=== PATIENT | female | born 1985 | race Caucasian/White ===

== ENCOUNTER 2019-09-20 19:46 | Outpatient (CLI) | payer MEDICAID, SELFPAY ==
[2013-06-09 00:23] VITALS: BMI 17.2
[2019-09-20 20:09] VITALS: BMI 19.1
[2019-09-20 20:11] VITALS: TEMP 36.8; O2SAT 100
[2019-09-20 20:12] VITALS: BP 100/59; PULSE 81; O2SAT 100
[2019-09-20 21:23] LABS: Color, Urine Yellow (Yellow); Glucose, Dipstick Normal (Normal); Ketone-Dipstick Negative (Negative); Leukocyte Esterase-Dipstick 100 /ul (Negative); Nitrite-Dipstick Negative (Negative); Occult Blood-Urine 150 /ul (Negative); Protein-Dipstick 15 mg/dl (Negative); Urine Bilirubin Dipstick Negative (Negative); Urine Clarity Sl. Cloudy (Clear); Urine Urobilinogen 4 mg/dl (Normal); Urine pH 6.5 (5.0 - 8.0)
[2019-09-20 21:32] LABS: Bacteria 1+ /hpf (None Seen); Mucous, Urine 1+ /hpf (<or=2+); Red Blood Cells-Urine 0-5 SEEN /hpf (0-5); Squamous Epithelial Cells - UA 5-10 SEEN /hpf (5-10); White Blood Cells 5-10 SEEN /hpf (0-5)
--- NOTE | 2019-09-21 14:44 | OB.TRI.HP_ITS ---
History of Present Illness Date of Service: 09/20/19 Was patient seen by the physician?: No Reason For Visit: VAGINAL BLEEDING Date of Service: 09/20/19 Final HIREN: 12/19/19 Gestational age: 27 Weeks and 1 Days Allergies No Known Allergies Allergy (Verified 06/09/13 00:30) Laboratory Studies: Laboratory Tests 09/20/19 Range/Units 21:10 Urine Color Yellow (Yellow) Urine Clarity Sl. Cloudy (Clear) Urine pH 6.5 (5.0 - 8.0) Ur Specific [place] 1.020 (1.002-1.030) Urine Protein 15 H (Negative) mg/dl Urine Glucose (UA) Normal (Normal) mg/dl Urine Ketones Negative (Negative) mg/dl Urine Occult Blood 150 H (Negative) /ul Urine Nitrite Negative (Negative) Urine Bilirubin Negative (Negative) mg/dL Urine Urobilinogen 4 H (Normal) mg/dl Ur Leukocyte Esterase 100 H (Negative) /ul Urine RBC 0-5 SEEN (0-5) /hpf Urine WBC 5-10 SEEN (0-5) /hpf Ur Squamous Epith Cells 5-10 SEEN (5-10) /hpf Urine Bacteria 1+ (None Seen) /hpf Urine Mucus 1+ (<or=2+) /hpf Physical Exam Vitals: Vital Signs Temp Pulse BP Pulse Ox 98.3 F 81 100/59 L 100 09/20/19 20:11 09/20/19 20:12 09/20/19 20:12 09/20/19 20:12 NST - FHR Rate Baby A Baseline: 135 Variability:: Moderate Accelerations:: 10 x 10 Decelerations:: None NST Reactive:: Appropriate for gestational age FHR Category:: Category I Uterine Activity:: quiet Impression/Plan 34 YOF @ 27 1/7 weeks gestation with vaginal bleeding in second trimester no active bleeding Reassuring NST home and f/u as needed or as scheduled
== END 2019-09-20 21:10 | disposition home or self-care (01) ==
LOC: WPOUT 19:57 → WP 19:57
PROVIDERS: PCP Family Medicine; Visit Provider Advanced Practice Midwife
DX: O46.92 Antepartum hemorrhage, unspecified, second trimester (principal); Z3A.27 27 weeks gestation of pregnancy
CPT/HCPCS: 59050; 81001; 87086; 87088; 99218; G0378

== ENCOUNTER 2019-11-06 09:25 | Outpatient (CLI) | payer MEDICAID, SELFPAY ==
[2019-11-06] VITALS (15 sets, daily range): BP systolic 93–101; BP diastolic 51–57; PULSE 73–107; TEMP 36.7–39.1; O2SAT 97–100; BMI 19.4
[2019-11-06 10:52] LABS: ROM Internal Control Test YES-OK TO RESULT pt. (Internal QC)
[2019-11-06 10:53] LABS: ROM Patient Test POSITIVE (Negative)
[2019-11-06 12:01] LABS: Amphetamine Urine VISTA NEGATIVE (<1000 ng/mL); Barbiturate Urine VISTA NEGATIVE (< 200 ng/mL); Benzodiazepine Urine VISTA NEGATIVE (< 200 ng/mL); Cocaine Urine VISTA NEGATIVE (< 300 ng/mL); Ecstacy Urine VISTA NEGATIVE (< 500 ng/mL); Methadone Urine VISTA NEGATIVE (< 300 ng/mL); PCP Urine VISTA NEGATIVE (< 25 ng/mL); THC Urine VISTA NEGATIVE (< 50 ng/mL); Vista UDS pH Range 7
[2019-11-06] MEDS: Betamethasone/Betamethasone 30 MG/5 ML Vial 12 MG IM (12:05)
--- NOTE | 2019-11-06 12:10 | US_ITS ---
STUDY: SECOND AND THIRD TRIMESTER OBSTETRICAL ULTRASOUND REASON FOR EXAM: Female, 34 years old GROWTH AND SHELTON- PROM LMP: 03/14/2019 TECHNIQUE: Transabdominal TECHNICAL QUALITY: Adequate. PRIOR ULTRASOUND: None. FINDINGS: There is a single intrauterine fetus. The fetus is in a cephalic presentation. There is demonstrated cardiac activity with a heart rate of 128 bpm. There is a normal amniotic fluid volume. The largest amniotic fluid pocket measures 6.9 cm. The amniotic fluid index (SHELTON) is 22.5 cm. The placenta is anterior in location and is not low lying. There are Grade 1 placental changes. The cervix measures in length. The bilateral adnexal regions are normal. BIOMETRY: BPD: 8.1: 32 weeks, 5 days HC: 30.2: 33 weeks, 4 days AC: 29.1: 33 weeks, 1 days FL: 6.7: 34 weeks, 4 days age by current US: 33 weeks, 4 days. HIREN by current US: 12/21/2019. Estimated weight: 2203 grams, +/- 322 grams, 32 %. Age by LMP: 33 weeks, 6 days. HIREN by LMP: 12/19/2019. US/OB Limited With Biometrics IMPRESSION: age by current US: 33 weeks, 4 days. HIREN by current US: 12/21/2019. Estimated weight: 2203 grams, +/- 322 grams, 32 %. The largest amniotic fluid pocket measures 6.9 cm. The amniotic fluid index (SHELTON) is 22.5 cm. Electronically Signed: Evelia Chaudhry, at 14:04 EDT Tel , Service support ,
[2019-11-06] MEDS: Lactated Ringers 1,000 ML 50 ML IV (12:15)
[2019-11-06 12:46] LABS: Absolute Lymphocyte Count 1.81 X10^3/uL (0.83-4.51); Absolute Neutrophil Count 6.5 X10^3/uL (2.0-7.7); Basophil# 0.02 X10^3/uL; Basophil% 0.2 % (0-1); Eosinophil# 0.08 X10^3/uL; Eosinophils% 0.9 % (0-5); Hematocrit 31.6 % (37-47); Lymphocyte # 1.81 X10^3/ul (4.0); Mean Corp Hgb Conc 31.6 g/dL (32-36); Mean Corpuscular Hgb 31.5 pg (27.0-32.0); Mean Corpuscular Volume 99.7 fL (81-99); Mean Platelet Vol. 11.3 fl (6.2-12.0); Monocyte% 6.6 % (0-10); NRBC Flagged by Analyzer 0 % (0-5); Neutrophil # 6.47 X10^3/uL (2.7-7.7); Neutrophil % 71.4 % (47-70); Platelet Count 169 K/mm3 (150-450); RBC Distribution Width CV 12.7 % (11.6-14.6); RBC Distribution Width SD 45.8 fl (35.1-43.9); Red Blood Count 3.17 M/mm3 (4.2-5.4); White Blood Count 9.1 K/mm3 (4.4-11.0)
[2019-11-06 13:44] LABS: Group B Strep DNA By PCR Negative (Negative); Internal Control PASS; Probe Check PASS; Specimen Processing Control PASS
--- NOTE | 2019-11-06 18:22 | PCM.HP.OB ---
History Date of Admission: 11/06/19 Final HIREN: 12/19/19 Gestational age: 33 Weeks and 6 Days History of this : 34-year-old 3 para 1-0-1-0 33-6/7 weeks gestation presents complaining of some vaginal bleeding. She denied any regular contractions. She denied any cervical exams or intercourse or trauma. Her is complicated to date by anxiety, tobacco use, history of genital herpes, and history of previous 38-week IUFD 7 years ago. She also noted she had some watery fluid. She had a ROM + test collected that was positive but there was blood on the swab. She denies fever or chills. no pain with movement. Allergies No Known Allergies Allergy (Verified 06/09/13 00:30) Home Medications: Home Medications Sertraline HCl [Zoloft] 100 mg PO DAILY 09/20/19 busPIRone [Buspar] 2.5 mg PO DAILY 09/20/19 Vits [Prenatabs FA] 1 tab PO DAILY 11/06/19 Smoking Status: Light Smoker (<10/day) Substance Use Type: Anxiety Medications NST - FHR Rate Baby A Baseline: normal Variability:: Moderate Accelerations:: 15 x 15 Decelerations:: None NST Reactive:: Yes FHR Category:: Category I Uterine Activity:: quiet History Past Pregnancies: Past Pregnancies Delivery Date Name GA/ Weeks Outcome Route Wt Sex Labor Length Anesthesia Delivery Location Provider FOB Expected Delivery Method: Spontaneous Vaginal Review of Systems Constitutional: Denies: Anorexia, Chills, Fever Eyes: Denies: Blurred vision Cardiovascular: Denies: Chest Pain Respiratory: Denies: Cough Gastrointestinal: Denies: Abdominal Pain, Diarrhea Genitourinary: Denies: Dysuria Skin: Denies: Rash Neurological: Denies: Blurred vision Endocrine: Reports: - - anxiety Physical Exam Vitals: Vital Signs Temp Pulse BP Pulse Ox 98.5 F 79 93/54 L 99 11/06/19 15:27 11/06/19 15:27 11/06/19 15:27 11/06/19 15:27 General: Alert, Cooperative, No apparent distress Cardiovascular: Regular rate Lungs: Normal air movement Abdomen: Soft, Non Tender, Non-Distended, Gravid Extremities:: No edema Neurological: Cranial nerves II-XII grossly intact, Neuro grossly intact, Muscle tone normal. 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 pooling. Cervix smooth and nonfriable, pink. Estimated gestational size: Appropriate for gestational size Presentation: Cephalic Assessment/Plan This is a 34 year-old, @ 33 6/7 weeks gestation. Initially suspected PPROM. Now here for vaginal bleeding and threatened PTL fern collected, neg. No further signif. leaking. Minimal amount of brown discharge on pad last 6 hrs. testing reassuring. ROM+ likely false + b/c of blood. Monitor tonight. Testing reassuring. Growth and fluid normal. Reevaluate in the am. If no further bleeding likely d/c home after second dose of betamethasone. Ok for regular diet, activity ad rios and NST q shift. Reviewed findings/plan w/ patient and she states understanding and agreement. H/o term IUFD so patient understandably anxious.
[2019-11-06] MEDS: Sertraline 100 MG Tablet PO (21:51)
[2019-11-07 04:14] VITALS: BP 100/58; PULSE 75; TEMP 36.2
[2019-11-07 06:22] LABS: Hematocrit 28.9 % (37-47); Hemoglobin 9.5 g/dL (12.0-15.0); Mean Corp Hgb Conc 32.9 g/dL (32-36); Mean Corpuscular Hgb 32.3 pg (27.0-32.0); Mean Corpuscular Volume 98.3 fL (81-99); Mean Platelet Vol. 10.4 fl (6.2-12.0); Platelet Count 172 K/mm3 (150-450); RBC Distribution Width CV 12.3 % (11.6-14.6); RBC Distribution Width SD 43.8 fl (35.1-43.9); Red Blood Count 2.94 M/mm3 (4.2-5.4); White Blood Count 11.1 K/mm3 (4.4-11.0)
[2019-11-07 07:12] LABS: Fibrinogen 577 mg/dl (203-444)
[2019-11-07 07:30] VITALS: BP 104/59; PULSE 82; TEMP 38.2; O2SAT 100
[2019-11-07 07:31] VITALS: TEMP 37.1; O2SAT 100
--- NOTE | 2019-11-07 08:52 | PN.OBGYN_ITS ---
Subjective: No abdominal pain, some mild cramping. Does not appreciate contractions and would not time them if she was at home. Continues to have some dark brown mucus spotting. No abdominal pain. Good FM. - Physical Exam Vitals/I&O's: Vital Signs Temp Pulse BP Pulse Ox 98.8 F 82 104/59 L 100 11/07/19 07:31 11/07/19 07:30 11/07/19 07:30 11/07/19 07:31 Weight: 53.07 kg Body Mass Index (BMI) 19.4 Intake and Output for Last 24 Hours 11/05/19 11/06/19 11/07/19 23:59 23:59 23:59 Intake Total 56.67 / 56.67 Balance 56.67 / 56.67 General: Alert, Cooperative, No apparent distress Abdomen: Soft, Non Tender, Non-Distended, Gravid, Appropriate for Gestational Age Extremities: No edema Skin: No rashes Psych/Mental Status: Normal Affect Laboratory Results 11/06/19 10:35: Vag Amniotic Fld Detect POSITIVE H 11/06/19 11:25: Group B Strep DNA Negative, Specimen Comment Not Reportable 11/06/19 11:25: Urine Opiates Screen NEGATIVE, Urine Methadone Screen NEGATIVE, Ur Barbiturates Screen NEGATIVE, Ur Phencyclidine Scrn NEGATIVE, Ur Amphetamines Screen NEGATIVE, U Methamphetamin-MDMA NEGATIVE, U Benzodiazepines Scrn NEGATIVE, Urine Cocaine Screen NEGATIVE, U Cannabinoids Screen NEGATIVE, Ur Drug Screen Comment 11/06/19 12:15: WBC 9.1, RBC 3.17 L, Hgb 10.0 L, Hct 31.6 L, MCV 99.7 H, MCH 31.5, MCHC 31.6 L, RDW Std Deviation 45.8 H, RDW Coeff of Susanna 12.7, Plt Count 169, MPV 11.3, Immature Gran % (Auto) 0.900, Neut % (Auto) 71.4 H, Lymph % (Auto) 20.0, [place] % (Auto) 6.6, Eos % (Auto) 0.9, Baso % (Auto) 0.2, Absolute Neuts (auto) 6.5, Absolute Lymphs (auto) 1.81, Nucleated RBC % 0 11/06/19 12:15: Blood Type A POSITIVE, Antibody Screen NEGATIVE 11/07/19 06:15: WBC 11.1 H, RBC 2.94 L, Hgb 9.5 L, Hct 28.9 L, MCV 98.3, MCH 32.3 H, MCHC 32.9, RDW Std Deviation 43.8, RDW Coeff of Susanna 12.3, Plt Count 172, MPV 10.4 11/07/19 06:15: Fibrinogen 577 H Current Medications Betamethasone Acet/Betameth SodPhos (Celestone) 12 mg IM X1 ONE Stop: 11/07/19 12:06 Buspirone HCl (Buspar) 2.5 mg PO DAILY [facility] Lactated Ringer's () 1,000 mls @ 50 mls/hr IV .Q20H IVETTE Last Infusion: 11/06/19 16:25 Dose: 0 mls/hr Documented by: Nicotine (Nicoderm Cq (Pbkc)) 7 mg TRANSDERM. 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 Normal perineum. Normal labia majora and minora. Vagina with pink normal rugated and good support. Cervix is smooth and nonfriable. There is small amount of brown-tinged mucus discharge in the vault. Negative pooling. Attempted to collect ROM plus test however the swab was grossly bloody so it was not sent. Cervix is 1, 50% effaced, -4 station and ballotable. Bag of lawson palpated. When head is digitally elevated, no return of fluid noted. Stress test: Baseline normal. Variability is moderate. Accelerations are present 15 x 15 bpm, decelerations are absent. Test is reactive. Tocometer shows uterine ability with some irregular contractions. Assessment and plan 34-year-old 3 para 1-0-1-0 at 34-0/7 weeks gestation with threatened labor and vaginal bleeding. I discussed with her at this time I do not see any evidence of placental abruption. Labs are stable. Testing is reassuring. Would recommend kick counts, pelvic rest, and light activity. Follow-up in the office 11/10/2019 for nonstress test. Call or return if any further bleeding or issues. Patient is comfortable with this plan if the fern slide by collected today is negative for ferning. I will notify nursing of the results.
--- NOTE | 2019-11-07 12:37 | NURSING ---
Dr. Urena called to notify that fern test is negative. Patient can be discharged after receiving her Celestone injection.
[2019-11-07 13:00] VITALS: BP 100/56; PULSE 81; PULSE 82; TEMP 37.1; O2SAT 100
[2019-11-07] MEDS: Betamethasone/Betamethasone 30 MG/5 ML Vial 12 MG IM (13:03)
== END 2019-11-07 13:25 | disposition home or self-care (01) ==
LOC: WPOUT 09:30 → WP 09:31
PROVIDERS: PCP Family Medicine; Referring Provider Obstetrics & Gynecology; Visit Provider Obstetrics & Gynecology
DX: O60.03 Preterm labor without delivery, third trimester (principal); Z3A.34 34 weeks gestation of pregnancy; O99.333 Smoking (tobacco) complicating pregnancy, third trimester; F17.200 Nicotine dependence, unspecified, uncomplicated
CPT/HCPCS: 36415; 59025; 59050; 76816; 80307; 84112; 85025; 85027; 85384; 86850; 86900; 86901; 87081; 87653; 96372; 99218; J7120; G0378; J0702

== ENCOUNTER 2019-11-09 14:50 | Inpatient (IN) | payer MEDICAID, SELFPAY ==
[2019-11-06 10:23] VITALS: BMI 19.4
[2019-11-09] VITALS (35 sets, daily range): BP systolic 95–126; BP diastolic 51–72; PULSE 61–98; TEMP 36.8–38.5; O2SAT 81–100; BMI 19.8
[2019-11-09] MEDS: Lactated Ringers 1,000 ML 50 ML IV (15:15)
[2019-11-09 15:31] LABS: ROM Internal Control Test YES-OK TO RESULT pt. (Internal QC)
[2019-11-09 15:32] LABS: ROM Patient Test POSITIVE (Negative)
--- NOTE | 2019-11-09 15:42 | HP.PCM_ITS ---
- Problem List (1) 34 weeks gestation of Status: Acute (2) premature rupture of membranes (PPROM) with unknown onset of labor Status: Acute (3) History of stillbirth Status: Acute (4) Limited care Status: Acute (5) Anxiety Status: Acute (6) Tobacco abuse Status: Acute (7) Herpes Status: Acute History Date of Admission: 11/06/19 Final HIREN: 12/19/19 Gestational age: 34 Weeks and 2 Days History of this : This is a 34 year-old, who presents at 34 weeks gestation of age with gross rupture of membranes at home. She feels some contractions. No additional vaginal bleeding after having bleeding several days ago. Positive movement. Allergies No Known Allergies Allergy (Verified 11/09/19 15:09) Home Medications: Home Medications Sertraline HCl [Zoloft] 100 mg PO DAILY 09/20/19 busPIRone [Buspar] 2.5 mg PO DAILY 09/20/19 Vits [Prenatabs FA ] 1 tab PO DAILY 11/06/19 Smoking Status: Light Smoker (<10/day) Substance Use Type: Anxiety Medications Number of Fetus(es): 1 NST - FHR Rate Baby A FHR Category:: Category I Uterine Activity:: Ctx's q 3-4 min History Past Pregnancies: Past Pregnancies Delivery Date Name GA/ Weeks Outcome Route Wt Infant Sex Labor Length Anesthesia Delivery Location Provider FOB 38 IUFD Labs: GBS neg See [facility] records Expected Delivery Method: Spontaneous Vaginal Physical Exam General: Alert, No apparent distress HEENT: Atraumatic Abdomen: Gravid Extremities:: No edema Neurological: Neuro grossly intact 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 - GBS negative - S/p BMZ x 2 - Epidural for pain control -Discussed risks, benefits, alternatives to induction of labor. Discussed risk, benefits, alternatives to expectant management as well. The patient desires to proceed with induction if she does not go into labor on her own. She understands risks of prematurity with induction. She understands risks including but not limited to infection with expectant management. Discussed baby to special care nursery and possible transfer to [facility]. All questions answered about plan of care and PPROM - Will recheck cvx in 2 hrs. If unchanged and/or if she is not more uncomfortable with ctx's, will start pitocin as patient desires to proceed with delivery - H/o anxiety on Buspar and Zoloft
[2019-11-09 15:54] LABS: Absolute Neutrophil Count 10.5 X10^3/uL (2.0-7.7); Basophil# 0.02 X10^3/uL; Basophil% 0.1 % (0-1); Eosinophil# 0.03 X10^3/uL; Eosinophils% 0.2 % (0-5); Hematocrit 31.6 % (37-47); Hemoglobin 10.1 g/dL (12.0-15.0); Lymphocyte % 15.5 % (19-41); Mean Corpuscular Hgb 32.5 pg (27.0-32.0); Mean Corpuscular Volume 101.6 fL (81-99); Mean Platelet Vol. 11.8 fl (6.2-12.0); Monocyte# 1.15 X10^3/uL; Monocyte% 8.1 % (0-10); NRBC Flagged by Analyzer 0.6 % (0-5); Neutrophil # 10.54 X10^3/uL (2.7-7.7); Neutrophil % 74.3 % (47-70); Platelet Count 163 K/mm3 (150-450); RBC Distribution Width CV 12.6 % (11.6-14.6); Red Blood Count 3.11 M/mm3 (4.2-5.4); White Blood Count 14.2 K/mm3 (4.4-11.0)
[2019-11-09] MEDS: Oxytocin 30 units/NS 500 ml 30 UNITS/500 ML IV.SOLN IV (18:00)
[2019-11-09] MEDS: Lactated Ringers 500 ML 999 ML IV ×2 (18:35→22:02)
[2019-11-09 20:00] LABS: Amphetamine Urine VISTA NEGATIVE (<1000 ng/mL); Barbiturate Urine VISTA NEGATIVE (< 200 ng/mL); Benzodiazepine Urine VISTA NEGATIVE (< 200 ng/mL); Cocaine Urine VISTA NEGATIVE (< 300 ng/mL); Ecstacy Urine VISTA NEGATIVE (< 500 ng/mL); Methadone Urine VISTA NEGATIVE (< 300 ng/mL); PCP Urine VISTA NEGATIVE (< 25 ng/mL); THC Urine VISTA NEGATIVE (< 50 ng/mL); Vista UDS pH Range 6
[2019-11-09] MEDS: fentaNYL-bupivacaine (epidural) 100 ML BAG EPIDURAL (22:46)
[2019-11-10] VITALS (28 sets, daily range): BP systolic 90–178; BP diastolic 48–77; PULSE 67–119; RESP 16–18; TEMP 36.7–39.2; O2SAT 84–100
[2019-11-10] MEDS: Lactated Ringers 1,000 ML 200 ML IV (00:54)
--- NOTE | 2019-11-10 01:25 | PCM.PN.BLA ---
Progress Note Called for compound presentation. At bedside to examine patient. Transabdominal ultrasound performed and fetus noted to be in vertex presentation with a hand overhead. Cervical exam performed. Cervix was 8/90/+1 station. head palpated with hand and arm prolapse through the cervix over the head. hand was pinched in an attempt to get the fetus to reduce the hand given there was enough space next to the head. Compound presentation persisted. No prolapsed cord present. Discussed options moving forward with patient. Discussed risks with a vaginal delivery including labor dystocia, difficult delivery, fracture, nerve injury. Discussed risk with the section including bleeding, infection, injury to surrounding organs. The patient desires to proceed with a vaginal delivery and understands the risks of this with a compound presentation. Discussed that if baby is not delivering easily once she gets to complete, will proceed with a section. STROKE Vital Signs/Narrative: Vital Signs Temp Pulse BP Pulse Ox 11/10/19 00:16 71 100 11/10/19 00:11 69 100 11/10/19 00:08 98.3 F 73 100/55 L 11/10/19 00:06 73 100 11/09/19 23:53 78 100 11/09/19 23:48 66 100 11/09/19 23:45 72 90 11/09/19 23:43 64 100 11/09/19 23:39 67 101/55 L 11/09/19 23:38 72 100 11/09/19 23:33 73 100 11/09/19 23:28 74 100 11/09/19 23:23 71 99 11/09/19 23:18 70 100 11/09/19 23:13 70 100 11/09/19 23:12 98.2 F 100 11/09/19 23:10 71 102/51 L 11/09/19 23:08 65 100 11/09/19 23:07 74 92 11/09/19 23:03 64 105/57 L 100 11/09/19 22:58 61 106/52 L 100 11/09/19 22:53 69 106/55 L 100 11/09/19 22:48 69 100 11/09/19 22:47 75 108/64 11/09/19 22:44 71 107/56 L 11/09/19 22:43 62 100 05/25/20 22:39 73 81 11/09/19 22:37 82 122/67 H 100 11/09/19 22:32 92 126/72 H 100 11/09/19 22:27 84 123/59 H 100 11/09/19 22:07 98.3 F 63 98/59 L 100 11/09/19 21:26 98.8 F
[2019-11-10] MEDS: Amnioinfusion- 0.9% NS 1,000 ML IV.SOLN. 300 ML INTRA-UTER (02:23)
[2019-11-10] MEDS: Oxytocin 30 units/NS 500 ml 30 UNITS/500 ML IV.SOLN 334 UNITS IV (03:07)
--- NOTE | 2019-11-10 03:34 | PLAC_PTH ---
PATIENT: DANIEL YEBOAH LOC: [facility] U#:[id number] AGE/SX: 34/F ROOM: WP003 RE11/09/[address]: Dr. Angelica Morales DO : 1985 BED: 1 DIS: 11/12/2019 SPEC #: [id number] RECD: 11/10/19 16:35 STATUS: JACK RELary #: [id number] JESSE: 11/10/19 03:[address]: Angelica oMrales DEPT: SURGICAL PATHOLOGY RECD BY: Epifanio Penn ENTERED: 11/10/19 08:59 SP TYPE: PLACENTA OTHR DR: Dr. Shola Antonio MD Tissues: Placenta, NOS Procedures: Surgery Specimen Level V HEADER OPERATION: Vaginal delivery PRE-OP DIAGNOSIS: PPROM at 34 weeks, history of IUFD at 39 weeks TISSUE SUBMITTED: Placenta MICROSCOPIC DIAGNOSIS Cassidy placenta (429 gm): Umbilical cord - trivascular with acute funisitis. Placental membranes - no pathologic change. Placental disc - mild chorioangiosis, minimal Jt-William change. AM:juan pablo 11/12/19 MICROSCOPIC DESCRIPTION Slides are reviewed. GROSS DESCRIPTION SPECIMEN: PLACENTA / CLINICAL INFORMATION: A. Weight: 2.238 kg B. Gestational Age: 34 weeks C. Sex: Female PLACENTAL WEIGHT (POST FIXATION): 429 gm PLACENTAL DIMENSIONS: 16 x 14 x 2.8 cm PLACENTAL SHAPE: Usual ovoid PLACENTAL WEIGHT FOR GESTATIONAL AGE: Within 10-99th percentile MEMBRANES - Present A. Insertion: Marginal B. Site of rupture from edge: At edge of placental disc C. Color of membrane: Hassan-greenish consistent with meconium staining D. Abnormalities: None UMBILICAL CORD - Present A. Color: Hassan-yun B. Insertion: Central C. Length: 21 cm D. Diameter: 1.1 cm E. Number of vessels: Three F. Abnormalities: None PLACENTAL DISC - Present A. Color of surface: Hassan-yun B. surface abnormalities: None C. Maternal cotyledons: Intact with minimal tears D. Attached retro placental clot: No clot E. Cut surface: Dark red and spongy F. Lesions: None G. Separate clot: Multiple detached blood clots are noted measuring in aggregate 6 x 6 x 2 cm and weigh 22 gm. SECTIONS SUBMITTED: 1. Membrane roll 2. Cord, maternal end 3. Cord, end 4. Placental disc, and maternal surfaces 5. Placental disc, and maternal surfaces 6. Placental disc, and maternal surfaces SJ:juan pablo 11/11/19 TC:2 CPT: 66938
--- NOTE | 2019-11-10 03:35 | OP.PCM_ITS ---
Problem List (1) 34 weeks gestation of Status: Acute (2) premature rupture of membranes (PPROM) with unknown onset of labor Status: Acute (3) History of stillbirth Status: Acute (4) Limited care Status: Acute (5) Anxiety Status: Acute (6) Tobacco abuse Status: Acute (7) Herpes Status: Acute Report of Operation Date of Procedure: 11/10/19 Pre-Operative Diagnosis: 34 week gestation, PPROM, limited care, h/o term IUFD. Post-Operative Diagnosis: As above. Surgery/Procedure Performed:: Description of Surgical Findings:: Compound presentation with baby's left arm and hand presenting over head. Type of Anesthesia:: Epidural Special Medications: None Specimen's removed: Placenta Drains: Bowers Estimated Blood Loss (mL): 200 Description of Procedure: The infant's left hand and arm was presenting over the head. Patient was complete and pushing. The left arm and head were delivered without any force or delay followed by the anterior shoulder, posterior shoulder, body. A viable female was delivered atraumatically without any force or delay. The cord was clamped and cut immediately and the infant was handed off to the nursery staff. Cord gases were obtained. The placenta was delivered with fundal massage. The placenta was normal-appearing and intact with a three-vessel cord. Uterus was explored x1. Bleeding was hemostatic and fundus was firm. A first- degree vaginal laceration was repaired in usual fashion. Sponge and instrument counts were correct. Vaginal sweep was performed. Grafts/Implants Used: None - Complications None - Admit VTE Documentation VTE Present on Admission: No Vaginal Delivery Maternal Presentation: Medically Indicated Induction Method of Induction: Pitocin Medical Reason for Induction: Premature Rupture of Membranes Amniotic Membrane Rupture Type: Spontaneous at home Amniotic Fluid Description: Clear Surgery/ Procedure Performed: Spontaneous Vaginal Delivery Type of Anesthesia: Epidural Placental Delivery Description: Expressed Placenta Disposition: [facility] Cord Vessel Description: 3 Vessels Cord Gases drawn per routine: ABG, VBG Cord Entanglement: None Drain: Bowers to straight drain A gender: Female (1 minute): 8 (5 minute): 9 Episiotomy Description: None Medications given after delivery: IV Pitocin Complications: None
[2019-11-10] MEDS: Acetaminophen 500 MG Tablet 1000 MG PO (04:09)
[2019-11-10 04:38] LABS: Pathology Specimen OB SEE PATHOLOGY REPORT
[2019-11-10] MEDS: busPIRone 5 MG Tablet 2.5 MG PO (10:20)
[2019-11-10] MEDS: Sertraline 100 MG Tablet PO (10:20)
--- NOTE | 2019-11-10 13:50 | NURSING ---
PT CALLED OUT AND STATED SHE WAS SEEING SPOTS VITAL SIGNS OBTAINED AND WE GAVE HER SOME APPLE JUICE. PT STATES SHE KNOWS SHE NEEDS TO EAT, PT'S BABY IS IN THE SCN.
[2019-11-11 03:16] VITALS: BP 95/43; PULSE 82; RESP 16; TEMP 36.4; O2SAT 97
[2019-11-11] MEDS: Acetaminophen 500 MG Tablet 1000 MG PO (08:01)
[2019-11-11 08:44] VITALS: BP 99/53; PULSE 64; RESP 16; TEMP 36.8; O2SAT 98
--- NOTE | 2019-11-11 08:52 | PN.OBGYN_ITS ---
Patient Problems: Active and Suspected Problems 34 weeks gestation of (Acute) premature rupture of membranes (PPROM) with unknown onset of labor (Acute) History of stillbirth (Acute) Limited care (Acute) Anxiety (Acute) Tobacco abuse (Acute) Herpes (Acute) Subjective: Doing well per patient and nursing staff. Ambulating and taking PO without difficulty. Voiding and passing flatus. Attempted but bottle feeding with formula at this time. Pain controlled. Lochia normal. Planning D/C to [facility] status tomorrow. - Physical Exam Vitals/I&O's: Vital Signs Temp Pulse Resp BP Pulse Ox 98.2 F 64 16 99/53 L 98 11/11/19 08:44 11/11/19 08:44 11/11/19 08:44 11/11/19 08:44 11/11/19 08:44 Oxygen Delivery Method Room Air Weight: 119 lb Body Mass Index (BMI) 19.8 Intake and Output for Last 24 Hours 11/09/19 11/10/19 11/11/19 23:59 23:59 23:59 Intake Total 1367.70 / 1367.70 1433.55 / 1433.55 Output Total 650 / 650 400 / 400 Balance 717.70 / 717.70 1033.55 / 1033.55 General: Alert, Oriented x3, Cooperative HEENT: Atraumatic, Normocephalic Neck: Trachea Midline Lungs: Clear to auscultation, Normal air movement, No rhonchi, No wheeze Cardiovascular: Regular rate, Regular Rhythm, No murmurs Abdomen: Bowel Sounds Present, Soft - Fundus firm 3 below U Extremities: No edema - Gera's negative Psych/Mental Status: Normal Affect, Appropriate Microbiology Past 72 Hours 11/10/19 03:07 Other - Placenta Gram Stain - Final 11/09/19 16:25 Mucosa - Nasopharyngeal Coronavirus COVID-19 PCR - Final Current Medications Acetaminophen (Tylenol) 1,000 mg PO Q8H PRN PRN PRN Reason: Pain Score 1-3/10 Last Admin: 11/11/19 08:01 Dose: 1,000 mg Documented by: Bisacodyl (Dulcolax) 10 mg RECTAL UD PRN PRN Reason: If no BM Buspirone HCl (Buspar) 2.5 mg PO DAILY [facility] Last Admin: 11/10/19 10:20 Dose: 2.5 mg Documented by: Dibucaine (Dibucaine) 1 applic TOPICAL TID PRN PRN; Protocol PRN Reason: Discomfort Hydrocortisone (Hytone) 1 applic TOPICAL TID PRN PRN; Protocol PRN Reason: Discomfort Ibuprofen (Motrin) 600 mg PO Q6H PRN PRN PRN Reason: Pain Score 1-3/10 Methylergonovine Maleate (Methergine) 0.2 mg IM X1 PRN PRN Reason: Excess bleeding/uterine atony Ondansetron HCl (Zofran) 4 mg IV Q4H PRN PRN PRN Reason: Nausea Senna/Docusate Sodium (Senokot-S, Emma-Colace) 1 - 2 tablet PO DAILY PRN PRN PRN Reason: Constipation Sertraline HCl (Zoloft) 100 mg PO DAILY IVETTE Last Admin: 11/10/19 10:20 Dose: 100 mg Documented by: Simethicone (Mylicon) 80 mg PO PCHS PRN PRN Reason: Indigestion/Stomach pain Sodium Chloride () 5 - 15 ml IV UD PRN PRN Reason: SALINE FLUSH Medical Necessity - Tobacco Use Smoking Status: Light Smoker (<10/day) Assessment/Plan All Active Problems 34 weeks gestation of (Acute) premature rupture of membranes (PPROM) with unknown onset of labor (Acute) History of stillbirth (Acute) Limited care (Acute) Anxiety (Acute) Tobacco abuse (Acute) Herpes (Acute) A:PPD #1 at 34 weeks gestational age P: 1) Routine care 2) Pain management 3) D/C to hot status tomorrow
[2019-11-11] MEDS: busPIRone 5 MG Tablet 2.5 MG PO (10:34)
[2019-11-11] MEDS: Ibuprofen 600 MG Tablet PO ×2 (12:18→21:11)
[2019-11-11 14:00] VITALS: BP 105/56; PULSE 80; RESP 16; TEMP 37.4; O2SAT 100
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
[2019-11-11] MEDS: Sertraline 100 MG Tablet PO (21:11)
[2019-11-11 21:13] VITALS: BP 104/54; PULSE 84; RESP 18; TEMP 36.9
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
[2019-11-12 05:05] VITALS: BP 99/49; PULSE 71; RESP 18; TEMP 36.9
--- NOTE | 2019-11-12 08:36 | PCM.PN.OB ---
Patient Problems: Active and Suspected Problems 34 weeks gestation of (Acute) premature rupture of membranes (PPROM) with unknown onset of labor (Acute) History of stillbirth (Acute) Limited care (Acute) Anxiety (Acute) Tobacco abuse (Acute) Herpes (Acute) Subjective: Patient doing well. Denies chest pain, shortness of breath, lightheadedness, dizziness, severe pain, leg pain. Lochia normal. She is planning on bottlefeeding. Tolerating a diet without nausea or vomiting. Ambulating and voiding without difficulty. She desires to be discharged today. - Physical Exam Vitals/I&O's: Vital Signs Temp Pulse Resp BP Pulse Ox 98.4 F 71 18 99/49 L 100 11/12/19 05:05 11/12/19 05:05 11/12/19 05:05 11/12/19 05:05 11/11/19 14:00 Oxygen Delivery Method Room Air Weight: 119 lb Body Mass Index (BMI) 19.8 Intake and Output for Last 24 Hours 11/10/19 11/11/19 11/12/19 23:59 23:59 23:59 Intake Total 1433.55 / 1433.55 Output Total 400 / 400 Balance 1033.55 / 1033.55 General: Alert, No apparent distress HEENT: Atraumatic Abdomen: Soft, Non Tender, - - FF@U-2 Extremities: No edema Skin: No rashes Neurological: Neuro grossly intact Psych/Mental Status: Normal Affect, Appropriate Microbiology Past 72 Hours 11/10/19 03:07 Other - Placenta Miscellaneous Culture - Preliminary Gram negative juan miguel 11/10/19 03:07 Other - Placenta Gram Stain - Final 11/09/19 16:25 Mucosa - Nasopharyngeal Coronavirus COVID-19 PCR - Final Current Medications Acetaminophen (Tylenol) 1,000 mg PO Q8H PRN PRN PRN Reason: Pain Score 1-3/10 Last Admin: 11/11/19 08:01 Dose: 1,000 mg Documented by: Bisacodyl (Dulcolax) 10 mg RECTAL UD PRN PRN Reason: If no BM Buspirone HCl (Buspar) 2.5 mg PO DAILY IVETTE Last Admin: 11/11/19 10:34 Dose: 2.5 mg Documented by: Dibucaine (Dibucaine) 1 applic TOPICAL TID PRN PRN; Protocol PRN Reason: Discomfort Hydrocortisone (Hytone) 1 applic TOPICAL TID PRN PRN; Protocol PRN Reason: Discomfort Ibuprofen (Motrin) 600 mg PO Q6H PRN PRN PRN Reason: Pain Score 1-3/10 Last Admin: 11/11/19 21:11 Dose: 600 mg Documented by: Methylergonovine Maleate (Methergine) 0.2 mg IM X1 PRN PRN Reason: Excess bleeding/uterine atony Ondansetron HCl (Zofran) 4 mg IV Q4H PRN PRN PRN Reason: Nausea Senna/Docusate Sodium (Senokot-S, Emma-Colace) 1 - 2 tablet PO DAILY PRN PRN PRN Reason: Constipation Sertraline HCl (Zoloft) 100 mg PO DAILY IVETTE Last Admin: 11/11/19 21:11 Dose: 100 mg Documented by: Simethicone (Mylicon) 80 mg PO PCHS PRN PRN Reason: Indigestion/Stomach pain Sodium Chloride () 5 - 15 ml IV UD PRN PRN Reason: SALINE FLUSH Medical Necessity - Tobacco Use Smoking Status: Light Smoker (<10/day) Assessment/Plan All Active Problems 34 weeks gestation of (Acute) premature rupture of membranes (PPROM) with unknown onset of labor (Acute) History of stillbirth (Acute) Limited care (Acute) Anxiety (Acute) Tobacco abuse (Acute) Herpes (Acute) Patient is day 2 from a vaginal delivery. She is meeting all milestones to be discharged and she desires to be discharged today. Discharge instructions reviewed. She is bottlefeeding. Baby is in special care nursery.
--- NOTE | 2019-11-12 08:38 | DCINST_ITS ---
Discharge Diet: No Restrictions Discharge Activity: May Shower, May Take a Tub Bath May resume sexual activity in: 6 weeks Ice area for (Minutes): 15 Weight Bearing Status: Weight bearing as tolerated Lifting Restrictions: None Call your doctor if you observe: Fever of 101 or Higher, Inability to urinate, Inability to have a bowel movement, Using more than one pad per hour, Shortness of breath, Dizziness, Chest pain, Increased palpitations (irregular heartbeat), Calf discomfort, Uncontrolled pain Cleanse incision/area with: Soap & Water Additional Instructions: If you experience any of the following, contact your healthcare provider. * Bleeding that soaks a pad every hour for 2 hours * Fever 100.4 or higher * Unrelieved incision or abdominal pain * Swelling, redness, discharge or bleeding from your incision or episiotomy site * Your incision begins to separate * Problems urinating (including inability to urinate or burning while urinating). * Visual changes * Severe headache * Flu-like symptoms * Pain or redness in one of both of your breasts * Pain, warmth, tenderness or swelling in your legs, especially the calf area * Frequent nausea and vomiting * Symptoms of depression or anxiety If you experience any of the following, call 911 or go to the nearest Emergency Room. * Chest pain * Problems breathing * Seizure activity * Partial or complete paralysis of a body part, slurred speech, weakness or drooping of the face, or a sudden inability to walk or hold your balance Allergies/Adverse Reactions: Allergies No Known Allergies Allergy (Verified 11/09/19 15:09) Medications to take at Discharge Sertraline HCl [Zoloft] 100 mg PO DAILY 09/20/19 busPIRone [Buspar] 2.5 mg PO DAILY 09/20/19 Vits [Prenatabs FA ] 1 tab PO DAILY 11/06/19 Please Follow Up With: Angelica Morales DO When: 6 week visit. Also schedule a 1-2 week follow up if you desire. Primary Care Physician: Shola Antonio MD [Primary Care Provider] - Test Results: Test results from this visit will be discussed in further detail at your follow- up appointment, if applicable.
[2019-11-12 09:04] VITALS: BP 104/59; PULSE 87; RESP 16; TEMP 36.8; O2SAT 100
--- NOTE | 2019-11-12 12:33 | NURSING ---
infant in SCN, patient going to hotel status.
--- NOTE | 2019-11-12 15:45 | CASEMGMT ---
Social Work Labor and Delivery Unit Date of Intervention: 11.12.2019 Time of Intervention: 1544 ? Referred by: Verbal notification by nursing staff ? Reason for Referral: admitted to the [facility]; maternal history of anxiety. ? Informant: Mother of baby (MOB) Gracie Avelar and medical records. For continuity of care of families admitted to the [facility], this food writer is the assigned social worker palliative care to the [facility] as well. MOB educated to dual role between [facility] and [facility] units. ? Household composition: ADDIE lives with her mother Sasha and Sasha's significant other Joel. MOB reports home situation is safe and adequate. ? Patient's parent/guardian status: MOB is age 34, single female. Father of baby (FOB) is reported as a Eliud Colby who is single male, age 39. MOB and FOB ended their 2 year relationship during this . MOB reports she was tired of FOB's negativity and picking at MOB verbally. MOB denies any Physical abuse by FOB, but more verbal and emotional. Baby Mckenzie is the first child for MOB and FOB together. FOB has a 12 year old daughter from a prior relationship. ? Medical History: ADDIE is G3, P1 to 2 after delivering Mckenzie. MOB delivered a 38 week baby boy, in November 2011, at 38 weeks gestation. That baby, Zach, was born stillborn. Mckenzie is first live delivery, born at 34 weeks gestation. MOB reports history of one elective terminated at the age of 19. care with Mckenzie started at 6 weeks, but did have long stretches between appointments. Baby Mckenzie was born at 34 weeks, weighing 4 pounds 15 ounces, and Apgars of 8 and 9 at . ? Educational Status: ADDIE graduated high school and is enrolled in an online bachelors program for Health Care Management. ADDIE is able to read, write, and to understand what is read. ? [facility] [place] [facility] [place] ? 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 ADDIE plans to return to work in some capacity. Finances are reported as okay at this time. ? Childcare/Caregiver(s): MOB and MOB's mother to help. ? Transportation: No issues and reported as adequate. ? Programs/Agencies Involved: [facility] for medicaid. Interested in WIC. Declines [facility] referral but will accept information. Denies any other agency involvement at this time. Does have history of counseling. ? Behavioral Health Issues: Mental Health: Maternal history of anxiety and then after loss of fist child history of depression/grief. ADDIE describes her anxiety as more agoraphobia, but that tries not to let this anxiety stop ADDIE from living and going out. ADDIE reports she has been to counseling in the past, though not currently. ADDIE has been prescribed Zoloft, Buspar and Xanax for emotional health issues. Report the Xanax is more of a safety net, to just use when absolutely need and provided relief in just knowing that MOB has an option if needed beyond normal coping and daily medication regiment. MOB denies use of Xanax during . No reports of suicidal thoughts, plans, action, or intent. No thoughts of harm to others. Substances Use: MOB denies abuse or dependence on alcohol. Denies illicit substance use. Did try marijuana in high school years. Drug Screens: MOB with negative drug screens on 05.01.2019, 10.14.2019. 11.06.2019, and 11.09.2019. No testing on baby. Family History: Family history includes ADDIE's father with history of schizoaffective disorder, which MOB reports occurred after some trauma. ? Family and/or Social Stressors: MOB with anxiety during this related to history of loss and how this would translate to with Mckenzie. While MOB reports to be happy that baby is in the SCN to get needed care at this time, there is a layer of anxiety due to baby having to be in the hospital. Other stressors and changes in the last year or so include stress with the FOB who was not real supportive of the and did not treat MOB the best. Separation from FOB, moving out of home that shared with FOB and then back into MOB's mothers home. MOB reports her mother is a support, but it is challenging living with your parents again after being independent for so long. MOB is also in college, trying to work, and keep up with things related to the . ? Support Systems: MOB reports her mother is a strong support. MOB does have some friends. ? Assessment Met with MOB in her room. MOB willing and agreeable to talk to social worker palliative care. MOB held good eye contact and was talkative with this food writer. This meeting occurred over the baby's feeding time and MOB voiced had previously decided to skip the feeding and attend next feeding, as was waiting for MOB's mother to bring a car seat for the baby. MOB does report to have all needed supplies for the baby including safe sleep space, car seat, clothing, diapers, wipes, bottles, and can get formula. MOB reports she does feel a connection to the baby, and this food writer observed MOB to smile when talking about the baby. MOB reports perspective that she sees the SCN stay as a positive one in the sense that nursing is around to help and care for baby should something happen, as MOB reports she would not know what to do if baby had a problem. MOB able to voice awareness of anxiety and how this impacts her life, reporting this has been present for many years and knows that will have to manage this in the future. MOB plans to remain on medication and use normal ways of coping. May consider counseling again in the future, though no referrals at this time. Educated MOB to depression, anxiety, and psychosis; risk factors present and importance of seeking out help and support. MOB only wanted information on [facility], rather than a referral for home visiting/support after discharge. Emotional support and supportive listening and reflection offered to MOB this date. Let MOB know that this food writer would be following along while baby is in the SCN. MOB voiced agreement. Educated MOB to shaken baby prevention and safe sleeping. MOB able to give appropriate responses to both. ? Plan MOB is discharging today. Resource lists for [facility] including counseling options, and then depression packet and resources will be provided to MOB. ? HINA Ridley
== END 2019-11-12 13:00 | disposition home or self-care (01) | DRG 560 ==
PROVIDERS: Admitting Provider Obstetrics & Gynecology; PCP Family Medicine; Visit Provider Obstetrics & Gynecology
DX: O42.913 Preterm premature rupture of membranes, unspecified as to length of time between rupture and onset of labor, third trimester (principal); O32.6XX0 Maternal care for compound presentation, not applicable or unspecified; Z3A.34 34 weeks gestation of pregnancy; Z37.0 Single live birth; F41.9 Anxiety disorder, unspecified; O99.344 Other mental disorders complicating childbirth; F17.200 Nicotine dependence, unspecified, uncomplicated; O99.334 Smoking (tobacco) complicating childbirth; O77.0 Labor and delivery complicated by meconium in amniotic fluid; O70.0 First degree perineal laceration during delivery
CPT/HCPCS: 36415; 59025; 59050; 76815; 76816; 80307; 84112; 85025; 85027; 85384; 86850; 86900; 86901; 87070; 87077; 87081; 87186; 87205; 87635; 87653; 88307; 96372; 99218; G2023; J7030; J7120; G0378; J0702; U0004

== ENCOUNTER 2020-08-02 17:17 | Emergency (ER) | payer MEDICAID, SELFPAY ==
[2019-11-09 15:14] VITALS: BMI 19.8
[2020-08-02 17:18] VITALS: BP 117/70; PULSE 92; RESP 17; TEMP 36; O2SAT 100; BMI 17.9
--- NOTE | 2020-08-02 17:37 | CT_ITS ---
STUDY: CTA CHEST REASON FOR EXAM: Female, 34 years old. Chest pain for 4 days. Smoker. RADIATION DOSAGE (If Supplied By Facility): CTDIvol = ( 2.91 ) mGy, DLP = ( 123.08 ) mGycm TECHNIQUE: The examination was performed with the intravenous administration of IV 75mL Isovue-370. Post-processing of the angiographic images was performed, with multiplanar reformation and 3D reconstruction. Individualized dose optimization techniques were used for this CT. COMPARISON: Chest, 06/09/2013. FINDINGS: Normal enhancement of the main pulmonary artery and right and left pulmonary arteries. Normal enhancement of the bilateral peripheral pulmonary arteries. There is no demonstrated pulmonary embolism. Normal thoracic aorta and visualized great vessels. There is no demonstrated aortic dissection. Normal heart and pericardium. Normal mediastinum. Normal hilar regions. Normal visualized trachea and bronchi. The lungs are hyper expanded, with flattening of the hemidiaphragms. Normal pulmonary parenchyma. Normal pleura. Normal chest wall structures. Normal osseous structures. Normal visualized upper abdomen. CT/CTA Chest W/WO Contrast IMPRESSION: Normal CTA chest examination, without a demonstrated pulmonary embolism or arterial dissection. Electronically Signed: Gonzalo Multani DO at 19:21 EST Tel [phone], Service support ,
--- NOTE | 2020-08-02 17:38 | EKG12_ITS ---
Test Reason : CP Blood Pressure : / mmHG Vent. Rate : 089 BPM Atrial Rate : 089 BPM P-R Int : 102 ms QRS Dur : 088 ms QT Int : 380 ms P-R-T Axes : 063 077 011 degrees QTc Int : 462 ms Sinus rhythm with short OR Nonspecific ST abnormality Abnormal ECG Confirmed by MORIS CHAPARRO, CARTER ([id number]), editorial specialist MANDY DC ([id number]) on 08/04/2020 1:49:35 PM Referred By: WES Confirmed By:CARTER SUBRAMANIAN MD
--- NOTE | 2020-08-02 17:39 | ED.DCSUM_ITS ---
- ER Visit Summary Date of Service: 08/02/20 Chief Complaint: Left lateral chest pain and abnormal patient D-dimer History of Present Illness: The patient is a 34 F Struve anxiety. Prior D&C. Smoker. Pacing since Saturday 5 days ago started having left lateral chest pain. Worse with deep breath. No hemoptysis. Mild exertional shortness of breath. No leg pain or swelling. No recent travel, surgery or immobilization. Not on control. Currently on her menstrual period now. Has never had a DVT or PE. No family history of clotting disorders or cardiac disease at young age. Physical Examination: Well-appearing young female. Vital signs stable afebrile. Pulse ox 90% on room air no signs hypoxia. H EENT exam unremarkable. Neck nontender no lymphadenopathy. Lungs few scattered expiratory wheezes. In the bases. No rales or rhonchi. Equal symmetrical. Heart regular rhythm rate about 90 no murmur. Chest wall nontender. No rib tenderness. Abdomen soft nontender normal bowel sounds no peritoneal signs. Patient moving all 4 extremities. Calves nontender without edema or cords. Back nontender. Neurologically patient is awake alert with no focal motor deficits. Test Results: CBC white count of 5 hemoglobin 11 which is better than her baseline which normally runs 9-10. Chemistries potassium 3.4 chloride of 110 normal creatinine and gap. Troponin normal outpatient D-dimer earlier today was 0.66. CTA chest shows no PE nor any dissection nor any other acute abnormality read by the radiologist Doctor Nerissa and reviewed by me. Emergency Department Course and Treatment: Left-sided chest pain with abnormal D-dimer therefore rule out PE. She has no history of clots nor family history nor risk factors. Multiple repeat exams patient is doing well at 1930. She and I went over all he r test results. This will be treated as pleurisy. Treatment Plan: Motrin for pain. Follow-up with not improving. Disposition: Discharge Impression: Left-sided pleuritic chest pain secondary to pleurisy This note was generated with [employer] dictation software. It may contain incorrect words, spelling, and punctuation that were not noted in review of the chart prior to signing ED Disposition - Plan for ED Patient: Referrals: Bereket Schulte MD [Primary Care Provider] -
[2020-08-02 17:42] VITALS: O2SAT 97
[2020-08-02] MEDS: 0.9% Normal Saline 1,000 ML 999 ML IV (17:57)
[2020-08-02 18:03] LABS: Absolute Lymphocyte Count 2.03 X10^3/uL (0.83-4.51); Absolute Neutrophil Count 3.1 X10^3/uL (2.0-7.7); Basophil# 0.03 X10^3/uL; Basophil% 0.5 % (0-1); Eosinophil# 0.09 X10^3/uL; Eosinophils% 1.6 % (0-5); Hematocrit 34.5 % (37-47); Lymphocyte # 2.03 X10^3/ul (4.0); Lymphocyte % 35.9 % (19-41); Mean Corp Hgb Conc 31.9 g/dL (32-36); Mean Corpuscular Hgb 29.2 pg (27.0-32.0); Mean Corpuscular Volume 91.5 fL (81-99); Mean Platelet Vol. 10.5 fl (6.2-12.0); Monocyte# 0.43 X10^3/uL; Monocyte% 7.6 % (0-10); NRBC Flagged by Analyzer 0 % (0-5); Neutrophil # 3.07 X10^3/uL (2.7-7.7); Neutrophil % 54.2 % (47-70); Platelet Count 241 K/mm3 (150-450); RBC Distribution Width CV 14.6 % (11.6-14.6); RBC Distribution Width SD 49.1 fl (35.1-43.9); Red Blood Count 3.77 M/mm3 (4.2-5.4); White Blood Count 5.7 K/mm3 (4.4-11.0)
[2020-08-02 18:20] LABS: Anion Gap 4 (5-15); BUN 6 mg/dL (7-18); BUN/Creat Ratio 9.1 RATIO (10-20); Calcium,Total 9.3 mg/dL (8.5-10.1); Chloride 110 mmol/L (98-107); Creatinine, Serum 0.66 mg/dL (0.55-1.02); EST Glomerular Filtration Rate 109 mL/min (>60); Est Glom Filt Rate - Afr Amer 132 mL/min (>60); Estimated Creatinine Clearance 89.49 ml/min; Glucose 93 mg/dL (74-106); Potassium 3.4 mmol/L (3.5-5.1); Sodium Level 141 mmol/L (136-145)
--- NOTE | 2020-08-02 19:30 | ED.DEP ---
ED Disposition - Plan for ED Patient: Disposition: Home or Assisted Living Instructions: ED Pleurisy Referrals: Bereket Schulte MD [Primary Care Provider] - 3-5 Days if not improving Additional Instructions: Motrin, Advil or ibuprofen for pain 4 to 600 mg 3-4 times a day for the next several days. This should progressively improve and the pain should go away. Your labs look good today. Your CAT scan showed no signs of a blood clot nor any other acute abnormalities. This is consistent with pleurisy which is inflammation of your lung lining. Long-term stop smoking.
[2020-08-02 19:48] VITALS: PULSE 72; RESP 17; O2SAT 99
== END 2020-08-02 19:48 | disposition home or self-care (01) ==
PROVIDERS: Emergency Provider Emergency Medicine; PCP Family Medicine
DX: R09.1 Pleurisy (principal); F41.9 Anxiety disorder, unspecified; Z79.899 Other long term (current) drug therapy; F17.200 Nicotine dependence, unspecified, uncomplicated
CPT/HCPCS: 71275; 80048; 84484; 85025; 85379; 93005; 96360; 96361; 99284; J7030; Q9967; A4216

== ENCOUNTER → 2020-08-02 | Outpatient (CLI) | payer MEDICAID, SELFPAY ==
[2019-11-09 15:14] VITALS: BMI 19.8
[2020-08-02 16:58] LABS: D-Dimer Quantitative (DVT/PE) 0.66 FEU/ug/m (0.27-0.49)
== END | disposition home or self-care (01) ==
LOC: LABSPEC 15:01
PROVIDERS: PCP Family Medicine; Referring Provider Nurse Practitioner; Visit Provider Nurse Practitioner
DX: R07.9 Chest pain, unspecified (principal)
CPT/HCPCS: 85379

== ENCOUNTER 2021-02-02 10:17 | Emergency (ER) | payer MEDICAID, SELFPAY ==
[2021-02-02 10:18] VITALS: BP 113/67; PULSE 90; RESP 18; TEMP 36.3; O2SAT 100; BMI 18.3
[2021-02-02 10:21] VITALS: BP 113/67; PULSE 90; RESP 18; TEMP 36.3; O2SAT 100
--- NOTE | 2021-02-02 10:43 | EDS_ITS ---
HPI History of Present Illness Chief Complaint: Cough Detail of Chief Complaint: Feels short of breath. Informant: patient Onset/Context/Timing Onset: Yesterday Context: gradual Timing: Intermittent Current Severity: Mild Maximum Severity: Mild Associated Symptoms cough; Negative for white sputum, yellow sputum or green sputum Chest Pain: Positive for None Narrative Narrative: 35-year-old female past medical history of anxiety and pleurisy. Says since yesterday she just feels short of breath. States she does not feel sick. Denies nausea, vomiting, diarrhea or fever. Denies chills. Mild not significant nonproductive cough. No hemoptysis. No chest pain. No history of DVT or PE. No leg pain or swelling. PE Risk Factors: Negative for Cancer, OCP + Smoking + > 35, Prior DVT or PE, Recent immobilization, Recent surgery and Recent travel Prior similar symptoms: No Recent Illness/Hospitalization: No PFSH PFSH Home Medications sertraline 100 mg PO DAILY 09/20/19 [History Last Taken 11/08/19] alprazolam 0.25 mg PO QHS PRN PRN 08/02/20 [History Last Taken Unknown] Allergy/AdvReac Type Severity Reaction Status Date / Time No Known Allergies Allergy Verified 08/02/20 17:17 Social History Smoking Status: Current every day smoker tobacco type: cigarettes ROS ROS ED Review of Systems ROS Unobtainable: Denies due to encephalopathy Constitutional Constitutional ED: Denies chills or fever(s) Eyes Eyes: Denies change in vision ENT ENT ED: Denies ear pain or sore throat Cardiovascular Cardiovascular: Denies chest pain Respiratory/Chest Respiratory/Chest: Reports dyspnea; Denies cough or sputum Gastrointestinal Gastrointestinal: Denies abdominal pain, diarrhea, nausea or vomiting Genitourinary Genitourinary ED: Denies dysuria or hematuria Musculoskeletal Musculoskeletal: Denies myalgias Integumentary Denies rash Neurologic Neurologic: Denies headache(s) Psychiatric Psychiatric: Denies depression Endocrine Endocrinology: Denies polyuria Hematologic/Lymphatic Hematologic/Lymphatic: Denies easy bruising Allergic/Immunologic Allergic/Immunologic ED: Denies urticaria EXAM Physical Exam Narrative Exam Narrative: 30 failure female no acute distress. Vital signs stable afebrile. Pulse ox 100% on room air no signs hypoxia. H EENT exam normal. Moist with memories. Neck nontender no lymphadenopathy. Lungs clear to auscultation bilaterally. Heart regular rhythm no murmur. Rate about 85. Abdomen soft nontender. Moving all 4 extremities. Equal symmetrical radial pulses. Calves nontender without edema or cords. Back nontender. Neurolog ically awake and alert no focal motor deficits. Const Vital Signs: 02/02/21 10:18 02/02/21 10:21 02/02/21 10:45 Temperature 97.3 F L 97.3 F L Temperature Source Temporal Temporal Pulse Rate 90 90 Respiratory Rate 18 18 Respiratory Effort Normal Short of Breath Blood Pressure 113/67 113/67 Blood Pressure Mean 82 82 Pulse Ox 100 100 Oxygen Delivery Method Room Air Room Air 02/02/21 12:26 Temperature 98 F Temperature Source Temporal Pulse Rate 66 Respiratory Rate 19 H Respiratory Effort Blood Pressure 103/65 Blood Pressure Mean 77 Pulse Ox 100 Oxygen Delivery Method Room Air Positive well nourished and well developed; Negative for obese, cachectic, contractures or unkempt General Appearance ED: well developed and NAD; Negative for unkempt, cachectic or contractures Nutritional Appearance: Negative for cachectic or obese HEENT Reports moist mucous membranes atraumatic; Negative for trauma or tenderness Eyes PERRL and EOMs intact bilaterally Neck no lymphadenopathy, supple, no meningeal signs and no JVD General: Negative for tenderness Resp normal respiratory effort and clear to auscultation bilaterally Auscultation: Negative for rales, rhonchi or wheezes Cardio regular rate, regular rhythm, S1 normal heart sound, S2 normal heart sound and no murmurs GI non-tender, non-distended and no masses Auscultation: normoactive bowel sounds Palpation: soft; Negative for tender, guarding or rebound tenderness present Back/Spine no CVA tenderness and normal to inspection General Back: Negative for CVA tenderness Extremity normal to inspection General Extremety ED: Negative for edema or tenderness General Extremity: Negative for edema Neuro oriented x3 Sensorium / Orientation: alert, oriented to person, oriented to place and oriented to time; Negative for orientation impaired, confused, lethargic or stuporous Motor Exam: strength 5/5 throughout Psych mental status grossly normal Appearance: Negative for unkempt Thought Process: normal thought process Skin no wounds Lesions: no lesions Rashes: no rashes MDM MDM MDM Narrative Medical decision making narrative: 35-year-old female with subjective dyspnea. Is a completely normal exam and pulse ox. I think this may be anxiety. I will obtain a chest x-ray and a Covid test however. Repeat exam patient is doing well at Lab Data Attestation: I reviewed the patient's lab results. Lab results narrative: Covid rapid test was negative. Radiography Chest X-Ray - ED: 1 View, Read by ED Physician, Normal, Heart, Lungs, Mediastinum, Bony Structures and No Acute Disease Diagnostic Testing: Portable 1 view chest x-ray shows no acute abnormality. Normal cardiac silhouette. No infiltrates. Interpreted by myself. Discharge Plan Triage Chief Complaint: Cough ED Provider: Mega Agrawal Dx/Rx/DC Orders Clinical Impression: Anxiety Instructions: ED Anxiety Reaction Prescriptions: No Action sertraline 100 MG tablet 100 mg PO DAILY RF: 0 alprazolam 0.25 MG tablet 0.25 mg PO QHS PRN PRN (Reason: Anxiety) RF: 0 Primary Care Provider: Bereket Schulte Referrals: Bereket Schulte MD [Primary Care Provider] - 3-5 Days if not improving Activity Restrictions/Additional Instructions: Your Covid test was negative and your chest x-ray was normal. This may be secondary to anxiety. Follow-up with your doctor as needed. Disposition Disposition: Home, Self Care
[2021-02-02 12:26] VITALS: BP 103/65; PULSE 66; RESP 19; TEMP 36.6; O2SAT 100
--- NOTE | 2021-02-02 12:36 | RAD_ITS ---
STUDY: X-RAY CHEST REASON FOR EXAM: Female, 35 years old. Dyspnea TECHNIQUE: Single AP portable view of the chest. COMPARISON: Comparison is made with prior study dated 06/09/2013. FINDINGS: EKG electrodes are seen. The lungs are clear and expanded. There is no demonstrated pleural abnormality. Normal size heart. Normal mediastinum and cecelia. Normal visualized pulmonary arteries. Normal visualized aortic arch and descending thoracic aorta. There is a dextroscoliosis of the thoracic spine. Normal visualized ribs, clavicles, and shoulders. There is no demonstrated abnormality of the visualized soft tissue structures of the upper abdomen. RAD/Chest 1 View (Portable) IMPRESSION: Hyperinflation. The lungs are clear. Dextroscoliosis. Electronically Signed: Pedro Lopez MD at 13:22 EDT , Service support ,
== END 2021-02-02 13:16 | disposition home or self-care (01) ==
PROVIDERS: Emergency Provider Emergency Medicine; PCP Family Medicine
DX: F41.9 Anxiety disorder, unspecified (principal); F17.210 Nicotine dependence, cigarettes, uncomplicated
CPT/HCPCS: 71045; 87426; 99282

== ENCOUNTER 2021-03-12 21:27 | Emergency (ER) | payer MEDICAID, SELFPAY ==
[2021-03-12 21:28] VITALS: BP 95/74; PULSE 80; RESP 16; TEMP 36.8; O2SAT 100; BMI 20.8
[2021-03-12 21:32] VITALS: PULSE 79
--- NOTE | 2021-03-12 22:11 | EKG12_ITS ---
Test Reason : PALPITATIONS Blood Pressure : / mmHG Vent. Rate : 077 BPM Atrial Rate : 077 BPM P-R Int : 110 ms QRS Dur : 088 ms QT Int : 396 ms P-R-T Axes : 061 071 033 degrees QTc Int : 448 ms Sinus rhythm with short ND Otherwise normal ECG Confirmed by NORMA CHAPARRO, MIKE ([id number]), film or videotape editor NANCY JERONIMO ([id number]) on 03/15/2021 10:07:32 AM Referred By: CRISTINE Confirmed By:MIKE GREEN MD
[2021-03-12 22:21] VITALS: O2SAT 100
[2021-03-12 22:21] LABS: Absolute Lymphocyte Count 2.76 X10^3/uL (0.83-4.51); Absolute Neutrophil Count 2.9 X10^3/uL (2.0-7.7); Basophil# 0.03 X10^3/uL; Basophil% 0.5 % (0-1); Eosinophil# 0.28 X10^3/uL; Eosinophils% 4.3 % (0-5); Hematocrit 37.3 % (37-47); Hemoglobin 12.4 g/dL (12.0-15.0); Lymphocyte # 2.76 X10^3/ul (0.83-4.51); Lymphocyte % 42.2 % (19-41); Mean Corp Hgb Conc 33.2 g/dL (32-36); Mean Corpuscular Hgb 32.8 pg (27.0-32.0); Mean Corpuscular Volume 98.7 fL (81-99); Mean Platelet Vol. 11.1 fl (6.2-12.0); Monocyte% 9.2 % (0-10); NRBC Flagged by Analyzer 0 % (0-5); Neutrophil # 2.86 X10^3/uL (2.7-7.7); Neutrophil % 43.6 % (47-70); Platelet Count 178 K/mm3 (150-450); RBC Distribution Width CV 12.6 % (11.6-14.6); RBC Distribution Width SD 45.4 fl (35.1-43.9); Red Blood Count 3.78 M/mm3 (4.2-5.4); White Blood Count 6.5 K/mm3 (4.4-11.0)
[2021-03-12 22:34] LABS: Anion Gap 6 (5-15); BUN 9 mg/dL (7-18); BUN/Creat Ratio 13.3 RATIO (10-20); Chloride 107 mmol/L (98-107); Creatinine, Serum 0.68 mg/dL (0.55-1.02); EST Glomerular Filtration Rate 105 mL/min (>60); Est Glom Filt Rate - Afr Amer 127 mL/min (>60); Estimated Creatinine Clearance 103.54 ml/min; Glucose 117 mg/dL (74-106); Potassium 3.3 mmol/L (3.5-5.1); Sodium Level 141 mmol/L (136-145); Troponin-I HS 4 pg/mL (3.0-54.0)
--- NOTE | 2021-03-12 22:37 | RAD_ITS ---
STUDY: X-RAY CHEST REASON FOR EXAM: Female, 35 years old. Chest pain TECHNIQUE: Single AP portable view of the chest. COMPARISON: February 02, 2021 chest x-ray FINDINGS: The lungs are clear and expanded. There is no demonstrated pleural abnormality. Normal size heart. Normal mediastinum and cecelia. Normal visualized pulmonary arteries. Normal visualized aortic arch and descending thoracic aorta. There is mild dextroscoliosis. Normal visualized ribs, clavicles, and shoulders. There is no demonstrated abnormality of the visualized soft tissue structures of the upper abdomen. RAD/Chest 1 View (Portable) IMPRESSION: Dextroscoliosis. Stable chest. Nonspecific hyperinflation of the lungs. No focal infiltrate. Electronically Signed: Danna Macias MD at 3:45 EDT Tel , Service support ,
[2021-03-12 22:50] VITALS: BP 110/56; PULSE 80; RESP 14; O2SAT 100
--- NOTE | 2021-03-12 23:06 | EX.ED.DYSGE1 ---
HPI History of Present Illness Chief Complaint: Palpitations Narrative Narrative: 35-year-old female with history of anxiety presenting with palpitations. She states this is intermittent. She states that her primary care physician did lab work and noted that her MCV was a little low and that her T4 was a little low. She states that she has a history of EKG with short MT interval. Patient states that she has a history of anxiety but does not feel this is due to her anxiety. She has no history of DVT/PE and no risk factors. Patient is denying chest pain. She states that sometimes she will wake up in the morning and her heart will race and other times it will not. She states that throughout the day sometimes her heart rate speeds up and then will go back down to normal. She does not have any chest pain with these episodes. She has not had a fever or cough. She is not had nausea or vomiting. She denies urinary complaints. Is not concerned for . [facility] Medical History Anxiety Herpes Home Medications sertraline 100 mg PO DAILY 09/20/19 [History Last Taken 11/08/19] alprazolam 0.25 mg PO QHS PRN PRN 08/02/20 [History Last Taken Unknown] Allergy/AdvReac Type Severity Reaction Status Date / Time No Known Allergies Allergy Verified 08/02/20 17:17 Social History Smoking Status: Current every day smoker tobacco type: cigarettes ROS ROS ED Constitutional Constitutional ED: Denies chills or fever(s) Eyes Eyes: Denies blurry vision or change in vision ENT ENT ED: Denies rhinorrhea or sore throat Cardiovascular Cardiovascular: Reports palpitations and racing heartbeat; Denies chest pain Respiratory/Chest Respiratory/Chest: Denies cough or dyspnea Gastrointestinal Gastrointestinal: Denies abdominal pain, nausea or vomiting Genitourinary Genitourinary ED: Denies dysuria or hematuria Musculoskeletal Musculoskeletal: Denies arthralgias or myalgias Integumentary Denies Abrasions or rash Neurologic Neurologic: Denies headache(s) or paresthesias Psychiatric Psychiatric: Reports anxiety EXAM Physical Exam Const Vital Signs: 03/12/21 21:28 03/12/21 21:31 03/12/21 21:32 Temperature 98.2 F Temperature Source Oral Pulse Rate 80 79 Respiratory Rate 16 Respiratory Effort Normal Non-Labored Respiratory Pattern Normal Blood Pressure 95/74 Blood Pressure Mean 81 Pulse Ox 100 Oxygen Delivery Method Room Air 03/12/21 22:21 03/12/21 22:50 03/12/21 23:37 Temperature Temperature Source Pulse Rate 80 79 Respiratory Rate 14 15 Respiratory Effort Respiratory Pattern Blood Pressure 110/56 L 108/61 Blood Pressure Mean 74 76 Pulse Ox 100 100 98 Oxygen Delivery Method Room Air Room Air Room Air Positive well nourished General Appearance ED: NAD; Negative for pallor HEENT Reports moist mucous membranes Negative for trauma Eyes PERRL and EOMs intact bilaterally Neck no lymphadenopathy and supple Chest Wall palpation of chest normal Resp normal respiratory effort Cardio regular rate and regular rhythm Neuro oriented x3, CN's II-XII intact bilaterally and no sensory deficits noted Sensorium / Orientation: alert Motor Exam: strength 5/5 throughout Psych mental status grossly normal Skin no rashes or lesions noted General Skin Exam: Negative for jaundice or pallor MDM MDM MDM Narrative Medical decision making narrative: Patient presenting with palpitations. EKG on my interpretation shows a sinus rhythm ventricular rate of [address] elevation or depression. MT interval 110 ms, QRS duration 80 ms, QTC 448 ms. There is subtle [address] depression in lead II, aVF and this is seen on prehospital EKG as well as previous EKG performed 02 August 2020. Troponin is 4. CBC within normal limits. Renal function is normal. Potassium slightly low at 3.3 and is repleted. Patient is PERC negative. She has no cardiac risk factors or PE risk factors. Chest x-ray on my interpretation shows no acute cardiopulmonary process on my interpretation and due to radiology downtime I reviewed this with my partner and he agrees. I feel at this time the patient is stable to be discharged home as she has a negative cardiac work-up. She does not have any chest pain is only having palpitations. I counseled her to continue her plan with her primary care physician to have an outpatient Holter monitor. She is amenable to this and will discharge home in stable condition. Impression: 1. Palpitations Lab Data Attestation: I reviewed the patient's lab results. Labs: Laboratory Results - last 24 hr 03/12/21 03/12/21 21:37 21:37 WBC 6.5 RBC 3.78 L Hgb 12.4 Hct 37.3 MCV 98.7 MCH 32.8 H MCHC 33.2 RDW Std Deviation 45.4 H RDW Coeff of Susanna 12.6 Plt Count 178 MPV 11.1 Immature Gran % (Auto) 0.200 Neut % (Auto) 43.6 L Lymph % (Auto) 42.2 H Dane % (Auto) 9.2 Eos % (Auto) 4.3 Baso % (Auto) 0.5 Absolute Neuts (auto) 2.9 Absolute Lymphs (auto) 2.76 Nucleated RBC % 0 Sodium 141 Potassium 3.3 L Chloride 107 Carbon Dioxide 28.0 Anion Gap 6 BUN 9 Creatinine 0.68 Estim Creat Clear Calc 103.54 Est GFR (MDRD) Af Amer 127 Est GFR (MDRD) Non-Af 105 BUN/Creatinine Ratio 13.3 Glucose 117 H Calcium 9.0 Troponin I High Sens 4 Discharge Plan Triage Chief Complaint: Palpitations ED Provider: Michele Daniel Dx/Rx/DC Orders Instructions: ED Hypokalemia, ED Palpitations Prescriptions: No Action sertraline 100 MG tablet 100 mg PO DAILY RF: 0 alprazolam 0.25 MG tablet 0.25 mg PO QHS PRN PRN (Reason: Anxiety) RF: 0 Primary Care Provider: Bereket Schulte Referrals: Bereket Schulte MD [Primary Care Provider] - Disposition Disposition: Home, Self Care
[2021-03-12] MEDS: Potassium Chloride Oral Tablet 20 MEQ PO (23:15)
[2021-03-12 23:37] VITALS: BP 108/61; PULSE 79; RESP 15; O2SAT 98
[2021-03-13 00:37] VITALS: BP 112/54; PULSE 74; RESP 16; O2SAT 99
== END 2021-03-13 00:38 | disposition home or self-care (01) ==
PROVIDERS: Emergency Provider Student in an Organized Health Care Education/Training Program; PCP Family Medicine
DX: R00.2 Palpitations (principal); F41.9 Anxiety disorder, unspecified; Z79.899 Other long term (current) drug therapy; F17.210 Nicotine dependence, cigarettes, uncomplicated
CPT/HCPCS: 71045; 80048; 84484; 85025; 93005; 99285; A4216

== ENCOUNTER 2021-09-09 03:18 | Emergency (ER) | payer MEDICAID, SELFPAY ==
[2021-09-09 03:20] VITALS: BP 114/72; PULSE 90; RESP 12; TEMP 36.7; O2SAT 100
--- NOTE | 2021-09-09 03:22 | EKG12_ITS ---
Test Reason : TACHYCARDIA Blood Pressure : / mmHG Vent. Rate : 092 BPM Atrial Rate : 092 BPM P-R Int : 112 ms QRS Dur : 094 ms QT Int : 386 ms P-R-T Axes : 072 083 025 degrees QTc Int : 477 ms Normal sinus rhythm Nonspecific ST abnormality Abnormal ECG Confirmed by NORMA CHAPARRO, MIKE ([id number]), website/blog editor NANCY JERONIMO ([id number]) on 09/12/2021 11:09:38 AM Referred By: Confirmed By:MIKE GREEN MD
--- NOTE | 2021-09-09 04:07 | EX.ED.DYSGE1 ---
HPI History of Present Illness Chief Complaint: Palpitations Narrative Narrative: Patient is a 35-year-old female with past medical history of anxiety and palpitations currently being worked up for POTS. She is worn multiple Holter monitors and states that they have shown no cardiac dysrhythmia. She states this morning she was startled and awoke from sleep and felt her heart was racing. She states she was concerned this could progress into a abnormal heart rhythm and therefore called EMS. Patient states that she does approximate 300 mg of caffeine a day and does smoke half a pack a day but has been doing this for quite some time. She denies any illicit drug ingestion or excessive stimulant use. She does report feeling better upon arrival to the ER [facility] Medical History 34 weeks gestation of COVID-19 (07/01/21) Herpes Herpes History of stillbirth IBS (irritable bowel syndrome) Limited care premature rupture of membranes (PPROM) with unknown onset of labor Home Medications alprazolam 0.25 mg PO QHS PRN PRN 08/02/20 [History Last Taken Unknown] epinephrine 0.3 mg/0.3 mL injection, auto-injector 0.3 mg IM ONCE PRN 08/16/21 [History Last Taken Unknown] sertraline 100 mg tablet 100 mg PO QHS tab 08/23/21 [History Last Taken Unknown] Allergy/AdvReac Type Severity Reaction Status Date / Time venom-honey bee Allergy Unknown swelling Verified 09/09/21 03:23 Family History Mother Diabetes Father Schizoaffective disorder Grandmother Hypertension Diabetes Grandfather Myocardial infarction Grandmother Hypertension Grandfather Cancer lung Surgical History History of dilatation and curettage Social History Smoking Status: Current every day smoker tobacco type: cigarettes alcohol intake: never substance use type: does not use ROS ROS ED Constitutional Constitutional ED: Denies chills or fever(s) ENT ENT ED: Denies sore throat Cardiovascular Cardiovascular: Reports palpitations and racing heartbeat; Denies chest pain Respiratory/Chest Respiratory/Chest: Denies cough or dyspnea Gastrointestinal Gastrointestinal: Denies abdominal pain, diarrhea, nausea or vomiting Genitourinary Genitourinary ED: Denies dysuria Musculoskeletal Musculoskeletal: Denies myalgias Integumentary Denies rash Neurologic Neurologic: Denies headache(s) Psychiatric Psychiatric: Reports anxiety Hematologic/Lymphatic Hematologic/Lymphatic: Denies easy bleeding or easy bruising EXAM Physical Exam Const Vital Signs: 09/09/21 03:20 09/09/21 04:16 Temperature 98.1 F Temperature Source Oral Pulse Rate 90 80 Respiratory Rate 12 14 Blood Pressure 114/72 103/63 Blood Pressure Mean 86 Pulse Ox 100 100 Oxygen Delivery Method Room Air Positive well nourished and well developed General Appearance ED: well developed HEENT Reports moist mucous membranes Eyes PERRL and EOMs intact bilaterally Neck supple Resp normal respiratory effort and clear to auscultation bilaterally Cardio regular rate and regular rhythm Rate: other Other Details: Radial pulses are +2-4 bilaterally are equal and symmetric GI normal to inspection, nondistended, normoactive bowel sounds, non-tender, non-distended and no masses Auscultation: normoactive bowel sounds Palpation: soft Extremity normal to inspection Extremity Narrative: No asymmetric edema no pitting edema negative Homans' sign bilaterally Neuro oriented x3 and CN's II-XII intact bilaterally Sensorium / Orientation: alert Motor Exam: strength 5/5 throughout Psych mental status grossly normal Skin no rashes or lesions noted MDM MDM MDM Narrative Medical decision making narrative: Patient presented to the ER with spontaneous resolution of her symptoms. Vitals are stable and her heart rate is 80 to 90 bpm. Chart review reveals she has had multiple event monitors which have documented a max heart rate of approximately 160 bpm but sinus in nature. She had blood work done previously that has shown a normal thyroid as well as electrolytes and blood volume. At this time with spontaneous resolution of her symptoms and the previous work-up she has undergone we discussed repeat laboratory testing to ensure that her electrolytes and blood volume are normal. Patient states that she has not had any type of excessive bleeding with her menstrual cycles or loss of blood in the urine or stool and states she has been staying well-hydrated without bouts of nausea and vomiting. Therefore she does not want any further testing done. Therefore patient will be discharged as she has had spontaneous resolution of her symptoms with normal vitals and EKG showing normal sinus rhythm Discharge Plan Triage Chief Complaint: Palpitations ED Provider: Jakob Heath Dx/Rx/DC Orders Clinical Impression: POTS (postural orthostatic tachycardia syndrome), Palpitations Instructions: ED Palpitations Prescriptions: No Action sertraline 100 mg tablet 100 mg PO QHS RF: 0 alprazolam 0.25 MG tablet 0.25 mg PO QHS PRN PRN (Reason: Anxiety) RF: 0 epinephrine [EpiPen] 0.3 mg/0.3 mL auto-injector 0.3 mg IM ONCE PRN (Reason: bee sting) RF: 0 Primary Care Provider: Bereket Schulte Referrals: Bereket Schulte MD [Primary Care Provider] - Disposition Disposition: Home, Self Care Discharge Date/Time: 09/09/21 04:19
[2021-09-09 04:16] VITALS: BP 103/63; PULSE 80; RESP 14; O2SAT 100
== END 2021-09-09 04:19 | disposition home or self-care (01) ==
PROVIDERS: Emergency Provider Emergency Medicine; PCP Family Medicine; Visit Provider Emergency Medicine
DX: I49.8 Other specified cardiac arrhythmias (principal); F41.9 Anxiety disorder, unspecified; Z86.16 Personal history of COVID-19; K58.9 Irritable bowel syndrome, unspecified; F17.210 Nicotine dependence, cigarettes, uncomplicated; Z79.899 Other long term (current) drug therapy
CPT/HCPCS: 93005; 99284

== ENCOUNTER → 2021-10-31 | Outpatient (CLI) | payer MEDICAID, SELFPAY ==
--- NOTE | 2021-10-31 07:31 | ECHOD_ITS ---
Reason For Study: ARRHYTHMIA Procedure This was a 2D Doppler, Color Flow transthoracic echocardiogram. Exam performed in department. Left Ventricle Normal LV size. Apical false tendon noted. The estimated ejection fraction is 55 %. Normal diastology for age. No regional wall motion abnormalities noted. Right Ventricle Normal RV size. Normal systolic function. Atria Normal left atrium. Normal right atrium. Mitral Valve Normal mitral valve. Tricuspid Valve Normal tricuspid valve. Mild tricuspid valve insufficiency. Pulmonary artery systolic pressure is 30 mmHg. Aortic Valve Normal aortic valve. Trisinus/trileaflet aortic valve. Pulmonic Valve Normal pulmonic valve. Great Vessels Normal aortic root. The pulmonary artery is normal size. Normal inferior vena cava. Pericardium/Pleural No pericardial effusion. MMode/2D Measurements & Calculations LVIDd: 4.6 cm IVSd: 0.59 cm Ao root diam: 2.7 cm LVIDs: 3.0 cm LVPWd: 0.66 cm RVDd: 2.8 cm FS: 33.4 % LAV(MOD-bp): 23.3 ml LVAd ap4: 26.0 cm2 SV(MOD-sp4): 46.4 ml LAV(MOD-bp) Indexed: 15.2 ml/m2 LVLd ap4: 7.4 cm LAV(MOD-sp2): 21.9 ml EDV(MOD-sp4): 77.3 ml LAV(MOD-sp4): 24.9 ml EDV(sp4-el): 77.7 ml LVAs ap4: 14.7 cm2 LVLs ap4: 5.9 cm ESV(MOD-sp4): 30.8 ml ESV(sp4-el): 30.8 ml EF(MOD-sp4): 60.1 % EF(sp4-el): 60.4 % SV(sp4-el): 46.9 ml LA A4 area: 11.9 cm2 LA dimension(2D): 2.2 cm RA A4 area: 9.5 cm2 Time Measurements MV dec time: 0.16 sec Doppler Measurements & Calculations MV E max phong: 101.5 cm/sec Lat Peak E' Phong: 22.1 cm/sec Med Peak E' Phong: 15.0 cm/sec MV A max phong: 45.9 cm/sec E/E' lat: 4.6 E/E' med: 6.8 MV E/A: 2.2 Ao V2 max: 121.7 cm/sec LV V1 max: 92.6 cm/sec PA V2 max: 81.3 cm/sec Ao max P.9 mmHg LV V1 max P.4 mmHg TR max phong: 255.3 cm/sec TR max P.1 mmHg ECHO/Echo Complete Interpretation Summary Normal LV size. The estimated ejection fraction is 55 %. Apical false tendon noted. Normal diastology for age. Structurally normal valves. Ordering Physician: Tristen Walker Referring Physician: KAROLINE ASHLEY Performed By: Iris Bergeron RDCS
[2021-10-31 07:43] LABS: Absolute Neutrophil Count 2.4 X10^3/uL (2.0-7.7); Basophil# 0.02 X10^3/uL; Basophil% 0.3 % (0-1); Eosinophil# 0.24 X10^3/uL; Hematocrit 37.8 % (37-47); Hemoglobin 12.8 g/dL (12.0-15.0); Lymphocyte % 46.7 % (19-41); Mean Corp Hgb Conc 33.9 g/dL (32-36); Mean Corpuscular Hgb 32.7 pg (27.0-32.0); Mean Corpuscular Volume 96.7 fL (81-99); Mean Platelet Vol. 10.1 fl (6.2-12.0); Monocyte# 0.55 X10^3/uL; Monocyte% 9.2 % (0-10); NRBC Flagged by Analyzer 0 % (0-5); Neutrophil # 2.37 X10^3/uL (2.7-7.7); Neutrophil % 39.6 % (47-70); Platelet Count 175 K/mm3 (150-450); RBC Distribution Width CV 13.5 % (11.6-14.6); RBC Distribution Width SD 47.8 fl (35.1-43.9); Red Blood Count 3.91 M/mm3 (4.2-5.4)
[2021-10-31 07:50] LABS: Internal QC Validated? YES +Cl - CLEAR BKGD; Pregnancy, Serum, hCG Quali. NEGATIVE Negative
[2021-10-31 07:55] LABS: Anion Gap 4 (5-15); BUN 6 mg/dL (7-18); BUN/Creat Ratio 7.8 RATIO (10-20); Calcium,Total 9.1 mg/dL (8.5-10.1); Chloride 109 mmol/L (98-107); Creatinine, Serum 0.77 mg/dL (0.55-1.02); EST Glomerular Filtration Rate 90 mL/min (>60); Est Glom Filt Rate - Afr Amer 109 mL/min (>60); Glucose 100 mg/dL (74-106); Potassium 3.5 mmol/L (3.5-5.1); Sodium Level 140 mmol/L (136-145)
--- NOTE | 2021-10-31 16:34 | PCM.TILTTABL ---
Physician Tilt Table Report Patient's Physicians Primary Care Physician: Bereket Schulte Indications/Diagnosis :suspected POTS Procedure Comments: Patient was brought to the noninvasive lab in the postabsorptive nonsedated state. Informed consent was obtained. Initial heart rate and blood pressure was obtained. Resting EKG demonstrated normal sinus rhythm with a rate of 79 bpm resting blood pressure is 114/58 mmHg. The patient was put in the 70 degree head upright tilt table position with initial recording of heart rate at 96 bpm. Initial blood pressure was 104/52 mmHg. Patient complained of mild dizziness on standing. Patient stood for total of 40 minutes. She maintained sinus rhythm throughout the recording the maximum heart rate was 100 bpm in sinus rhythm the maximum blood pressure was 111/73 mmHg. Patient had minimal symptoms of feeling weak and lightheaded on occasion the minimum heart rate was 70 bpm with a minimum blood pressure being 98/53 mmHg with no symptoms. The above does not indicate any evidence of postural tachycardia syndrome. Summary: Tilt table test with no findings of postural tachycardia syndrome.
== END | disposition home or self-care (01) ==
LOC: CVS 07:31
PROVIDERS: PCP Family Medicine; Referring Provider Internal Medicine Cardiovascular Disease; Visit Provider Internal Medicine Cardiovascular Disease
DX: I49.8 Other specified cardiac arrhythmias (principal)
CPT/HCPCS: 36415; 80048; 84703; 85025; 93306; 93660; J7030; A4216

== ENCOUNTER 2022-10-22 19:18 | Emergency (ER) | payer MEDICAID, SELFPAY ==
[2022-10-22 19:19] VITALS: BP 113/68; PULSE 96; RESP 18; TEMP 36.6; O2SAT 100; BMI 16.9
[2022-10-22 20:56] LABS: Absolute Lymphocyte Count 3.15 X10^3/uL (0.83-4.51); Basophil# 0.04 X10^3/uL; Basophil% 0.7 % (0-1); Eosinophil# 0.24 X10^3/uL; Eosinophils% 4.1 % (0-5); Hematocrit 39.7 % (37-47); Lymphocyte # 3.15 X10^3/ul (0.83-4.51); Lymphocyte % 53.5 % (19-41); Mean Corp Hgb Conc 32.7 g/dL (32-36); Mean Corpuscular Hgb 32.2 pg (27.0-32.0); Mean Corpuscular Volume 98.3 fL (81-99); Monocyte# 0.49 X10^3/uL; Monocyte% 8.3 % (0-10); NRBC Flagged by Analyzer 0 % (0-5); Neutrophil # 1.96 X10^3/uL (2.7-7.7); Neutrophil % 33.2 % (47-70); Platelet Count 197 K/mm3 (150-450); RBC Distribution Width CV 12.8 % (11.6-14.6); RBC Distribution Width SD 46.2 fl (35.1-43.9); Red Blood Count 4.04 M/mm3 (4.2-5.4); White Blood Count 5.9 K/mm3 (4.4-11.0)
[2022-10-22 21:15] LABS: AST(SGOT) 20 U/L (15-37); Alanine Aminotransfer ALT/SGPT 27 U/L (13-56); Albumin, Serum 3.8 g/dL (3.2-5.0); Alkaline Phosphatase 48 U/L (45-117); Anion Gap 4 (5-15); BUN 6 mg/dL (7-18); BUN/Creat Ratio 8.4 RATIO (10-20); Calcium,Total 9.8 mg/dL (8.5-10.1); Chloride 108 mmol/L (98-107); Creatinine, Serum 0.71 mg/dL (0.55-1.02); EST Glomerular Filtration Rate 98 mL/min (>60); Est Glom Filt Rate - Afr Amer 119 mL/min (>60); Estimated Creatinine Clearance 79.12 ml/min; Globulin 3.8 g/dL (2.2-4.2); Glucose 78 mg/dL (74-106); Potassium 3.9 mmol/L (3.5-5.1); Protein, Total 7.6 g/dL (6.4-8.2); Sodium Level 141 mmol/L (136-145)
[2022-10-22 21:25] LABS: Internal QC Validated? YES +Cl - CLEAR BKGD
[2022-10-22 21:26] VITALS: BP 106/61; PULSE 62; RESP 17; O2SAT 100
[2022-10-22 21:26] LABS: Pregnancy, Serum, hCG Quali. NEGATIVE Negative
[2022-10-22 21:36] LABS: Color, Urine Yellow (Yellow); Glucose, Dipstick Normal (Normal); Ketone-Dipstick Negative (Negative); Leukocyte Esterase-Dipstick 25 /ul (Negative); Mucous, Urine 0 SEEN /hpf (<or=2+); Nitrite-Dipstick Negative (Negative); Occult Blood-Urine Negative /ul (Negative); Protein-Dipstick Negative (Negative); Specific Gravity, Urine 1.015 (1.002-1.030); Urine Bilirubin Dipstick Negative (Negative); Urine Clarity Sl. Cloudy (Clear); Urine Urobilinogen 1 mg/dl (Normal); Urine pH 6.5 (5.0 - 8.0)
[2022-10-22 21:49] LABS: Amorphous Sediment 1+; Bacteria 1+ /hpf (None Seen); Red Blood Cells-Urine 0-5 SEEN /hpf (0-5); Squamous Epithelial Cells - UA 0-5 SEEN /hpf (5-10); White Blood Cells 5-10 SEEN /hpf (0-5)
--- NOTE | 2022-10-22 22:41 | ED.VIS.GI ---
HPI HPI - GI History of Present Illness Chief Complaint: Abd Pain Narrative Narrative: 37-year-old female presenting with epigastric pain and esophageal burning. She states he is actually noted a little bit of twitching on the external aspect of her abdomen. She is not really sure why. Patient ate spaghetti and after she ate that she started to have severe abdominal pain with cramping. She states she has IBS and she is got used to this but then developed the burning up into the esophagus. She had a virtual visit with Dr. Schulte today and he recommended she come to the ER for evaluation. She is not having chest pain. She states she did feel little bit dyspneic but this did not last long. No fevers or chills. She did have an episode of diarrhea but again she states she has IBS. [facility] Medical History 34 weeks gestation of COVID-19 (07/01/21) Herpes Herpes History of stillbirth IBS (irritable bowel syndrome) Limited care premature rupture of membranes (PPROM) with unknown onset of labor Home Medications alprazolam 0.25 mg tablet (Xanax) 0.25 mg PO QHS PRN PRN Anxiety 08/02/20 [History Last Taken Unknown] epinephrine 0.3 mg/0.3 mL injection, auto-injector (EpiPen) 0.3 mg IM ONCE PRN bee sting 08/16/21 [History Last Taken Unknown] sertraline 100 mg tablet 100 mg PO QHS anxiety 08/23/21 [History Last Taken Unknown] omeprazole magnesium 20 mg tablet,delayed release (Prilosec OTC) 20 mg PO DAILY #30 tabs 10/23/22 [Rx Last Taken Unknown] Allergy/AdvReac Type Severity Reaction Status Date / Time venom-honey bee Allergy Unknown swelling Verified 10/22/22 21:14 Family History Mother Diabetes Father Schizoaffective disorder Grandmother Hypertension Diabetes Grandfather Myocardial infarction Grandmother Hypertension Grandfather Cancer lung Surgical History History of dilatation and curettage Social History Smoking Status: Current every day smoker tobacco type: cigarettes alcohol intake: never substance use type: does not use ROS ROS ED Constitutional Constitutional ED: Denies chills, fever(s) or sweats Eyes Eyes: Denies blurry vision or change in vision ENT ENT ED: Denies ear pain or sore throat Cardiovascular Cardiovascular: Denies chest pain, palpitations or racing heartbeat Respiratory/Chest Respiratory/Chest: Denies cough, dyspnea or sputum Gastrointestinal Gastrointestinal: Reports abdominal pain, diarrhea and other Details: Dyspepsia ; Denies constipation, nausea or vomiting Genitourinary Genitourinary ED: Denies dysuria, hematuria or urinary frequency Musculoskeletal Musculoskeletal: Denies arthralgias, myalgias or neck pain Integumentary Denies abscess, Abrasions or rash Neurologic Neurologic: Denies headache(s), paresthesias or weakness Psychiatric Psychiatric: Denies anxiety, depression, suicidal ideation or suicidal thoughts Endocrine Endocrinology: Denies polydipsia or polyuria EXAM Physical Exam Const Vital Signs: 10/22/22 19:19 10/22/22 21:26 10/22/22 23:06 Temperature 97.8 F Temperature Source Temporal Pulse Rate 96 62 67 Respiratory Rate 18 17 14 Blood Pressure 113/68 106/61 104/61 Blood Pressure Mean 83 76 75 Pulse Ox 100 100 98 Oxygen Delivery Method Room Air Room Air Room Air Positive well nourished General Appearance ED: NAD HEENT Reports moist mucous membranes normocephalic and atraumatic Eyes PERRL and EOMs intact bilaterally Resp normal respiratory effort and clear to auscultation bilaterally Auscultation: Negative for rales, rhonchi or wheezes Cardio regular rate and regular rhythm GI non-tender and non-distended Back/Spine no CVA tenderness Neuro CN's II-XII intact bilaterally, moves all extremities and no sensory deficits noted Sensorium / Orientation: alert Motor Exam: strength 5/5 throughout Psych mental status grossly normal and thought process normal Skin no wounds MDM MDM MDM Narrative Medical decision making narrative: Patient presenting with epigastric and esophageal burning after eating spaghetti. She states that she has not had this in the past. She states is also having some twitching. CBC was obtained to assess white blood cell count, hemoglobin, platelets. CMP to assess liver function, renal function, glucose. Urinalysis to assess for UTI. Serum to assess for . CBC is normal without leukocytosis, hemoglobin chronic are stable. Renal function, liver function within normal limits. Serum hCG negative. Urinalysis negative for infection. We will give the patient a GI cocktail to see if this helps with her symptoms. If it does I will start her on Prilosec and have her follow-up with her PCP. On reevaluation she states her symptoms are much improved. I will start her on Prilosec. Return precautions discussed. Impression: 1. Gastritis 2. GERD Lab Data Labs: Laboratory Results - last 24 hr 10/22/22 10/22/22 10/22/22 20:50 20:50 20:50 WBC 5.9 RBC 4.04 L Hgb 13.0 Hct 39.7 MCV 98.3 MCH 32.2 H MCHC 32.7 RDW Std Deviation 46.2 H RDW Coeff of Susanna 12.8 Plt Count 197 MPV 10.0 Immature Gran % (Auto) 0.200 Neut % (Auto) 33.2 L Lymph % (Auto) 53.5 H [place] % (Auto) 8.3 Eos % (Auto) 4.1 Baso % (Auto) 0.7 Absolute Neuts (auto) 2.0 Absolute Lymphs (auto) 3.15 Nucleated RBC % 0 Sodium 141 Potassium 3.9 Chloride 108 H Carbon Dioxide 29.0 Anion Gap 4 L BUN 6 L Creatinine 0.71 Estim Creat Clear Calc 79.12 Est GFR (MDRD) Af Amer 119 Est GFR (MDRD) Non-Af 98 BUN/Creatinine Ratio 8.4 L Glucose 78 Calcium 9.8 Total Bilirubin 0.20 AST 20 ALT 27 Alkaline Phosphatase 48 Total Protein 7.6 Albumin 3.8 Globulin 3.8 Albumin/Globulin Ratio 1.0 Serum , Qual NEGATIVE Urine Color Urine Clarity Urine pH Ur Specific [place] Urine Protein Urine Glucose (UA) Urine Ketones Urine Occult Blood Urine Nitrite Urine Bilirubin Urine Urobilinogen Ur Leukocyte Esterase Urine RBC Urine WBC Ur Squamous Epith Cells Amorphous Sediment Urine Bacteria Urine Mucus 10/22/22 21:30 WBC RBC Hgb Hct MCV MCH MCHC RDW Std Deviation RDW Coeff of Susanna Plt Count MPV Immature Gran % (Auto) Neut % (Auto) Lymph % (Auto) [place]oy[place] % (Auto) Eos % (Auto) Baso % (Auto) Absolute Neuts (auto) Absolute Lymphs (auto) Nucleated RBC % Sodium Potassium Chloride Carbon Dioxide Anion Gap BUN Creatinine Estim Creat Clear Calc Est GFR (MDRD) Af Amer Est GFR (MDRD) Non-Af BUN/Creatinine Ratio Glucose Calcium Total Bilirubin AST ALT Alkaline Phosphatase Total Protein Albumin Globulin Albumin/Globulin Ratio Serum , Qual Urine Color Yellow Urine Clarity Sl. Cloudy Urine pH 6.5 Ur Specific [place] 1.015 Urine Protein Negative Urine Glucose (UA) Normal Urine Ketones Negative Urine Occult Blood Negative Urine Nitrite Negative Urine Bilirubin Negative Urine Urobilinogen 1 H Ur Leukocyte Esterase 25 H Urine RBC 0-5 SEEN Urine WBC 5-10 SEEN Ur Squamous Epith Cells 0-5 SEEN Amorphous Sediment 1+ Urine Bacteria 1+ Urine Mucus 0 SEEN Discharge Plan Triage Chief Complaint: Abd Pain ED Provider: Michele Daniel Dx/Rx/DC Orders Instructions: ED GERD (Adult), ED Gastritis (Adult) Prescriptions: New omeprazole magnesium [Prilosec OTC] 20 mg tablet,delayed release (DR/EC) 20 mg PO DAILY Qty: 30 0RF No Action sertraline 100 mg tablet 100 mg PO QHS alprazolam [Xanax] 0.25 MG tablet 0.25 mg PO QHS PRN PRN (Reason: Anxiety) epinephrine [EpiPen] 0.3 mg/0.3 mL auto-injector 0.3 mg IM ONCE PRN (Reason: bee sting) Rx Instructions: as a single dose; may repeat once Primary Care Provider: Bereket Schulte Referrals: Bereekt Schulte MD [Primary Care Provider] - Disposition Disposition: Home, Self Care
[2022-10-22] MEDS: Mag Hydrox/Al Hydrox/Simeth 30 ML UDC PO (22:49)
--- NOTE | 2022-10-22 22:52 | ED.RN ---
PRIOR TO ADMINISTRATING PO MEDICATIONS, PT STATES SHE HAS AN ISSUE WITH EPINEPHRINE. THIS RN ASKED PT TO DESCRIBE WHAT HAPPENS WHEN SHE HAS EPINEPHRINE. PT STATES I FEEL A CORBIN. THIS RN CALLED PHARMACY PRIOR TO ADMINISTRATION TO CONFIRM PO MYLANTA AND PO LIDOCAINE HYDROCHLORIDE WOULD NOT AFFECT PT AND HER EPINEPHRINE REACTION. KEE IN PHARMACY STATES OKAY TO GIVE.
[2022-10-22 23:06] VITALS: BP 104/61; PULSE 67; RESP 14; O2SAT 98
== END 2022-10-23 00:22 | disposition home or self-care (01) ==
PROVIDERS: Emergency Provider Student in an Organized Health Care Education/Training Program; PCP Family Medicine; Visit Provider Student in an Organized Health Care Education/Training Program
DX: K29.70 Gastritis, unspecified, without bleeding (principal); K21.9 Gastro-esophageal reflux disease without esophagitis; F17.210 Nicotine dependence, cigarettes, uncomplicated
CPT/HCPCS: 80053; 81001; 84703; 85025; 99284; A4216

== ENCOUNTER 2023-01-06 17:26 | Emergency (ER) | payer MEDICAID, SELFPAY ==
[2023-01-06 17:28] VITALS: BP 113/74; PULSE 99; RESP 18; TEMP 36.8; O2SAT 100; BMI 17.3
--- NOTE | 2023-01-06 17:39 | ED.VIS.DENTA ---
HPI <BETTY Rachel - Last Filed: 01/06/23 17:52> History of Present Illness Chief Complaint: Dental Narrative Narrative: Patient presenting today with dental pain to her right lower jaw that she has had for the past several days. She saw her PCP, Dr. Schulte on Saturday via a virtual visit and he prescribed her 875 mg amoxicillin twice daily for 10 days. She has had 3 doses of this medication so far. She reports that the pain is not getting any better. She does have a history of dental pain to this tooth and is supposed to have it pulled. She does have a dentist and will be calling tomorrow morning to make an appointment. She denies any fever, chills. She denies a PMH of any chronic health conditions. PFSH <BETTY Rachel - Last Filed: 01/06/23 17:52> PFSH Medical History 34 weeks gestation of COVID-19 (07/01/21) Herpes Herpes History of stillbirth IBS (irritable bowel syndrome) Limited care premature rupture of membranes (PPROM) with unknown onset of labor Home Medications alprazolam 0.25 mg tablet (Xanax) 0.25 mg PO QHS PRN PRN Anxiety 08/02/20 [History Last Taken Unknown] epinephrine 0.3 mg/0.3 mL injection, auto-injector (EpiPen) 0.3 mg IM ONCE PRN bee sting 08/16/21 [History Last Taken Unknown] sertraline 100 mg tablet 100 mg PO QHS anxiety 08/23/21 [History Last Taken Unknown] omeprazole magnesium 20 mg tablet,delayed release (Prilosec OTC) 20 mg PO DAILY #30 tabs 10/23/22 [Rx Last Taken Unknown] Allergy/AdvReac Type Severity Reaction Status Date / Time venom-honey bee Allergy Unknown swelling Verified 01/06/23 17:28 Family History Mother Diabetes Father Schizoaffective disorder Grandmother Hypertension Diabetes Grandfather Myocardial infarction Grandmother Hypertension Grandfather Cancer lung Surgical History History of dilatation and curettage Social History Smoking Status: Current every day smoker tobacco type: cigarettes alcohol intake: never substance use type: does not use ROS <BETTY Rachel - Last Filed: 01/06/23 17:52> ROS ED Constitutional Constitutional ED: Denies chills or fever(s) Cardiovascular Cardiovascular: Denies chest pain Respiratory/Chest Respiratory/Chest: Denies cough or dyspnea Gastrointestinal Gastrointestinal: Denies abdominal pain, nausea or vomiting Musculoskeletal Musculoskeletal: Denies arthralgias or myalgias Integumentary Denies abscess or rash Neurologic Neurologic: Denies weakness EXAM <BETTY Rachel - Last Filed: 01/06/23 17:52> Physical Exam Const Vital Signs: 01/06/23 17:28 Temperature 98.3 F Temperature Source Temporal Pulse Rate 99 Respiratory Rate 18 Blood Pressure 113/74 Blood Pressure Mean 87 Pulse Ox 100 Oxygen Delivery Method Room Air Positive well nourished, well developed and no apparent distress General Appearance ED: well developed HEENT Reports normocephalic and head/scalp atraumatic HEENT Narrative: Multiple dental caries and several missing teeth, right mandibular first premolar has an extensive dental carry that is almost eroded to the gumline. No dental abscess. No trismus. Mouth ED: Yes moist mucous membranes normal Eyes PERRL and EOMs intact bilaterally Neck full ROM and supple Chest Wall inspection of chest normal Resp normal respiratory effort and clear to auscultation bilaterally Cardio regular rate and regular rhythm GI soft to palpation, non-tender, non-distended and no masses Back/Spine normal ROM and normal to inspection Extremity normal to inspection and full ROM Neuro oriented x3, CN's II-XII intact bilaterally, moves all extremities, no focal motor deficits and no sensory deficits noted Sensorium / Orientation: awake and alert Psych mental status grossly normal and thought process normal Skin no rashes or lesions noted and no wounds <Dr. Mega Agrawal MD - Last Filed: 01/06/23 17:46> Physical Exam Const Vital Signs: 01/06/23 17:28 Temperature 98.3 F Temperature Source Temporal Pulse Rate 99 Respiratory Rate 18 Blood Pressure 113/74 Blood Pressure Mean 87 Pulse Ox 100 Oxygen Delivery Method Room Air MDM <BETTY Rachel - Last Filed: 01/06/23 17:52> [facility] Narrative Medical decision making narrative: Patient presenting due to dental pain to her right mandibular premolar she has had for the past few days. She saw her PCP Saturday who prescribed her amoxicillin which she has had 3 doses of so far. There is no dental abscess, no trismus, no signs of Ludewig's angina. Vitals are unremarkable, she is well-appearing and in no acute distress. She was offered a pain control here and stated she did not want any narcotics, she was given ibuprofen. She reports that she is going to be calling her dentist in the morning to make an appointment. She has been given return instructions will be discharged home in stable condition. She is comfortable with plan. I have personally performed a face to face assessment of the patient and have reviewed the DONNA Note. I performed a substantive portion of the visit including all aspects of the following. My gillette findings include: History is 37-year-old female right lower dental pain. Currently on penicillin. Exam is [37-year-old female no acute distress. Vital signs stable afebrile. HEENT exam unremarkable except multiple missing teeth. Upper dentures. Her right lower premolar is eroded to the gumline. There is minimal inflammation. Nothing to drain. No large abscess. No jaw swelling. No trismus. No trouble swallowing or breathing. Exam consistent with a dental infection. Lungs clear. Heart regular rhythm no murmur. Otherwise exam unremarkable.] Medical Decision Making [dental infection. No abscess to drain at this time. Continue on her Motrin and Tylenol. Continue on her current antibiotic.] Other additions or changes: [None] <Dr. Mega Agrawal MD - Last Filed: 01/06/23 17:46> [facility] Narrative Medical decision making narrative: I have personally performed a face to face assessment of the patient and have reviewed the DONNA Note. I performed a substantive portion of the visit including all aspects of the following. My gillette findings include: History is 37-year-old female right lower dental pain. Currently on penicillin. Exam is [37-year-old female no acute distress. Vital signs stable afebrile. HEENT exam unremarkable except multiple missing teeth. Upper dentures. Her right lower premolar is eroded to the gumline. There is minimal inflammation. Nothing to drain. No large abscess. No jaw swelling. No trismus. No trouble swallowing or breathing. Exam consistent with a dental infection. Lungs clear. Heart regular rhythm no murmur. Otherwise exam unremarkable.] Medical Decision Making [dental infection. No abscess to drain at this time. Continue on her Motrin and Tylenol. Continue on her current antibiotic.] Other additions or changes: [None] Discharge Plan Triage Chief Complaint: Dental ED Midlevel Provider: [facility] [place] ED Provider: Mega Agrawal Dx/Rx/DC Orders Clinical Impression: Dental caries, Pain, dental Instructions: ED Dental Pain Prescriptions: No Action sertraline 100 mg tablet 100 mg PO QHS alprazolam [Xanax] 0.25 MG tablet 0.25 mg PO QHS PRN PRN (Reason: Anxiety) omeprazole magnesium [Prilosec OTC] 20 mg tablet,delayed release (DR/EC) 20 mg PO DAILY Qty: 30 0RF epinephrine [EpiPen] 0.3 mg/0.3 mL auto-injector 0.3 mg IM ONCE PRN (Reason: bee sting) Rx Instructions: as a single dose; may repeat once Primary Care Provider: Bereket Schulte Referrals: Bereket Schulte MD [Primary Care Provider] - Activity Restrictions/Additional Instructions: Please call the dentist tomorrow to make an appointment. Return for any worsening of symptoms. Disposition Disposition: Home, Self Care
[2023-01-06] MEDS: Ibuprofen 600 MG Tablet PO (17:48)
== END 2023-01-06 18:04 | disposition home or self-care (01) ==
LOC: ED 17:59
PROVIDERS: Emergency Provider Emergency Medicine; PCP Family Medicine; Visit Provider Emergency Medicine
DX: K08.89 Other specified disorders of teeth and supporting structures (principal); K02.9 Dental caries, unspecified; F17.210 Nicotine dependence, cigarettes, uncomplicated
CPT/HCPCS: 99284

== ENCOUNTER 2023-11-04 00:21 | Emergency (ER) | payer MEDICAID, SELFPAY ==
[2023-11-04 00:22] VITALS: PULSE 83; RESP 15; TEMP 37.1; O2SAT 99
[2023-11-04] MEDS: 0.9% Normal Saline (1000mL) 1,000 ML 999 ML IV (01:41)
[2023-11-04 01:59] LABS: Absolute Lymphocyte Count 2.92 X10^3/uL (0.83-4.51); Absolute Neutrophil Count 2.1 X10^3/uL (2.0-7.7); Basophil# 0.03 X10^3/uL; Basophil% 0.5 % (0-1); Eosinophil# 0.19 X10^3/uL; Eosinophils% 3.4 % (0-5); Hematocrit 35.1 % (37-47); Hemoglobin 11.6 g/dL (12.0-15.0); Lymphocyte # 2.92 X10^3/ul (0.83-4.51); Lymphocyte % 51.6 % (19-41); Mean Corpuscular Volume 96.7 fL (81-99); Mean Platelet Vol. 10.8 fl (6.2-12.0); Monocyte# 0.43 X10^3/uL; Monocyte% 7.6 % (0-10); NRBC Flagged by Analyzer 0 % (0-5); Neutrophil # 2.07 X10^3/uL (2.7-7.7); Neutrophil % 36.5 % (47-70); Platelet Count 147 K/mm3 (150-450); RBC Distribution Width CV 12.9 % (11.6-14.6); RBC Distribution Width SD 46.5 fl (35.1-43.9); Red Blood Count 3.63 M/mm3 (4.2-5.4); White Blood Count 5.7 K/mm3 (4.4-11.0)
[2023-11-04 02:21] VITALS: BP 90/46; PULSE 70; RESP 15; O2SAT 96
[2023-11-04 02:26] LABS: Anion Gap 3 (5-15); BUN 7 mg/dL (7-18); BUN/Creat Ratio 10.7 RATIO (10-20); Calcium,Total 9.1 mg/dL (8.5-10.1); Chloride 108 mmol/L (98-107); Creatinine, Serum 0.66 mg/dL (0.55-1.02); EST Glomerular Filtration Rate 107 mL/min (>60); Est Glom Filt Rate - Afr Amer 130 mL/min (>60); Glucose 89 mg/dL (74-106); Magnesium 1.9 mg/dL (1.6-2.6); Potassium 3.7 mmol/L (3.5-5.1); Sodium Level 139 mmol/L (136-145)
[2023-11-04 02:51] LABS: Internal QC Validated? YES +Cl - CLEAR BKGD; Pregnancy, Serum, hCG Quali. NEGATIVE Negative; Record Kit Lot#, Serum Preg. 718089
--- NOTE | 2023-11-04 02:57 | EDS_ITS ---
HPI History of Present Illness Chief Complaint: General Illness Informant: patient Narrative Narrative: Patient is a 38-year-old female with past medical history of supraventricular tachycardia. She states that she was recently placed on 25 mg of metoprolol succinate secondary to this diagnosis. She reports that she is taking as directed but after being on it for a few days has had extreme weakness and fatigue. She states that she has not noticed any loss of blood in her urine or stool. She denies any concern for . She states that there is been no bouts of vomiting or diarrhea or sick symptoms. However because of the severe fatigue she was concerned there could be some other aspect other than the medication and comes in for evaluation [facility] Medical History 34 weeks gestation of COVID-19 (07/01/21) Herpes Herpes History of stillbirth IBS (irritable bowel syndrome) Limited care premature rupture of membranes (PPROM) with unknown onset of labor Home Medications ?Medication ?Instructions ?Recorded ?Last Taken ?Type sertraline 100 mg tablet 100 mg PO QHS anxiety 08/23/21 Unknown History omeprazole magnesium 20 mg 20 mg PO DAILY #30 tabs 10/23/22 Unknown Rx tablet,delayed release (Prilosec OTC) metoprolol succinate 25 mg 25 mg PO DAILY 11/04/23 Unknown History tablet,extended release 24 hr Allergy/AdvReac Type Severity Reaction Status Date / Time venom-honey bee Allergy Unknown swelling Verified 01/06/23 17:28 Family History Mother Diabetes Father Schizoaffective disorder Grandmother Hypertension Diabetes Grandfather Myocardial infarction Grandmother Hypertension Grandfather Cancer lung Surgical History History of dilatation and curettage Social History Smoking Status: Current every day smoker tobacco type: cigarettes alcohol intake: never substance use type: does not use ROS ROS ED Constitutional Constitutional ED: Denies chills or fever(s) Eyes Eyes: Denies change in vision ENT ENT ED: Denies rhinorrhea or sore throat Cardiovascular Cardiovascular: Denies chest pain or palpitations Respiratory/Chest Respiratory/Chest: Denies cough or dyspnea Gastrointestinal Gastrointestinal: Denies abdominal pain, diarrhea, nausea or vomiting Genitourinary Genitourinary ED: Denies dysuria or urinary frequency Musculoskeletal Musculoskeletal: Denies myalgias Integumentary Denies rash Neurologic Neurologic: Reports weakness; Denies headache(s) or paresthesias Hematologic/Lymphatic Hematologic/Lymphatic: Denies easy bleeding or easy bruising EXAM Physical Exam Const Vital Signs: 11/04/23 00:22 11/04/23 00:25 11/04/23 02:21 Temperature 98.8 F Temperature Source Temporal Pulse Rate 83 70 Respiratory Rate 15 15 Respiratory Effort Normal Non-Labored Respiratory Pattern Normal Blood Pressure 90/46 L Blood Pressure Mean 60 Pulse Ox 99 96 Oxygen Delivery Method Room Air Room Air 11/04/23 03:17 Temperature 97.9 F Temperature Source Pulse Rate 73 Respiratory Rate 18 Respiratory Effort Respiratory Pattern Blood Pressure 105/54 L Blood Pressure Mean 71 Pulse Ox 100 Oxygen Delivery Method Positive well nourished and well developed General Appearance ED: well developed; Negative for pallor HEENT Reports moist mucous membranes Eyes PERRL and EOMs intact bilaterally General Eye ED: Negative for pale conjunctiva or scleral icterus Neck supple Resp normal respiratory effort and clear to auscultation bilaterally Cardio regular rate and regular rhythm Rate: other GI normal to inspection, nondistended, normoactive bowel sounds, non-tender, non- distended and no masses Auscultation: normoactive bowel sounds Palpation: soft Extremity normal to inspection Neuro oriented x3, CN's II-XII intact bilaterally and no sensory deficits noted Sensorium / Orientation: alert Motor Exam: strength 5/5 throughout Psych mental status grossly normal Skin no rashes or lesions noted, no wounds and skin turgor normal General Skin Exam: Negative for jaundice or pallor MDM MDM MDM Narrative Medical decision making narrative: Patient presented to the ER overall stable vitals. Differential diagnosis for her generalized weakness could be acute blood loss anemia versus acute kidney injury versus hypothyroidism versus electrolyte abnormality versus . Secondary to this basic blood work was obtained which revealed no clinically significant findings. This indicates the patient's generalized fatigue and weakness is a adverse reaction to her new metoprolol medication. Her heart rate has been normal the entire time in the ER and therefore she was advised to stay off the medication until she speaks with her doctor to discuss potential change but at this time as vitals are stable and workup is negative she is otherwise safe for discharge home History & Record Review Discussion w/independent historian: Patient Lab Data Attestation: I reviewed the patient's lab results. Labs: Laboratory Results - last 24 hr 11/04/23 01:40 WBC 5.7 RBC 3.63 L Hgb 11.6 L Hct 35.1 L MCV 96.7 MCH 32.0 MCHC 33.0 RDW Std Deviation 46.5 H RDW Coeff of Susanna 12.9 Plt Count 147 L MPV 10.8 Immature Gran % (Auto) 0.400 Neut % (Auto) 36.5 L Lymph % (Auto) 51.6 H [place] % (Auto) 7.6 Eos % (Auto) 3.4 Baso % (Auto) 0.5 Absolute Neuts (auto) 2.1 Absolute Lymphs (auto) 2.92 Nucleated RBC % 0 Sodium 139 Potassium 3.7 Chloride 108 H Carbon Dioxide 28.0 Anion Gap 3 L BUN 7 Creatinine 0.66 Est GFR (MDRD) Af Amer 130 Est GFR (MDRD) Non-Af 107 BUN/Creatinine Ratio 10.7 Glucose 89 Calcium 9.1 Magnesium 1.9 TSH 2.60 Serum , Qual NEGATIVE Discharge Plan Triage Chief Complaint: General Illness ED Provider: Jakob Heath Dx/Rx/DC Orders Clinical Impression: Adverse drug reaction, PSVT (paroxysmal supraventricular tachycardia) Instructions: ED Drug Reaction, Other Prescriptions: No Action sertraline 100 mg tablet 100 mg PO QHS omeprazole magnesium [Prilosec OTC] 20 mg tablet,delayed release (DR/EC) 20 mg PO DAILY Qty: 30 0RF metoprolol succinate 25 mg tablet extended release 24 hr 25 mg PO DAILY Primary Care Provider: Bereket Schulte Referrals: Bereket Schulte MD [Primary Care Provider] - Activity Restrictions/Additional Instructions: Please stop taking your metoprolol as this is the most likely culprit of your fatigue and weakness as your workup today revealed no acute findings. Talk to your doctor about which medication he would like to transition you to and return to the ER should you have any further concerns Print Language: Maltese Disposition Disposition: Home, Self Care Discharge Date/Time: 11/04/23 03:17
[2023-11-04 03:17] VITALS: BP 105/54; PULSE 73; RESP 18; TEMP 36.6; O2SAT 100
== END 2023-11-04 03:17 | disposition home or self-care (01) ==
PROVIDERS: Emergency Provider Emergency Medicine; PCP Family Medicine; Visit Provider Emergency Medicine
DX: R53.1 Weakness (principal); I47.10 Supraventricular tachycardia, unspecified; T44.7X5A Adverse effect of beta-adrenoreceptor antagonists, initial encounter; R53.83 Other fatigue; F17.210 Nicotine dependence, cigarettes, uncomplicated
CPT/HCPCS: 80048; 83735; 84443; 84703; 85025; 96360; 99283; J7030; A4216

== ENCOUNTER 2023-11-06 09:38 | Emergency (ER) | payer MEDICAID, SELFPAY ==
[2023-11-06 09:39] VITALS: BP 113/71; PULSE 78; PULSE 80; RESP 14; TEMP 36.2; O2SAT 100; BMI 17.6
--- NOTE | 2023-11-06 10:42 | EKG12_ITS ---
Test Reason : WEAKNESS Blood Pressure : / mmHG Vent. Rate : 071 BPM Atrial Rate : 071 BPM P-R Int : 106 ms QRS Dur : 084 ms QT Int : 406 ms P-R-T Axes : 059 077 039 degrees QTc Int : 441 ms Sinus rhythm with short MN Otherwise normal ECG Confirmed by Ras Aponte ([id number]), primer expeditor and drier EDIE OGDEN ([id number]) on 11/07/2023 10:41:01 AM Referred By: Confirmed By:Ras Aponte
[2023-11-06 11:05] VITALS: BP 102/70; BP 104/65; BP 95/58; PULSE 68; PULSE 71; PULSE 88
[2023-11-06 11:06] LABS: Bacteria 0 SEEN /hpf (None Seen); Mucous, Urine 0 SEEN /hpf (<or=2+); Red Blood Cells-Urine 0 SEEN /hpf (0-5); Squamous Epithelial Cells - UA 0 SEEN /hpf (5-10); White Blood Cells 0 SEEN /hpf (0-5)
[2023-11-06] MEDS: 0.9% Normal Saline (1000mL) 1,000 ML 999 ML IV (11:12)
[2023-11-06 11:16] LABS: Absolute Lymphocyte Count 1.75 X10^3/uL (0.83-4.51); Absolute Neutrophil Count 1.7 X10^3/uL (2.0-7.7); Basophil# 0.03 X10^3/uL; Basophil% 0.8 % (0-1); Eosinophil# 0.11 X10^3/uL; Eosinophils% 2.8 % (0-5); Hematocrit 35.8 % (37-47); Hemoglobin 11.7 g/dL (12.0-15.0); Lymphocyte # 1.75 X10^3/ul (0.83-4.51); Lymphocyte % 45.1 % (19-41); Mean Corp Hgb Conc 32.7 g/dL (32-36); Mean Corpuscular Hgb 31.7 pg (27.0-32.0); Mean Platelet Vol. 10.5 fl (6.2-12.0); Monocyte# 0.31 X10^3/uL; NRBC Flagged by Analyzer 0 % (0-5); Neutrophil # 1.68 X10^3/uL (2.7-7.7); Neutrophil % 43.3 % (47-70); Platelet Count 174 K/mm3 (150-450); RBC Distribution Width SD 46.4 fl (35.1-43.9); Red Blood Count 3.69 M/mm3 (4.2-5.4); White Blood Count 3.9 K/mm3 (4.4-11.0)
[2023-11-06 11:18] LABS: Color, Urine Yellow (Yellow); Glucose, Dipstick Normal (Normal); Ketone-Dipstick Negative (Negative); Leukocyte Esterase-Dipstick Negative /ul (Negative); Nitrite-Dipstick Negative (Negative); Occult Blood-Urine Negative /ul (Negative); Protein-Dipstick Negative (Negative); Urine Bilirubin Dipstick Negative (Negative); Urine Clarity Clear (Clear); Urine Urobilinogen Normal (Normal)
[2023-11-06 11:23] LABS: Internal QC Validated? YES +Cl - CLEAR BKGD; Pregnancy, Urine Negative Negative
--- NOTE | 2023-11-06 11:24 | EDS_ITS ---
HPI History of Present Illness Chief Complaint: Weakness Informant: patient Narrative Narrative: Patient is a 38-year-old female with history of tobacco abuse, anxiety and, POTS and SVT presenting with recurrent weakness. Patient was seen and evaluated in her ER 2 days ago for the same complaint. She notes that she recently started on metoprolol and started feeling very weak. She has not had this medication for the past 4 days. She notes that she felt good yesterday but today when she woke up she felt foggy. She notes every morning when she wakes up her heart rate goes to 140 but that correct itself. She then went to get her daughter up and felt like her entire body was going to fall to the ground. Of note she did not pass out or actually fall. She states she felt so weak she could hardly hold her phone up to her head. She did have some associated nausea and feeling of chills but is not sure if that was associated with anxiety. Has been having urinary frequency but denies any dysuria or hematuria. Did see Dr. Brice with a virtual visit who decreased her metoprolol from 25 to 12.5 mg she has not started taking this. Patient is just concerned because of her severe fatigue and weakness and wanted to be evaluated again. She states she feels like a paper weight. [facility] Medical History COVID-19 (07/01/21) IBS (irritable bowel syndrome) Herpes Herpes Limited care History of stillbirth premature rupture of membranes (PPROM) with unknown onset of labor 34 weeks gestation of Home Medications ?Medication ?Instructions ?Recorded ?Last Taken ?Type sertraline 100 mg tablet 100 mg PO QHS anxiety 08/23/21 Unknown History omeprazole magnesium 20 mg 20 mg PO DAILY #30 tabs 10/23/22 Unknown Rx tablet,delayed release (Prilosec OTC) metoprolol succinate 25 mg 25 mg PO DAILY 11/04/23 Unknown History tablet,extended release 24 hr Allergy/AdvReac Type Severity Reaction Status Date / Time venom-honey bee Allergy Unknown swelling Verified 11/06/23 09:39 Family History Mother Diabetes Father Schizoaffective disorder Grandmother Hypertension Diabetes Grandfather Myocardial infarction Grandmother Hypertension Grandfather Cancer lung Surgical History History of dilatation and curettage Social History Smoking Status: Current every day smoker tobacco type: cigarettes alcohol intake: never substance use type: does not use ROS ROS ED Constitutional Constitutional ED: Reports chills; Denies fever(s) or sweats Eyes Eyes: Denies change in vision Cardiovascular Cardiovascular: Denies chest pain, palpitations or racing heartbeat Respiratory/Chest Respiratory/Chest: Denies cough or dyspnea Gastrointestinal Gastrointestinal: Denies abdominal pain, nausea or vomiting Genitourinary Genitourinary ED: Reports urinary frequency; Denies dysuria or hematuria Musculoskeletal Musculoskeletal: Denies arthralgias or myalgias Integumentary Denies rash Neurologic Neurologic: Reports weakness; Denies headache(s) or paresthesias Psychiatric Psychiatric: Reports anxiety EXAM Physical Exam Const Vital Signs: 11/06/23 09:39 11/06/23 09:39 11/06/23 10:36 Temperature 97.1 F L Temperature Source Temporal Pulse Rate 78 80 Pulse Rate [Lying] Pulse Rate [Sitting (for 1 minute prior to obtaining)] Pulse Rate [Standing (for 1 minute prior to obtaining)] Respiratory Rate 14 14 Respiratory Effort Normal Non-Labored Respiratory Pattern Normal Blood Pressure 113/71 113/71 Blood Pressure [Lying] Blood Pressure [Sitting (for 1 minute prior to obtaining)] Blood Pressure [Standing (for 1 minute prior to obtaining)] Blood Pressure Mean 85 85 Blood Pressure Mean [Lying] Blood Pressure Mean [Sitting (for 1 minute prior to obtaining)] Blood Pressure Mean [Standing (for 1 minute prior to obtaining)] Pulse Ox 100 100 Oxygen Delivery Method Nasal Cannula Room Air 11/06/23 11:05 11/06/23 11:30 11/06/23 13:00 Temperature 97.6 F L Temperature Source Pulse Rate 66 69 Pulse Rate [Lying] 68 Pulse Rate [Sitting (for 1 minute prior to obtaining)] 71 Pulse Rate [Standing (for 1 minute prior to obtaining)] 88 Respiratory Rate 17 16 Respiratory Effort Respiratory Pattern Blood Pressure 95/62 100/67 Blood Pressure [Lying] 95/58 L Blood Pressure [Sitting (for 1 minute prior to obtaining)] 104/65 Blood Pressure [Standing (for 1 minute prior to obtaining)] 102/70 Blood Pressure Mean 73 78 Blood Pressure Mean [Lying] 70 Blood Pressure Mean [Sitting (for 1 minute prior to obtaining)] 78 Blood Pressure Mean [Standing (for 1 minute prior to obtaining)] 80 Pulse Ox 100 99 Oxygen Delivery Method Positive well nourished and well developed Constitutional Narrative: Thin General Appearance ED: well developed and NAD HEENT Reports TM's clear and moist mucous membranes Tympanic Membrane ED: Yes TM's clear Eyes PERRL and EOMs intact bilaterally General Eye ED: Negative for pale conjunctiva Neck supple and no JVD Chest Wall inspection of chest normal and palpation of chest normal Resp normal respiratory effort and clear to auscultation bilaterally Cardio regular rate, regular rhythm and no murmurs GI normal to inspection, nondistended, normoactive bowel sounds and non-tender Extremity normal to inspection General Extremety ED: Negative for edema or tenderness General Extremity: Negative for edema Neuro oriented x3 Sensorium / Orientation: alert Motor Exam: Negative for general weakness Psych mental status grossly normal Mood & Affect: anxious Skin no rashes or lesions noted and no wounds MDM MDM MDM Narrative Medical decision making narrative: Patient evaluated for generalized weakness. Has no other focal symptoms besides of some urinary frequency. Was seen in the ER for the same complaint 2 days ago. At that time had a workup including CBC, BMP, magnesium and serum . Workup was largely negative. It was thought at that time that her weakness could be secondary to starting metoprolol. Patient has been holding the medication, felt better yesterday but feels much worse today again. Her appearance is nontoxic. Her vital signs are normal. Lower suspicion for infection she does not report any fever. Recheck labs and add on further labs including liver panel, troponin (has a history of SVT), EKG, urinalysis and a Monospot as well as a CPK. TSH was normal 2 days ago and does not need a recheck. Lab work largely unremarkable. She has a very mild leukopenia as well as a stable anemia. These are nonspecific and I discussed the signs with the patient's. Possible she could have a subacute viral syndrome that is causing her leukopenia. She does not have any significant [place] abnormalities and her CK is normal. Her high sensitive troponin is less than 3 and I do not think the symptoms any type of referred cardiac syndrome. Urinalysis is not consistent with infection. Monospot is negative. It is possible this could be a false negative Monospot given she is only had symptoms for couple days however given her normal monocyte percentage I have a lower suspicion of this. Patient counseled that the cause of her symptoms is not clear but she should be safe to follow-up outpatient. She is agreeable with this. We did discuss holding her metoprolol until she is feeling better. She is agreeable with this. She does not have any arrhythmia, tachycardia or SVT in the emergency room. Orthostatics are negative in emergency room. She is given a liter of IV fluid. Patient discharged home in stable condition. Lab Data Attestation: I reviewed the patient's lab results. Labs: Laboratory Results - last 24 hr 11/06/23 11/06/23 10:55 11:00 WBC 3.9 L RBC 3.69 L Hgb 11.7 L Hct 35.8 L MCV 97.0 MCH 31.7 MCHC 32.7 RDW Std Deviation 46.4 H RDW Coeff of Susanna 13.0 Plt Count 174 MPV 10.5 Immature Gran % (Auto) 0.000 Neut % (Auto) 43.3 L Lymph % (Auto) 45.1 H [place] % (Auto) 8.0 Eos % (Auto) 2.8 Baso % (Auto) 0.8 Absolute Neuts (auto) 1.7 L Absolute Lymphs (auto) 1.75 Nucleated RBC % 0 Sodium 140 Potassium 3.8 Chloride 109 H Carbon Dioxide 26.0 Anion Gap 5 BUN 6 L Creatinine 0.70 Estim Creat Clear Calc 80.21 Est GFR (MDRD) Af Amer 120 Est GFR (MDRD) Non-Af 99 BUN/Creatinine Ratio 8.6 L Glucose 101 Calcium 8.9 Total Bilirubin 0.50 AST 16 ALT 18 Alkaline Phosphatase 36 L Total Creatine Kinase 60 Troponin I High Sens < 3 L Total Protein 7.4 Albumin 3.9 Globulin 3.5 Albumin/Globulin Ratio 1.1 Urine Color Yellow Urine Clarity Clear Urine pH 8.0 Ur Specific [place] 1.010 Urine Protein Negative Urine Glucose (UA) Normal Urine Ketones Negative Urine Occult Blood Negative Urine Nitrite Negative Urine Bilirubin Negative Urine Urobilinogen Normal Ur Leukocyte Esterase Negative Urine RBC 0 SEEN Urine WBC 0 SEEN Ur Squamous Epith Cells 0 SEEN Urine Bacteria 0 SEEN Urine Mucus 0 SEEN Urine Test Negative Monoscreen Negative Rhythm Strip Rhythm Strip: Sinus Rhythm Rate: 71 Ectopy: None EKG Initial EKG: Attestation: I personally reviewed and interpreted this EKG as follows: Interpretation: Sinus Rhythm Comments: Normal sinus rhythm at a rate of 71 bpm Normal axis SD interval slightly shortened 106 ms Normal QRS Normal ST segments Prior EKG tracings: available for review Prior: Unchanged Discharge Plan Triage Chief Complaint: Weakness ED Provider: Sophy Kelly Dx/Rx/DC Orders Clinical Impression: Generalized muscle weakness Instructions: ED Weakness (Uncertain Cause) Prescriptions: No Action sertraline 100 mg tablet 100 mg PO QHS omeprazole magnesium [Prilosec OTC] 20 mg tablet,delayed release (DR/EC) 20 mg PO DAILY Qty: 30 0RF metoprolol succinate 25 mg tablet extended release 24 hr 25 mg PO DAILY Stand Alone Forms: ED Work / School Excuse Primary Care Provider: Bereket Schulte Referrals: Bereket Schulte MD [Primary Care Provider] - Activity Restrictions/Additional Instructions: Your workup was largely normal today, the cause of the symptoms is still not clear. As we discussed I would continue to hold your metoprolol until you are feeling better. Make sure you are drinking plenty of fluids. Follow-up outpatient with your primary care doctor. Print Language: Arabic Disposition Disposition: Home, Self Care Discharge Date/Time: 11/06/23 13:03
[2023-11-06 11:28] LABS: Internal QC Validated? YES +Cl - CLEAR BKGD; Monotest Negative (Negative); Record Kit Lot#, Mono 13241033
[2023-11-06 11:30] VITALS: BP 95/62; PULSE 66; RESP 17; O2SAT 100
[2023-11-06 11:35] LABS: ALB/GLOB Ratio 1.1 RATIO (0.9-2.4); AST(SGOT) 16 U/L (15-37); Alanine Aminotransfer ALT/SGPT 18 U/L (13-56); Albumin, Serum 3.9 g/dL (3.2-5.0); Alkaline Phosphatase 36 U/L (45-117); Anion Gap 5 (5-15); BUN 6 mg/dL (7-18); BUN/Creat Ratio 8.6 RATIO (10-20); CPK Total, Creatine Kinase 60 U/L (26-192); Calcium,Total 8.9 mg/dL (8.5-10.1); Chloride 109 mmol/L (98-107); EST Glomerular Filtration Rate 99 mL/min (>60); Est Glom Filt Rate - Afr Amer 120 mL/min (>60); Estimated Creatinine Clearance 80.21 ml/min; Globulin 3.5 g/dL (2.2-4.2); Glucose 101 mg/dL (74-106); Potassium 3.8 mmol/L (3.5-5.1); Protein, Total 7.4 g/dL (6.4-8.2); Sodium Level 140 mmol/L (136-145); Troponin-I HS < 3 pg/mL (3.0-54.0)
[2023-11-06 13:00] VITALS: BP 100/67; PULSE 69; RESP 16; TEMP 36.4; O2SAT 99
== END 2023-11-06 13:03 | disposition home or self-care (01) ==
PROVIDERS: Emergency Provider Emergency Medicine; PCP Family Medicine; Visit Provider Emergency Medicine
DX: M62.81 Muscle weakness (generalized) (principal); F41.9 Anxiety disorder, unspecified; F17.210 Nicotine dependence, cigarettes, uncomplicated; Z79.899 Other long term (current) drug therapy
CPT/HCPCS: 80053; 81001; 81025; 82550; 84484; 85025; 86308; 93005; 96360; 99284; J7030; A4216

== ENCOUNTER → 2024-06-04 | Outpatient (CLI) | payer MEDICAID, SELFPAY ==
--- NOTE | 2024-06-04 14:05 | RAD_ITS ---
EXAM: XR CHEST, 2 VIEWS CLINICAL INDICATION: Persistent cough with pneumonia TECHNIQUE: Frontal and lateral views of the chest. COMPARISON: XR Chest dated 03/12/2021 FINDINGS: LUNGS AND PLEURAL SPACES: Normal. No consolidation or edema. No pneumothorax. No effusion. HEART: Normal heart size. MEDIASTINUM: No mediastinal or hilar mass. BONES/JOINTS: Stable dextroscoliosis of the upper thoracic spine. RAD/Chest PA and Lateral IMPRESSION: No acute cardiopulmonary abnormality. No interval change. Electronically Signed: Wayne Kelly MD at 15:50 EST ,
== END | disposition home or self-care (01) ==
PROVIDERS: PCP Family Medicine; Referring Provider Physician Assistant Surgical; Visit Provider Physician Assistant Surgical
DX: R91.8 Other nonspecific abnormal finding of lung field (principal)
CPT/HCPCS: 71046

== ENCOUNTER 2024-07-03 20:38 | Emergency (ER) | payer MEDICAID, SELFPAY ==
[2024-07-03 20:39] VITALS: BP 112/72; PULSE 85; RESP 19; TEMP 36.7; O2SAT 95; BMI 18.0
[2024-07-03 20:42] VITALS: BP 112/72; PULSE 85; RESP 11; TEMP 36.7; O2SAT 100
[2024-07-03 21:31] VITALS: O2SAT 100
[2024-07-03 22:00] VITALS: BP 102/75; PULSE 81; RESP 16; TEMP 36.7; O2SAT 99
[2024-07-03 22:03] VITALS: O2SAT 100
--- NOTE | 2024-07-03 22:18 | RAD_ITS ---
EXAM: XR CHEST, 2 VIEWS CLINICAL INDICATION: sob TECHNIQUE: Frontal and lateral views of the chest. COMPARISON: 06/04/2024 FINDINGS: LUNGS AND PLEURAL SPACES: No significant abnormality. No consolidation or edema. No pneumothorax. No effusion. HEART: No significant abnormality. Cardiac silhouette not enlarged. MEDIASTINUM: Central airways and mediastinal contour are unremarkable. BONES/JOINTS: No significant abnormality. No acute fracture. SOFT TISSUES: No significant abnormality. RAD/Chest PA and Lateral IMPRESSION: No radiographic evidence of acute cardiopulmonary disease. Electronically Signed: Leandro Samaniego DO at 22:50 EST ,
[2024-07-03 22:31] LABS: Absolute Lymphocyte Count 3.15 X10^3/uL (0.83-4.51); Basophil# 0.03 X10^3/uL; Basophil% 0.5 % (0-1); Eosinophil# 0.15 X10^3/uL; Eosinophils% 2.5 % (0-5); Hematocrit 39.6 % (37-47); Hemoglobin 13.4 g/dL (12.0-15.0); Lymphocyte # 3.15 X10^3/ul (0.83-4.51); Lymphocyte % 53.5 % (19-41); Mean Corp Hgb Conc 33.8 g/dL (32-36); Mean Corpuscular Hgb 32.1 pg (27.0-32.0); Mean Corpuscular Volume 94.7 fL (81-99); Mean Platelet Vol. 11.1 fl (6.2-12.0); Monocyte# 0.54 X10^3/uL; Monocyte% 9.2 % (0-10); NRBC Flagged by Analyzer 0 % (0-5); Neutrophil # 2.01 X10^3/uL (2.7-7.7); Neutrophil % 34.1 % (47-70); Platelet Count 207 K/mm3 (150-450); RBC Distribution Width CV 12.6 % (11.6-14.6); RBC Distribution Width SD 44.2 fl (35.1-43.9); Red Blood Count 4.18 M/mm3 (4.2-5.4); White Blood Count 5.9 K/mm3 (4.4-11.0)
[2024-07-03 22:49] LABS: D-Dimer Quantitative (DVT/PE) 1.11 FEU/ug/m (0.27-0.49)
--- NOTE | 2024-07-03 22:51 | CT_ITS ---
EXAM: CT ANGIOGRAPHY CHEST WITHOUT AND WITH INTRAVENOUS CONTRAST CLINICAL INDICATION: sob, elevated dimer TECHNIQUE: Helically acquired angiography images were obtained of the chest without and with intravenous contrast. This CT exam was performed using one or more of the following dose reduction techniques: automated exposure control, adjustment of the mA and/or kV according to patient size, and/or use of iterative reconstruction technique. MIP reconstructed images were created and reviewed. CONTRAST: IV 100mL [id number] COMPARISON: Chest radiograph on the same date and CTA chest, 08/02/2020. FINDINGS: PULMONARY ARTERIES: No significant abnormality. Normal in caliber. No evidence of pulmonary embolism. AORTA: No significant abnormality. Normal in caliber. No evidence of dissection. GREAT VESSELS OF AORTIC ARCH: No significant abnormality. Normal in caliber. No evidence of dissection. LUNGS AND PLEURAL SPACES: No significant abnormality. No mass. No consolidation or edema. No pleural effusion or thickening. No pneumothorax. HEART: No significant abnormality. Heart size is normal. No pericardial effusion. No significant coronary artery calcifications. MEDIASTINUM: No significant abnormality. No mediastinal or hilar adenopathy. Esophagus is unremarkable. No hiatal hernia. THYROID: No significant abnormality. No thyroid lesions. BONES/JOINTS: No significant abnormality. No suspicious lytic or blastic abnormality. CT/CTA Chest W/WO Contrast IMPRESSION: Negative CTA chest. Electronically Signed: Leandro Samaniego DO at 23:49 EST ,
[2024-07-03 22:56] LABS: Anion Gap 8 (5-15); BUN 7 mg/dL (7-18); BUN/Creat Ratio 8.5 RATIO (10-20); Calcium,Total 9.6 mg/dL (8.5-10.1); Chloride 107 mmol/L (98-107); Creatinine, Serum 0.82 mg/dL (0.55-1.02); EST Glomerular Filtration Rate 82 mL/min (>60); Est Glom Filt Rate - Afr Amer 100 mL/min (>60); Glucose 87 mg/dL (74-106); Potassium 3.4 mmol/L (3.5-5.1); Sodium Level 138 mmol/L (136-145); Troponin-I HS < 3 pg/mL (3.0-54.0)
[2024-07-03 23:00] VITALS: BP 107/66; PULSE 83; RESP 16; TEMP 36.7; O2SAT 99
--- NOTE | 2024-07-03 23:34 | EDS_ITS ---
HPI History of Present Illness Chief Complaint: Shortness of Breath Narrative Narrative: Patient is a 38-year-old female with a past medical history of tobacco use who presents to the emergency department with a chief complaint of shortness of breath and difficulty breathing. Patient states that about a month ago she was diagnosed with pneumonia was put on a course of antibiotics amoxicillin and another antibiotic which she completed the course of this. She states that she originally started better then she started worsening and therefore they placed her on Levaquin and gave her an inhaler she states that she did not complete course of Levaquin as they made her feel not well. Patient states that tonight she felt that she could not catch her breath therefore she called EMS to have her brought here for further evaluation management. Patient states that her oxygen level was normal when EMS arrived. They state that they did give her breathing treatment and route. Patient denies any recent travel history denies any history of blood clots. Denies any hormonal replacement therapy. [facility] Medical History Hx of bacterial pneumonia Pulmonary infiltrate COVID-19 (07/01/21) IBS (irritable bowel syndrome) Herpes Herpes Limited care History of stillbirth premature rupture of membranes (PPROM) with unknown onset of labor 34 weeks gestation of Home Medications ?Medication ?Instructions ?Recorded ?Last Taken ?Type sertraline 100 mg tablet 100 mg PO QHS anxiety 08/23/21 Unknown History omeprazole magnesium 20 mg 20 mg PO DAILY #30 tabs 10/23/22 Unknown Rx tablet,delayed release (Prilosec OTC) metoprolol succinate 25 mg 12.5 mg PO DAILY PRN elevated 11/04/23 Unknown History tablet,extended release 24 hr heart rate alprazolam 0.25 mg tablet (Xanax) 0.25 mg PO QHS PRN anxiety 05/20/24 Unknown History albuterol sulfate 90 mcg/actuation 2 puff inhalation Q6H PRN 06/04/24 Unknown Rx aerosol inhaler shortness of breath or wheezing #6.7 grams methylprednisolone 4 mg tablets in See Rx Instructions PO .COMPLEX 07/04/24 Unkn own Rx a dose pack (Medrol (Brian)) #21 tabs Allergy/AdvReac Type Severity Reaction Status Date / Time venom-honey bee Allergy Unknown swelling Verified 07/03/24 20:39 Family History Mother Diabetes Father Schizoaffective disorder Grandmother Hypertension Diabetes Grandfather Myocardial infarction Grandmother Hypertension Grandfather Cancer lung Surgical History History of dilatation and curettage Social History Smoking Status: Current every day smoker tobacco type: cigarettes alcohol intake: never substance use type: does not use ROS ROS ED ROS Narrative Constitutional: Denies any fevers, chills, headaches, lightness, dizziness Eyes: Denies change in vision double vision blurry vision Cardiovascular: Denies chest pain or palpitations Respiratory: Complains of shortness of breath as noted above Abdomen: Denies abdominal pain nausea vomit diarrhea : Denies any urinary symptoms Neurological: Denies numbness, weakness, tingling Musculoskeletal: Denies back pain Skin: Denies any rashes or lesions EXAM Physical Exam Narrative Exam Narrative: General: Patient was lying in bed rest comfortably did not appear to be acute distress Head: Atraumatic, normocephalic Eyes: PERRL bilaterally, EOMI bilaterally, no conjunctival injection noted Neck: Soft, supple, trachea midline Cardiovascular: Regular rate and rhythm no murmurs gallops rubs noted Respiratory: Clear to auscultation bilaterally no rales rhonchi or wheezes noted Abdomen: Soft, nondistended, nontender to palpation, bowel sounds present x 4 Extremities: +5/5 strength noted in the bilateral upper and lower extremities, radial pulses +2/4 in the bilateral upper extremities, no pedal edema on exam Neurological: Patient following commands knew that she was at [facility] there is 2024 Skin: Warm, dry, intact Const Vital Signs: 07/03/24 20:39 07/03/24 20:42 07/03/24 21:31 Temperature 98.1 F 98.1 F Temperature Source Oral Oral Pulse Rate 85 85 Respiratory Rate 19 H 11 L Respiratory Effort Normal Non-Labored Respiratory Depth Normal Respiratory Pattern Normal Blood Pressure 112/72 112/72 Blood Pressure Mean 85 85 Pulse Ox 95 100 Oxygen Delivery Method Room Air Room Air Room Air 07/03/24 22:00 07/03/24 22:03 07/03/24 23:00 Temperature 98.0 F 98.1 F Temperature Source Oral Oral Pulse Rate 81 83 Respiratory Rate 16 16 Respiratory Effort Respiratory Depth Respiratory Pattern Blood Pressure 102/75 107/66 Blood Pressure Mean 84 79 Pulse Ox 99 100 99 Oxygen Delivery Method Room Air Room Air Room Air MDM MDM MDM Narrative Medical decision making narrative: Patient is a 30-year-old female who presented to the emerged part with a chief complaint of shortness of breath. On the differential diagnose includes but not limited to pneumonia, upper respiratory infection second viral etiology, pneumothorax, PE. Once workup is obtained reviewed she will be reevaluated. Patient CBC reviewed showed no evidence of leukocytosis white blood count normal at 5.9, hemoglobin 13.4, plate count was noted to be 207. Patient sodium was normal at 138, potassium was 3.4, creatinine normal at 0.82. Patient's troponin normal at less than 3. Patient's EKG reviewed and independently turbid of myself showed sinus rhythm with a rate of 83 bpm. Patient TSH normal at 3.01. Patient D-dimer was elevated 1.[address] angiography chest was added on. This was reviewed which showed no acute findings. Patient's chest x-ray was reviewed by myself and by radiology which showed no acute cardiopulmonary processes. I did review the results with the patient and she would like to go home at this point time. She states that the only thing that she can think that she has changed in her life she recently brought a cat home. I told her that there is a chance that she is allergic to the cat. Will place her on steroid taper will give her a dose of steroids here in the emergency department and she can start taking these taper tomorrow. She is advised to follow-up with primary care physician and return with worsening symptoms or concerns. She is agreeable this plan all question concerns answered she was discharged home in stable condition. Lab Data Labs: Laboratory Results - last 24 hr 07/03/24 20:28 WBC 5.9 RBC 4.18 L Hgb 13.4 Hct 39.6 MCV 94.7 MCH 32.1 H MCHC 33.8 RDW Std Deviation 44.2 H RDW Coeff of Susanna 12.6 Plt Count 207 MPV 11.1 Immature Gran % (Auto) 0.200 Neut % (Auto) 34.1 L Lymph % (Auto) 53.5 H [place] % (Auto) 9.2 Eos % (Auto) 2.5 Baso % (Auto) 0.5 Absolute Neuts (auto) 2.0 Absolute Lymphs (auto) 3.15 Nucleated RBC % 0 D-Dimer Quant (PE/DVT) 1.11 H* Sodium 138 Potassium 3.4 L Chloride 107 Carbon Dioxide 24.0 Anion Gap 8 BUN 7 Creatinine 0.82 Estim Creat Clear Calc 69.90 Est GFR (MDRD) Af Amer 100 Est GFR (MDRD) Non-Af 82 BUN/Creatinine Ratio 8.5 L Glucose 87 Calcium 9.6 Troponin I High Sens < 3 L TSH 3.010 Radiography Diagnostic Testing: Clinical Impression(s) from Imaging Studies Chest X-Ray 07/03/24 22:18 IMPRESSION: No radiographic evidence of acute cardiopulmonary disease. Electronically Signed: Leandro McknightMarek Samaniego DO at 22:50 EST , Chest CTA 07/03/24 22:51 IMPRESSION: Negative CTA chest. Electronically Signed: Leandro McknightMarek Samaniego DO at 23:49 EST , Discharge Plan Triage Chief Complaint: Shortness of Breath ED Provider: Darin Bowers Dx/Rx/DC Orders Clinical Impression: Shortness of breath Prescriptions: New methylprednisolone [Medrol (Brian)] 4 mg tablets,dose pack See Rx Instructions .ROUTE .COMPLEX Qty: 21 0RF Rx Instructions: for 6 days No Action alprazolam [Xanax] 0.25 mg tablet 0.25 mg PO QHS PRN (Reason: anxiety) albuterol sulfate 90 mcg/actuation HFA aerosol inhaler 2 puff inhalation Q6H PRN (Reason: shortness of breath or wheezing) Qty: 6.7 0RF sertraline 100 mg tablet 100 mg PO QHS omeprazole magnesium [Prilosec OTC] 20 mg tablet,delayed release (DR/EC) 20 mg PO DAILY Qty: 30 0RF metoprolol succinate 25 mg tablet extended release 24 hr 12.5 mg PO DAILY PRN (Reason: elevated heart rate) Patient Comments: pt states she takes when resting HR >110 and standing HR >120 Primary Care Provider: Bereket Schulte Referrals: Bereket Schulte MD [Primary Care Provider] - Activity Restrictions/Additional Instructions: Your blood work was normal, your heart enzymes are normal, your chest x-ray is normal, your CT of your chest did not show any evidence of blood clot. You are given your first dose steroids here in the emergency department start taking the steroid taper pack tomorrow. Follow-up your primary care physician and return with worsening symptoms or concerns Print Language: Tanzanian Disposition Disposition: Home, Self Care
[2024-07-04] VITALS: BP 105/67; PULSE 81; RESP 16; TEMP 36.7; O2SAT 100
[2024-07-04 00:15] VITALS: BP 105/67; PULSE 85; RESP 16; TEMP 36.7; O2SAT 100
== END 2024-07-04 00:19 | disposition home or self-care (01) ==
PROVIDERS: Emergency Provider Emergency Medicine; PCP Family Medicine; Visit Provider Emergency Medicine
DX: R06.02 Shortness of breath (principal); F17.210 Nicotine dependence, cigarettes, uncomplicated
CPT/HCPCS: 71046; 71275; 80048; 84443; 84484; 85025; 85379; 93005; 99285; Q9967

== ENCOUNTER 2024-09-05 16:02 | Emergency (ER) | payer MEDICAID, SELFPAY ==
[2024-09-05] VITALS (10 sets, daily range): BP systolic 97–114; BP diastolic 59–77; PULSE 71–96; RESP 11–26; TEMP 36.7–37.2; O2SAT 98–100; BMI 16.6
--- NOTE | 2024-09-05 16:13 | EKG12_ITS ---
Test Reason : Blood Pressure : */* mmHG Vent. Rate : 74 BPM Atrial Rate : 74 BPM P-R Int : 108 ms QRS Dur : 96 ms QT Int : 404 ms P-R-T Axes : 73 85 57 degrees QTcB Int : 448 ms Sinus rhythm with short [place] Incomplete right bundle branch block Borderline ECG Confirmed by NORMA CHAPARRO, MIKE ([id number]), editorial manager NANCY JERONIMO ([id number]) on 09/07/2024 6:42:31 AM Referred By: Confirmed By: MIKE GREEN MD
--- NOTE | 2024-09-05 16:15 | EDS_ITS ---
HPI History of Present Illness Chief Complaint: Shortness of Breath Detail of Chief Complaint: Left chest and back pain Informant: patient Narrative Narrative: Patient presents to the emergency department complaint of pain in left back and anterior chest. At times positional based on which when she is leaning forward her back that she did get to the significant discomfort. Pain mostly with breathing. Patient feels like there is a rubbing sensation when she takes a deep breath in her back. She has had pleurisy in the past. She denies injuring her back. She went to urgent care and was referred to the ER. She denies recent travel or surgery. She has had no history of PE or DVT. Denies significant shortness of breath. Minimal cough. She has had no fever or recent illness. She does not feel ill otherwise. [facility] Medical History Hx of bacterial pneumonia Pulmonary infiltrate COVID-19 (07/01/21) IBS (irritable bowel syndrome) Herpes Herpes Limited care History of stillbirth premature rupture of membranes (PPROM) with unknown onset of labor 34 weeks gestation of Home Medications ?Medication ?Instructions ?Recorded ?Last Taken ?Type sertraline 100 mg tablet 100 mg PO QHS anxiety Unknown History omeprazole magnesium 20 mg 20 mg PO DAILY #30 tabs 03/09 Unknown Rx tablet,delayed release (Prilosec OTC) metoprolol succinate 25 mg 12.5 mg PO DAILY PRN elevat ed 11/04/23 Unknown History tablet,extended release 24 hr heart rate alprazolam 0.25 mg tablet (Xanax) 0.25 mg PO QHS PRN a nxiety 05/20/24 Unknown History albuterol sulfate 90 mcg/actuation 2 puff inhalation Q 6H PRN 06/04/24 Unknown Rx aerosol inhaler shortness of breath or wheez ing #6.7 grams methylprednisolone 4 mg tablets in See Rx Instructions PO .COMPLEX 07/04/24 Unknown Rx a dose pack (Medrol (Brian)) #21 tabs naproxen 500 mg tablet (Naprosyn) 500 mg PO BID PRN pa in #20 tabs 09/05/24 Unknown Rx Allergy/AdvReac Type Severity Reaction Status Date / Time venom-honey bee Allergy Unknown swelling Verified 09/05/24 16:03 Family History Mother Diabetes Father Schizoaffective disorder Grandmother Hypertension Diabetes Grandfather Myocardial infarction Grandmother Hypertension Grandfather Cancer lung Surgical History History of dilatation and curettage Social History Smoking Status: Current every day smoker tobacco type: cigarettes alcohol intake: never substance use type: does not use ROS ROS ED Review of Systems ROS Unobtainable: other Constitutional Constitutional ED: Reports lethargy; Denies chills, fever(s), sweats or weight loss Eyes Eyes: Denies blurry vision, change in vision or diplopia ENT ENT ED: Denies rhinorrhea or sore throat Cardiovascular Cardiovascular: Reports chest pain; Denies orthopnea or racing heartbeat Respiratory/Chest Respiratory/Chest: Reports dyspnea; Denies cough, dyspnea on exertion, orthopnea or sputum Gastrointestinal Gastrointestinal: Denies abdominal pain, diarrhea, nausea or vomiting Genitourinary Genitourinary ED: Denies dysuria, hematuria or urinary frequency Musculoskeletal Musculoskeletal: Reports back pain; Denies arthralgias, myalgias or neck pain Integumentary Denies abscess, Abrasions or rash Neurologic Neurologic: Denies headache(s) or weakness Psychiatric Psychiatric: Denies anxiety, depression or suicidal thoughts Endocrine Endocrinology: Denies polydipsia, polyphagia or polyuria Hematologic/Lymphatic Hematologic/Lymphatic: Denies easy bleeding, easy bruising or lymphadenopathy Allergic/Immunologic Allergic/Immunologic ED: Denies mouth swelling, tongue swelling or urticaria EXAM Physical Exam Const Vital Signs: 09/05/24 16:02 09/05/24 16:16 09/05/24 17:01 Temperature 99 F Temperature Source Temporal Pulse Rate 81 96 Respiratory Rate 16 13 Respiratory Effort Normal Non-Labored Respiratory Depth Normal Respiratory Pattern Normal Blood Pressure 114/67 Blood Pressure Mean 82 Pulse Ox 98 Oxygen Delivery Method Room Air Room Air 09/05/24 17:08 09/05/24 17:15 09/05/24 17:23 Temperature Temperature Source Pulse Rate 78 Respiratory Rate 26 H Respiratory Effort Respiratory Depth Respiratory Pattern Blood Pressure 113/77 109/67 Blood Pressure Mean 88 80 Pulse Ox Oxygen Delivery Method 09/05/24 17:30 09/05/24 17:45 09/05/24 18:00 Temperature Temperature Source Pulse Rate 73 72 71 Respiratory Rate 15 20 H 16 Respiratory Effort Respiratory Depth Respiratory Pattern Blood Pressure 99/62 97/59 L 98/63 Blood Pressure Mean 73 71 74 Pulse Ox Oxygen Delivery Method Positive well nourished and well developed General Appearance ED: well developed and NAD HEENT Reports TM's clear and moist mucous membranes normocephalic and atraumatic; Negative for trauma or tenderness Tympanic Membrane ED: Yes TM's clear Eyes PERRL and EOMs intact bilaterally General Eye ED: Negative for pale conjunctiva or scleral icterus Neck no lymphadenopathy, supple and no JVD General: Negative for tenderness Chest Wall inspection of chest normal and palpation of chest normal Chest: Negative for tenderness Resp normal respiratory effort and clear to auscultation bilaterally Effort and Inspection: Negative for respiratory distress or pain with movement Auscultation: Negative for rhonchi, wheezes or diminished lung sounds Cardio regular rate, regular rhythm, S1 normal heart sound, S2 normal heart sound and no murmurs Peripheral Pulses: pulses 2+ throughout GI normal to inspection, nondistended, normoactive bowel sounds, soft to palpation, non-tender, non-distended and no masses Back/Spine no CVA tenderness and no thoracic nor lumbar tenderness Extremity normal to inspection General Extremety ED: Negative for edema General Extremity: Negative for edema Neuro oriented x3, CN's II-XII intact bilaterally, no sensory deficits noted and gait normal Sensorium / Orientation: awake, alert, oriented to person, oriented to place and oriented to time Motor Exam: strength 5/5 throughout and strength abnormal Psych mental status grossly normal Skin no rashes or lesions noted and no wounds MDM MDM MDM Narrative Medical decision making narrative: Patient presents to the emergency department left-sided chest pain and back pain worse with certain position changes. Patient clinically looks well. She has had illness or trauma. IV line established. CBC with differential obtained for white count 5.4 with hemoglobin 12.4 and platelet count of 192. Chemistries unremarkable. D-dimer elevated 0.[address] of the chest was obtained which was negative for PE or dissection. Troponin was less than 6. EKG obtained arrival shows sinus rhythm with rate of 74 bpm with incomplete right bundle branch block and short MD interval. Patient was given Toradol and. Heena ology of her chest pain unclear although I suspect possibly pleurisy. I have low suspicion for pericarditis. No evidence for pericarditis on EKG. Will recommend anti-inflammatories. Lab Data Attestation: I reviewed the patient's lab results. Labs: Laboratory Results - last 24 hr 09/05/24 16:24 WBC 5.4 RBC 3.78 L Hgb 12.4 Hct 36.7 L MCV 97.1 MCH 32.8 H MCHC 33.8 RDW Std Deviation 44.6 H RDW Coeff of Susanna 12.4 Plt Count 192 MPV 10.8 Immature Gran % (Auto) 0.200 Neut % (Auto) 41.6 L Lymph % (Auto) 47.4 H [place] % (Auto) 8.1 Eos % (Auto) 2.0 Baso % (Auto) 0.7 Absolute Neuts (auto) 2.2 Absolute Lymphs (auto) 2.56 Nucleated RBC % 0 D-Dimer Quant (PE/DVT) 0.73 H* Sodium 139 Potassium 4.2 Chloride 103 Carbon Dioxide 25.8 Anion Gap 11 BUN 7 Creatinine 0.65 L Estim Creat Clear Calc 84.11 Est GFR (MDRD) Non-Af 116 BUN/Creatinine Ratio 11.2 Glucose 91 Calcium 9.6 Troponin T High Sens < 6 EKG Initial EKG: Attestation: I personally reviewed and interpreted this EKG as follows: Comments: Sinus rhythm with rate of 74 bpm with incomplete right bundle b ranch block and short MD segment Discharge Plan Triage Chief Complaint: Shortness of Breath ED Provider: Carmen Rivera Dx/Rx/DC Orders Clinical Impression: Chest pain, Pleurisy Instructions: ED Chest Pain, Uncertain Cause, ED Pleurisy Prescriptions: New naproxen [Naprosyn] 500 mg tablet 500 mg PO BID PRN (Reason: pain) Qty: 20 0RF No Action alprazolam [Xanax] 0.25 mg tablet 0.25 mg PO QHS PRN (Reason: anxiety) albuterol sulfate 90 mcg/actuation HFA aerosol inhaler 2 puff inhalation Q6H PRN (Reason: shortness of breath or wheezing) Qty: 6.7 0RF sertraline 100 mg tablet 100 mg PO QHS omeprazole magnesium [Prilosec OTC] 20 mg tablet,delayed release (DR/EC) 20 mg PO DAILY Qty: 30 0RF metoprolol succinate 25 mg tablet extended release 24 hr 12.5 mg PO DAILY PRN (Reason: elevated heart rate) Patient Comments: pt states she takes when resting HR >110 and standing HR >120 methylprednisolone [Medrol (Brian)] 4 mg tablets,dose pack See Rx Instructions .ROUTE .COMPLEX Qty: 21 0RF Rx Instructions: for 6 days Primary Care Provider: Bereket Schulte Referrals: Bereket Schulte MD [Primary Care Provider] - 3-5 Days Print Language: Italian Disposition Disposition: Home, Self Care
[2024-09-05 16:40] LABS: Absolute Lymphocyte Count 2.56 X10^3/uL (0.83-4.51); Absolute Neutrophil Count 2.2 X10^3/uL (2.0-7.7); Basophil# 0.04 X10^3/uL; Basophil% 0.7 % (0-1); Eosinophil# 0.11 X10^3/uL; Hematocrit 36.7 % (37-47); Hemoglobin 12.4 g/dL (12.0-15.0); Lymphocyte # 2.56 X10^3/ul (0.83-4.51); Lymphocyte % 47.4 % (19-41); Mean Corp Hgb Conc 33.8 g/dL (32-36); Mean Corpuscular Hgb 32.8 pg (27.0-32.0); Mean Corpuscular Volume 97.1 fL (81-99); Mean Platelet Vol. 10.8 fl (6.2-12.0); Monocyte# 0.44 X10^3/uL; Monocyte% 8.1 % (0-10); NRBC Flagged by Analyzer 0 % (0-5); Neutrophil # 2.24 X10^3/uL (2.7-7.7); Neutrophil % 41.6 % (47-70); Platelet Count 192 K/mm3 (150-450); RBC Distribution Width CV 12.4 % (11.6-14.6); RBC Distribution Width SD 44.6 fl (35.1-43.9); Red Blood Count 3.78 M/mm3 (4.2-5.4); White Blood Count 5.4 K/mm3 (4.4-11.0)
[2024-09-05 16:50] LABS: D-Dimer Quantitative (DVT/PE) 0.73 FEU/ug/m (0.27-0.49)
--- NOTE | 2024-09-05 16:52 | CT_ITS ---
PROCEDURE: CTA CHEST W/WO CONTRAST 09/05/2024 REASON FOR EXAM: CHEST PAIN, ELEVATED D-DIMER TECHNIQUE: CTA axial imaging of the chest with intravenous contrast. Coronal and Sagittal reconstruction series were provided. 3D, 3D post processing, 3D reconstructions, Maximum intensity projection (MIPs) Volume rendering and Shaded surface rendering was provided. PATIENT PREPARATION: Per protocol Intravenous contrast administered One or more dose reduction techniques were used (e.g., Automated exposure control, adjustment of the mA and/or kV according to patient size, use of iterative reconstruction technique). RADIATION DOSE SUMMARY: DLP: 116 mGycm COMPARISON: None FINDINGS: There is motion degraded examination. No pneumothorax. No pleural effusion. Bronchial thickening is seen. No thoracic aneurysm. No hilar or mediastinal adenopathy. No pericardial effusion. Imaging of the upper abdomen shows unremarkable adrenal glands. No central airway lesion. Mildly heterogeneous thyroid gland. Slight scoliosis. No acute osseous abnormality CT/CTA Chest W/WO Contrast IMPRESSION: Somewhat motion degraded examination. No findings of acute pulmonary embolism. No localizing infiltrate. Lungs are well inflated with bronchial thickening. No pneumothorax or pleural effusion no ellen dence of acute aortic pathology Reading Location: [facility]
[2024-09-05] MEDS: Ketorolac 30 MG/ML Syringe IV (16:56)
[2024-09-05 17:04] LABS: Anion Gap 11 (5-15); BUN 7 mg/dL (4-19); BUN/Creat Ratio 11.2 RATIO (10-20); Calcium,Total 9.6 mg/dL (7.6-11.0); Carbon Dioxide 25.8 mmol/L (21.0-32.0); Chloride 103 mmol/L (98-108); Creatinine, Serum 0.65 mg/dL (0.70-1.20); EST Glomerular Filtration Rate 116 (>60); Estimated Creatinine Clearance 84.11 ml/min (50-250); Glucose 91 mg/dL (70-99); Potassium 4.2 mmol/L (3.3-5.1); Sodium Level 139 mmol/L (133-145)
[2024-09-05 18:16] LABS: Troponin T High Sensitivity < 6 ng/L (<=14)
== END 2024-09-05 18:46 | disposition home or self-care (01) ==
PROVIDERS: Emergency Provider Emergency Medicine; PCP Family Medicine; Visit Provider Emergency Medicine
DX: R06.02 Shortness of breath (principal); R07.9 Chest pain, unspecified; R09.1 Pleurisy; F17.210 Nicotine dependence, cigarettes, uncomplicated
CPT/HCPCS: 71275; 80048; 84484; 85025; 85379; 93005; 96374; 99284; Q9967; A4216

== ENCOUNTER 2025-03-07 19:51 | Emergency (ER) | payer MEDICAID, SELFPAY ==
[2025-03-07 19:51] VITALS: BP 120/63; PULSE 106; RESP 19; TEMP 37; O2SAT 100; BMI 17.2
--- OUTSIDE RECORDS SUMMARY | 2025-03-07 20:43 | XMS RPT_ITS | CCD ---
Author Organization [facility] Care Team Providers [facility] Massage Therapist Name Role Phone Dr. Bereket Ashley Primary Care Provider Dr. Bereket Ashley Referring Provider Dr. Tristen Walekr Attending Provider Bereket Ashley MD Primary Care Provider Bereket Ashley MD Primary Care Provider Bereket Ashley MD Primary Care Provider Bereket Ashley MD Primary Care Provider Bereket Ashley MD Primary Care Provider Haagen LEGISLATIVE ASSISTANT.CONSOLIDATOR, Edith Unavailable Terezaan LEGISLATIVE ASSISTANT.CONSOLIDATOR, Erlinda A Unavailable Dr. Bereket Ashley MD Primary Care Provider Dr. Bereket Ashley MD Referring Provider Josesito Penny Attending Provider Ezequiel Lala Attending Provider [phone] Ezequiel Lala Referring Provider Dr. Darin Bowers DO Attending Provider Dr. Darin Bowers DO Emergency Provider Dr. Carmen Rivera DO Emergency Provider Bereket Ashley Primary Care Unavailable Darin Bowers Attending Unavailable Bereket Ashley Primary Care Unavailable Carmen Rivera Attending Unavailable Bereket Ashley Primary Care Unavailable Jakob Heath Attending Unavailable Bereket Ashley Primary Care Unavailable Sophy Kelly Attending Unavailable Josesito Quach Attending Unavailable Bereket Ashley Referring Unavailable Dion, Bereket Primary Care Unavailable Jose HERNÁNDEZ, Ezequiel Attending Unavailable Dion, Bereket Referring Unavailable Dion, Bereket Primary Care Unavailable Ezequiel Lala Attending Unavailable Ezequiel Lala Referring Unavailable Dion, Bereket Primary Care Unavailable WILLIAMLOGDINORA DIEGO Attending Unavailable BEREKET ASHLEY Primary Care Unavailable DION, BEREKET Reis Attending Unavailable DION, BEREKET Reis Primary Care Unavailable DION, BEREKET Reis Primary Care Unavailable IDON, BEREKET Reis Primary Care Unavailable DION, BEREKET Reis Attending Unavailable DION, BEREKET Reis Primary Care Unavailable DION, BEREKET Reis Attending Unavailable DION, BEREKET Reis Primary Care Unavailable DION, BEREKET Reis Attending Unavailable DION, BEREKET Reis Primary Care Unavailable DION, BEREKET Reis Referring Unavailable DION, BEREKET Reis Primary Care Unavailable BRENNEN ROYAL Attending Unavailable DION, BEREKET Reis Primary Care Unavailable DION, BEREKET Reis Attending Unavailable DION, BEREKET Reis Primary Care Unavailable DION, BEREKET Reis Primary Care Unavailable MARIA C DOLAN Attending Unavailab le DION, BEREKET Reis Primary Care Unavailable DION, BEREKET Reis Attending Unavailable DION, BEREKET Reis Primary Care Unavailable Allergies Allergy Classification Reported Allergen(s) Allergy Type Date of Onset Reaction(s) Facility (5 sources) venom-honey bee Allergy to substance 2 [facility] (20 sources) Bee Sting; Translations: [BEE STING] Allergy to substance 1 [facility] Work Phone: (9 sources) levoFLOXacin; Translations: [LEVOFLOXACIN] Drug Allergy 5 Other: See Comments [facility] (1 source) venom-honey bee Drug allergy (disorder) 5 [facility] Rep[facility] Medications Current Medications Medication Drug Class(es) Dates Sig (Normalized) Sig (Original) [id number] 200 actuat albuterol 0.09 mg/actuat metered dose inhaler (1 source) beta2-Adrenergic Agonist Start: 06-04-2024 Albuterol Sulfate 90 mcg/actuation HFA aerosol inhaler Active 2 NMA INHALATION EVERY 6 HOURS as needed for shortness of breath or wheezing 6.7 June 04, 2024 1:00am ALPRAZolam 0.25 mg oral tablet (20 sources) Benzodiazepine Start: 05-20-2024 End: 08-28-2024 take 1 tablet by mouth three times daily as needed ALPRAZolam (XANAX) 0.25 mg tablet Indications: Anxiety , Panic disorder with agoraphobia Take 1 tablet by mouth three times a day as needed for up to 30 days. 20 tablet 07/29/2024 08/28/2024 Active Start: 08-02-2020 End: 11-04-2023 take 1 tablet by mouth at bedtime as needed for anxiety Alprazolam (Xanax) 0.25 MG tablet Discontinued 0.25 mg PO AT BEDTIME NEEDED as needed for Anxiety August 02, 2020 1:00am November 04, 2023 12:24am Start: 08-06-2009 End: 07-29-2024 ALPRAZolam (XANAX) 0.25 mg t ablet Take 0.25 mg by mouth. 08/06/2009 07/29/2024 Discontinued Start: 08-06-2009 End: 11-30-2021 take 1 tablet by mouth at bedtime as needed Alprazolam (Xanax) 0.25 MG tablet Active 0.25 MG PO AT BEDTIME NEEDED August 02, 2020 1:00am Start: 08-06-2009 End: 08-06-2023 ALPRAZolam (XANAX) 0.25 mg t ablet Indications: Anxiety Take 1 tablet by mouth as needed for up to 180 days. 10 tablet 0 09/27/2022 08/06/2023 Active Comment on above: Take 1 tablet by cayden th at bedtime as needed for up to 90 days. Take 1 tablet by cayden th once daily as needed for up to 30 days. Take 1 tablet by cayden th as needed for up to 180 days. Take 0.25 mg by mout h. amoxicillin 875 mg / clavulanate 125 mg oral tablet (5 sources) Penicillin-class Antibacterial Start: End: take 1 tablet by mouth twice daily amoxicillin-clavul anate potassium (AUGMENTIN) 875-125 mg per tablet Take 1 tablet by mouth two times a day for 7 days. 14 tablet 07/31/2024 08/07/2024 Active Start: 12-06-2023 End: 12-13-2023 take 1 tablet by mouth twice daily amoxicillin-clavulanate potassium (AUGMENTIN) 875-125 mg per tablet Indications: Bacterial sinusitis Take 1 tablet by mouth two times a day for 7 days. 14 tablet 0 12/06/2023 12/13/2023 Discontinued (Discontinued by Patient) Start: 11-15-2022 End: 11-25-2022 take 1 tablet by mouth twice daily amoxicillin-clavulanic acid (AUGMENTIN) 875-125 mg per tablet Indications: Dental infection Take 1 tablet by mouth twice daily for 10 days. 20 tablet 0 11/15/2022 11/25/2022 Active Comment on above: Take 1 tablet by cayden twice daily for 10 days. busPIRone hydrochloride 5 mg oral tablet (12 sources) Start: 02-08-2025 take 1 tablet by mouth twice daily busPIRone (BUSPAR) 5 mg tablet Indications: Anxiety Take 1 tablet by mouth two times a day. 60 tablet 3 02/08/2025 Active Start: 11-14-2021 take 0.5-1 tablets b y mouth twice daily busPIRone (BUSPAR) 5 mg tablet Indications: Anxiety Take 0.5-1 tablets by mouth twice daily. 60 tablet 5 11/14/2021 Active Comment on above: Take 0.5-1 tablets b y mouth twice daily. clobetasol propionate 0.5 mg/ml topical cream (2 sources) Corticosteroid Start : 05-02 End: 05-16 clobetasol (TEMOVATE) 0.05 % cream Apply to affected area twice daily for 14 days. 30 g 1 05/02/2022 05/16/2022 Active Comment on above: Apply to affected ar ea twice daily for 14 days. dicyclomine hydrochloride 10 mg oral capsule (5 sources) Anticholinergic Start : 04-06 End: 07-29 take 1 capsule by mouth at bedtime dicyclomine (BENTYL) 10 mg capsule Indications: Gastroesophageal reflux disease without esophagitis , Bloated abdomen , Change in bowel function Take 1 capsule by mouth before meals and at bedtime. 20 capsule 04/06/2024 07/29/2024 Discontinued enteric contrast (will be provided with radiology test) (2 sources) Start : 08-06 End: 08-07 enteric contrast (will be provided with radiology test) Indications: Acute right-sided low back pain without sciatica , Family history of kidney stones , Right lower quadrant abdominal pain For CT ABD/PEL W IVCON Routine order Administer, As Directed One Time Only, via Oral, Rectal, both Oral and Rectal, Enteric Tube, Stoma or Indwelling Catheter, Enteric Contrast as designated per enteric contrast guidelines 1 Each 0 08/06/2023 08/07/2023 Active Comment on above: For CT ABD/PEL W IVC ON Routine order Administer, As Directed One Time Only, via Oral, Rectal, both Oral and Rectal, Enteric Tube, Stoma or Indwelling Catheter, Enteric Contrast as designated per enteric contrast guidelines erythromycin 0.005 mg/mg ophthalmic ointment (1 source) Macrolide, Macrolide Antimicrobial Start : 10-20 End: 10-27 erythromycin (ROMYCIN) 5 mg/gram (0.5 %) ophthalmic ointment Use 1 application in the right eye twice daily for 7 days. 3.5 g 0 10/20/2021 10/27/2021 Active Comment on above: Use 1 application in the right eye twice daily for 7 days. famotidine 20 mg oral tablet (6 sources) Histamine-2 Receptor Antagonist Start : 03-30 End: 09-26 take 1 tablet by mouth once daily at bedtime famotidine (PEPCID) 20 mg tablet Indications: Gastroesophageal reflux disease without esophagitis , Bloated abdomen Take 1 tablet by mouth daily at bedtime. 30 tablet 5 03/30/2024 07/29/2024 Discontinued fluticasone propionate 0.05 mg/actuat metered dose nasal spray (2 sources) Corticosteroid Start : 07-31 End: 08-30 take 2 spray(s) by mouth once daily fluticasone (FLONASE) 50 mcg/actuation nasal spray Use 2 Sprays in each nostril once daily. Rinse mouth after use. 11.1 mL 07/31/2024 08/30/2024 Active iv contrast (will be provided with radiology test) (2 sources) Start : 08-06 End: 08-07 iv contrast (will be provided with radiology test) Indications: Acute right-sided low back pain without sciatica , Family history of kidney stones , Right lower quadrant abdominal pain CT ABD/PEL -Inject, intravenously, once for 1 dose.No IV access, insert saline lock prior to the beginning of sedation, infusion, injection of imaging exam. Discontinue saline lock post exam. If Pt. has a central line or IVAD, may access for administration according to line specific nursing protocol. Once exam is complete flush line and de-access according to line specific nursing protocol in the CT contrast administration guidelines link. 1 Each 0 08/06/2023 08/07/2023 Active Comment on above: CT ABD/PEL -Inject, intravenously, once for 1 dose.No IV access, insert saline lock prior to the beginning of sedation, infusion, injection of imaging exam. Discontinue saline lock post exam. If Pt. has a central line or IVAD, may access for administration according to line specific nursing protocol. Once exam is complete flush line and de-access according to line specific nursing protocol in the CT contrast administration guidelines link. methylPREDNISolone 4 mg oral tablet (1 source) Corticosteroid Start : 07-04 Methylprednisolone (Medrol (Brian)) 4 mg tablets,dose pack Active 0 PO .COMPLEX July 04, 2024 1:00am for 6 days metoprolol tartrate 25 mg oral tablet (20 sources) beta-Adrenergic Tal Start : 11-03 take 0.5 tablet by mouth twice daily metoprolol tartrate, short acting, (LOPRESSOR) 25 mg tablet Indications: Palpitations Take 0.5 tablets by mouth two times a day. For elevated heart rate 30 tablet 2 11/04/2023 Active Start: 09-26-2023 End: 09-25-2024 take 2 tablets by mouth once daily as needed Metoprolol Succinate 25 mg tablet extended release 24 hr Active 12.5 mg PO DAILY as needed for elevated heart rate November 04, 2023 12:00am Start: 08-23-2021 End: 08-23-2021 Metoprolol Tartrate 25 mg ta blet Discontinued 12.5 mg PO TWICE A DAY August 23, 2021 1:00am August 23, 2021 1:20pm Start: 08-23-2021 End: 08-23-2021 take 12.5 mg by mouth twice daily Metoprolol Tartrate Discontinued 12.5 MG PO TWICE A DAY August 23, 2021 1:00am August 23, 2021 1:20pm Start: 08-22-2021 End: 08-23-2021 take 2 tablets by mouth once daily Metoprolol Succinate 25 mg tablet extended release 24 hr Discontinued 12.5 mg PO DAILY August 22, 2021 1:00am August 23, 2021 12:50pm Start: 08-22-2021 End: 08-23-2021 take 12.5 mg by mouth once daily Metoprolol Succinate Discontinued 12.5 MG PO DAILY August 22, 2021 1:00am August 23, 2021 12:50pm Start: 04-21-2021 End: 02-07-2022 take 0.5 tablet by mouth twice daily as needed metoprolol tartrate, short acting, (LOPRESSOR) 25 mg tablet Take 0.5 tablets by mouth twice daily as needed (for elevated heart rate). 30 tablet 5 04/21/2021 02/07/2022 Discontinued (Discontinued by Patient) Comment on above: Take 0.5 tablets by mouth twice daily as needed (for elevated heart rate). Take 1 tablet by [facility] once daily. moxifloxacin 5 mg/ml ophthalmic solution (3 sources) Quinolone Antimicrobial Start: 10-17-19 End: 10-24-19 take 1 drop(s) into the eye(s) every hour moxifloxacin (VIGAMOX) 0.5 % ophthalmic solution Indications: Corneal ulcer of right eye Use 1 Drop in the right eye every hour for 7 days. 3 mL 1 10/16/2021 10/23/2021 Active Comment on above: Use 1 Drop in the ri ght eye every hour for 7 days. naproxen 500 mg oral tablet (1 source) Nonsteroidal Anti-inflammatory Drug Start: 09-06-19 take 1 tablet by mouth twice daily as needed for pain Naproxen (Naprosyn) 500 mg tablet Active 500 mg PO TWICE A DAY as needed for pain September 05, 2024 12:00am omeprazole 20 mg delayed release oral capsule (20 sources) Proton Pump Inhibitor Start: 06-04-20 End: 04-26-20 take 1 capsule by mouth once daily before breakfast omeprazole (PRILOSEC) 20 mg capsule Indications: GERD without esophagitis Take 1 capsule by mouth daily before breakfast. 1/2 hr before meal. 90 capsule 1 10/29/2023 Active Start: 11-19-2022 End: 02-04-2023 take 1 capsule by mouth once daily before breakfast omeprazole (PRILOSEC) 20 mg capsule Indications: GERD without esophagitis Take 1 capsule by mouth daily before breakfast. 1/2 hr before meal. 30 capsule 1 02/04/2023 Active Start: 10-23-2022 take 1 tablet by cayden th once daily Omeprazole Magnesium (Prilosec Otc) 20 mg tablet,delayed release (DR/EC) Active 20 mg PO DAILY October 23, 2022 12:00am Comment on above: Take 1 capsule by mo uth daily before breakfast. 1/2 hr before meal. ondansetron 4 mg disintegrating oral tablet (4 sources) Serotonin-3 Receptor Antagonist Start: 09-15-19 take 1 tablet by mouth every eight hours as needed for nausea ondansetron orally disintegrating (ZOFRAN ODT) 4 mg disintegrating tablet Indications: Gastroenteritis Take 1 tablet by mouth every 8 hours as needed for nausea/vomiting. 20 tablet 09/14/2024 Active sertraline 100 mg oral tablet (20 sources) Serotonin Reuptake Inhibitor Start: 11-24-19 End: 05-22-20 take 1.5 tablets by mouth once daily sertraline (ZOLOFT) 100 mg tablet Indications: Anxiety , Panic disorder with agoraphobia Take 1.5 tablets by mouth once daily. . 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 135 tablet 1 11/23/2024 05/22/2025 Active Start: 09-20-2019 End: 01-25-2025 take 1 tablet by mouth once daily sertraline (ZOLOFT) 100 mg tablet Indications: Anxiety , Panic disorder with agoraphobia Take 1 tablet by mouth once daily. . 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 90 tablet 1 07/29/2024 11/23/2024 Discontinued Comment on above: Take 1 tablet by cayden th once daily. . Needs to be MemoryBistrog. Completed/Discontinued Medications Medication Drug Class(es) Dates Sig (Normalized) Sig (Original) amoxicillin 500 mg oral tablet (2 sources) Penicillin-class Antibacterial Start: 05-20-2024 End: 07-03-2024 take 1 tablet by mouth three times daily Amoxicillin 500 mg tablet Discontinued 500 mg PO THREE TIMES A DAY May 20, 2024 1:00am July 03, 2024 10:35pm Start: 12-13-2023 End: 12-23-2023 take 1 capsule by mouth three times daily amoxicillin (AMOXIL) 500 mg capsule Indications: Subacute maxillary sinusitis Take 1 capsule by mouth three times a day for 10 days. 30 capsule 0 12/13/2023 12/23/2023 Active benzonatate 200 mg oral capsule (1 source) Non-narcotic Antitussive Start: 05-20-2024 End: 07-03-2024 take 1 capsule by mouth three times daily as needed for cough Benzonatate 200 mg capsule Discontinued 200 mg PO THREE TIMES A DAY as needed for cough May 20, 2024 1:00am July 03, 2024 10:35pm doxycycline monohydrate 100 mg oral capsule (1 source) Tetracycline-class Drug Start: 05-20-2024 End: 07-03-2024 take 1 capsule by mouth twice daily Doxycycline Monohydrate 100 mg capsule Discontinued 100 mg PO TWICE A DAY May 20, 2024 1:00am July 03, 2024 10:35pm [id number] 0.3 ml EPINEPHrine 1 mg/ml auto-injector (20 sources) alpha-Adrenergic Agonist, beta-Adrenergic Agonist, Catecholamine Start: 08-16-2021 End: 11-04-2023 Epinephrine (Epipen) 0.3 mg/0.3 mL auto-injector Discontinued 0.3 mg IM ONCE as needed for bee sting August 16, 2021 1:00am November 04, 2023 12:24am as a single dose; may repeat once Start: 06-20-2021 EPINEPHrine (E PIPEN) 0.3 mg/0.3 mL auto-injector Indications: Bee sting allergy Use as directed. Go to ED after use. 2 Each 1 06/20/2021 Active Comment on above: Use as directed. Go to ED after use. levoFLOXacin 500 mg oral tablet (1 source) Quinolone Antimicrobial Start: 06-04-20 End: 06-09-20 take 1 tablet by mouth every twenty-four hours Levofloxacin 500 mg tablet Discontinued 500 mg PO Q24H 5 5 June 04, 2024 1:00am June 08, 2024 1:00am June 09, 2024 1:08am predniSONE 10 mg oral tablet (2 sources) Start: 04-18-20 End: 04-30-20 predniSONE (DELTASONE) 10 mg tablet Take 6 tabs for 3 days, then 4 tabs for 3 days, then 2 tabs for 3 days then 1 tab for 3 days with food. 39 tablet 0 04/18/2022 04/24/2022 Discontinued Comment on above: Take 6 tabs for 3 da ys, then 4 tabs for 3 days, then 2 tabs for 3 days then 1 tab for 3 days with food. triamcinolone acetonide 5 mg/ml topical cream (3 sources) Corticosteroid Start: 04-24-20 End: 05-08-20 triamcinolone acetonide (KENALOG) 0.5 % cream Apply 1 application to affected area twice daily for 14 days. For rash/itching. Apply sparingly. Avoid face/skin fold. 15 g 1 04/24/2022 05/02/2022 Discontinued Comment on above: Apply 1 application to affected area twice daily for 14 days. For rash/itching. Apply sparingly. Avoid face/skin fold. urea 400 mg/ml topical cream (20 sources) Start: 10-30-19 End: 02-09-20 urea (CARMOL) 40 % Apply to affected area as needed. 198 g 5 10/30/2023 02/08/2025 Discontinued Start: 05-08-2022 urea (CARMOL) 40 % Apply to affected area as needed. 198 g 5 05/08/2022 Active Comment on above: Apply to affected ar ea as needed. Problems Active Problems Problem Classification Problem Date Documented Da te Episodic/Chronic Abdominal pain (1 source) Right lower quadrant pain; Translations: [Right lower quadrant pain] 08-06-2023 Episodic Allergic reactions (1 source) Inflammatory dermatosis; Translations: [Dermatitis, unspecified] Episodic Anxiety disorders (20 sources) Anxiety; Translations: [Anxiety disorder, unspecified] Onset: 2 06-12-2021 Chronic Cardiac dysrhythmias (10 sources) Postural orthostatic tachycardia syndrome ; Translations: [Other specified cardiac arrhythmias] Onset: 5 Chronic Conditions associated with dizziness or vertigo (7 sources) Lightheadedness; Translations: [Dizziness and giddiness] Onset: 5 Episodic Deficiency and other anemia (1 source) Anemia; Translations: [Anemia, unspecified] 07-29-2024 Episodic Disorders of teeth and jaw (5 sources) Infection of tooth; Translations: [Periapical abscess without sinus] Episodic E Codes: Adverse effects of medical drugs (1 source) Adverse reaction to drug; Translations: [Adverse effect of unspecified drugs, medicaments and biological substances, initial encounter] 11-12-2023 Episodic Esophageal disorders (6 sources) Gastroesophageal reflux disease without esophagitis; Translations: [Gastro-esophageal reflux disease without esophagitis] Chronic Immunizations and screening for infectious disease (1 source) Contact with or exposure to other viral diseases; Translations: [Exposure to 2019 novel coronavirus] Episodic Inflammation; infection of eye (except that caused by tuberculosis or sexually transmitteddisease) (1 source) Punctate keratitis of right eye; Translations: [Punctate keratitis, right eye] Chronic Nausea and vomiting (1 source) Nausea; Translations: [Nausea] 07-23-2024 Episodic Noninfectious gastroenteritis (1 source) Gastroenteritis; Translations: [Noninfective gastroenteritis and colitis, unspecified] 09-14-2024 Episodic Nonspecific chest pain (2 sources) Chest pain; Translations: [Chest pain, unspecified] Episodic Other complications of (5 sources) care status; Translations: [Supervision of with insufficient care, unspecified trimester] 08-16-2021 Episodic Other connective tissue disease (1 source) Muscle weakness; Translations: [Muscle weakness (generalized)] 11-14-2023 Episodic Other eye disorders (1 source) Ulcer of cornea of right eye; Translations: [Unspecified corneal ulcer, right eye] Episodic Other eye disorders (2 sources) Marginal corneal ulcer of right eye; Translations: [Marginal corneal ulcer, right eye] Episodic Other gastrointestinal disorders (20 sources) Irritable bowel syndrome; Translations: [Irritable bowel syndrome without diarrhea] 05-07-2013 Chronic Other gastrointestinal disorders (2 sources) Abdominal bloating; Translations: [Abdominal distension (gaseous)] 03-30-2024 Episodic Other gastrointestinal disorders (1 source) Altered bowel function; Translations: [Other specified symptoms and signs involving the digestive system and abdomen] 04-06-2024 Episodic Other lower respiratory disease (2 sources) Dyspnea; Translations: [Shortness of breath] Episodic Other lower respiratory disease (3 sources) Radiologic infiltrate of lung ; Translations: [Other nonspecific abnormal finding of lung field] 05-20-2024 Episodic Other lower respiratory disease (1 source) Shortness of breath; Translations: [Shortness of breath] Onset: 5 Episodic Other lower respiratory disease (1 source) Other nonspecific abnormal finding of lung field; Translations: [Other nonspecific abnormal finding of lung field] Onset: 5 Episodic Other skin disorders (1 source) Vesicular eczema; Translations: [Dyshidrosis [pompholyx]] Episodic Other upper respiratory disease (1 source) Pain in throat; Translations: [Pain in throat] Episodic Other upper respiratory infections (3 sources) Bacterial sinusitis; Translations: [Chronic sinusitis, unspecified] 12-06-2023 Chronic Other upper respiratory infections (1 source) Acute maxillary sinusitis; Translations: [Acute maxillary sinusitis, unspecified] 12-13-2023 Episodic Pleurisy; pneumothorax; pulmonary collapse (1 source) Pleurisy; Translations: [Pleurisy] 09-05-2024 Episodic Polyhydramnios and other problems of amniotic cavity (5 sources) premature rupture of membranes with onset of labor unknown; Translations: [ premature rupture of membranes, unspecified as to length of time between rupture and onset of labor, unspecified trimester] 08-16-2021 Episodic Residual codes; unclassified (5 sources) Gestation period, 34 weeks; Translations: [34 weeks gestation of ] 08-16-2021 Episodic Residual codes; unclassified (5 sources) Tobacco user; Translations: [Tobacco use] 08-16-2021 Episodic Residual codes; unclassified (1 source) Flushing; Translations: [Flushing] 07-23-2024 Episodic Spondylosis; intervertebral disc disorders; other back problems (1 source) Acute low back pain; Translations: [Acute right-sided low back pain without sciatica] 08-06-2023 Episodic Substance-related disorders (20 sources) Tobacco user; Translations: [Nicotine dependence, unspecified, uncomplicated] 05-07-2013 Chronic Unclassified (1 source) NO SHOW 06-10-2023 Viral infection (10 sources) Disease caused by 2019-nCoV; Translations: [COVID-19] Onset: 2 08-23-2021 Episodic Past or Other Problems Problem Classification Problem Date Documented Da te Episodic/Chronic Cardiac dysrhythmias (20 sources) Palpitations; Translations: [Palpitations] Onset: 07-24-2019 07-24-2019 Episodic Early or threatened labor (20 sources) False labor before 37 completed weeks of gestation, unspecified trimester; Translations: [Threatened premature labor, antepartum condition or complication] Onset: 11-28-2011 Resolved: 02-04-2012 06-12-2021 Episodic Inflammatory diseases of female pelvic organs (20 sources) Vaginitis; Translations: [Acute vaginitis] Onset: 09-03-2012 Resolved: 07-29-2024 09-03-2012 Episodic Malaise and fatigue (1 source) Weakness; Translations: [Weakness] Onset: 11-12-2023 Episodic Other complications of (20 sources) Anemia complicating , unspecified trimester; Translations: [Anemia of mother, antepartum condition or complication] Onset: 10-30-2011 Resolved: 02-04-2012 06-12-2021 Chronic Other complications of (20 sources) Maternal tobacco use; Translations: [Smoking (tobacco) complicating , first trimester] Onset: 10-30-2011 Resolved: 07-29-2024 05-05-2019 Episodic Other complications of (20 sources) Genital herpes simplex in mother complicating ; Translations: [Other infections with a predominantly sexual mode of transmission complicating , unspecified trimester] Onset: 10-30-2011 05-05-2019 Episodic Other complications of (20 sources) High risk ; Translations: [Supervision of high risk , unspecified, first trimester] Onset: 05-05-2019 Resolved: 07-29-2024 05-05-2019 Episodic Other complications of (20 sources) Anxiety in ; Translations: [Other mental disorders complicating , first trimester] Onset: 05-05-2019 Resolved: 07-29-2024 05-05-2019 Episodic Other complications of (20 sources) Supervision of other high risk pregnancies, unspecified trimester; Translations: [Supervision of other high-risk ] Onset: 10-30-2011 Resolved: 02-04-2012 06-12-2021 Episodic Other complications of (5 sources) Other mental disorders complicating , first trimester; Translations: [Mental disorders of mother, antepartum condition or complication] Onset: 05-05-2019 Resolved: 07-29-2024 07-29-2024 Episodic Other connective tissue disease (1 source) Muscle weakness (generalized); Translations: [Muscle weakness (generalized)] Onset: 11-14-2023 Episodic Other gastrointestinal disorders (1 source) Abdominal distension (gaseous); Translations: [Bloated abdomen] Onset: 04-23-2024 Episodic Other gastrointestinal disorders (1 source) Other specified symptoms and signs involving the digestive system and abdomen; Translations: [Change in bowel function] Onset: 04-23-2024 Episodic Other nutritional; endocrine; and metabolic disorders (20 sources) Underweight; Translations: [Underweight] Onset: 05-05-2019 Resolved: 07-29-2024 05-05-2019 Episodic Other and delivery including normal (20 sources) Normal in primigravida; Translations: [Encounter for supervision of normal first , unspecified trimester] Onset: 07-10-2011 Resolved: 10-30-2011 10-30-2011 Episodic Residual codes; unclassified (20 sources) H/O: stillbirth; Translations: [Personal history of other complications of , childbirth and the puerperium] Onset: 05-05-2019 05-05-2019 Episodic Residual codes; unclassified (20 sources) Family history of renal stone; Translations: [Family history of disorders of kidney and ureter] Onset: 08-06-2023 08-06-2023 Episodic Results Test Name Value Interpretation Reference Range Facility [facility] 11-25-2024 [facility] Telephone (JAY) GRACIE AVELAR ([id number]) 1985 F Date Time Provider Department 11/25/24 BEREKET ASHLEY [facility] During your visit today, we recorded the following information about you: Allergies As of Date: 11/25/2024 Noted Allergy Reaction BEE STING 01/12/2011 7 - Swelling LEVAQUIN (LEVOFLOXACIN) 07/29/2024 14 - Other: See Comments Comments: agitation Date Reviewed: 07/31/2024 Reviewed by: Ricki Pascual APRN.CONSOLIDATOR - Fully Assessed Prescriptions as of 12/04/2024 - sertraline (ZOLOFT) 100 mg tablet Take 1.5 tablets by mouth once daily. . 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 - ondansetron orally disintegrating (ZOFRAN ODT) 4 mg disintegrating tablet Take 1 tablet by mouth every 8 hours as needed for nausea/vomiting. - metoprolol tartrate, short acting, (LOPRESSOR) 25 mg tablet Take 0.5 tablets by mouth two times a day. For elevated heart rate - urea (CARMOL) 40 % Apply to affected area as needed. - omeprazole (PRILOSEC) 20 mg capsule Take 1 capsule by mouth daily before breakfast. 1/2 hr before meal. - EPINEPHrine (EPIPEN) 0.3 mg/0.3 mL auto-injector Use as directed. Go to ED after use. Problem List As Of Date 11/25/2024 Noted Resolved Supervision of normal first [Z34.00] 07/10/2011 10/30/2011 Maternal tobacco use in first trimester [O99.33*10/30/2011 07/29/2024 Anxiety [F41.9] 10/30/2011 Genital herpes simplex virus (HSV) infection in*10/30/2011 Supervision of other high-risk (V23.89*10/2902/04/2012 Anemia, antepartum(648.23) [O99.019] 10/30/2011 02/04/2012 Threatened premature labor, antepartum(644.03) *11/28/2011 02/04/2012 Vaginitis [N76.0] 09/03/2012 07/29/2024 Tobacco use disorder [F17.200] IBS (irritable bowel syndrome) [K58.9] Sinus tachycardia [R00.0] History of stillbirth [Z87.59] 05/05/2019 Supervision of high risk in first tri*05/05/2019 07/29/2024 Underweight [R63.6] 05/05/2019 07/29/2024 Anxiety in in first trimester, antepa*05/05/2019 07/29/2024 Family history of kidney stones [Z84.1] 08/06/2023 Encounter Status:Closed by [facility] (F[facility] VALENTINOGRACIE ([id number]) 1985 F Date Time Provider Department 10/07/24 BEREKET ASHLEY [facility] During your visit today, we recorded the following information about you: Lashonda Schafer RN 10/07/2024 2:17 PM Signed Patient calling in and states she takes alprazolam as needed for anxiety. States she used to get the medication at [facility], but recently began using [facility]. She states she believes the clerk general of the generic alprazolam medication that [facility] uses is different than [facility]'s. States the ones she got from [facility] are much stronger. Reports they make her more sleepy. Patient states she even tried taking only half of a pill of alprazolam from [facility] and it still made her feel tired and sleepy. States it made he want to take a nap. She states she would rather go back to using [facility] for her alprazolam medication. She is asking if [facility], so she can pick a new script up and states she's will waste her supply from [facility], and states I'm not trying to double dip. Please advise patient. Lashonda Schafer RN Allergies As of Date: 10/07/2024 Noted Allergy Reaction BEE STING 01/12/2011 7 - Swelling LEVAQUIN (LEVOFLOXACIN) 07/29/2024 14 - Other: See Comments Comments: agitation Date Reviewed: 07/31/2024 Reviewed by: Ricki Pascual APRN.CONSOLIDATOR - Fully Assessed Reason for Visit: Patient Question [5132] Prescriptions as of 10/08/2024 - ALPRAZolam (XANAX) 0.25 mg tablet Take 1 tablet by mouth once daily as needed for up to 30 days. - ondansetron orally disintegrating (ZOFRAN ODT) 4 mg disintegrating tablet Take 1 tablet by mouth every 8 hours as needed for nausea/vomiting. - sertraline (ZOLOFT) 100 mg tablet Take 1 tablet by mouth once daily. . 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 - metoprolol tartrate, short acting, (LOPRESSOR) 25 mg tablet Take 0.5 tablets by mouth two times a day. For elevated heart rate - urea (CARMOL) 40 % Apply to affected area as needed. - omeprazole (PRILOSEC) 20 mg capsule Take 1 capsule by mouth daily before breakfast. 1/2 hr before meal. - EPINEPHrine (EPIPEN) 0.3 mg/0.3 mL auto-injector Use as directed. Go to ED after use. Problem List As Of Date 10/07/2024 Noted Resolved Supervision of normal first [Z34.00] 07/10/2011 10/30/2011 Maternal tobacco use in first trimester [O99.33*10/30/2011 07/29/2024 Anxiety [F41.9] 10/30/2011 Genital herpes simplex virus (HSV) infection in*10/30/2011 Supervision of other high-risk (V23.89*10/2902/04/2012 Anemia, antepartum(648.23) [O99.019] 10/30/2011 02/04/2012 Threatened premature labor, antepartum(644.03) *11/28/2011 02/04/2012 Vaginitis [N76.0] 09/03/2012 07/29/2024 Tobacco use disorder [F17.200] IBS (irritable bowel syndrome) [K58.9] Sinus tachycardia [R00.0] History of stillbirth [Z87.59] 05/05/2019 Supervision of high risk in first tri*05/05/2019 07/29/2024 Underweight [R63.6] 05/05/2019 07/29/2024 Anxiety in in first trimester, antepa*05/05/2019 07/29/2024 Family history of kidney stones [Z84.1] 08/06/2023 Encounter Status:Closed by LASHONDA SCHAFER on 10/08/24 Normal [facility] 12 Lead EKGon 09-05-2024 12 Lead EKG [facility] Cardiovascular Services [address] [place] [address] 12 Lead EKG 09/05/24 1624 MR#: [id number] Acct: [id number] Name: GRACIE AVELAR Rep #: [id number] : 1985 38 From: Tristen Walker MD Attending Dr: Status: DEP ER Ordering Dr: Carmen Rivera DO Date: 09/05/24 Location: ED Sex: F C Admitted: Test Reason : Blood Pressure : */* mmHG Vent. Rate : 74 BPM Atrial Rate : 74 BPM P-R Int : 108 ms QRS Dur : 96 ms QT Int : 404 ms P-R-T Axes : 73 85 57 degrees QTcB Int : 448 ms Sinus rhythm with short [place] Incomplete right bundle branch block Borderline ECG Confirmed by TRISTEN WALKER MD ([id number]), film and video editor DANISHA JERONIMO ([id number]) on 09/07/2024 6:42:31 AM Referred By: Confirmed By: TRISTEN WALKER MD 09/07/24 0642 Date Tristen Walker MD CC: Dr. Carmen Rivera DO; Dr. Bereket Ashley MD Signed Normal [facility] Absolute neutrophil countOrd ered By: Carmen Rivera on 09-05-2024 Neutrophils (Bld) [#/Vol] 2.2 10*3/uL 2.0-7.7 [facility] Anion gap in Serum or Plasma Ordered By: Carmen Rivera on 09-05-2024 Anion gap [Moles/Vol] 11 mmol/L - [facility] BUN/creatinine ratioOrdered By: Carmen Rivera on 09-05-2024 Urea nitrogen/Creatinine [Mass ratio] 11.2 mg/mg 10- [facility] Basic Metabolic Profile (BMP )on 09-05-2024 BUN/CRE 11.2 RATIO Normal 10-20 [facility] Comment on above: Performed By: #### L 300.8000, L500.2500, L100.0100 ####[facility] [address] [place], [address] Calcium [Mass/Vol] 9.6 mg/dL Normal 7.6-11.0 [facility] Comment on above: Performed By: #### L 300.8000, L500.2500, L100.0100 ####[facility] [address] [place], [address] Chloride [Moles/Vol] 103 mmol/L Normal 98-108 [facility] Comment on above: Performed By: #### L 300.8000, L500.2500, L100.0100 ####[facility] [address] [place], [address] CO2 [Moles/Vol] 25.8 mmol/L Normal 21.0-32.0 [facility] Comment on above: Performed By: #### L 300.8000, L500.2500, L100.0100 ####[facility] [address] [place], [address] Creatinine [Mass/Vol] 0.65 mg/dL Low 0.70-1.20 [facility] Comment on above: Performed By: #### L 300.8000, L500.2500, L100.0100 ####[facility] [address] [place], [address] ECRCL 84.11 ml/min Normal 50-250 [facility] Comment on above: Performed By: #### L 300.8000, L500.2500, L100.0100 ####[facility] [address] [place], [address] GAP 11 Normal 5-15 [facility] Comment on above: Performed By: #### L 300.8000, L500.2500, L100.0100 ####[facility] [address] [place], [address] GFR/1.73 sq M.predicted among non-blacks MDRD (S/P/Bld) [Vol rate/Area] 116 mL/min/{1.73_m2} Normal >60 [facility] Comment on above: Result Comment: mL/m in/1.73m2 CKD-EPI Creatinine Equation (2020) Performed By: #### L 300.8000, L500.2500, L100.0100 ####[facility] [address] [place], [address] Glucose [Mass/Vol] 91 mg/dL Normal 70-99 [facility] Comment on above: Performed By: #### L 300.8000, L500.2500, L100.0100 ####[facility] [address] [place], [address] Potassium [Moles/Vol] 4.2 mmol/L Normal 3.3-5.1 [facility] Comment on above: Performed By: #### L 300.8000, L500.2500, L100.0100 ####[facility] [address] [place], [address] Sodium [Moles/Vol] 139 mmol/L Normal 133-145 [facility] Comment on above: Performed By: #### L 300.8000, L500.2500, L100.0100 ####[facility] [address] [place], [address] Urea nitrogen [Mass/Vol] 7 mg/dL Normal 4-19 [facility] Comment on above: Performed By: #### L 300.8000, L500.2500, L100.0100 ####[facility] [address] [place], [address] Basophil percentageOrdered B y: Remus Ungur on 09-05-2024 Basophils/100 WBC (Bld) 0.7 % 0-1 [facility] CBC W/Diff, Automatedon 03-2 -2024 Absolute Lymph 2.56 X10 3/uL Normal 0.83-4.51 [facility] Comment on above: Performed By: #### L 300.8000, L500.2500, L100.0100 ####[facility] [address] [place], [address] Absolute Neut 2.2 X10 3/uL Normal 2.0-7.7 [facility] Comment on above: Performed By: #### L 300.8000, L500.2500, L100.0100 ####[facility] [address] [place], [address] Basophils/100 WBC (Bld) 0.7 % Normal 0-1 [facility] Comment on above: Performed By: #### L 300.8000, L500.2500, L100.0100 ####[facility] [address] [place], [address] Eosinophils/100 WBC (Bld) 2.0 % Normal 0-5 [facility] Comment on above: Performed By: #### L 300.8000, L500.2500, L100.0100 ####[facility] [address] [place], [address] Erythrocyte distribution width (RBC) [Ratio] 12.4 % Normal 11.6-14.6 [facility] Comment on above: Performed By: #### L 300.8000, L500.2500, L100.0100 ####[facility] [address] [place], [address] Hematocrit (Bld) [Volume fraction] 36.7 % Low 37-47 [facility] Comment on above: Performed By: #### L 300.8000, L500.2500, L100.0100 ####[facility] [address] [place], [address] Hemoglobin (Bld) [Mass/Vol] 12.4 g/dL Normal 12.0-15.0 [facility] Comment on above: Performed By: #### L 300.8000, L500.2500, L100.0100 ####[facility] [address] [place], [address] IG% 0.200 Normal 0.0-0.9 [facility] Comment on above: Result Comment: IG% - Immature Granulocytes (promyelocytes, myelocytes and metamyelocytes) > 1% indicates that a LEFT SHIFT is Present. Performed By: #### L 300.8000, L500.2500, L100.0100 ####[facility] [address] [place], [address] Lymphocytes/100 WBC (Bld) 47.4 % High 19-41 [facility] Comment on above: Performed By: #### L 300.8000, L500.2500, L100.0100 ####[facility] [address] [place], [address] MCH (RBC) [Entitic mass] 32.8 pg High 27.0-32.0 [facility] Comment on above: Performed By: #### L 300.8000, L500.2500, L100.0100 ####[facility] [address] [place], [address] MCHC (RBC) [Mass/Vol] 33.8 g/dL Normal 32-36 [facility] Comment on above: Performed By: #### L 300.8000, L500.2500, L100.0100 ####[facility] [address] [place], [address] MCV (RBC) [Entitic vol] 97.1 fL Normal 81-99 [facility] Comment on above: Performed By: #### L 300.8000, L500.2500, L100.0100 ####[facility] [address] [place], [address] Monocytes/100 WBC (Bld) 8.1 % Normal 0-10 [facility] Comment on above: Performed By: #### L 300.8000, L500.2500, L100.0100 ####[facility] [address] [place], [address] Neutrophils/100 WBC (Bld) 41.6 % Low 47-70 [facility] Comment on above: Performed By: #### L 300.8000, L500.2500, L100.0100 ####[facility] [address] [place], [address] Nucleated RBC (Bld) [#/Vol] 0 10*3/uL Normal 0-5 [facility] Comment on above: Performed By: #### L 300.8000, L500.2500, L100.0100 ####[facility] [address] [place], [address] Platelet mean volume (Bld) [Entitic vol] 10.8 fL Normal 6.2-12.0 [facility] Comment on above: Performed By: #### L 300.8000, L500.2500, L100.0100 ####[facility] [address] [place], [address] Platelets (Bld) [#/Vol] 192 10*3/uL Normal 150-450 [facility] Comment on above: Performed By: #### L 300.8000, L500.2500, L100.0100 ####[facility] [address] [place], [address] RBC (Bld) [#/Vol] 3.78 10*6/uL Low 4.2-5.4 [facility] Comment on above: Performed By: #### L 300.8000, L500.2500, L100.0100 ####[facility] [address] [place], [address] RDW SD 44.6 fl High 35.1-43.9 [facility] Comment on above: Performed By: #### L 300.8000, L500.2500, L100.0100 ####[facility] [address] [place], [address] WBC (Bld) [#/Vol] 5.4 10*3/uL Normal 4.4-11.0 [facility] Comment on above: Performed By: #### L 300.8000, L500.2500, L100.0100 ####[facility] [address] [place], [address] CTA Chest W/WO Contraston CTA Chest W/WO Contrast [facility] Imaging Services [address] [place] [address] CTA Chest W/WO Contrast MR#: [id number] Acct: [id number] Name: GRACIE AVELAR Rep #: [id number] : 1985 F 38 From: Gordon Salgado PCP: Dr. Bereket Ashley MD Status: [facility] ER Study: CTA Chest W/WO Contrast Date of Exam: 09/05/24 Exam# [id number] Ordering Dr: Carmen Rivera DO PROCEDURE: CTA CHEST W/WO CONTRAST 09/05/2024 REASON FOR EXAM: CHEST PAIN, ELEVATED D-DIMER TECHNIQUE: CTA axial imaging of the chest with intravenous contrast. Coronal and Sagittal reconstruction series were provided. 3D, 3D post processing, 3D reconstructions, Maximum intensity projection (MIPs) Volume rendering and Shaded surface rendering was provided. PATIENT PREPARATION: Per protocol Intravenous contrast administered One or more dose reduction techniques were used (e.g., Automated exposure control, adjustment of the mA and/or kV according to patient size, use of iterative reconstruction technique). RADIATION DOSE SUMMARY: DLP: 116 mGycm COMPARISON: None FINDINGS: There is motion degraded examination. No pneumothorax. No pleural effusion. Bronchial thickening is seen. No thoracic aneurysm. No hilar or mediastinal adenopathy. No pericardial effusion. Imaging of the upper abdomen shows unremarkable adrenal glands. No central airway lesion. Mildly heterogeneous thyroid gland. Slight scoliosis. No acute osseous abnormality CT/CTA Chest W/WO Contrast IMPRESSION: Somewhat motion degraded examination. No findings of acute pulmonary embolism. No localizing infiltrate. Lungs are well inflated with bronchial thickening. No pneumothorax or pleural effusion no evidence of acute aortic pathology Reading Location: [facility] CC: Dr. Carmen Rivera DO; Dr. 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 Normal [facility] Carbon dioxide, total [Moles /volume] in Central venous bloodOrdered By: Carmen Rivera on 09-05-2024 CO2 [Moles/Vol] 25.8 mmol/L 21.0-32.0 [facility] Chloride assayOrdered By: Rose Rivera on 09-05-2024 Chloride [Moles/Vol] 103 mmol/L 98-108 [facility] D-Dimer Quantitative (DVT/PE )on 09-05-2024 D-DIMER QUANT 0.73 FEU/ug/m Invalid Interpretation Code 0.27-0.49 [facility] Comment on above: Order Comment: CRITI RIKI VALUE CALLED TO JONATAN MCGUIRE09/05/24 1650 Carla Nadeen.RESULTS READ BACK BY SAME. Result Comment: D-Di haris ELEVATED (>0.49): Additional studies and clinical assessments are indicated to conclude diagnosis of: Deep Vein Thrombosis (DVT) or Pulmonary Embolism (PE) Performed By: #### L 300.8000, L500.2500, L100.0100 ####[facility] [address] [facility] [place], [address] D-dimer measurement for deep venous thrombosisOrdered By: Carmen Rivera on 09-05-2024 D-Dimer Quantitative (PE/DVT) 0.73 FEU/ug/m High 0.27-0.49 [facility] Comment on above: D-Dimer ELEVATED (>0 .49): Additional studies and clinicalassessments are indicated to conclude diagnosis of:Deep Vein Thrombosis (DVT) or Pulmonary Embolism (PE) Emergency Department Summary on 09-05-2024 Emergency Department Summary [facility] Medical Records Department [address] [place] [address] Emergency Department Summary 09/05/24 MR#: [id number] Acct: [id number] Name: GRACIE AVELAR Rep #: [id number] : 1985 38 From: Carmen Rivera DO PCP: Dr. Bereket Ashley MD Status:DEP ER Location: ED HPI History of Present Illness Chief Complaint: Shortness of Breath Detail of Chief Complaint: Left chest and back pain Informant: patient Narrative Narrative: Patient presents to the emergency department complaint of pain in left back and anterior chest. At times positional based on which when she is leaning forward her back that she did get to the significant discomfort. Pain mostly with breathing. Patient feels like there is a rubbing sensation when she takes a deep breath in her back. She has had pleurisy in the past. She denies injuring her back. She went to urgent care and was referred to the ER. She denies recent travel or surgery. She has had no history of PE or DVT. Denies significant shortness of breath. Minimal cough. She has had no fever or recent illness. She does not feel ill otherwise. [facility] Medical History Hx of bacterial pneumonia Pulmonary infiltrate COVID-19 (07/01/21) IBS (irritable bowel syndrome) Herpes Herpes Limited care History of stillbirth premature rupture of membranes (PPROM) with unknown onset of labor 34 weeks gestation of Home Medications ???Medication ???Instructions ???Recorded ???Last Taken ???Type sertraline 100 mg tablet 100 mg PO QHS anxiety 08/23/21 Unk nown History omeprazole magnesium 20 mg 20 mg PO DAILY #30 tabs 10/23/22 U nknown Rx tablet,delayed release (Prilosec OTC) metoprolol succinate 25 mg 12.5 mg PO DAILY PRN elevated 10/16 Unknown History tablet,extended release 24 hr heart rate alprazolam 0.25 mg tablet (Xanax) 0.25 mg PO QHS PRN anxiety Unknown History albuterol sulfate 90 mcg/actuation 2 puff inhalation Q6H PRN Unknown Rx aerosol inhaler shortness of breath or wheezing #6.7 grams methylprednisolone 4 mg tablets in See Rx Instructions PO .COMPLEX 07/04/24 Unknown Rx a dose pack (Medrol (Brian)) #21 tabs naproxen 500 mg tablet (Naprosyn) 500 mg PO BID PRN pain #20 tabs 0 09/05/24 Unknown Rx Allergy/AdvReac Type Severity Reaction Status Date / Time venom-honey bee Allergy Unknown swelling Verified 09/05/24 16:03 Family History Mother Diabetes Father Schizoaffective disorder Grandmother Hypertension Diabetes Grandfather Myocardial infarction Grandmother Hypertension Grandfather Cancer lung Surgical History History of dilatation and curettage Social History Smoking Status: Current every day smoker tobacco type: cigarettes alcohol intake: never substance use type: does not use ROS ROS ED Review of Systems ROS Unobtainable: other Constitutional Constitutional ED: Reports lethargy; Denies chills, fever(s), sweats or weight loss Eyes Eyes: Denies blurry vision, change in vision or diplopia ENT ENT ED: Denies rhinorrhea or sore throat Cardiovascular Cardiovascular: Reports chest pain; Denies orthopnea or racing heartbeat Respiratory/Chest Respiratory/Chest: Reports dyspnea; Denies cough, dyspnea on exertion, orthopnea or sputum Gastrointestinal Gastrointestinal: Denies abdominal pain, diarrhea, nausea or vomiting Genitourinary Genitourinary ED: Denies dysuria, hematuria or urinary frequency Musculoskeletal Musculoskeletal: Reports back pain; Denies arthralgias, myalgias or neck pain Integumentary Denies abscess, Abrasions or rash Neurologic Neurologic: Denies headache(s) or weakness Psychiatric Psychiatric: Denies anxiety, depression or suicidal thoughts Endocrine Endocrinology: Denies polydipsia, polyphagia or polyuria Hematologic/Lymphatic Hematologic/Lymphatic: Denies easy bleeding, easy bruising or lymphadenopathy Allergic/Immunologic Allergic/Immunologic ED: Denies mouth swelling, tongue swelling or urticaria EXAM Physical Exam Const Vital Signs: 09/05/24 16:02 09/05/24 16:16 09/05/24 17:01 Temperature 99 F Temperature Source Temporal Pulse Rate 81 96 Respiratory Rate 16 13 Respiratory Effort Normal Non-Labored Respiratory Depth Normal Respiratory Pattern Normal Blood Pressure 114/67 Blood Pressure Mean 82 Pulse Ox 98 Oxygen Delivery Method Room Air Room Air 09/05/24 17:08 09/05/24 17:15 09/05/24 17:23 Temperature Temperature Source Pulse Rate 78 Respiratory Rate 26 H Respiratory Effort Respir (more content not included)... Normal [facility] Eosinophil percentageOrdered By: Carmen Rivera on 09-05-2024 Eosinophils/100 WBC (Bld) 2.0 % 0-5 [facility] Erythrocyte distribution wid th ratioOrdered By: Carmen Rivera on 09-05-2024 Erythrocyte distribution width (RBC) [Ratio] 12.4 % 11.6-14.6 [facility] Erythrocyte distribution wid th standard deviationOrdered By: Carmen Rivera on 09-05-2024 Erythrocyte distribution width (RBC) [Entitic vol] 44.6 fL High 35.1-43.9 [facility] Estimation of creatinine jeffry aranceOrdered By: Carmen Rivera on 09-05-2024 Estimated Creatinine Clearance Calc 84.11 ml/min 50-250 [facility] GFR/1.73 sq M.predicted christopher g non-blacks MDRD (S/P/Bld) [Vol rate/Area]Ordered By: Carmen Rivera 09-05-2024 Estimated GFR (MDRD) Non-Af Amer 116 >60 [facility] Comment on above: mL/min/1.73m2 CKD-EP I Creatinine Equation (2020) Hematocrit Auto (Bld) [Volum e fraction]Ordered By: Carmen Rivera 09-05-2024 Hematocrit (Bld) [Volume fraction] 36.7 % Low 37-47 [facility] Hemoglobin measurementOrdere d By: Carmen Rivera 09-05-2024 Hemoglobin (Bld) [Mass/Vol] 12.4 g/dL 12.0-15.0 [facility] Immature granulocytes/100 WB C Auto (Bld)Ordered By: Carmen Rivera on 09-05-2024 Immature granulocytes/100 WBC (Bld) 0.200 % 0.0-0.9 [facility] Comment on above: IG% - Immature Granu locytes (promyelocytes, myelocytes and metamyelocytes) > 1% indicates that a LEFT SHIFT is Present. L501.4021on 09-05-2024 Trop T High Sen < 6 Normal <=14 [facility] Comment on above: Performed By: #### L 501.4021 ####[facility] [address] [place], [address] Lymphocytes Auto (Unsp spec) [#/Vol]Ordered By: Carmen Rivera on 09-05-2024 Lymphocytes (Bld) [#/Vol] 2.56 10*3/uL 0.83-4.51 [facility] Lymphocytes/100 WBC Auto (Un sp spec)Ordered By: Carmen Rivera on 09-05-2024 Lymphocytes/100 WBC (Bld) 47.4 % High 19-41 [facility] MCV (mean corpuscular volume ) determinationOrdered By: Carmen Rivera on 09-05-2024 MCV (RBC) [Entitic vol] 97.1 fL 81-99 [facility] Mean corpuscular hemoglobin (MCH) determinationOrdered By: Carmen Rivera on 09-05-2024 MCH (RBC) [Entitic mass] 32.8 pg High 27.0-32.0 [facility] Mean corpuscular hemoglobin concentration (MCHC) determinationOrdered By: Carmen Rivera on 09-05-2024 MCHC (RBC) [Mass/Vol] 33.8 g/dL 32-36 [facility] Mean platelet volume determi nationOrdered By: Carmen Rivera on 09-05-2024 Platelet mean volume (Bld) [Entitic vol] 10.8 fL 6.2-12.0 [facility] Monocyte percentageOrdered B y: Carmen Rivera on 09-05-2024 Monocytes/100 WBC (Bld) 8.1 % 0-10 [facility] Neutrophil percentageOrdered By: Carmen Rivera on 09-05-2024 Neutrophils/100 WBC (Bld) 41.6 % Low 47-70 [facility] No Panel InformationOrdered By: Carmen Rivera on 09-05-2024 Troponin T High Sensitivity < 6 ng/L <14 [facility] Nucleated red blood cell per centageOrdered By: Carmen Rivera on 09-05-2024 Nucleated RBC/100 WBC (Bld) [Ratio] 0 % 0-5 [facility] Platelet countOrdered By: Rose aly Pittmankati on 09-05-2024 Platelets (Bld) [#/Vol] 192 10*3/uL 150-450 [facility] Potassium (Unsp spec) [Mass/ Vol]Ordered By: Carmen Pittmankati on 09-05-2024 Potassium [Moles/Vol] 4.2 mmol/L 3.3-5.1 [facility] RBC Auto (Bld) [#/Vol]Ordere d By: Carmen Pittmankati on 09-05-2024 RBC (Bld) [#/Vol] 3.78 10*6/uL Low 4.2-5.4 [facility] Serum creatinine measurement (mass/volume)Ordered By: Ronna Toyakati on 09-05-2024 Creatinine [Mass/Vol] 0.65 mg/dL Low 0.70-1.20 [facility] Serum glucose measurement (m ass/volume)Ordered By: Carmen Pittmankati on 09-05-2024 Glucose [Mass/Vol] 91 mg/dL 70-99 [facility] Serum or plasma calcium osmani urement (mass/volume)Ordered By: Ronna Toyakati on 09-05-2024 Calcium [Mass/Vol] 9.6 mg/dL 7.6-11.0 [facility] Serum or plasma urea nitroge n measurement (mass/volume)Ordered By: Carmen Pittmankati on 09-05-2024 Urea nitrogen [Mass/Vol] 7 mg/dL 4-19 [facility] Sodium levelOrdered By: Raymond gus Miguel on 09-05-2024 Sodium [Moles/Vol] 139 mmol/L 133-145 [facility] White blood cell (WBC) count Ordered By: Carmen Pittmankati on 09-05-2024 WBC (Bld) [#/Vol] 5.4 10*3/uL 4.4-11.0 [facility] CNPNon 08-17-2024 CNPN Telephone ([facility]) VALENTINOGRACIE ([id number]) 1985 F Date Time Provider Department 08/17/24 MARIA C DOLAN During your visit today, we recorded the following information about you: Elisha Ramos LPN 08/17/2024 8:14 AM Signed Phoned patient to discuss her coming if for OV vs VV. Patient sated she was unable to come in for OV but reports it's the same thing she came in to [facility] for but on the other side now. JOSÉ MIGUEL Riojas Christopher B, MD 08/17/2024 8:14 AM Signed Ok, will discuss with her at VV. Allergies As of Date: 08/17/2024 Noted Allergy Reaction BEE STING 01/12/2011 7 - Swelling LEVAQUIN (LEVOFLOXACIN) 07/29/2024 14 - Other: See Comments Comments: agitation Date Reviewed: 07/31/2024 Reviewed by: Ricki Pascual APRN.CONSOLIDATOR - Fully Assessed Reason for Visit: Appointment [186] Prescriptions as of 09/23/2024 - ondansetron orally disintegrating (ZOFRAN ODT) 4 mg disintegrating tablet Take 1 tablet by mouth every 8 hours as needed for nausea/vomiting. - sertraline (ZOLOFT) 100 mg tablet Take 1 tablet by mouth once daily. . [place] [facility] [place] metoprolol tartrate, short acting, (LOPRESSOR) 25 mg tablet Take 0.5 tablets by mouth two times a day. For elevated heart rate - urea (CARMOL) 40 % Apply to affected area as needed. - omeprazole (PRILOSEC) 20 mg capsule Take 1 capsule by mouth daily before breakfast. 1/2 hr before meal. - EPINEPHrine (EPIPEN) 0.3 mg/0.3 mL auto-injector Use as directed. Go to ED after use. Problem List As Of Date 08/17/2024 Noted Resolved Supervision of normal first [Z34.00] 07/10/2011 10/30/2011 Maternal tobacco use in first trimester [O99.33*10/30/2011 07/29/2024 Anxiety [F41.9] 10/30/2011 Genital herpes simplex virus (HSV) infection in*10/30/2011 Supervision of other high-risk (V23.89*10/2902/04/2012 Anemia, antepartum(648.23) [O99.019] 10/30/2011 02/04/2012 Threatened premature labor, antepartum(644.03) *11/28/2011 02/04/2012 Vaginitis [N76.0] 09/03/2012 07/29/2024 Tobacco use disorder [F17.200] IBS (irritable bowel syndrome) [K58.9] Sinus tachycardia [R00.0] History of stillbirth [Z87.59] 05/05/2019 Supervision of high risk in first tri*05/05/2019 07/29/2024 Underweight [R63.6] 05/05/2019 07/29/2024 Anxiety in in first trimester, antepa*05/05/2019 07/29/2024 Family history of kidney stones [Z84.1] 08/06/2023 Encounter Status:Closed by ELISHA RAMOS on 09/23/24 [facility] CNOVon 07-31-2024 CNOV Office Visit ([facility] ) GRACIE AVELAR ([id number]) 1985 F Date Time Provider Department 07/31/24 6:15 PM RICKI PASCUAL [facility] During your visit today, we recorded the following information about you: Temperature Pulse Respiration Blood pressure 98.4 degrees 91/minute 22/minute 108/69 Weight Last Period 46 kg 07/14/24 Ricki Pascual APRN.CONSOLIDATOR 07/31/2024 6:28 PM Signed Subjective HPI Nontoxic-appearing 34-year-old female presents urgent care chief complaint sinus pressure. Duration of symptoms 1 week. Associated symptoms worsening sinus pressure. OTC medications none today. Denies any significant tenderness. No fevers. Denies chance of . Past medical history prescription medications allergies reviewed. .Patient presents with: Ear Problem: Left ear pressure and pain, sinus pressure and pain in left side of face, x 1 week PAST MEDICAL HISTORY Diagnosis Date Abnormal glandular Papanicolaou smear of cervix 2000 Abn. Pap smear (cervix) Anxiety IBS (irritable bowel syndrome) Sinus tachycardia 2012 Tobacco use disorder PAST SURGICAL HISTORY Procedure Laterality Date DILATION AND CURETTAGE DXAND/THER NONOBSTETRIC Dilation AND curettage ALLERGIES Bee Sting and Levaquin [Levofloxacin] MEDICATIONS ALPRAZolam (XANAX) 0.25 mg tablet Take 1 tablet by mouth three times a day as needed for up to 30 days. sertraline (ZOLOFT) 100 mg tablet Take 1 tablet by mouth once daily. . 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 metoprolol tartrate, short acting, (LOPRESSOR) 25 mg tablet Take 0.5 tablets by mouth two times a day. For elevated heart rate urea (CARMOL) 40 % Apply to affected area as needed. (Patient not taking: Reported on 07/31/2024) omeprazole (PRILOSEC) 20 mg capsule Take 1 capsule by mouth daily before breakfast. 1/2 hr before meal. EPINEPHrine (EPIPEN) 0.3 mg/0.3 mL auto-injector Use as directed. Go to ED after use. FAMILY HISTORY Problem Relation Age of Onset Diabetes Mother Pre-diabetic Kidney stones Mother Psychiatry Father manic depression, schizoaffective Kidney stones Sister Hypertension Maternal Grandmother Diabetes Maternal Grandmother Heart Attack Maternal Grandfather Lipids Paternal Grandmother Hypertension Paternal Grandmother other (diverticulitis) Paternal Grandmother Emphysema Paternal Grandfather Cancer Paternal Grandfather Lung Social History Tobacco Use Smoking status: Every Day Current packs/day: 0.50 Average packs/day: 0.5 packs/day for 7.0 years (3.5 ttl pk-yrs) Types: Cigarettes Smokeless tobacco: Never Vaping Use Vaping status: Never Used Substance Use Topics Alcohol use: Not Currently Drug use: No BP 108/69 Pulse 91 Temp 36.9 ?C (98.4 ?F) Resp 22 Wt 46 kg (101 lb 6.6 oz) LMP 08/08/2023 (Exact Date) SpO2 100% BMI 17.03 kg/m? Review of Systems Constitutional: Negative for chills, fever and malaise/fatigue. HENT: Positive for congestion, ear pain and sinus pain. Negative for ear discharge and sore throat. Eyes: Negative for blurred vision, pain, discharge and redness. Respiratory: Negative for cough, hemoptysis, sputum production, shortness of breath, wheezing and stridor. Cardiovascular: Negative for chest pain. Gastrointestinal: Negative for abdominal pain, diarrhea, nausea and vomiting. Musculoskeletal: Negative for myalgias. Skin: Negative for itching and rash. Neurological: Negative for dizziness and headaches. Objective Physical Exam HENT: Head: Normocephalic. Jaw: No trismus, tenderness, swelling or pain on movement. Right Ear: Tympanic membrane, ear canal and external ear normal. Left Ear: Tympanic membrane, ear canal and external ear normal. Nose: Congestion present. Left Sinus: Maxillary sinus tenderness and frontal sinus tenderness present. Mouth/Throat: Mouth: Mucous membranes are moist. Pharynx: Oropharynx is clear. Uvula midline. No oropharyngeal exudate or posterior oropharyngeal erythema. Eyes: Pupils: Pupils are equal, round, and reactive to light. Cardiovascular: Rate and Rhythm: Normal rate. Pulmonary: Effort: Pulmonary effort is normal. No accessory muscle usage, respiratory distress or retractions. Breath sounds: No stridor. No wheezing, rhonchi or rales. Abdominal: Palpations: Abdomen is soft. Tenderness: There is no abdominal tenderness. There is no guarding or rebound. Musculoskeletal: Cervical back: No erythema or tenderness. No pain with movement. Normal range of motion. Lymphadenopathy: Cervical: No cervical adenopathy. Neurological: General: No focal deficit present. Mental Status: She is alert and oriented to person, place, and time. Mental status is at baseline. ASSESSMENT/PLAN: 1. Bacterial sinusitis - ICD9: 473.9, 041.9, ICD10: J32.9, B96.89 Diagnosis bacterial sinusitis. Patient was educated on supportive therapies. Patient (more content not included)... [facility] ([facility] GRACIE AVELAR ([id number]) 1985 F Date Time Provider Department 07/23/24 BRENNEN ROYAL During your visit today, we recorded the following information about you: Jacinda Hernandez RN 07/23/2024 10:51 AM Signed Patient called and triaged for symptoms. Patient reports a generalized queasy feeling with hot flashes that started Saturday afternoon. Afebrile. Patient reports that she took the Plan B pill on Saturday and felt fine Saturday and Saturday. She thinks maybe she has a bug because of everything going around. Patient denies any vaginal bleeding, stomach pain or cramping, vomiting, headache, or dizziness. Asked patient about a referral to gynecology and patient would like to talk with provider. Triage recommends see provider within 3 days. VV left per patient request. ESTEFANY Patterson Danielle, ANGELI.CONSOLIDATOR 07/23/2024 11:01 AM Signed Noted. Allergies As of Date: 07/23/2024 Noted Allergy Reaction BEE STING 01/12/2011 7 - Swelling Date Reviewed: 12/13/2023 Reviewed by: Erlinda Sanchez APRN.MILLWRIGHT INSTRUCTOR - Fully Assessed Reason for Visit: Appointment [186] Prescriptions as of 07/23/2024 - dicyclomine (BENTYL) 10 mg capsule Take 1 capsule by mouth before meals and at bedtime. - famotidine (PEPCID) 20 mg tablet Take 1 tablet by mouth daily at bedtime. - sertraline (ZOLOFT) 100 mg tablet Take 1 tablet by mouth once daily. . 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 - metoprolol tartrate, short acting, (LOPRESSOR) 25 mg tablet Take 0.5 tablets by mouth two times a day. For elevated heart rate - urea (CARMOL) 40 % Apply to affected area as needed. - omeprazole (PRILOSEC) 20 mg capsule Take 1 capsule by mouth daily before breakfast. 1/2 hr before meal. - ALPRAZolam (XANAX) 0.25 mg tablet Take 0.25 mg by mouth. - EPINEPHrine (EPIPEN) 0.3 mg/0.3 mL auto-injector Use as directed. Go to ED after use. Problem List As Of Date 07/23/2024 Noted Resolved Supervision of normal first [Z34.00] 07/10/2011 10/30/2011 Maternal tobacco use in first trimester [O99.33*10/30/2011 Anxiety [F41.9] 10/30/2011 Genital herpes simplex virus (HSV) infection in*10/30/2011 Supervision of other high-risk (V23.89*10/2902/04/2012 Anemia, antepartum(648.23) [O99.019] 10/30/2011 02/04/2012 Threatened premature labor, antepartum(644.03) *11/28/2011 02/04/2012 Vaginitis [N76.0] 09/03/2012 Tobacco use disorder [F17.200] IBS (irritable bowel syndrome) [K58.9] Sinus tachycardia [R00.0] History of stillbirth [Z87.59] 05/05/2019 Supervision of high risk in first tri*05/05/2019 Underweight [R63.6] 05/05/2019 Anxiety in in first trimester, antepa*05/05/2019 Family history of kidney stones [Z84.1] 08/06/2023 Encounter Status:Closed by BRENNEN ROYAL on 07/23/24 Normal [facility] Absolute neutrophil countOrd ered By: Darin Bowers on 07-03-2024 Neutrophils (Bld) [#/Vol] 2.0 10*3/uL 2.0-7.7 [facility] Basic Metabolic Profile (BMP )on 07-03-2024 BUN/CRE 8.5 RATIO Low 04-05 [facility] Comment on above: Order Comment: 'TROP ' Serial specimen #1, #2 or #3: 1 Performed By: #### L 500.2500, L100.0100, L501.4020, L501.9520, L300.8000 ####[facility] [address] [place], [address] CA,Total 9.6 mg/dL Normal 8.5-10.1 [facility] Comment on above: Order Comment: 'TROP ' Serial specimen #1, #2 or #3: 1 Performed By: #### L 500.2500, L100.0100, L501.4020, L501.9520, L300.8000 ####[facility] [address] [place], [address] Chloride [Moles/Vol] 107 mmol/L Normal 98-107 [facility] Comment on above: Order Comment: 'TROP ' Serial specimen #1, #2 or #3: 1 Performed By: #### L 500.2500, L100.0100, L501.4020, L501.9520, L300.8000 ####[facility] [address] [place], [address] CO2 [Moles/Vol] 24.0 mmol/L Normal 21.0-32.0 [facility] Comment on above: Order Comment: 'TROP ' Serial specimen #1, #2 or #3: 1 Performed By: #### L 500.2500, L100.0100, L501.4020, L501.9520, L300.8000 ####[facility] [address] [place], [address] Creatinine [Mass/Vol] 0.82 mg/dL Normal 0.55-1.02 [facility] Comment on above: Order Comment: 'TROP ' Serial specimen #1, #2 or #3: 1 Result Comment: The validity of the calculated GFR GFRAA in patients over 70 years has not been determined. Clinical correlation is essential. Performed By: #### L 500.2500, L100.0100, L501.4020, L501.9520, L300.8000 ####[facility] [address] [place], [address] ECRCL 69.90 ml/min Normal [facility] Comment on above: Order Comment: 'TROP ' Serial specimen #1, #2 or #3: 1 Performed By: #### L 500.2500, L100.0100, L501.4020, L501.9520, L300.8000 ####[facility] [address] [place], [address] EST GFR - AA 100 mL/min Normal >60 [facility] Comment on above: Order Comment: 'TROP ' Serial specimen #1, #2 or #3: 1 Result Comment: Afri can Citizen Of [place] GFR Calc Performed By: #### L 500.2500, L100.0100, L501.4020, L501.9520, L300.8000 ####[facility] [address] [place], [address] GAP 8 Normal 5-15 [facility] Comment on above: Order Comment: 'TROP ' Serial specimen #1, #2 or #3: 1 Performed By: #### L 500.2500, L100.0100, L501.4020, L501.9520, L300.8000 ####[facility] [address] [place], [address] GFR/1.73 sq M.predicted among non-blacks MDRD (S/P/Bld) [Vol rate/Area] 82 mL/min/{1.73_m2} Normal >60 [facility] Comment on above: Order Comment: 'TROP ' Serial specimen #1, #2 or #3: 1 Result Comment: Non- GFR Calc Performed By: #### L 500.2500, L100.0100, L501.4020, L501.9520, L300.8000 ####[facility] [address] [place], [address] Glucose [Mass/Vol] 87 mg/dL Normal 74-106 [facility] Comment on above: Order Comment: 'TROP ' Serial specimen #1, #2 or #3: 1 Performed By: #### L 500.2500, L100.0100, L501.4020, L501.9520, L300.8000 ####[facility] [address] [place], [address] Potassium [Moles/Vol] 3.4 mmol/L Low 3.5-5.1 [facility] Comment on above: Order Comment: 'TROP ' Serial specimen #1, #2 or #3: 1 Performed By: #### L 500.2500, L100.0100, L501.4020, L501.9520, L300.8000 ####[facility] [address] [place], [address] Sodium [Moles/Vol] 138 mmol/L Normal 136-145 [facility] Comment on above: Order Comment: 'TROP ' Serial specimen #1, #2 or #3: 1 Performed By: #### L 500.2500, L100.0100, L501.4020, L501.9520, L300.8000 ####[facility] [address] [place], [address] Urea nitrogen [Mass/Vol] 7 mg/dL Normal 7-18 [facility] Comment on above: Order Comment: 'TROP ' Serial specimen #1, #2 or #3: 1 Performed By: #### L 500.2500, L100.0100, L501.4020, L501.9520, L300.8000 ####[facility] [address] [place], [address] Basophil percentageOrdered B y: Darin Bowers on 07-03-2024 Basophils/100 WBC (Bld) 0.5 % 0-1 [facility] Blood urea nitrogen (BUN)/cr eatinine ratioOrdered By: Darin Bowers on 07-03-2024 Urea nitrogen/Creatinine [Mass ratio] 8.5 mg/mg Low 10-20 [facility] CBC W/Diff, Automatedon 06-17 Absolute Lymph 3.15 X10 3/uL Normal 0.83-4.51 [facility] Comment on above: Performed By: #### L 500.2500, L100.0100, L501.4020, L501.9520, L300.8000 ####[facility] [address] [place], [address] Absolute Neut 2.0 X10 3/uL Normal 2.0-7.7 [facility] Comment on above: Performed By: #### L 500.2500, L100.0100, L501.4020, L501.9520, L300.8000 ####[facility] [address] [place], [address] Basophils/100 WBC (Bld) 0.5 % Normal 0-1 [facility] Comment on above: Performed By: #### L 500.2500, L100.0100, L501.4020, L501.9520, L300.8000 ####[facility] [address] [place], [address] Eosinophils/100 WBC (Bld) 2.5 % Normal 0-5 [facility] Comment on above: Performed By: #### L 500.2500, L100.0100, L501.4020, L501.9520, L300.8000 ####[facility] [address] [place], [address] Erythrocyte distribution width (RBC) [Ratio] 12.6 % Normal 11.6-14.6 [facility] Comment on above: Performed By: #### L 500.2500, L100.0100, L501.4020, L501.9520, L300.8000 ####[facility] [address] [place], [address] Hematocrit (Bld) [Volume fraction] 39.6 % Normal 37-47 [facility] Comment on above: Performed By: #### L 500.2500, L100.0100, L501.4020, L501.9520, L300.8000 ####[facility] [address] [place], [address] Hemoglobin (Bld) [Mass/Vol] 13.4 g/dL Normal 12.0-15.0 [facility] Comment on above: Performed By: #### L 500.2500, L100.0100, L501.4020, L501.9520, L300.8000 ####[facility] [address] [place], [address] IG% 0.200 Normal 0.0-0.9 [facility] Comment on above: Result Comment: IG% - Immature Granulocytes (promyelocytes, myelocytes and metamyelocytes) > 1% indicates that a LEFT SHIFT is Present. Performed By: #### L 500.2500, L100.0100, L501.4020, L501.9520, L300.8000 ####[facility] [address] [place], [address] Lymphocytes/100 WBC (Bld) 53.5 % High 19-41 [facility] Comment on above: Performed By: #### L 500.2500, L100.0100, L501.4020, L501.9520, L300.8000 ####[facility] [address] [place], [address] MCH (RBC) [Entitic mass] 32.1 pg High 27.0-32.0 [facility] Comment on above: Performed By: #### L 500.2500, L100.0100, L501.4020, L501.9520, L300.8000 ####[facility] [address] [place], [address] MCHC (RBC) [Mass/Vol] 33.8 g/dL Normal 32-36 [facility] Comment on above: Performed By: #### L 500.2500, L100.0100, L501.4020, L501.9520, L300.8000 ####[facility] [address] [place], [address] MCV (RBC) [Entitic vol] 94.7 fL Normal 81-99 [facility] Comment on above: Performed By: #### L 500.2500, L100.0100, L501.4020, L501.9520, L300.8000 ####[facility] [address] [place], [address] Monocytes/100 WBC (Bld) 9.2 % Normal 0-10 [facility] Comment on above: Performed By: #### L 500.2500, L100.0100, L501.4020, L501.9520, L300.8000 ####[facility] [address] [place], [address] Neutrophils/100 WBC (Bld) 34.1 % Low 47-70 [facility] Comment on above: Performed By: #### L 500.2500, L100.0100, L501.4020, L501.9520, L300.8000 ####[facility] [address] [place], [address] Nucleated RBC (Bld) [#/Vol] 0 10*3/uL Normal 0-5 [facility] Comment on above: Performed By: #### L 500.2500, L100.0100, L501.4020, L501.9520, L300.8000 ####[facility] [address] [place], [address] Platelet mean volume (Bld) [Entitic vol] 11.1 fL Normal 6.2-12.0 [facility] Comment on above: Performed By: #### L 500.2500, L100.0100, L501.4020, L501.9520, L300.8000 ####[facility] [address] [place], [address] Platelets (Bld) [#/Vol] 207 10*3/uL Normal 150-450 [facility] Comment on above: Performed By: #### L 500.2500, L100.0100, L501.4020, L501.9520, L300.8000 ####[facility] [address] [place], [address] RBC (Bld) [#/Vol] 4.18 10*6/uL Low 4.2-5.4 [facility] Comment on above: Performed By: #### L 500.2500, L100.0100, L501.4020, L501.9520, L300.8000 ####[facility] [address] [place], [address] RDW SD 44.2 fl High 35.1-43.9 [facility] Comment on above: Performed By: #### L 500.2500, L100.0100, L501.4020, L501.9520, L300.8000 ####[facility] [address] [place], [address] WBC (Bld) [#/Vol] 5.9 10*3/uL Normal 4.4-11.0 [facility] Comment on above: Performed By: #### L 500.2500, L100.0100, L501.4020, L501.9520, L300.8000 ####[facility] [address] [place], [address] CTA Chest W/WO Contraston CTA Chest W/WO Contrast [facility] Imaging Services [address] [place] [address] CTA Chest W/WO Contrast MR#: [id number] Acct: [id number] Name: GRACIE AVELAR Rep #: [id number] : 1985 F 38 From: Leandro nguyen DO PCP: Dr. Bereket Ashley MD Status: [facility] ER Study: CTA Chest W/WO Contrast Date of Exam: 07/03/24 Exam# [id number] Ordering Dr: Darin Bowers [place] [id number] EXAM: CT ANGIOGRAPHY CHEST WITHOUT AND WITH INTRAVENOUS CONTRAST CLINICAL INDICATION: sob, elevated dimer TECHNIQUE: Helically acquired angiography images were obtained of the chest without and with intravenous contrast. This CT exam was performed using one or more of the following dose reduction techniques: automated exposure control, adjustment of the mA and/or kV according to patient size, and/or use of iterative reconstruction technique. MIP reconstructed images were created and reviewed. CONTRAST: IV 100mL [id number] COMPARISON: Chest radiograph on the same date and CTA chest, 08/02/2020. FINDINGS: PULMONARY ARTERIES: No significant abnormality. Normal in caliber. No evidence of pulmonary embolism. AORTA: No significant abnormality. Normal in caliber. No evidence of dissection. GREAT VESSELS OF AORTIC ARCH: No significant abnormality. Normal in caliber. No evidence of dissection. LUNGS AND PLEURAL SPACES: No significant abnormality. No mass. No consolidation or edema. No pleural effusion or thickening. No pneumothorax. HEART: No significant abnormality. Heart size is normal. No pericardial effusion. No significant coronary artery calcifications. MEDIASTINUM: No significant abnormality. No mediastinal or hilar adenopathy. Esophagus is unremarkable. No hiatal hernia. THYROID: No significant abnormality. No thyroid lesions. BONES/JOINTS: No significant abnormality. No suspicious lytic or blastic abnormality. CT/CTA Chest W/WO Contrast IMPRESSION: Negative CTA chest. Electronically Signed: Leandro Samaniego DO at 23:49 EST , CC: Dr. Darin Bowers DO; Dr. 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 Normal [facility] Carbon dioxide measurementOr dered By: Darin Bowers on 07-03-2024 CO2 [Moles/Vol] 24.0 mmol/L 21.0-32.0 [facility] Chest PA and Lateralon 07-03 Chest PA and Lateral [facility] Imaging Services [address] [place] [address] [id number] Chest PA and Lateral MR#: [id number] Acct: [id number] Name: GRACIE AVELAR #: [id number] : 1985 F 38 From: Leandro nguyen DO PCP: Dr. Bereket Ashley MD Status: REG ER Study: Chest PA and Lateral Date of Exam: 07/03/24 Exam# [id number] Ordering Dr: Darin Bowers DO [id number] EXAM: XR CHEST, 2 VIEWS CLINICAL INDICATION: sob TECHNIQUE: Frontal and lateral views of the chest. COMPARISON: 06/04/2024 FINDINGS: LUNGS AND PLEURAL SPACES: No significant abnormality. No consolidation or edema. No pneumothorax. No effusion. HEART: No significant abnormality. Cardiac silhouette not enlarged. MEDIASTINUM: Central airways and mediastinal contour are unremarkable. BONES/JOINTS: No significant abnormality. No acute fracture. SOFT TISSUES: No significant abnormality. RAD/Chest PA and Lateral IMPRESSION: No radiographic evidence of acute cardiopulmonary disease. Electronically Signed: Leandro Samaniego DO at 22:50 EST , CC: Dr. Darin Bowers DO; Dr. 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 Normal [facility] Chloride measurementOrdered By: Darin Bowers on 07-03-2024 Chloride [Moles/Vol] 107 mmol/L 98-107 [facility] D-Dimer Quantitative (DVT/PE )on 07-03-2024 D-DIMER QUANT 1.11 FEU/ug/m Invalid Interpretation Code 0.27-0.49 [facility] Comment on above: Result Comment: D-Di haris ELEVATED (>0.49): Additional studies and clinical assessments are indicated to conclude diagnosis of: Deep Vein Thrombosis (DVT) or Pulmonary Embolism (PE) CRITICAL VALUE CALLED TO MMARTIAN 07/03/24 2249 Ronald Wang. RESULTS READ BACK BY SAME. Performed By: #### L 500.2500, L100.0100, L501.4020, L501.9520, L300.8000 ####[facility] [address] [place], [address] D-dimer measurement for deep venous thrombosisOrdered By: Darin Bowers on 07-03-2024 D-Dimer Quantitative (PE/DVT) 1.11 FEU/ug/m High 0.27-0.49 [facility] Comment on above: D-Dimer ELEVATED (>0 .49): Additional studies and clinicalassessments are indicated to conclude diagnosis of:Deep Vein Thrombosis (DVT) or Pulmonary Embolism (PE)CRITICAL VALUE CALLED TO [id number]/17/25 2249 Ronald Wang.RESULTS READ BACK BY SAME. Emergency Department Summary on 07-03-2024 Emergency Department Summary [facility] Medical Records Department [address] [place] [address] Emergency Department Summary 07/03/24 MR#: [id number] Acct: [id number] Name: GRACIE AVELAR Rep #: [id number] : 1985 38 From: Darin Bowers DO PCP: Dr. Bereket Ashley MD Status:REG ER Location: ED HPI History of Present Illness Chief Complaint: Shortness of Breath Narrative Narrative: Patient is a 38-year-old female with a past medical history of tobacco use who presents to the emergency department with a chief complaint of shortness of breath and difficulty breathing. Patient states that about a month ago she was diagnosed with pneumonia was put on a course of antibiotics amoxicillin and another antibiotic which she completed the course of this. She states that she originally started better then she started worsening and therefore they placed her on Levaquin and gave her an inhaler she states that she did not complete course of Levaquin as they made her feel not well. Patient states that tonight she felt that she could not catch her breath therefore she called EMS to have her brought here for further evaluation management. Patient states that her oxygen level was normal when EMS arrived. They state that they did give her breathing treatment and route. Patient denies any recent travel history denies any history of blood clots. Denies any hormonal replacement therapy. [facility] Medical History Hx of bacterial pneumonia Pulmonary infiltrate COVID-19 (07/01/21) IBS (irritable bowel syndrome) Herpes Herpes Limited care History of stillbirth premature rupture of membranes (PPROM) with unknown onset of labor 34 weeks gestation of Home Medications ???Medication ???Instructions ???Recorded ???Last Taken ???Type sertraline 100 mg tablet 100 mg PO QHS anxiety 08/23/21 Unknown History omeprazole magnesium 20 mg 20 mg PO DAILY #30 tabs 10/23/22 Unknown Rx tablet,delayed release (Prilosec OTC) metoprolol succinate 25 mg 12.5 mg PO DAILY PRN elevated 11/04/23 Unknown History tablet,extended release 24 hr heart rate alprazolam 0.25 mg tablet (Xanax) 0.25 mg PO QHS PRN anxiety 05/20/24 Unknown History albuterol sulfate 90 mcg/actuation 2 puff inhalation Q6H PRN 06/04/24 Unknown Rx aerosol inhaler shortness of breath or wheezing #6.7 grams methylprednisolone 4 mg tablets in See Rx Instructions PO .COMPLEX 07/04/24 Unknown Rx a dose pack (Medrol (Brian)) #21 tabs Allergy/AdvReac Type Severity Reaction Status Date / Time venom-honey bee Allergy Unknown swelling Verified 07/03/24 20:39 Family History Mother Diabetes Father Schizoaffective disorder Grandmother Hypertension Diabetes Grandfather Myocardial infarction Grandmother Hypertension Grandfather Cancer lung Surgical History History of dilatation and curettage Social History Smoking Status: Current every day smoker tobacco type: cigarettes alcohol intake: never substance use type: does not use ROS ROS ED ROS Narrative Constitutional: Denies any fevers, chills, headaches, lightness, dizziness Eyes: Denies change in vision double vision blurry vision Cardiovascular: Denies chest pain or palpitations Respiratory: Complains of shortness of breath as noted above Abdomen: Denies abdominal pain nausea vomit diarrhea : Denies any urinary symptoms Neurological: Denies numbness, weakness, tingling Musculoskeletal: Denies back pain Skin: Denies any rashes or lesions EXAM Physical Exam Narrative Exam Narrative: General: Patient was lying in bed rest comfortably did not appear to be acute distress Head: Atraumatic, normocephalic Eyes: PERRL bilaterally, EOMI bilaterally, no conjunctival injection noted Neck: Soft, supple, trachea midline Cardiovascular: Regular rate and rhythm no murmurs gallops rubs noted Respiratory: Clear to auscultation bilaterally no rales rhonchi or wheezes noted Abdomen: Soft, nondistended, nontender to palpation, bowel sounds present x 4 Extremities: +5/5 strength noted in the bilateral upper and lower extremities, radial pulses +2/4 in the bilateral upper extremities, no pedal edema on exam Neurological: Patient following commands knew that she was at [facility] there is 2024 Skin: Warm, dry, intact Const Vital Signs: 07/03/24 20:39 07/03/24 20:42 07/03/24 21:31 Temperature 98.1 F 98.1 F Temperature Source Oral Oral Pulse Rate 85 85 Respiratory Rate 19 H 11 L Respiratory Effort Normal Non-Labored Respiratory Depth Normal Respiratory Pattern Normal Blood Pressure 112/72 112/72 Bloo (more content not included)... Normal [facility] Eosinophil percentageOrdered By: Darin Bowers on 07-03-2024 Eosinophils/100 WBC (Bld) 2.5 % 0-5 [facility] Erythrocyte distribution wid th ratioOrdered By: Darin Bowers on 07-03-2024 Erythrocyte distribution width (RBC) [Ratio] 12.6 % 11.6-14.6 [facility] Erythrocyte distribution wid th standard deviationOrdered By: Darin Bowers on 07-03-2024 Erythrocyte distribution width (RBC) [Entitic vol] 44.2 fL High 35.1-43.9 [facility] Estimated glomerular filtrat ion rate (GFR) AmericanOrdered By: Darin Bowers on 07-03-2024 Estimated GFR (MDRD) Amer 100 mL/min >60 [facility] Comment on above: GFR Calc Estimation of creatinine jeffry aranceOrdered By: Darin Bowers on 07-03-2024 Estimated Creatinine Clearance Calc 69.90 ml/min [facility] Glomerular filtration rate ( GFR) estimationOrdered By: Darin Bowers on 07-03-2024 Estimated GFR (MDRD) Non-Af Amer 82 mL/min >60 [facility] Comment on above: Non- GFR Calc Glucose measurementOrdered B y: Darin Bowesr on 07-03-2024 Glucose [Mass/Vol] 87 mg/dL 74-106 [facility] Hematocrit Auto (Bld) [Volum e fraction]Ordered By: Darin Bowers on 07-03-2024 Hematocrit (Bld) [Volume fraction] 39.6 % 37-47 [facility] Hemoglobin measurementOrdere d By: Darin Bowers on 07-03-2024 Hemoglobin (Bld) [Mass/Vol] 13.4 g/dL 12.0-15.0 [facility] Immature granulocytes/100 WB C Auto (Bld)Ordered By: Darin Bowers on 07-03-2024 Immature granulocytes/100 WBC (Bld) 0.200 % 0.0-0.9 [facility] Comment on above: IG% - Immature Granu locytes (promyelocytes, myelocytes and metamyelocytes) > 1% indicates that a LEFT SHIFT is Present. L501.4020on 07-03-2024 TROPONIN-I HS < 3 Low 3.0-54.0 [facility] Comment on above: Order Comment: 'TROP ' Serial specimen #1, #2 or #3: 1 Result Comment: Gerber gong Note: New Test Units and Gender Specific Reference Ranges. For more information see Policy Stat Procedure [place] High Sensitivity Troponin (TNIH) and attachments. Performed By: #### L 500.2500, L100.0100, L501.4020, L501.9520, L300.8000 ####[facility] [address] [place], [address] Lymphocytes Auto (Unsp spec) [#/Vol]Ordered By: Darin Bowers on 07-03-2024 Lymphocytes (Bld) [#/Vol] 3.15 10*3/uL 0.83-4.51 [facility] Lymphocytes/100 WBC Auto (Un sp spec)Ordered By: Darin Bowers on 07-03-2024 Lymphocytes/100 WBC (Bld) 53.5 % High 19-41 [facility] MCV (mean corpuscular volume ) determinationOrdered By: Darin Bowers on 07-03-2024 MCV (RBC) [Entitic vol] 94.7 fL 81-99 [facility] Mean corpuscular hemoglobin (MCH) determinationOrdered By: Darin Bowers on 07-03-2024 MCH (RBC) [Entitic mass] 32.1 pg High 27.0-32.0 [facility] Mean corpuscular hemoglobin concentration (MCHC) determinationOrdered By: Darin Bowers on 07-03-2024 MCHC (RBC) [Mass/Vol] 33.8 g/dL 32-36 [facility] Mean platelet volume determi nationOrdered By: Darin Bowers on 07-03-2024 Platelet mean volume (Bld) [Entitic vol] 11.1 fL 6.2-12.0 [facility] Monocyte percentageOrdered B y: Darin Bowers on 07-03-2024 Monocytes/100 WBC (Bld) 9.2 % 0-10 [facility] Neutrophil percentageOrdered By: Darin oBwers on 07-03-2024 Neutrophils/100 WBC (Bld) 34.1 % Low 47-70 [facility] Nucleated red blood cell per centageOrdered By: Darin Bowers on 07-03-2024 Nucleated RBC/100 WBC (Bld) [Ratio] 0 % 0-5 [facility] Platelet countOrdered By: Roger Bowers on 07-03-2024 Platelets (Bld) [#/Vol] 207 10*3/uL 150-450 [facility] Potassium measurementOrdered By: Darin Bowers on 07-03-2024 Potassium [Moles/Vol] 3.4 mmol/L Low 3.5-5.1 [facility] RBC Auto (Bld) [#/Vol]Ordere d By: Darin Bowers on 07-03-2024 RBC (Bld) [#/Vol] 4.18 10*6/uL Low 4.2-5.4 [facility] Serum anion gap measurementO rdered By: Darin Bowers on 07-03-2024 Anion gap [Moles/Vol] 8 mmol/L 5-15 [facility] Serum or plasma calcium osmani urement (mass/volume)Ordered By: Darin Bowers on 07-03-2024 Calcium [Mass/Vol] 9.6 mg/dL 8.5-10.1 [facility] Serum or plasma creatinine m easurement (mass/volume)Ordered By: Darin Bowers on 07-03-2024 Creatinine [Mass/Vol] 0.82 mg/dL 0.55-1.02 [facility] Comment on above: The validity of the calculated GFR & GFRAA in patients over 70 years has not been determined. Clinical correlation is essential. Serum or plasma urea nitroge n measurement (mass/volume)Ordered By: Darin Bowers on 07-03-2024 Urea nitrogen [Mass/Vol] 7 mg/dL 7-18 [facility] Sodium levelOrdered By: Tra Bowers on 07-03-2024 Sodium [Moles/Vol] 138 mmol/L 136-145 [facility] TSH QnOrdered By: Darin penn on 07-03-2024 Thyroid Stimulating Hormone (TSH) 3.010 uIU/mL 0.358-3.740 [facility] Thyroid Stim Hormone (TSH)on 07-03-2024 TSH 3.010 uIU/mL Normal 0.358-3.740 [facility] Comment on above: Order Comment: 'TROP ' Serial specimen #1, #2 or #3: 1 Performed By: #### L 500.2500, L100.0100, L501.4020, L501.9520, L300.8000 ####[facility] [address] [facility] [address] [place], [place], [id number] Troponin IOrdered By: Darin Bowers on 07-03-2024 Troponin I High Sensitivity < 3 pg/mL Low 3.0-54.0 [facility] Comment on above: Please Note: New Reta t Units and Gender Specific Reference Ranges. For more information see Policy Stat Procedure [place] High Sensitivity Troponin (TNIH) and attachments. White blood cell (WBC) count Ordered By: Darin Bowers on 07-03-2024 WBC (Bld) [#/Vol] 5.9 10*3/uL 4.4-11.0 [facility] Chest PA and Lateralon 06-04 Chest PA and Lateral [facility] Imaging Services [address] [place] [address] Chest PA and Lateral MR#: [id number] Acct: [id number] Name: GRACIE AVELAR Rep #: [id number] : 1985 F 38 From: Wayne Kelly MD PCP: Dr. Bereket Ashley MD Status: REG CLI Study: Chest PA and Lateral Date of Exam: 06/04/24 Exam# [id number] Ordering Dr: Ezequiel Garcia [place] [id number] EXAM: XR CHEST, 2 VIEWS CLINICAL INDICATION: Persistent cough with pneumonia TECHNIQUE: Frontal and lateral views of the chest. COMPARISON: XR Chest dated 03/12/2021 FINDINGS: LUNGS AND PLEURAL SPACES: Normal. No consolidation or edema. No pneumothorax. No effusion. HEART: Normal heart size. MEDIASTINUM: No mediastinal or hilar mass. BONES/JOINTS: Stable dextroscoliosis of the upper thoracic spine. RAD/Chest PA and Lateral IMPRESSION: No acute cardiopulmonary abnormality. No interval change. Electronically Signed: Wayne Kelly MD at 15:50 EST , CC: BETTY Coronado; Dr. 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 Normal [facility] Urgent Care Visit Reporton 1 08-05-2023 Urgent Care Visit Report [facility] [address], [address] [place] [address] OFFICE VISIT Date of Service: 06/04/24 MR#: [id number] Acct: [id number] Name: GRACIE AVELAR Rep #: [id number] : 1985 Provider: BETTY Coronado Age/Sex: 38/F Location: [facility] Status: Signed Intake Vital Signs 11/06/23 09:39 06/04/24 14:04 Height 5 ft 4 in 5 ft 4 in Weight: 101 lb 8 oz BMI 17.4 BP 102/60 Position Sitting Pulse 86 Temp 97.8 F Temp Source Oral Pulse Oximetry (%) 99 Oxygen Delivery Method room air Intake Visit Reasons: Cough Accompanied by: Self Allergies venom-honey bee Allergy (Unknown, Verified 06/04/24 14:04) swelling Medications ???Medication ???Instructions ???Recorded ???Confirmed ???Type sertraline 100 mg tablet 100 mg PO QHS anxiety 08/23/21 06/04/24 History omeprazole magnesium 20 mg 20 mg PO DAILY #30 tabs 10/23/22 06/04/24 Rx tablet,delayed release (Prilosec OTC) metoprolol succinate 25 mg 25 mg PO DAILY 11/04/23 06/04/24 History tablet,extended release 24 hr alprazolam 0.25 mg tablet (Xanax) 0.25 mg PO QHS PRN 05/20/24 06/04/24 History amoxicillin 500 mg tablet 500 mg PO TID #30 tabs 05/20/24 06/04/24 Rx benzonatate 200 mg capsule 200 mg PO TID PRN cough #20 caps 05/20/24 06/04/24 Rx doxycycline monohydrate 100 mg 100 mg PO BID #20 caps 05/20/24 06/04/24 Rx capsule albuterol sulfate 90 mcg/actuation 2 puff inhalation Q6H PRN 06/04/24 06/04/24 Rx aerosol inhaler shortness of breath or wheezing #6.7 grams levofloxacin 500 mg tablet 500 mg PO Q24H 5 days #5 tabs 06/04/24 06/04/24 Rx Nurse's Note: Patient was here 2-3 weeks ago and was DX with pneumonia and given a AB. She is still SOB and having chest tightness and her back hurts when she breaths in. [facility] Medical History (Updated 05/20/24 @ 17:41 by Josesito HERNÁNDEZ, PA) Pulmonary infiltrate COVID-19 (07/01/21) IBS (irritable bowel syndrome) Herpes Herpes Limited care History of stillbirth premature rupture of membranes (PPROM) with unknown onset of labor 34 weeks gestation of Surgical History History of dilatation and curettage Family History Mother Diabetes Father Schizoaffective disorder Grandmother Hypertension Diabetes Grandfather Myocardial infarction Grandmother Hypertension Grandfather Cancer lung Social History Smoking Status: Current every day smoker tobacco type: cigarettes alcohol intake: never substance use type: does not use HPI HPI Details: GRACIE AVELAR, is a 38 F who presents to the office today for complaint of ongoing cough, congestion along with shortness of breath and chest tightness with her cough. Patient was started on anti biotic 2 to 3 weeks ago and states that she had some improvement and then it worsened again over the past several days. She denies hematochezia, hematemesis or hemoptysis. No fever, chills, sweats. No nausea, vomiting or diarrhea. No other associated symptoms or alleviating/aggravatin g factors. ROS Const Constitutional: No other (As above) Exam Const General: cooperative and well developed HENMA Head: normal to inspection and atraumatic Ears: hearing grossly normal bilaterally Nose: nasal discharge clear Face and sinus: normal facial exam Mouth: oral mucosae normal Throat: abnormal tonsil bilaterally hypertrophy 1+ Resp Effort Inspection: normal respiratory effort and no audible wheezes Auscultation: Bilateral: Clear to Auscultation Cardio Rate: regular rate Rhythm: regular rhythm Neuro General: patient alert Psych Appearance: grossly normal Mental Status: mental status grossly normal Coding Level of Care Code Off vis,est,level 4 Diagnoses Pulmonary infiltrate R91.8 Assessment and Plan Assessment and Plan (1) Pulmonary infiltrate: Status: Acute Orders: Orders Chest PA and Lateral 06/04/24 R91.8 - Other nonspecific abnormal finding of lung field Medications: New levofloxacin 500 mg PO Q24H 5 days 5 tabs 0RF albuterol sulfate 90 mcg/actuation 2 puffs inhalation Q6H PRN 6.7 grams 0RF shortness of breath or wheezing Plan Chest x-ray read and interpreted by myself finding no obvious pulmonary infiltrate however with symptoms persisting patient will be started on Levaquin and albuterol as prescribed today. Encouraged to get plenty of rest, drink lots of clear liquids, and use Tylenol or Ibuprofen (unless contraindicated) for fever and comfort. Patient also educated on other symptomatic management techniques. To be seen in 7-10 days if no improvement; sooner if worsening of symptoms. Patien (more content not included)... Normal [facility] Urgent Care Visit Reporton 1 07-21-2023 Urgent Care Visit Report [facility] [address], [address] [place] [address] OFFICE VISIT Date of Service: 05/20/24 MR#: [id number] Acct: [id number] Name: GRACIE AVELAR Rep #: [id number] : 1985 Provider: BETTY Acosta Age/Sex: 38/F Location: [facility] Status: Signed Intake Vital Signs 11/06/23 09:39 05/20/24 17:08 Height 5 ft 4 in BP 110/70 Blood Pressure Location Lt brachial Position Sitting Respiration 14 Pulse 76 Pulse Source NIBP Temp 97.9 F Temp Source Oral Pulse Oximetry (%) 100 Oxygen Delivery Method room air Intake Visit Reasons: CHEST CONGESTION/COUGH/SOB Chief Complaint: chest congestion, cough, sob 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 Is patient in pain?: No Allergies venom-honey bee Allergy (Unknown, Verified 11/06/23 09:39) swelling Medications ???Medication ???Instructions ???Recorded ???Confirmed ???Type sertraline 100 mg tablet 100 mg PO QHS anxiety 08/23/21 05/20/24 History omeprazole magnesium 20 mg 20 mg PO DAILY #30 tabs 10/23/22 05/20/24 Rx tablet,delayed release (Prilosec OTC) metoprolol succinate 25 mg 25 mg PO DAILY 11/04/23 05/20/24 History tablet,extended release 24 hr alprazolam 0.25 mg tablet (Xanax) 0.25 mg PO QHS PRN 05/20/24 05/20/24 History amoxicillin 500 mg tablet 500 mg PO TID #30 tabs 05/20/24 05/20/24 Rx benzonatate 200 mg capsule 200 mg PO TID PRN cough #20 caps 05/20/24 05/20/24 Rx doxycycline monohydrate 100 mg 100 mg PO BID #20 caps 05/20/24 05/20/24 Rx capsule Is last menstrual period known: No Post menopausal: No Patient : No Have you fallen in the past year?: No Nurse's Note: patient here for chest congestion, cough and sob. states took covid test at home is negative. [facility] Medical History (Updated 05/20/24 @ 17:41 by Josesito HERNÁNDEZ, PA) Pulmonary infiltrate COVID-19 (07/01/21) IBS (irritable bowel syndrome) Herpes Herpes Limited care History of stillbirth premature rupture of membranes (PPROM) with unknown onset of labor 34 weeks gestation of Surgical History History of dilatation and curettage Family History Mother Diabetes Father Schizoaffective disorder Grandmother Hypertension Diabetes Grandfather Myocardial infarction Grandmother Hypertension Grandfather Cancer lung Social History Smoking Status: Current every day smoker tobacco type: cigarettes alcohol intake: never substance use type: does not use HPI HPI Chief Complaint: chest congestion, cough, sob Details: GRACIE AVELAR, is a 38 F who presents to the office today for initial evaluation approximately 4 day history of progressively worsening cough, new onset sob over the last couple of hours, describing a persistent dry nonproductive cough. No complaints of fever, chills, sweats, lightheadedness/dizzin ess, nausea/vomiting. No complaints of chest pressure with her shortness of breath that she describes. Tobacco smoker. No uuns-irc-vsavxrc products taken to assist. ROS Const Constitutional: No other (As above) Exam Const General: cooperative, healthy appearing and no acute distress Orientation: alert and awake [facility] Head: normal to inspection Ears: hearing grossly normal bilaterally, external ears normal, TM's normal bilaterally and EAC's normal Nose: external nose normal, nares normal, septum normal and no nasal discharge Face and sinus: normal facial exam, sinuses nontender and face symmetric Mouth: oral mucosae normal, lip normal, tongue normal, oropharynx normal and moist mucous membranes Throat: posterior oropharynx normal, tonsils normal, uvula midline and no postnasal drainage Eyes General: appearance normal, both eyes and all related structures Neck Neck: normal visual inspection, full ROM, no lymphadenopathy, no meningeal signs and supple Neck mass: No Thyroid: thyroid normal Lymphatic: no lymphadenopathy noted Chest Chest palpation inspection: normal inspection of the chest Resp Effort Inspection: normal respiratory effort and able to speak in complete sentences Auscultation: Left: Clear to Auscultation and Right: Rhonchi (Not clearing with cough) Cardio Palpation: normal PMI Rate: regular rate Rhythm: regular rhythm Heart Sounds: S1 normal, S2 normal, no gallops, no murmurs and no rubs Pulses: radial pulses present GI Inspection: normal to inspection Palpation: soft and no hepatosplenomegaly Skin General: no rashes or lesions noted Neuro General: patient alert, patient awake and patient oriented x3 Cognition: normal cognition Speech: speech normal Psych Appearance: grossly normal Mental Status (more content not included)... Normal [facility] 04-28-2024 [facility] Telephone ([id number]) GRACIE AVELAR ([id number]) 1985 F Date Time Provider Department 04/28[facility] today, we recorded the following information about you: Ricki Amos MD 04/28/2024 10:06 PM Signed Let patient know recent labs were ok except for a very slight anemia. If she just had her menstrual cycle this could be the cause. Shayy Aguilar LPN 04/29/2024 8:53 AM Signed Pt notified of results. Pt advises that she just started her menstrual cycle yesterday. She advises that she doesn't eat a lot of meat. Advises she will try to supplement some iron from foods into her diet. Questions if she should just also take a children's multi vitamin with iron or how much you would recommend she take. JOSÉ MIGUEL Schafer Jeffrey A, MD 04/29/2024 6:01 PM Signed Advise flint stones with iron and take two a day. Scott Hawley RN 04/30/2024 8:03 AM Signed Mailbox is full and cannot accept messages at this time. Please try again later. Bertha Mendez MA 04/30/2024 12:07 PM Signed Patient notified of provider recommendation and is agreeable with plan. Bertha Mendez MA April 30, 2024 12:07 PM Allergies As of Date: 04/28/2024 Noted Allergy Reaction BEE STING 01/12/2011 7 - Swelling Date Reviewed: 12/13/2023 Reviewed by: Erlinda Sanchez APRN.MILLWRIGHT INSTRUCTOR - Fully Assessed Reason for Visit: Results [95] Prescriptions as of 04/30/2024 - dicyclomine (BENTYL) 10 mg capsule Take 1 capsule by mouth before meals and at bedtime. - famotidine (PEPCID) 20 mg tablet Take 1 tablet by mouth daily at bedtime. - sertraline (ZOLOFT) 100 mg tablet Take 1 tablet by mouth once daily. . 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 - metoprolol tartrate, short acting, (LOPRESSOR) 25 mg tablet Take 0.5 tablets by mouth two times a day. For elevated heart rate - urea (CARMOL) 40 % Apply to affected area as needed. - omeprazole (PRILOSEC) 20 mg capsule Take 1 capsule by mouth daily before breakfast. 1/2 hr before meal. - ALPRAZolam (XANAX) 0.25 mg tablet Take 0.25 mg by mouth. - EPINEPHrine (EPIPEN) 0.3 mg/0.3 mL auto-injector Use as directed. Go to ED after use. Problem List As Of Date 04/28/2024 Noted Resolved Supervision of normal first [Z34.00] 07/10/2011 10/30/2011 Maternal tobacco use in first trimester [O99.33*10/30/2011 Anxiety [F41.9] 10/30/2011 Genital herpes simplex virus (HSV) infection in*10/30/2011 Supervision of other high-risk (V23.89*10/2902/04/2012 Anemia, antepartum(648.23) [O99.019] 10/30/2011 02/04/2012 Threatened premature labor, antepartum(644.03) *11/28/2011 02/04/2012 Vaginitis [N76.0] 09/03/2012 Tobacco use disorder [F17.200] IBS (irritable bowel syndrome) [K58.9] Sinus tachycardia [R00.0] History of stillbirth [Z87.59] 05/05/2019 Supervision of high risk in first tri*05/05/2019 Underweight [R63.6] 05/05/2019 Anxiety in in first trimester, antepa*05/05/2019 Family history of kidney stones [Z84.1] 08/06/2023 Encounter Status:Closed by BERTHA MENDEZ on 04/30/24 Normal [facility] CBC W Auto Differential pane l (Bld)on 04-23-2024 Basophils (Bld) [#/Vol] 0.04 10*3/uL Normal <0.11 [facility] Comment on above: Order Comment: Speci men Type: BLOOD SPECIMENOrdering Facility: [facility] Address: [address] [place] [address] Performed By: #### 5 7021-8 ####[facility] LABCLIA [id number] [place] [address] [place] Basophils/100 WBC (Bld) 0.7 % Normal [facility] Comment on above: Order Comment: Speci men Type: BLOOD SPECIMENOrdering Facility: [facility] Address: [address] [place] [address] Performed By: #### 5 7021-8 ####[facility] LABCLIA [id number] [place] [address] [place] Differential cell count method Nom (Bld) Auto Normal [facility] Comment on above: Order Comment: Speci men Type: BLOOD SPECIMENOrdering Facility: [facility] Address: [address] [place] [address] Performed By: #### 5 7021-8 ####[facility] LABCLIA [id number] [place] [address] [place] Eosinophils (Bld) [#/Vol] 0.19 10*3/uL Normal <0.46 [facility] Comment on above: Order Comment: Speci men Type: BLOOD SPECIMENOrdering Facility: [facility] Address: [address] [place] [address] Performed By: #### 5 7021-8 ####[facility] LABCLIA [id number] [place] [address] [place] Eosinophils/100 WBC (Bld) 3.3 % Normal [facility] Comment on above: Order Comment: Speci men Type: BLOOD SPECIMENOrdering Facility: [facility] Address: [address] [place] [address] Performed By: #### 5 7021-8 ####[facility] LABIA [id number] [place] [address] [place] Erythrocyte distribution width (RBC) [Ratio] 12.9 % Normal 11.5-15.0 [facility] Comment on above: Order Comment: Speci men Type: BLOOD SPECIMENOrdering Facility: [facility] Address: [address] [place] [address] Performed By: #### 5 7021-8 ####[facility] LABIA [id number] [place] [address] [place] Hematocrit (Bld) [Volume fraction] 34.9 % Low 36.0-46.0 [facility] Comment on above: Order Comment: Speci men Type: BLOOD SPECIMENOrdering Facility: [facility] Address: [address] [place] [address] Performed By: #### 5 7021-8 ####[facility] LABCLIA [id number] [place] [address] [place] Hemoglobin (Bld) [Mass/Vol] 11.4 g/dL Low 11.5-15.5 [facility] Comment on above: Order Comment: Speci men Type: BLOOD SPECIMENOrdering Facility: [facility] Address: [address] [place] [address] Performed By: #### 5 7021-8 ####[facility] LABCLIA [id number] [place] [address] [place] Immature granulocytes (Bld) [#/Vol] 10*3/uL Normal <0.10 [facility] Comment on above: Order Comment: Speci men Type: BLOOD SPECIMENOrdering Facility: [facility] Address: [address] [place] [address] Performed By: #### 5 7021-8 ####[facility] LABCLIA [id number] [place] [address] [place] Immature granulocytes/100 WBC (Bld) 0.2 % Normal [facility] Comment on above: Order Comment: Speci men Type: BLOOD SPECIMENOrdering Facility: [facility] Address: [address] [place] [address] Performed By: #### 5 7021-8 ####[facility] LABCLIA [id number] [place] [address] [place] Lymphocytes (Bld) [#/Vol] 2.94 10*3/uL Normal 1.00-4.00 [facility] Comment on above: Order Comment: Speci men Type: BLOOD SPECIMENOrdering Facility: [facility] Address: [address] [place] [address] Performed By: #### 5 7021-8 ####[facility] LABCLIA [id number] [place] [address] [place] Lymphocytes/100 WBC (Bld) 50.9 % Normal [facility] Comment on above: Order Comment: Speci men Type: BLOOD SPECIMENOrdering Facility: [facility] Address: [address] [place] [address] Performed By: #### 5 7021-8 ####[facility] LABCLIA [id number] [place] [address] [place] MCH (RBC) [Entitic mass] 32.4 pg Normal 26.0-34.0 [facility] Comment on above: Order Comment: Speci men Type: BLOOD SPECIMENOrdering Facility: [facility] Address: [address] [place] [address] Performed By: #### 5 7021-8 ####[facility] LABCLIA [id number] [place] [address] [place] MCHC (RBC) [Mass/Vol] 32.7 g/dL Normal 30.5-36.0 [facility] Comment on above: Order Comment: Speci men Type: BLOOD SPECIMENOrdering Facility: [facility] Address: [address] [place] [address] Performed By: #### 5 7021-8 ####[facility] LABCLIA [id number] [place] [address] [place] MCV (RBC) [Entitic vol] 99.1 fL Normal 80.0-100.0 [facility] Comment on above: Order Comment: Speci men Type: BLOOD SPECIMENOrdering Facility: [facility] Address: [address] [place] [address] Performed By: #### 5 7021-8 ####[facility] LABIA [id number] [place] [address] [place] Monocytes (Bld) [#/Vol] 0.64 10*3/uL Normal <0.87 [facility] Comment on above: Order Comment: Speci men Type: BLOOD SPECIMENOrdering Facility: [facility] Address: [address] [place] [address] Performed By: #### 5 7021-8 ####[facility] LABCLIA [id number] [place] [address] [place] Monocytes/100 WBC (Bld) 11.1 % Normal [facility] Comment on above: Order Comment: Speci men Type: BLOOD SPECIMENOrdering Facility: [facility] Address: [address] [place] [address] Performed By: #### 5 7021-8 ####[facility] LABCLIA [id number] [place] [address] [place] Neutrophils (Bld) [#/Vol] 1.96 10*3/uL Normal 1.45-7.50 [facility] Comment on above: Order Comment: Speci men Type: BLOOD SPECIMENOrdering Facility: [facility] Address: [address] [place] [address] Performed By: #### 5 7021-8 ####[facility] LABCLIA [id number] [place] [address] [place] Neutrophils/100 WBC (Bld) 33.8 % Normal [facility] Comment on above: Order Comment: Speci men Type: BLOOD SPECIMENOrdering Facility: [facility] Address: [address] [place] [address] Performed By: #### 5 7021-8 ####[facility] LABCLIA [id number] [place] [address] [place] Nucleated RBC (Bld) [#/Vol] 10*3/uL Normal <0.01 [facility] Comment on above: Order Comment: Speci men Type: BLOOD SPECIMENOrdering Facility: [facility] Address: [address] [place] [address] Performed By: #### 5 7021-8 ####[facility] LABCLIA [id number] [place] [address] [place] Nucleated RBC/100 WBC (Bld) [Ratio] 0.0 /100 WBC Normal [facility] Comment on above: Order Comment: Speci men Type: BLOOD SPECIMENOrdering Facility: [facility] Address: [address] [place] [address] Performed By: #### 5 7021-8 ####[facility] LABCLIA [id number] [place] [address] [place] Platelet mean volume (Bld) [Entitic vol] 11.2 fL Normal 9.0-12.7 [facility] Comment on above: Order Comment: Speci men Type: BLOOD SPECIMENOrdering Facility: [facility] Address: [address] [place] [address] Performed By: #### 5 7021-8 ####[facility] LABCLIA [id number] [place] [address] [place] Platelets (Bld) [#/Vol] 166 10*3/uL Normal 150-400 [facility] Comment on above: Order Comment: Speci men Type: BLOOD SPECIMENOrdering Facility: [facility] Address: [address] [place] [address] Performed By: #### 5 7021-8 ####[facility] LABCLIA [id number] [place] [address] [place] RBC (Bld) [#/Vol] 3.52 10*6/uL Low 3.90-5.20 [facility] Comment on above: Order Comment: Speci men Type: BLOOD SPECIMENOrdering Facility: [facility] Address: [address] [place] [address] Performed By: #### 5 7021-8 ####[facility] LABIA [id number] [place] [address] [place] WBC (Bld) [#/Vol] 5.78 10*3/uL Normal 3.70-11.00 [facility] Comment on above: Order Comment: Speci men Type: BLOOD SPECIMENOrdering Facility: [facility] Address: [address] [place] [address] Performed By: #### 5 7021-8 ####[facility] LABCLIA [id number] [place] [address] [place] Comprehensive metabolic 2000 panelon 04-23-2024 Albumin [Mass/Vol] 4.6 g/dL Normal 3.9-4.9 [facility] Comment on above: Order Comment: Speci men Type: BLOOD SPECIMENOrdering Facility: [facility] Address: [address] [place] [address] Performed By: #### 3 040-3, 3, ####[facility] LABCLIA [id number] [place] [address] [place] ALP [Catalytic activity/Vol] 40 U/L Normal 34-123 [facility] Comment on above: Order Comment: Speci men Type: BLOOD SPECIMENOrdering Facility: [facility] Address: [address] [place] [address] Performed By: #### 3 040-3, 3, ####[facility] LABCLIA [id number] [place] [address] [place] ALT [Catalytic activity/Vol] 11 U/L Normal 7-38 [facility] Comment on above: Order Comment: Speci men Type: BLOOD SPECIMENOrdering Facility: [facility] Address: [address] [place] [address] Performed By: #### 3 040-3, 3, ####[facility] LABCLIA [id number] [place] [address] [place] Anion gap [Moles/Vol] 15 mmol/L Normal 8-15 [facility] Comment on above: Order Comment: Speci men Type: BLOOD SPECIMENOrdering Facility: [facility] Address: [address] [place] [address] Performed By: #### 3 040-3, 3, ####[facility] LABCLIA [id number] [place] [address] [place] AST [Catalytic activity/Vol] 18 U/L Normal 13-35 [facility] Comment on above: Order Comment: Speci men Type: BLOOD SPECIMENOrdering Facility: [facility] Address: [address] [place] [address] Performed By: #### 3 040-3, 3016-3, 65126-3 ####[facility] LABCLIA [id number] [place] [address] [place] Bilirubin [Mass/Vol] 0.2 mg/dL Normal 0.2-1.3 [facility] Comment on above: Order Comment: Speci men Type: BLOOD SPECIMENOrdering Facility: [facility] Address: [address] [place] [address] Performed By: #### 3 040-3, 3016-3, 39473-3 ####[facility] LABCLIA [id number] [place] [address] [place] Calcium [Mass/Vol] 9.2 mg/dL Normal 8.5-10.2 [facility] Comment on above: Order Comment: Speci men Type: BLOOD SPECIMENOrdering Facility: [facility] Address: [address] [place] [address] Performed By: #### 3 040-3, 3016-3, 73029-4 ####[facility] LABCLIA [id number] [place] [address] [place] Chloride [Moles/Vol] 104 mmol/L Normal 98-107 [facility] Comment on above: Order Comment: Speci men Type: BLOOD SPECIMENOrdering Facility: [facility] Address: [address] [place] [address] Performed By: #### 3 040-3, 3016-3, 28298-0 ####[facility] LABCLIA [id number] [place] [address] [place] CO2 [Moles/Vol] 22 mmol/L Normal 22-30 [facility] Comment on above: Order Comment: Speci men Type: BLOOD SPECIMENOrdering Facility: [facility] Address: [address] [place] [address] Performed By: #### 3 040-3, 3015-3, 56421-1 ####[facility] LABCLIA [id number] [place] [id number] [place] Creatinine [Mass/Vol] 0.64 mg/dL Normal 0.58-0.96 [facility] Comment on above: Order Comment: Specbebe men Type: BLOOD SPECIMENOrdering Facility: [facility] Address: [address] [place] [address] Performed By: #### 3 040-3, 3015-3, ####[facility] LABIA [id number] [place] [address] [place] Creatinine and Glomerular filtration rate.predicted panel (S/P/Bld) 116 mL/min/1.73m??? Normal >=60 [facility] Comment on above: Order Comment: Triston reese Type: BLOOD SPECIMENOrdering Facility: [facility] Address: [address] [place] [address] Result Comment: Sophie mated Glomerular Filtration Rate (eGFR) is calculated using the 2020 CKD-EPI creatinine equation. This equation utilizes serum creatinine, sex, and age as parameters. The creatinine assay has traceable calibration to isotope dilution-mass spectrometry. Refer to KDIGO guidelines for clinical interpretation. In patients with unstable renal function, e.g. those with acute kidney injury, the eGFR may not accurately reflect actual GFR. Performed By: #### 3 040-3, 3015-3, ####[facility] LABIA [id number] [place] [id number] [place] Glucose [Mass/Vol] 107 mg/dL High 74-99 [facility] Comment on above: Order Comment: Triston men Type: BLOOD SPECIMENOrdering Facility: [facility] Address: [address] [place] [address] Result Comment: The [place] Diabetes Association (ADA) provides guidance for cutoff values for fasting glucose and random glucose. The ADA defines fasting as no caloric intake for at least 8 hours. Fasting plasma glucose results between 100 to 125 mg/dL indicate increased risk for diabetes (prediabetes). Fasting plasma glucose results greater than or equal to 126 mg/dL meet the criteria for diagnosis of diabetes. In the absence of unequivocal hyperglycemia, results should be confirmed by repeat testing. In a patient with classic symptoms of hyperglycemia or hyperglycemic crisis, random plasma glucose results greater than or equal to 200 mg/dL meet the criteria for diagnosis of diabetes. Reference: Standards of Medical Care in Diabetes 2016, [place] Diabetes Association. Diabetes Care. 2016.39(Suppl 1). Performed By: #### 3 040-3, 3015-3, ####[facility] LABCLIA [id number] [place] [address] [place] Potassium [Moles/Vol] 4.0 mmol/L Normal 3.7-5.1 [facility] Comment on above: Order Comment: Speci men Type: BLOOD SPECIMENOrdering Facility: [facility] Address: [address] [place] [address] Performed By: #### 3 040-3, 3015-08, ####[facility] LABCLIA [id number] [place] [address] [place] Protein [Mass/Vol] 7.3 g/dL Normal 6.3-8.0 [facility] Comment on above: Order Comment: Speci men Type: BLOOD SPECIMENOrdering Facility: [facility] Address: [address] [place] [address] Performed By: #### 3 040-3, 3, ####[facility] LABCLIA [id number] [address] [address] [place] Sodium [Moles/Vol] 141 mmol/L Normal 136-144 [facility] Comment on above: Order Comment: Speci men Type: BLOOD SPECIMENOrdering Facility: [facility] Address: [address] [place] [address] Performed By: #### 3 040-3, 3, 29790-2 ####[facility] LABCLIA [id number] [place] [address] [place] Urea nitrogen [Mass/Vol] 7 mg/dL Normal 7-21 [facility] Comment on above: Order Comment: Speci men Type: BLOOD SPECIMENOrdering Facility: [facility] Address: [address] [place] [address] Performed By: #### 3 040-3, 3016-3, 01582-8 ####[facility] LABIA [id number] [place] [address] [place] Lipase SerPl-cCncon 04-23-20 24 Lipase [Catalytic activity/Vol] 39 U/L Normal 16-61 [facility] Comment on above: Order Comment: Speci men Type: BLOOD SPECIMENOrdering Facility: [facility] Address: [address] [place] [address] Performed By: #### 3 040-3, 3016-3, 96032-7 ####[facility] [id number] [place] [address] [place] TSH SerPl-aCncon 04-23-2024 TSH Qn 1.470 m[IU]/L Normal 0.270-4.200 [facility] Comment on above: Order Comment: Speci men Type: BLOOD SPECIMENOrdering Facility: [facility] Address: [address] [place] [address] Result Comment: If t he patient is , TSH reference range varies by gestational period: First Trimester (weeks 9-12): 0.180-2.990 mIU/L Second Trimester: 0.110-3.980 mIU/L Third Trimester: 0.480-4.710 mIU/L Adalid Kumar et al. A Practical Approach for the Verifications and Determination of Site- and Trimester-Specific Reference Intervals for Thyroid Function tests in . Thyroid, 2019:29:3:412-420. Cecilio Mansfield et al. 2017 Guidelines of the [place] Thyroid Association for the Diagnosis and Management of Thyroid Disease during and the . Thyroid, 2017:27:3:315-389. Performed By: #### 3 040-3, 3016-3, 63808-8 ####[facility] LABCLIA [id number] [place] [id number] [place] 12 Lead EKGon 11-06-2023 12 Lead EKG [facility] [address] [place] [address] 12 Lead EKG 11/06/23 1052 MR#: [id number] Acct: [id number] Name: GRACIE AVELAR Rep #: [id number] : 1985 38 From: Ras Aponte MD Attending Dr: Status: DEP ER Ordering Dr: Sophy Kelly DO Date: 11/06/23 Location: ED Sex: F C Admitted: Test Reason : WEAKNESS Blood Pressure : / mmHG Vent. Rate : 071 BPM Atrial Rate : 071 BPM P-R Int : 106 ms QRS Dur : 084 ms QT Int : 406 ms P-R-T Axes : 059 077 039 degrees QTc Int : 441 ms Sinus rhythm with short [place] Otherwise normal ECG Confirmed by Ras Aponet ([id number]), film and video editor EDIE OGDEN ([id number]) on 11/07/2023 10:41:01 AM Referred By: Confirmed By:Ras Aponte 11/07/23 1041 Date Ras Aponte MD CC: Dr. Sophy Kelly DO; Dr. Bereket Ashley MD Signed Normal [facility] CBC W/Diff, Automatedon 10-16 Absolute Lymph 1.75 X10 3/uL Normal 0.83-4.51 [facility] Comment on above: Performed By: #### L 500.4050, L501.4020, L700.5500, L100.0100, L501.3620 ####[facility] [address] [place], [address] Absolute Neut 1.7 X10 3/uL Low 2.0-7.7 [facility] Comment on above: Performed By: #### L 500.4050, L501.4020, L700.5500, L100.0100, L501.3620 ####[facility] [address] [place], [address] Basophils/100 WBC (Bld) 0.8 % Normal 0-1 [facility] Comment on above: Performed By: #### L 500.4050, L501.4020, L700.5500, L100.0100, L501.3620 ####[facility] [address] [place], [address] Eosinophils/100 WBC (Bld) 2.8 % Normal 0-5 [facility] Comment on above: Performed By: #### L 500.4050, L501.4020, L700.5500, L100.0100, L501.3620 ####[facility] [address] [place], [address] Erythrocyte distribution width (RBC) [Ratio] 13.0 % Normal 11.6-14.6 [facility] Comment on above: Performed By: #### L 500.4050, L501.4020, L700.5500, L100.0100, L501.3620 ####[facility] [address] [place], [address] Hematocrit (Bld) [Volume fraction] 35.8 % Low 37-47 [facility] Comment on above: Performed By: #### L 500.4050, L501.4020, L700.5500, L100.0100, L501.3620 ####[facility] [address] [place], [address] Hemoglobin (Bld) [Mass/Vol] 11.7 g/dL Low 12.0-15.0 [facility] Comment on above: Performed By: #### L 500.4050, L501.4020, L700.5500, L100.0100, L501.3620 ####[facility] [address] [place], [address] IG% 0.000 Normal 0.0-0.9 [facility] Comment on above: Result Comment: IG% - Immature Granulocytes (promyelocytes, myelocytes and metamyelocytes) > 1% indicates that a LEFT SHIFT is Present. Performed By: #### L 500.4050, L501.4020, L700.5500, L100.0100, L501.3620 ####[facility] [address] [place], [address] Lymphocytes/100 WBC (Bld) 45.1 % High 19-41 [facility] Comment on above: Performed By: #### L 500.4050, L501.4020, L700.5500, L100.0100, L501.3620 ####[facility] [address] [place], [address] MCH (RBC) [Entitic mass] 31.7 pg Normal 27.0-32.0 [facility] Comment on above: Performed By: #### L 500.4050, L501.4020, L700.5500, L100.0100, L501.3620 ####[facility] [address] [place], [address] MCHC (RBC) [Mass/Vol] 32.7 g/dL Normal 32-36 [facility] [place] Comment on above: Performed By: #### L 500.4050, L501.4020, L700.5500, L100.0100, L501.3620 ####[facility] [address] [place], [address] MCV (RBC) [Entitic vol] 97.0 fL Normal 81-99 [facility] Comment on above: Performed By: #### L 500.4050, L501.4020, L700.5500, L100.0100, L501.3620 ####[facility] [address] [place], [address] Monocytes/100 WBC (Bld) 8.0 % Normal 0-10 [facility] Comment on above: Performed By: #### L 500.4050, L501.4020, L700.5500, L100.0100, L501.3620 ####[facility] [address] [place], [address] Neutrophils/100 WBC (Bld) 43.3 % Low 47-70 [facility] Comment on above: Performed By: #### L 500.4050, L501.4020, L700.5500, L100.0100, L501.3620 ####[facility] [address] [place], [address] Nucleated RBC (Bld) [#/Vol] 0 10*3/uL Normal 0-5 [facility] Comment on above: Performed By: #### L 500.4050, L501.4020, L700.5500, L100.0100, L501.3620 ####[facility] [address] [place], [address] Platelet mean volume (Bld) [Entitic vol] 10.5 fL Normal 6.2-12.0 [facility] Comment on above: Performed By: #### L 500.4050, L501.4020, L700.5500, L100.0100, L501.3620 ####[facility] [address] [place], [address] Platelets (Bld) [#/Vol] 174 10*3/uL Normal 150-450 [facility] Comment on above: Performed By: #### L 500.4050, L501.4020, L700.5500, L100.0100, L501.3620 ####[facility] [address] [place], [address] RBC (Bld) [#/Vol] 3.69 10*6/uL Low 4.2-5.4 [facility] Comment on above: Performed By: #### L 500.4050, L501.4020, L700.5500, L100.0100, L501.3620 ####[facility] [address] [place], [address] RDW SD 46.4 fl High 35.1-43.9 [facility] Comment on above: Performed By: #### L 500.4050, L501.4020, L700.5500, L100.0100, L501.3620 ####[facility] [address] [place], [address] WBC (Bld) [#/Vol] 3.9 10*3/uL Low 4.4-11.0 [facility] Comment on above: Performed By: #### L 500.4050, L501.4020, L700.5500, L100.0100, L501.3620 ####[facility] [address] [place], [address] CPK Total, Creatine Kinaseon 11-06-2023 CPK TOTAL 60 U/L Normal 26-192 [facility] Comment on above: Order Comment: 'TROP ' Serial specimen #1, #2 or #3: 1 Performed By: #### L 500.4050, L501.4020, L700.5500, L100.0100, L501.3620 ####[facility] [address] [place], [address] Comprehensive Metabolic Prof ilon 11-06-2023 Albumin [Mass/Vol] 3.9 g/dL Normal 3.2-5.0 [facility] Comment on above: Order Comment: 'TROP ' Serial specimen #1, #2 or #3: 1 Performed By: #### L 500.4050, L501.4020, L700.5500, L100.0100, L501.3620 ####[facility] [address] [place], [address] Albumin/Globulin [Mass ratio] 1.1 {ratio} Normal 0.9-2.4 [facility] Comment on above: Order Comment: 'TROP ' Serial specimen #1, #2 or #3: 1 Performed By: #### L 500.4050, L501.4020, L700.5500, L100.0100, L501.3620 ####[facility] [address] [place], [address] ALK P 36 U/L Low 45-117 [facility] Comment on above: Order Comment: 'TROP ' Serial specimen #1, #2 or #3: 1 Performed By: #### L 500.4050, L501.4020, L700.5500, L100.0100, L501.3620 ####[facility] [address] [place], [address] ALT [Catalytic activity/Vol] 18 U/L Normal 13-56 [facility] Comment on above: Order Comment: 'TROP ' Serial specimen #1, #2 or #3: 1 Performed By: #### L 500.4050, L501.4020, L700.5500, L100.0100, L501.3620 ####[facility] [address] [place], [address] AST [Catalytic activity/Vol] 16 U/L Normal 15-37 [facility] Comment on above: Order Comment: 'TROP ' Serial specimen #1, #2 or #3: 1 Performed By: #### L 500.4050, L501.4020, L700.5500, L100.0100, L501.3620 ####[facility] [address] [place], [address] Bilirubin [Mass/Vol] 0.50 mg/dL Normal 0.20-1.00 [facility] Comment on above: Order Comment: 'TROP ' Serial specimen #1, #2 or #3: 1 Result Comment: For patients on eltrombopag therapy, use of Dimension [place] TBIL is not recommended. Performed By: #### L 500.4050, L501.4020, L700.5500, L100.0100, L501.3620 ####[facility] [address] [place], [address] BUN/CRE 8.6 RATIO Low 10-20 [facility] Comment on above: Order Comment: 'TROP ' Serial specimen #1, #2 or #3: 1 Performed By: #### L 500.4050, L501.4020, L700.5500, L100.0100, L501.3620 ####[facility] [address] [place], [address] CA,Total 8.9 mg/dL Normal 8.5-10.1 [facility] Comment on above: Order Comment: 'TROP ' Serial specimen #1, #2 or #3: 1 Performed By: #### L 500.4050, L501.4020, L700.5500, L100.0100, L501.3620 ####[facility] [address] [place], [address] Chloride [Moles/Vol] 109 mmol/L High 98-107 [facility] Comment on above: Order Comment: 'TROP ' Serial specimen #1, #2 or #3: 1 Performed By: #### L 500.4050, L501.4020, L700.5500, L100.0100, L501.3620 ####[facility] [address] [place], [address] CO2 [Moles/Vol] 26.0 mmol/L Normal 21.0-32.0 [facility] Comment on above: Order Comment: 'TROP ' Serial specimen #1, #2 or #3: 1 Performed By: #### L 500.4050, L501.4020, L700.5500, L100.0100, L501.3620 ####[facility] [address] [place], [address] Creatinine [Mass/Vol] 0.70 mg/dL Normal 0.55-1.02 [facility] [place] Comment on above: Order Comment: 'TROP ' Serial specimen #1, #2 or #3: 1 Result Comment: The validity of the calculated GFR GFRAA in patients over 70 years has not been determined. Clinical correlation is essential. Performed By: #### L 500.4050, L501.4020, L700.5500, L100.0100, L501.3620 ####[facility] [address] [place], [address] ECRCL 80.21 ml/min Normal [facility] Comment on above: Order Comment: 'TROP ' Serial specimen #1, #2 or #3: 1 Performed By: #### L 500.4050, L501.4020, L700.5500, L100.0100, L501.3620 ####[facility] [address] [place], [address] EST GFR - AA 120 mL/min Normal >60 [facility] Comment on above: Order Comment: 'TROP ' Serial specimen #1, #2 or #3: 1 Result Comment: Afri can [place] GFR Calc Performed By: #### L 500.4050, L501.4020, L700.5500, L100.0100, L501.3620 ####[facility] [address] [place], [address] GAP 5 Normal 5-15 [facility] Comment on above: Order Comment: 'TROP ' Serial specimen #1, #2 or #3: 1 Performed By: #### L 500.4050, L501.4020, L700.5500, L100.0100, L501.3620 ####[facility] [address] [place], [address] GFR/1.73 sq M.predicted among non-blacks MDRD (S/P/Bld) [Vol rate/Area] 99 mL/min/{1.73_m2} Normal >60 [facility] Comment on above: Order Comment: 'TROP ' Serial specimen #1, #2 or #3: 1 Result Comment: Non- GFR Calc Performed By: #### L 500.4050, L501.4020, L700.5500, L100.0100, L501.3620 ####[facility] [address] [place], [address] Globulin (S) [Mass/Vol] 3.5 g/dL Normal 2.2-4.2 [facility] Comment on above: Order Comment: 'TROP ' Serial specimen #1, #2 or #3: 1 Performed By: #### L 500.4050, L501.4020, L700.5500, L100.0100, L501.3620 ####[facility] [address] [place], [address] Glucose [Mass/Vol] 101 mg/dL Normal 74-106 [facility] Comment on above: Order Comment: 'TROP ' Serial specimen #1, #2 or #3: 1 Result Comment: Fast ing Glucose result from 100 to 125 mg/dL suggests IMPAIRED HOMEOSTASIS per A.D.A. criteria. Performed By: #### L 500.4050, L501.4020, L700.5500, L100.0100, L501.3620 ####[facility] [address] [place], [address] Potassium [Moles/Vol] 3.8 mmol/L Normal 3.5-5.1 [facility] [place] Comment on above: Order Comment: 'TROP ' Serial specimen #1, #2 or #3: 1 Performed By: #### L 500.4050, L501.4020, L700.5500, L100.0100, L501.3620 ####[facility] [address] [place], [address] Sodium [Moles/Vol] 140 mmol/L Normal 136-145 [facility] Comment on above: Order Comment: 'TROP ' Serial specimen #1, #2 or #3: 1 Performed By: #### L 500.4050, L501.4020, L700.5500, L100.0100, L501.3620 ####[facility] [address] [place], [address] T PROT 7.4 g/dL Normal 6.4-8.2 [facility] Comment on above: Order Comment: 'TROP ' Serial specimen #1, #2 or #3: 1 Performed By: #### L 500.4050, L501.4020, L700.5500, L100.0100, L501.3620 ####[facility] [address] [place], [address] Urea nitrogen [Mass/Vol] 6 mg/dL Low 7-18 [facility] Comment on above: Order Comment: 'TROP ' Serial specimen #1, #2 or #3: 1 Performed By: #### L 500.4050, L501.4020, L700.5500, L100.0100, L501.3620 ####[facility] [address] [place], [address] Emergency Department Summary on 11-06-2023 Emergency Department Summary [facility] Medical Records Department [address] [place] [address] Emergency Department Summary 11/06/23 MR#: [id number] Acct: [id number] Name: GRACIE AVELAR Rep #: [id number] : 1985 38 From: Sophy Kelly DO PCP: Dr. Bereket Ashley MD Status:DEP ER Location: ED HPI History of Present Illness Chief Complaint: Weakness Informant: patient Narrative Narrative: Patient is a 38-year-old female with history of tobacco abuse, anxiety and, POTS and SVT presenting with recurrent weakness. Patient was seen and evaluated in her ER 2 days ago for the same complaint. She notes that she recently started on metoprolol and started feeling very weak. She has not had this medication for the past 4 days. She notes that she felt good yesterday but today when she woke up she felt foggy. She notes every morning when she wakes up her heart rate goes to 140 but that correct itself. She then went to get her daughter up and felt like her entire body was going to fall to the ground. Of note she did not pass out or actually fall. She states she felt so weak she could hardly hold her phone up to her head. She did have some associated nausea and feeling of chills but is not sure if that was associated with anxiety. Has been having urinary frequency but denies any dysuria or hematuria. Did see Dr. Brice with a virtual visit who decreased her metoprolol from 25 to 12.5 mg she has not started taking this. Patient is just concerned because of her severe fatigue and weakness and wanted to be evaluated again. She states she feels like a paper weight. [facility] Medical History COVID-19 (07/01/21) IBS (irritable bowel syndrome) Herpes Herpes Limited care History of stillbirth premature rupture of membranes (PPROM) with unknown onset of labor 34 weeks gestation of Home Medications ???Medication ???Instructions ???Recorded ???Last Taken ???Type sertraline 100 mg tablet 100 mg PO QHS anxiety 08/23/21 Unknown History omeprazole magnesium 20 mg 20 mg PO DAILY #30 tabs 10/23/22 Unknown Rx tablet,delayed release (Prilosec OTC) metoprolol succinate 25 mg 25 mg PO DAILY 11/04/23 Unknown History tablet,extended release 24 hr Allergy/AdvReac Type Severity Reaction Status Date / Time venom-honey bee Allergy Unknown swelling Verified 11/06/23 09:39 Family History Mother Diabetes Father Schizoaffective disorder Grandmother Hypertension Diabetes Grandfather Myocardial infarction Grandmother Hypertension Grandfather Cancer lung Surgical History History of dilatation and curettage Social History Smoking Status: Current every day smoker tobacco type: cigarettes alcohol intake: never substance use type: does not use ROS ROS ED Constitutional Constitutional ED: Reports chills; Denies fever(s) or sweats Eyes Eyes: Denies change in vision Cardiovascular Cardiovascular: Denies chest pain, palpitations or racing heartbeat Respiratory/Chest Respiratory/Chest: Denies cough or dyspnea Gastrointestinal Gastrointestinal: Denies abdominal pain, nausea or vomiting Genitourinary Genitourinary ED: Reports urinary frequency; Denies dysuria or hematuria Musculoskeletal Musculoskeletal: Denies arthralgias or myalgias Integumentary Denies rash Neurologic Neurologic: Reports weakness; Denies headache(s) or paresthesias Psychiatric Psychiatric: Reports anxiety EXAM Physical Exam Const Vital Signs: 11/06/23 09:39 11/06/23 09:39 11/06/23 10:36 Temperature 97.1 F L Temperature Source Temporal Pulse Rate 78 80 Pulse Rate [Lying] Pulse Rate [Sitting (for 1 minute prior to obtaining)] Pulse Rate [Standing (for 1 minute prior to obtaining)] Respiratory Rate 14 14 Respiratory Effort Normal Non-Labored Respiratory Pattern Normal Blood Pressure 113/71 113/71 Blood Pressure [Lying] Blood Pressure [Sitting (for 1 minute prior to obtaining)] Blood Pressure [Standing (for 1 minute prior to obtaining)] Blood Pressure Mean 85 85 Blood Pressure Mean [Lying] Blood Pressure Mean [Sitting (for 1 minute prior to obtaining)] Blood Pressure Mean [Standing (for 1 minute prior to obtaining)] Pulse Ox 100 100 Oxygen Delivery Method Nasal Cannula Room Air 11/06/23 11:05 11/06/23 11:30 11/06/23 13:00 Temperature 97.6 F L Temperature Source Pulse Rate 66 69 Pulse Rate [Lying] 68 Pulse Rate [Sitting (for 1 minute prior to obtaining)] 71 Pulse Rate [Standing (for 1 minute prior to obtaining)] 88 Respiratory Rate 17 16 Respiratory Eff (more content not included)... Normal [facility] L501.4020on 11-06-2023 TROPONIN-I HS < 3 Low 3.0-54.0 [facility] Comment on above: Order Comment: 'TROP ' Serial specimen #1, #2 or #3: 1 Result Comment: Gerber gong Note: New Test Units and Gender Specific Reference Ranges. For more information see Policy Stat Procedure [place] High Sensitivity Troponin (TNIH) and attachments. Performed By: #### L 500.4050, L501.4020, L700.5500, L100.0100, L501.3620 ####[facility] [address] [place], [address] Monoteston 11-06-2023 Monocytes (Bld) [#/Vol] Negative Normal Negative [facility] Comment on above: Performed By: #### L 500.4050, L501.4020, L700.5500, L100.0100, L501.3620 ####[facility] [address] [place], [address] ,Urineon 11-06-2023 Beta HCG ( test) Ql (U) Negative Normal [facility] Comment on above: Order Comment: CLEAN CATCH Result Comment: Very dilute urine specimens, as indicated by a low specific gravity, may not contain underwriting sales representative levels of hCG. If is still suspected, a first morning urine specimen should be collected 48 hours later and tested. Performed By: #### L 400.7600, L400.0001 ####[facility] [address] [place], [address] Urinalysis, Completeon 11-05 BACTERIA 0 SEEN Normal None Seen [facility] Comment on above: Order Comment: CLEAN CATCH Performed By: #### L 400.7600, L400.0001 ####[facility] [address] [place], [address] EPI,SQUAMOUS 0 SEEN Normal 5-10 [facility] Comment on above: Order Comment: CLEAN CATCH Performed By: #### L 400.7600, L400.0001 ####[facility] [address] [place], [address] Mucus Ql (Urine sed) 0 SEEN Normal [facility] Comment on above: Order Comment: CLEAN CATCH Performed By: #### L 400.7600, L400.0001 ####[facility] [address] [place], [address] RBC 0 SEEN Normal 0-5 [facility] Comment on above: Order Comment: CLEAN CATCH Performed By: #### L 400.7600, L400.0001 ####[facility] [address] [place], [address] WBC 0 SEEN Normal 0-5 [facility] Comment on above: Order Comment: CLEAN CATCH Performed By: #### L 400.7600, L400.0001 ####[facility] [address] [place], [address] Basic Metabolic Profile (BMP )on 11-04-2023 BUN/CRE 10.7 RATIO Normal 10-20 [facility] Comment on above: Performed By: #### L 500.2500, L700.6800, L501.5200, L100.0100, L501.9520 #### [facility] [address] [place], [address] CA,Total 9.1 mg/dL Normal 8.5-10.1 [facility] Comment on above: Performed By: #### L 500.2500, L700.6800, L501.5200, L100.0100, L501.9520 #### [facility] [address] [place], [address] Chloride [Moles/Vol] 108 mmol/L High 98-107 [facility] Comment on above: Performed By: #### L 500.2500, L700.6800, L501.5200, L100.0100, L501.9520 #### [facility] [address] [place], [address] CO2 [Moles/Vol] 28.0 mmol/L Normal 21.0-32.0 [facility] Comment on above: Performed By: #### L 500.2500, L700.6800, L501.5200, L100.0100, L501.9520 #### [facility] [address] [place], [address] Creatinine [Mass/Vol] 0.66 mg/dL Normal 0.55-1.02 [facility] [place] Comment on above: Result Comment: The validity of the calculated GFR GFRAA in patients over 70 years has not been determined. Clinical correlation is essential. Performed By: #### L 500.2500, L700.6800, L501.5200, L100.0100, L501.9520 #### [facility] [address] [place], [address] EST GFR - AA 130 mL/min Normal >60 [facility] Comment on above: Result Comment: Afri can [place] GFR Calc Performed By: #### L 500.2500, L700.6800, L501.5200, L100.0100, L501.9520 #### [facility] [address] [place], [address] GAP 3 Low 5-15 [facility] Comment on above: Performed By: #### L 500.2500, L700.6800, L501.5200, L100.0100, L501.9520 #### [facility] [address] [place], [address] GFR/1.73 sq M.predicted among non-blacks MDRD (S/P/Bld) [Vol rate/Area] 107 mL/min/{1.73_m2} Normal >60 [facility] Comment on above: Result Comment: Non- GFR Calc Performed By: #### L 500.2500, L700.6800, L501.5200, L100.0100, L501.9520 #### [facility] [address] [place], [address] Glucose [Mass/Vol] 89 mg/dL Normal 74-106 [facility] Comment on above: Performed By: #### L 500.2500, L700.6800, L501.5200, L100.0100, L501.9520 #### [facility] [address] [place], [address] Potassium [Moles/Vol] 3.7 mmol/L Normal 3.5-5.1 [facility] Comment on above: Performed By: #### L 500.2500, L700.6800, L501.5200, L100.0100, L501.9520 #### [facility] [address] [place], [address] Sodium [Moles/Vol] 139 mmol/L Normal 136-145 [facility] Comment on above: Performed By: #### L 500.2500, L700.6800, L501.5200, L100.0100, L501.9520 #### [facility] [address] [place], [address] Urea nitrogen [Mass/Vol] 7 mg/dL Normal 7-18 [facility] Comment on above: Performed By: #### L 500.2500, L700.6800, L501.5200, L100.0100, L501.9520 #### [facility] [address] [place], [address] CBC W/Diff, Automatedon 05-2 0-4 Absolute Lymph 2.92 X10 3/uL Normal 0.83-4.51 [facility] Comment on above: Performed By: #### L 500.2500, L700.6800, L501.5200, L100.0100, L501.9520 #### [facility] [address] [place], [address] Absolute Neut 2.1 X10 3/uL Normal 2.0-7.7 [facility] Comment on above: Performed By: #### L 500.2500, L700.6800, L501.5200, L100.0100, L501.9520 #### [facility] [address] [place], [address] Basophils/100 WBC (Bld) 0.5 % Normal 0-1 [facility] Comment on above: Performed By: #### L 500.2500, L700.6800, L501.5200, L100.0100, L501.9520 #### [facility] [address] [place], [address] Eosinophils/100 WBC (Bld) 3.4 % Normal 0-5 [facility] Comment on above: Performed By: #### L 500.2500, L700.6800, L501.5200, L100.0100, L501.9520 #### [facility] [address] [place], [address] Erythrocyte distribution width (RBC) [Ratio] 12.9 % Normal 11.6-14.6 [facility] Comment on above: Performed By: #### L 500.2500, L700.6800, L501.5200, L100.0100, L501.9520 #### [facility] [address] [place], [address] Hematocrit (Bld) [Volume fraction] 35.1 % Low 37-47 [facility] Comment on above: Performed By: #### L 500.2500, L700.6800, L501.5200, L100.0100, L501.9520 #### [facility] [address] [place], [address] Hemoglobin (Bld) [Mass/Vol] 11.6 g/dL Low 12.0-15.0 [facility] Comment on above: Performed By: #### L 500.2500, L700.6800, L501.5200, L100.0100, L501.9520 #### [facility] [address] [place], [address] IG% 0.400 Normal 0.0-0.9 [facility] Comment on above: Result Comment: IG% - Immature Granulocytes (promyelocytes, myelocytes and metamyelocytes) > 1% indicates that a LEFT SHIFT is Present. Performed By: #### L 500.2500, L700.6800, L501.5200, L100.0100, L501.9520 #### [facility] [address] [place], [address] Lymphocytes/100 WBC (Bld) 51.6 % High 19-41 [facility] Comment on above: Performed By: #### L 500.2500, L700.6800, L501.5200, L100.0100, L501.9520 #### [facility] [address] [place], [address] MCH (RBC) [Entitic mass] 32.0 pg Normal 27.0-32.0 [facility] Comment on above: Performed By: #### L 500.2500, L700.6800, L501.5200, L100.0100, L501.9520 #### [facility] [address] [place], [address] MCHC (RBC) [Mass/Vol] 33.0 g/dL Normal 32-36 [facility] Comment on above: Performed By: #### L 500.2500, L700.6800, L501.5200, L100.0100, L501.9520 #### [facility] [address] [place], [address] MCV (RBC) [Entitic vol] 96.7 fL Normal 81-99 [facility] Comment on above: Performed By: #### L 500.2500, L700.6800, L501.5200, L100.0100, L501.9520 #### [facility] [address] [place], [address] Monocytes/100 WBC (Bld) 7.6 % Normal 0-10 [facility] Comment on above: Performed By: #### L 500.2500, L700.6800, L501.5200, L100.0100, L501.9520 #### [facility] [address] [place], [address] Neutrophils/100 WBC (Bld) 36.5 % Low 47-70 [facility] Comment on above: Performed By: #### L 500.2500, L700.6800, L501.5200, L100.0100, L501.9520 #### [facility] [address] [place], [address] Nucleated RBC (Bld) [#/Vol] 0 10*3/uL Normal 0-5 [facility] Comment on above: Performed By: #### L 500.2500, L700.6800, L501.5200, L100.0100, L501.9520 #### [facility] [address] [place], [address] Platelet mean volume (Bld) [Entitic vol] 10.8 fL Normal 6.2-12.0 [facility] Comment on above: Performed By: #### L 500.2500, L700.6800, L501.5200, L100.0100, L501.9520 #### [facility] [address] [place], [address] Platelets (Bld) [#/Vol] 147 10*3/uL Low 150-450 [facility] Comment on above: Performed By: #### L 500.2500, L700.6800, L501.5200, L100.0100, L501.9520 #### [facility] [address] [place], [address] RBC (Bld) [#/Vol] 3.63 10*6/uL Low 4.2-5.4 [facility] Comment on above: Performed By: #### L 500.2500, L700.6800, L501.5200, L100.0100, L501.9520 #### [facility] [address] [place], [address] RDW SD 46.5 fl High 35.1-43.9 [facility] Comment on above: Performed By: #### L 500.2500, L700.6800, L501.5200, L100.0100, L501.9520 #### [facility] [address] [place], [address] WBC (Bld) [#/Vol] 5.7 10*3/uL Normal 4.4-11.0 [facility] Comment on above: Performed By: #### L 500.2500, L700.6800, L501.5200, L100.0100, L501.9520 #### [facility] [address] [place], [address] Emergency Department Summary on 11-04-2023 Emergency Department Summary [facility] Records Department [address] [place] [address] Emergency Department Summary 11/04/23 MR#: [id number] Acct: [id number] Name: GRACIE AVELAR Rep #: [id number] : 1985 38 From: Jakob Heath DO PCP: Dr. Bereket Ashley MD Status:DEP ER Location: ED HPI History of Present Illness Chief Complaint: General Illness Informant: patient Narrative Narrative: Patient is a 38-year-old female with past medical history of supraventricular tachycardia. She states that she was recently placed on 25 mg of metoprolol succinate secondary to this diagnosis. She reports that she is taking as directed but after being on it for a few days has had extreme weakness and fatigue. She states that she has not noticed any loss of blood in her urine or stool. She denies any concern for . She states that there is been no bouts of vomiting or diarrhea or sick symptoms. However because of the severe fatigue she was concerned there could be some other aspect other than the medication and comes in for evaluation [facility] Medical History 34 weeks gestation of COVID-19 (07/01/21) Herpes Herpes History of stillbirth IBS (irritable bowel syndrome) Limited care premature rupture of membranes (PPROM) with unknown onset of labor Home Medications ???Medication ???Instructions ???Recorded ???Last Taken ???Type sertraline 100 mg tablet 100 mg PO QHS anxiety 08/23/21 Unknown History omeprazole magnesium 20 mg 20 mg PO DAILY #30 tabs 10/23/22 Unknown Rx tablet,delayed release (Prilosec OTC) metoprolol succinate 25 mg 25 mg PO DAILY 11/04/23 Unknown History tablet,extended release 24 hr Allergy/AdvReac Type Severity Reaction Status Date / Time venom-honey bee Allergy Unknown swelling Verified 01/06/23 17:28 Family History Mother Diabetes Father Schizoaffective disorder Grandmother Hypertension Diabetes Grandfather Myocardial infarction Grandmother Hypertension Grandfather Cancer lung Surgical History History of dilatation and curettage Social History Smoking Status: Current every day smoker tobacco type: cigarettes alcohol intake: never substance use type: does not use ROS ROS ED Constitutional Constitutional ED: Denies chills or fever(s) Eyes Eyes: Denies change in vision ENT ENT ED: Denies rhinorrhea or sore throat Cardiovascular Cardiovascular: Denies chest pain or palpitations Respiratory/Chest Respiratory/Chest: Denies cough or dyspnea Gastrointestinal Gastrointestinal: Denies abdominal pain, diarrhea, nausea or vomiting Genitourinary Genitourinary ED: Denies dysuria or urinary frequency Musculoskeletal Musculoskeletal: Denies myalgias Integumentary Denies rash Neurologic Neurologic: Reports weakness; Denies headache(s) or paresthesias Hematologic/Lymphatic Hematologic/Lymphatic: Denies easy bleeding or easy bruising EXAM Physical Exam Const Vital Signs: 11/04/23 00:22 11/04/23 00:25 11/04/23 02:21 Temperature 98.8 F Temperature Source Temporal Pulse Rate 83 70 Respiratory Rate 15 15 Respiratory Effort Normal Non-Labored Respiratory Pattern Normal Blood Pressure 90/46 L Blood Pressure Mean 60 Pulse Ox 99 96 Oxygen Delivery Method Room Air Room Air 11/04/23 03:17 Temperature 97.9 F Temperature Source Pulse Rate 73 Respiratory Rate 18 Respiratory Effort Respiratory Pattern Blood Pressure 105/54 L Blood Pressure Mean 71 Pulse Ox 100 Oxygen Delivery Method Positive well nourished and well developed General Appearance ED: well developed; Negative for pallor HEENT Reports moist mucous membranes Eyes PERRL and EOMs intact bilaterally General Eye ED: Negative for pale conjunctiva or scleral icterus Neck supple Resp normal respiratory effort and clear to auscultation bilaterally Cardio regular rate and regular rhythm Rate: other GI normal to inspection, nondistended, normoactive bowel sounds, non-tender, non-distended and no masses Auscultation: normoactive bowel sounds Palpation: soft Extremity normal to inspection Neuro oriented x3, CN's II-XII intact bilaterally and no sensory deficits noted Sensorium / Orientation: alert Motor Exam: strength 5/5 throughout Psych mental status grossly normal Skin no rashes or lesions noted, no wounds and skin turgor normal General Skin Exam: Negative for jaundice or pallor MDM MDM MDM Narrative Medical decision making narrative: Patient presented to the ER overall stable vitals. Dif (more content not included)... Normal [facility] Magnesiumon 11-04-2023 Magnesium [Mass/Vol] 1.9 mg/dL Normal 1.6-2.6 [facility] Comment on above: Performed By: #### L 500.2500, L700.6800, L501.5200, L100.0100, L501.9520 #### [facility] [address] [place], [place], [id number] ,Serum,hCG Quali.on 11-04-2023 HCG, SERUM QUAL Negative Normal [facility] Comment on above: Performed By: #### L 500.2500, L700.6800, L501.5200, L100.0100, L501.9520 ####[facility] [address] [place], [place], [id number] Thyroid Stim Hormone (TSH)on 11-04-2023 TSH 2.60 uIU/mL Normal 0.358-3.74 [facility] Comment on above: Performed By: #### L 500.2500, L700.6800, L501.5200, L100.0100, L501.9520 #### [facility] [address] [place], [place], [id number] UA DIP, URINE (POC)on 2023 BILIRUBIN UA (POCT) Negative Negative [facility] CLARITY UA (POCT) Clear [facility] COLOR UA (POCT) Yellow [facility] GLUCOSE UA (POCT) Negative Negative mg/dL [facility] Hemoglobin Ql (U) Negative Negative [facility] KETONE UA (POCT) Negative Negative mg/dL [facility] LEUKOCYTES UA (POCT) Trace Abnormal Negative [facility] NITRITE UA (POCT) Negative Negative [facility] PH UA (POCT) 7.0 4.5 - 8.0 [facility] Protein Ql (U) Negative Negative mg/dL [facility] SPECIFIC GRAVITY UA (POCT) 1.020 1.005 - 1.030 [facility] UROBILINOGEN UA (POCT) 1.0 E.U./dL Flor l E.U./dL [facility] Absolute lymphocyte countOrd ered By: ED PROVIDER on 10-22-2022 Lymphocytes Auto (Unsp spec) [#/Vol] 3.15 10*3/uL 0.83-4.51 [facility] Amorphous sediment detection in urine sediment by light microscopyOrdered By: ED PROVIDER on 10-22-2022 Amorphous sediment LM Ql (Urine sed) 1+ [facility] Basophil percentageOrdered B y: ED PROVIDER on 10-22-2022 Basophil percentage 5-10 SEEN /hpf 0-5 [facility] Basophils/100 WBC (Bld) 0.7 % 0-1 [facility] Bilirubin [Mass/Vol] 0.20 mg/dL 0.20-1.00 [facility] Comment on above: For patients on eltr ombopag therapy, use of Dimension [place] TBIL is not recommended. Chloride [Moles/Vol] 108 mmol/L 98-107 [facility] Eosinophils/100 WBC (Bld) 4.1 % 0-5 [facility] Glucose [Mass/Vol] 78 mg/dL 74-106 [facility] Neutrophils (Bld) [#/Vol] 2.0 10*3/uL 2.0-7.7 [facility] Neutrophils/100 WBC (Bld) 33.2 % 47-70 [facility] Potassium [Moles/Vol] 3.9 mmol/L 3.5-5.1 [facility] Protein [Mass/Vol] 7.6 g/dL 6.4-8.2 [facility] Sodium [Moles/Vol] 141 mmol/L 136-145 [facility] WBC (Bld) [#/Vol] 5.9 10*3/uL 4.4-11.0 [facility] Beta hCG serum qualOrdered B y: ED PROVIDER on 10-22-2022 Beta HCG ( test) Ql Negative [facility] Bilirubin Test strip Ql (U)O rdered By: ED PROVIDER on 10-22-2022 Bilirubin Ql (U) Negative Negative [facility] Blood erythrocytes count (nu mber/volume)Ordered By: ED PROVIDER on 10-22-2022 RBC (Bld) [#/Vol] 4.04 10*6/uL 4.2-5.4 [facility] Blood hemoglobin measurement (mass/volume)Ordered By: ED PROVIDER on 10-22-2022 Hemoglobin (Bld) [Mass/Vol] 13.0 g/dL 12.0-15.0 [facility] Blood lymphocytes/100 leukoc ytesOrdered By: ED PROVIDER on 10-22-2022 Lymphocytes/100 WBC (Bld) 53.5 % 19-41 [facility] Blood monocytes/100 leukocyt esOrdered By: ED PROVIDER on 10-22-2022 Monocytes/100 WBC (Bld) 8.3 % 0-10 [facility] Blood platelet mean volumeOr dered By: ED PROVIDER on 10-22-2022 Platelet mean volume (Bld) [Entitic vol] 10.0 fL 6.2-12.0 [facility] Determination of erythrocyte mean corpuscular volume (MCV)Ordered By: ED PROVIDER on 10-22-2022 MCV (RBC) [Entitic vol] 98.3 fL 81-99 [facility] Hematocrit Auto (Bld) [Volum e fraction]Ordered By: ED PROVIDER on 10-22-2022 Hematocrit (Bld) [Volume fraction] 39.7 % 37-47 [facility] Ketones Test strip Ql (U)Ord ered By: ED PROVIDER on 10-22-2022 Ketones Ql (U) Negative Negative [facility] - Chemistry and C hemistry - challengeOrdered By: ED PROVIDER on 10-22-2022 ALP [Catalytic activity/Vol] 48 U/L 45-117 [facility] ALT [Catalytic activity/Vol] 27 U/L 13-56 [facility] CO2 [Moles/Vol] 29.0 mmol/L 21.0-32.0 [facility] Globulin (S) [Mass/Vol] 3.8 g/dL 2.2-4.2 [facility] Urea nitrogen/Creatinine [Mass ratio] 8.4 mg/mg 10-20 [facility] - Hematology and Cell countsOrdered By: ED PROVIDER on 10-22-2022 Erythrocyte distribution width (RBC) [Entitic vol] 46.2 fL 35.1-43.9 [facility] Erythrocyte distribution width (RBC) [Ratio] 12.8 % 11.6-14.6 [facility] Immature granulocytes/100 WBC (Bld) 0.200 % 0.0-0.9 [facility] Comment on above: IG% - Immature Granu locytes (promyelocytes, myelocytes and metamyelocytes) > 1% indicates that a LEFT SHIFT is Present. MCH (RBC) [Entitic mass] 32.2 pg 27.0-32.0 [facility] Nucleated RBC/100 WBC (Bld) [Ratio] 0 % 0-5 [facility] MCHC Auto (RBC) [Mass/Vol]Or dered By: ED PROVIDER on 10-22-2022 MCHC (RBC) [Mass/Vol] 32.7 g/dL 32-36 [facility] Mucus LM Ql (Urine sed)Order ed By: ED PROVIDER on 10-22-2022 Mucus Ql (Urine sed) 0 SEEN /hpf [facility] Nitrite Test strip Ql (U)Ord ered By: ED PROVIDER on 10-22-2022 Nitrite Ql (U) Negative Negative [facility] No Panel InformationOrdered By: ED PROVIDER on 10-22-2022 Estimated Creatinine Clearance Calc 79.12 ml/min [facility] Estimated GFR (MDRD) Amer 119 mL/min >60 [facility] Comment on above: GFR Calc Estimated GFR (MDRD) Non-Af Amer 98 mL/min >60 [facility] Comment on above: Non- GFR Calc Platelets bldOrdered By: ED PROVIDER on 10-22-2022 Platelets (Bld) [#/Vol] 197 10*3/uL 150-450 [facility] Protein Test strip Ql (U)Ord ered By: ED PROVIDER on 10-22-2022 Protein Ql (U) Negative Negative [facility] Serum or plasma albumin osmani urement (mass/volume)Ordered By: ED PROVIDER on 10-22-2022 Albumin [Mass/Vol] 3.8 g/dL 3.2-5.0 [facility] Serum or plasma albumin/glob ulin mass ratioOrdered By: ED PROVIDER on 10-22-2022 Albumin/Globulin [Mass ratio] 1.0 {ratio} 0.9-2.4 [facility] Serum or plasma calcium osmani urement (mass/volume)Ordered By: ED PROVIDER on 10-22-2022 Calcium [Mass/Vol] 9.8 mg/dL 8.5-10.1 [facility] Serum or plasma creatinine m easurement (mass/volume)Ordered By: ED PROVIDER on 10-22-2022 Creatinine [Mass/Vol] 0.71 mg/dL 0.55-1.02 [facility] Comment on above: The validity of the calculated GFR & GFRAA in patients over 70 years has not been determined. Clinical correlation is essential. Serum or plasma urea nitroge n measurement (mass/volume)Ordered By: ED PROVIDER on 10-22-2022 Urea nitrogen [Mass/Vol] 6 mg/dL 7-18 [facility] Squamous epithelial cells de tection in urine sediment by light microscopyOrdered By: ED PROVIDER on 10-22-2022 Epithelial cells.squamous LM Ql (Urine sed) 0-5 SEEN /hpf 5-10 [facility] Thin prep Papanicolaou smear with manual screeningOrdered By: ED PROVIDER on 10-22-2022 Thin prep Papanicolaou smear with manual screening 20 U/L 15-37 [facility] Thin prep Papanicolaou smear with manual screening 4 5-15 [facility] Urine blood detectionOrdered By: ED PROVIDER on 10-22-2022 RBC Ql (U) Negative Negative [facility] RBC Ql (U) 0-5 SEEN /hpf 0-5 [facility] Urine clarityOrdered By: ED PROVIDER on 10-22-2022 Clarity (U) Sl. Cloudy Clear [facility] Urine color determinationOrd ered By: ED PROVIDER on 10-22-2022 Color (U) Yellow Yellow [facility] Urine glucose detectionOrder ed By: ED PROVIDER on 10-22-2022 Glucose Ql (U) Normal mg/dl Normal [facility] Urine leukocyte esterase det ection by dipstickOrdered By: ED PROVIDER on 10-22-2022 Leukocyte esterase Test strip Ql (U) 25 /ul Negative [facility] Urine pHOrdered By: ED PROVI LENNIE on 10-22-2022 pH (U) 6.5 [pH] 5.0 - 8.0 [facility] Urine sediment bacteria coun t by microscopy (number/high power field)Ordered By: ED PROVIDER on 10-22-2022 Bacteria LM.HPF (Urine sed) [#/Area] 1 /[HPF] None Seen [facility] Urine specific gravity measu rementOrdered By: ED PROVIDER on 10-22-2022 Specific gravity (U) [Rel density] 1.015 1.002-1.030 [facility] Urobilinogen Auto test strip Ql (U)Ordered By: ED PROVIDER on 10-22-2022 Urobilinogen Ql (U) 1 mg/dl Normal [facility] Absolute lymphocyte counton 10-31-2021 Lymphocytes Auto (Unsp spec) [#/Vol] 2.80 10*3/uL 0.83-4.51 [facility] Work Phone: Basophil percentageon 2021 Basophils/100 WBC (Bld) 0.3 % 0-1 [facility] Work Phone: Chloride [Moles/Vol] 109 mmol/L 98-107 [facility]: Eosinophils/100 WBC (Bld) 4.0 % 0-5 [facility] Work Phone: [phone] Glucose [Mass/Vol] 100 mg/dL 74-106 [facility] Work Phone: Comment on above: Fasting Glucose resu lt from 100 to 125 mg/dL suggests IMPAIRED HOMEOSTASIS per A.D.A. criteria. Neutrophils (Bld) [#/Vol] 2.4 10*3/uL 2.0-7.7 [facility] Work Phone: Neutrophils/100 WBC (Bld) 39.6 % 47-70 [facility] Work Phone: [phone] Potassium [Moles/Vol] 3.5 mmol/L 3.5-5.1 [facility] Work Phone: Sodium [Moles/Vol] 140 mmol/L 136-145 [facility] Work Phone: WBC (Bld) [#/Vol] 6.0 10*3/uL 4.4-11.0 [facility] Work Phone: Beta hCG serum qualon 2021 Beta HCG ( test) Ql Negative [facility] Work Phone: [phone] Blood erythrocytes count (nu mber/volume)on 10-31-2021 RBC (Bld) [#/Vol] 3.91 10*6/uL 4.2-5.4 [facility] Work Phone: [phone] Blood hemoglobin measurement (mass/volume)on 10-31-2021 Hemoglobin (Bld) [Mass/Vol] 12.8 g/dL 12.0-15.0 [facility] Work Phone: [phone] Blood lymphocytes/100 leukoc yteson 10-31-2021 Lymphocytes/100 WBC (Bld) 46.7 % 19-41 [facility] Work Phone: Blood monocytes/100 leukocyt eson 10-31-2021 Monocytes/100 WBC (Bld) 9.2 % 0-10 [facility] Work Phone: Blood platelet mean volumeon 10-31-2021 Platelet mean volume (Bld) [Entitic vol] 10.1 fL 6.2-12.0 [facility] Work Phone: Determination of erythrocyte mean corpuscular volume (MCV)on 10-31-2021 MCV (RBC) [Entitic vol] 96.7 fL 81-99 [facility] Work Phone: Hematocrit Auto (Bld) [Volum e fraction]on 10-31-2021 Hematocrit (Bld) [Volume fraction] 37.8 % 37-47 [facility] Work Phone: Laboratory - Chemistry and C hemistry - challengeon 10-31-2021 CO2 [Moles/Vol] 27.0 mmol/L 21.0-32.0 [facility] Work Phone: Urea nitrogen/Creatinine [Mass ratio] 7.8 mg/mg 10-20 [facility] Work Phone: Laboratory - Hematology and Cell countson 10-31-2021 Erythrocyte distribution width (RBC) [Entitic vol] 47.8 fL 35.1-43.9 [facility] Work Phone: Erythrocyte distribution width (RBC) [Ratio] 13.5 % 11.6-14.6 [facility] Work Phone: Immature granulocytes/100 WBC (Bld) 0.200 % 0.0-0.9 [facility] Work Phone: Comment on above: IG% - Immature Granu locytes (promyelocytes, myelocytes and metamyelocytes) > 1% indicates that a LEFT SHIFT is Present. MCH (RBC) [Entitic mass] 32.7 pg 27.0-32.0 [facility] Work Phone: Nucleated RBC/100 WBC (Bld) [Ratio] 0 % 0-5 [facility] Work Phone: MCHC Auto (RBC) [Mass/Vol]on 10-31-2021 MCHC (RBC) [Mass/Vol] 33.9 g/dL 32-36 [facility] Work Phone: No Panel Informationon 10-31 Estimated GFR (MDRD) Amer 109 mL/min >60 [facility] Work Phone: Comment on above: GFR Calc Estimated GFR (MDRD) Non-Af Amer 90 mL/min >60 [facility] Work Phone: Comment on above: Non- GFR Calc Platelets bldon 10-31-2021 Platelets (Bld) [#/Vol] 175 10*3/uL 150-450 [facility] Work Phone: Serum or plasma calcium osmani urement (mass/volume)on 10-31-2021 Calcium [Mass/Vol] 9.1 mg/dL 8.5-10.1 [facility] Work Phone: Serum or plasma creatinine m easurement (mass/volume)on 10-31-2021 Creatinine [Mass/Vol] 0.77 mg/dL 0.55-1.02 [facility] Work Phone: Comment on above: The validity of the calculated GFR & GFRAA in patients over 70 years has not been determined. Clinical correlation is essential. Serum or plasma urea nitroge n measurement (mass/volume)on 10-31-2021 Urea nitrogen [Mass/Vol] 6 mg/dL 7-18 [facility] Work Phone: Thin prep Papanicolaou smear with manual screeningon 10-31-2021 Thin prep Papanicolaou smear with manual screening 4 5-15 [facility] Work Phone: Vital Signs Date Time Vital Sign Value Performing Clinician Faci lity 09-05-2024 18:46-0400 Body temperature 98 [degF] Dr. Bereket Ashley MD Work Phone: [facility] 09-05-2024 18:46-0400 Diastolic blood pressure 64 mm[Hg] Dr. Bereket Ashley MD Work Phone: [facility] 09-05-2024 18:46-0400 Heart rate 75 /min Dr. Bereket Ashley MD Work Phone: [facility] 09-05-2024 18:46-0400 Respiratory rate 11 /min Dr. Bereket Ashley MD Work Phone: [facility] 09-05-2024 18:46-0400 SaO2% (BldA) [Mass fraction] 100 % Dr. Bereket Ashley MD Work Phone: [facility] 09-05-2024 18:46-0400 Systolic blood pressure 108 mm[Hg] Dr. Bereket Ashley MD Work Phone: [phone] [place] [address] 09-05-2024 16:02-0400 Body height 165.[address] Bereket Ashley MD Work Phone: [facility] 09-05-2024 16:02-0400 Body mass index (BMI) [Ratio] 16.6 kg/m2 Dr. Bereket Ashley MD Work Phone: [facility] 09-05-2024 16:02-0400 Body weight 45.[address] Bereket Ashley MD Work Phone: [facility] 08-17-2024 09:52-0500 Body temperature 98.8 [degF] Maria C Dolan MD Work Phone: [facility] 08-17-2024 09:52-0500 SaO2% (BldA) [Mass fraction] 99 % Maria C Dolan MD Work Phone: [facility] 07-31-2024 18:13-0500 Body mass index (BMI) [Ratio] 17.03 kg/m2 Ricki Pascual APRN.CONSOLIDATOR Work Phone: [facility] 07-31-2024 18:13-0500 Body temperature 98.4 [degF] Ricki Pascual APRN.CONSOLIDATOR Work Phone: [facility] 07-31-2024 18:13-0500 Body weight 46 kg [facility] LEGISLATIVE ASSISTANT.CONSOLIDATOR Work Phone: [facility] 07-31-2024 18:13-0500 Diastolic blood pressure 69 mm[Hg] [facility] LEGISLATIVE ASSISTANT.CONSOLIDATOR Work Phone: [facility] 07-31-2024 18:13-0500 Heart rate 91 /min [facility] LEGISLATIVE ASSISTANT.CONSOLIDATOR Work Phone: [facility] 07-31-2024 18:13-0500 Respiratory rate 22 /min [facility] LEGISLATIVE ASSISTANT.CONSOLIDATOR Work Phone: [facility] 07-31-2024 18:13-0500 SaO2% (BldA) [Mass fraction] 100 % [facility] LEGISLATIVE ASSISTANT.CONSOLIDATOR Work Phone: [facility] 07-31-2024 18:13-0500 Systolic blood pressure 108 mm[Hg] [facility] LEGISLATIVE ASSISTANT.CONSOLIDATOR Work Phone: [facility] 07-04-2024 00:15-0500 Body temperature 98 [degF] Dr. Bereket Ashley MD Work Phone: [facility] 07-04-2024 00:15-0500 Diastolic blood pressure 67 mm[Hg] Dr. Bereket Ashley MD Work Phone: [facility] 07-04-2024 00:15-0500 Heart rate 85 /min Dr. Bereket Ashley MD Work Phone: [facility] 07-04-2024 00:15-0500 Respiratory rate 16 /min Dr. Bereket Ashley MD Work Phone: [facility] 07-04-2024 00:15-0500 SaO2% (BldA) [Mass fraction] 100 % Dr. Bereket Ashley MD Work Phone: [facility] 07-04-2024 00:15-0500 Systolic blood pressure 105 mm[Hg] Dr. Bereket Ashley MD Work Phone: 2([phone])025-717506 [place] [address] 07-03-2024 20:39-0500 Body mass index (BMI) [Ratio] 18 kg/m2 Dr. Bereket Ashley MD Work Phone: 3(732)414-612306 [place] [address] 07-03-2024 20:39-0500 Body weight 47.[address] Bereket Ashley MD Work Phone: 3(020)184-872306 [place] [address] 06-04-2024 14:04-0500 Body mass index (BMI) [Ratio] 17.4 kg/m2 Dr. Bereket Ashley MD Work Phone: 3([phone])626-965106 [place] [address] 06-04-2024 14:04-0500 Body temperature 97.8 [degF] Dr. Bereket Ashley MD Work Phone: 6(326)892-891006 [place] [address] 06-04-2024 14:04-0500 Body weight 46.[address] Bereket Ashley MD Work Phone: 4(358)485-224006 [place] [address] 06-04-2024 14:04-0500 Diastolic blood pressure 60 mm[Hg] Dr. Bereket Ashley MD Work Phone: 0(588)705-088106 [place] [address] 06-04-2024 14:04-0500 Heart rate 86 /min Dr. Bereket Ashley MD Work Phone: 5(169)247-395406 [place] [address] 06-04-2024 14:04-0500 SaO2% (BldA) [Mass fraction] 99 % Dr. Bereket Ashley MD Work Phone: 6(955)831-733206 [place] [address] 06-04-2024 14:04-0500 Systolic blood pressure 102 mm[Hg] Dr. Bereket Ashley MD Work Phone: 5(407)127-603506 [place] [address] 05-20-2024 17:08-0500 Body temperature 97.9 [degF] Dr. Bereket Ashley MD Work Phone: 5(492)515-729006 [place] [address] 05-20-2024 17:08-0500 Diastolic blood pressure 70 mm[Hg] Dr. Bereket Ashley MD Work Phone: 2(688)712-947506 [place] [address] 05-20-2024 17:08-0500 Heart rate 76 /min Dr. Bereket Ashley MD Work Phone: [facility] 05-20-2024 17:08-0500 Respiratory rate 14 /min Dr. Bereket Ashley MD Work Phone: [facility] 05-20-2024 17:08-0500 SaO2% (BldA) [Mass fraction] 100 % Dr. Bereket Ashley MD Work Phone: [facility] 05-20-2024 17:08-0500 Systolic blood pressure 110 mm[Hg] Dr. Bereket Ashley MD Work Phone: [facility] 08-06-2023 14:23-0500 Body temperature 99.1 [degF] Rciki Amos MD Work Phone: [facility] 08-06-2023 14:23-0500 Body weight 47.63 kg Ricki Amos MD Work Phone: [facility] 08-06-2023 14:23-0500 Diastolic blood pressure 70 mm[Hg] Ricki Amos MD Work Phone: [facility] 08-06-2023 14:23-0500 Heart rate 82 /min Ricki Amos MD Work Phone: [facility] 08-06-2023 14:23-0500 Respiratory rate 16 /min Ricki Amos MD Work Phone: [facility] 08-06-2023 14:23-0500 Systolic blood pressure 118 mm[Hg] Ricki Amos MD Work Phone: [facility] 01-06-2023 17:28-0400 Body height 165.1 cm [facility] 01-06-2023 17:28-0400 Body mass index (BMI) [Ratio] 17.3 kg/m2 [facility] 01-06-2023 17:28-0400 Body temperature 98.3 [degF] [facility] 01-06-2023 17:28-0400 Body weight 47.21 kg [facility] 01-06-2023 17:28-0400 Diastolic blood pressure 74 mm[Hg] [facility] 01-06-2023 17:28-0400 Heart rate 99 /min [facility] 01-06-2023 17:28-0400 Respiratory rate 18 /min [facility] 01-06-2023 17:28-0400 SaO2% (BldA) [Mass fraction] 100 % [facility] 01-06-2023 17:28-0400 Systolic blood pressure 113 mm[Hg] [facility] 10-22-2022 23:06-0400 Diastolic blood pressure 61 mm[Hg] [facility] 10-22-2022 23:06-0400 Heart rate 67 /min [facility] 10-22-2022 23:06-0400 Respiratory rate 14 /min [facility] 10-22-2022 23:06-0400 SaO2% (BldA) [Mass fraction] 98 % [facility] 10-22-2022 23:06-0400 Systolic blood pressure 104 mm[Hg] [facility] 10-22-2022 19:19-0400 Body height 165.1 cm [facility] 10-22-2022 19:19-0400 Body mass index (BMI) [Ratio] 16.9 kg/m2 [facility] 10-22-2022 19:19-0400 Body temperature 97.8 [degF] [facility] 10-22-2022 19:19-0400 Body weight 46.2 kg [facility] 04-24-2022 19:11-0500 Body weight 48.08 kg Maria C Dolan MD Work Phone: [facility] 04-24-2022 19:11-0500 Diastolic blood pressure 58 mm[Hg] Maria C Dolan MD Work Phone: [facility] 04-24-2022 19:11-0500 Heart rate 86 /min Maria C Dolan MD Work Phone: [facility] 04-24-2022 19:11-0500 Respiratory rate 16 /min Maria C Dolan MD Work Phone: [facility] 04-24-2022 19:11-0500 SaO2% (BldA) [Mass fraction] 99 % Maria C Dolan MD Work Phone: [facility] 04-24-2022 19:11-0500 Systolic blood pressure 102 mm[Hg] Maria C Dolan MD Work Phone: [facility] 04-18-2022 18:28-0400 Body temperature 99.1 [degF] Simran Toscano LEGISLATIVE ASSISTANT.CONSOLIDATOR Work Phone: [facility] 04-18-2022 18:28-0400 Body weight 47.9 kg Simran Toscano LEGISLATIVE ASSISTANT.CONSOLIDATOR Work Phone: [facility] 04-18-2022 18:28-0400 Diastolic blood pressure 66 mm[Hg] Simran Toscano LEGISLATIVE ASSISTANT.CONSOLIDATOR Work Phone: [facility] 04-18-2022 18:28-0400 Heart rate 80 /min Simran Toscano LEGISLATIVE ASSISTANT.CONSOLIDATOR Work Phone: [facility] 04-18-2022 18:28-0400 Respiratory rate 18 /min Simran Toscano LEGISLATIVE ASSISTANT.CONSOLIDATOR Work Phone: [facility] 04-18-2022 18:28-0400 SaO2% (BldA) [Mass fraction] 100 % Simran Toscano LEGISLATIVE ASSISTANT.CONSOLIDATOR Work Phone: [facility] 04-18-2022 18:28-0400 Systolic blood pressure 106 mm[Hg] Simran Toscano LEGISLATIVE ASSISTANT.CONSOLIDATOR Work Phone: [facility] 04-04-2022 11:33-0400 Body temperature 98.49 [degF] Danisha Smith LEGISLATIVE ASSISTANT.CONSOLIDATOR Work Phone: [facility] 04-04-2022 11:33-0400 Body weight 48.99 kg Danisha Smith LEGISLATIVE ASSISTANT.CONSOLIDATOR Work Phone: [facility] 04-04-2022 11:33-0400 Diastolic blood pressure 62 mm[Hg] Danisha Smith LEGISLATIVE ASSISTANT.CONSOLIDATOR Work Phone: [facility] 04-04-2022 11:33-0400 Heart rate 90 /min Danisha Smith LEGISLATIVE ASSISTANT.CONSOLIDATOR Work Phone: [facility] 04-04-2022 11:33-0400 Respiratory rate 16 /min Danisha Smith LEGISLATIVE ASSISTANT.CONSOLIDATOR Work Phone: [facility] 04-04-2022 11:33-0400 SaO2% (BldA) [Mass fraction] 98 % Danisha Smith LEGISLATIVE ASSISTANT.CONSOLIDATOR Work Phone: [facility] 04-04-2022 11:33-0400 Systolic blood pressure 108 mm[Hg] Danisha Smith LEGISLATIVE ASSISTANT.CONSOLIDATOR Work Phone: [facility] 09-09-2021 04:16-0400 Diastolic blood pressure 63 mm[Hg] Dr. Bereket Ashley Work Phone: [facility] Work Phone: 09-09-2021 04:16-0400 Heart rate 80 /min Dr. Bereket Ashley Work Phone: [facility] Work Phone: 09-09-2021 04:16-0400 Respiratory rate 14 /min Dr. Bereket Ashley Work Phone: [facility] Work Phone: 09-09-2021 04:16-0400 SaO2% (BldA) [Mass fraction] 100 % Dr. Bereket Ashley Work Phone: [facility] Work Phone: 09-09-2021 04:16-0400 Systolic blood pressure 103 mm[Hg] Dr. Bereket Ashley Work Phone: [facility] Work Phone: 09-09-2021 03:20-0400 Body height 165.[address] Bereket Ashley Work Phone: [facility] Work Phone: 09-09-2021 03:20-0400 Body mass index (BMI) [Ratio] 20 kg/m2 Dr. Bereket Ashley Work Phone: [facility] Work Phone: 09-09-2021 03:20-0400 Body temperature 98.1 [degF] Dr. Bereket Ashley Work Phone: [facility] Work Phone: 09-09-2021 03:20-0400 Body weight 54.[address] Bereket Ashley Work Phone: [facility] Work Phone: 08-23-2021 10:55-0500 Diastolic blood pressure 69 mm[Hg] Dr. Bereket Ashley Work Phone: [facility] Work Phone: 08-23-2021 10:55-0500 Heart rate 86 /min Dr. Bereket Ashlye Work Phone: [facility] Work Phone: 08-23-2021 10:55-0500 Systolic blood pressure 110 mm[Hg] Dr. Bereket Ashley Work Phone: [facility] Work Phone: 08-23-2021 10:45-0500 Body mass index (BMI) [Ratio] 18.4 kg/m2 Dr. Bereket Ashley Work Phone: [facility] Work Phone: 08-23-2021 10:45-0500 Body weight 50.[address] Bereket Ashley Work Phone: [facility] Work Phone: 08-23-2021 10:45-0500 Respiratory rate 16 /min Dr. Bereket Ashley Work Phone: [facility] Work Phone: 08-23-2021 10:45-0500 SaO2% (BldA) [Mass fraction] 100 % Dr. Bereket Ashley Work Phone: [facility] Work Phone: Encounters Encounter Date Encounter Type Care Provider Facility Start: 02-08-2025 End: 02-08-2025 [facility] Bereket Ashley MD Work Phone: [facility] [place] Comment on above: Sinus tachycardia (P rimary Dx); Anxiety; Lightheadedness; Panic disorder with agoraphobia Start: 01-27-2025 End: 01-27-2025 ambulatory BEREKET ASHLEY Facility:[facility] Start: 11-25-2024 End: 12-04-2024 Telephone encounter Bereket Ashley MD Work Phone: [facility] [place] Start: 11-23-2024 End: 11-23-2024 [facility] Bereket Ashley MD Work Phone: [facility] [place] Comment on above: Lightheadedness (Laila ben Dx); Sinus tachycardia; Anxiety; Panic disorder with agoraphobia Start: 10-07-2024 End: 10-07-2024 ambulatory DINORA PODLOGAR Facility:[facility] Start: 09-14-2024 End: 09-14-2024 ambulatory Bereket Ashley MD Work Phone: [facility] [place] Comment on above: Gastroenteritis (Laila ben Dx) Start: 09-14-2024 End: 09-14-2024 Telemedicine consultation with patient Bereket Ashley MD Work Phone: [facility] [place] Start: 09-05-2024 End: 09-05-2024 Emergency department patient visit Dr. Bereket Ashley MD Work Phone: -Emergency Department Work Phone: Start: 08-17-2024 End: 09-23-2024 Telephone encounter Maria C Dolan MD Work Phone: [facility] [place] Comment on above: Appointment Start: 08-17-2024 End: 08-17-2024 ambulatory Maria C Dolan MD Work Phone: [facility] [place] Comment on above: Viral sinusitis (Laila ben Dx) Start: 08-17-2024 End: 08-17-2024 Telemedicine consultation with patient Maria C Dolan MD Work Phone: [facility] [place] Start: 07-31-2024 End: 07-31-2024 ambulatory BEREKET ASHLEY Facility:[facility] Start: 07-31-2024 End: 07-31-2024 Office outpatient visit 25 minutes Ricki Pascual APRN.CONSOLIDATOR Work Phone: [facility] Comment on above: Bacterial sinusitis (Primary Dx) Start: 07-29-2024 End: 07-29-2024 [facility] Bereket Ashley MD Work Phone: Family [facility] Comment on above: Sinus tachycardia (P rimary Dx); Irritable bowel syndrome without diarrhea; Anxiety; Anemia, unspecified type; Panic disorder with agoraphobia Start: 07-23-2024 End: 07-23-2024 Telephone encounter Brennen Royal APRN.CONSOLIDATOR Work Phone: [facility] Comment on above: Appointment Start: 07-23-2024 End: 07-23-2024 ambulatory Brennen Royal APRN.CONSOLIDATOR Work Phone: [facility] Comment on above: Nausea (Primary Dx); Hot flashes Start: 07-23-2024 End: 07-23-2024 Telemedicine consultation with patient Brennen Matt HERNANDEZCONSOLIDATOR Work Phone: [facility] Start: 07-03-2024 End: 07-04-2024 Emergency department patient visit Dr. Darin Bowers DO -Emergency Department Work Phone: Start: 06-04-2024 End: 06-04-2024 Patient encounter procedure Ezequiel Garcia [facility] Work Phone: Start: 06-04-2024 End: 06-04-2024 ambulatory Ezequiel HERNÁNDEZ Facility:[facility] Start: 06-04-2024 End: 06-04-2024 ambulatory Ezequiel HERNÁNDEZ Facility:[facility] Start: 05-20-2024 End: 05-20-2024 Patient encounter procedure Josesito HERNÁNDEZ -[facility] Work Phone: Start: 05-20-2024 End: 05-20-2024 ambulatory Josesito Quach Facility:[facility] Start: 04-28-2024 End: 04-30-2024 Telephone encounter Ricki Amos MD [facility] Phone: [facility] Comment on [facility]: Results Start: 04-23-2024 End: 04-23-2024 ambulatory BEREKET ASHLEY Facility:[facility] Start: 04-06-2024 End: 04-06-2024 ambulatory Bereket Ashley MD Work Phone: [facility] Comment on above: Bloated abdomen (Laila ben Dx); Sinus tachycardia; Irritable bowel syndrome without diarrhea; Anxiety; Gastroesophageal reflux disease without esophagitis; Change in bowel function Start: 04-06-2024 End: 04-06-2024 Telemedicine consultation with patient Bereket Ashley MD Work Phone: [facility] [place] Start: 03-30-2024 End: 03-30-2024 ambulatory Bereket Ashley MD Work Phone: [facility] Comment on above: Gastroesophageal ref lux disease without esophagitis (Primary Dx); Bloated abdomen Start: 03-30-2024 End: 03-30-2024 Telemedicine consultation with patient Bereket Ashley MD Work Phone: [facility] [place] Start: 02-01-2024 End: 02-03-2024 Refill Bereket Ashley MD Work Phone: [facility] Comment on above: Refill Request Start: 01-09-2024 Telephone encounter Bereket Ashely MD Work Phone: [facility] Comment on above: Patient Question Start: 12-13-2023 End: 12-13-2023 Office outpatient visit 15 minutes Erlinda Sanchez APRN.MILLWRIGHT INSTRUCTOR Work Phone: [facility] Comment on above: Subacute maxillary s inusitis (Primary Dx) Start: 12-06-2023 End: 12-06-2023 ambulatory Araseli Diallo APRN.CONSOLIDATOR Work Phone: [facility] Comment on above: Bacterial sinusitis (Primary Dx) Start: 12-06-2023 End: 12-06-2023 Telemedicine consultation with patient Araseli Diallo APRN.CONSOLIDATOR Work Phone: [facility] [place] Start: 11-06-2023 ambulatory Bereket Ashley MD Work Phone: [facility] Comment on above: Musculoskeletal Prob beny Start: 11-06-2023 End: 11-06-2023 Emergency department patient visit [facility] Facility:[facility] Start: 11-04-2023 End: 11-04-2023 ambulatory Quincy Brice MD Work Phone: [facility] Comment on above: Palpitations (Primar y Dx) Start: 11-04-2023 End: 11-04-2023 Telemedicine consultation with patient Quincy Brice MD Work Phone: [facility] Start: 11-04-2023 End: 11-04-2023 Emergency department patient visit [facility] Facility:[facility] Start: 10-30-2023 Telephone encounter Bereket Ashley MD Work Phone: [facility] Comment on above: Medication Request Start: 10-29-2023 Refill Bereket Ashley MD Work Phone: [facility] Comment on above: Refill Request Start: 09-26-2023 Telephone encounter Bereket Ashley MD Work Phone: [facility] Comment on above: Appointment Start: 09-26-2023 End: 09-26-2023 ambulatory Bereket Ashley MD Work Phone: [facility] Comment on above: Lightheaded (Primary Dx); Vertigo; SVT (supraventricular tachycardia) (HCC); Anxiety; Dizziness and giddiness Start: 09-26-2023 End: 09-26-2023 Telemedicine consultation with patient Bereket Ashley MD Work Phone: [facility] Start: 09-24-2023 Telephone encounter Bereket Ashley MD Work Phone: [facility] Comment on above: Results Start: 08-07-2023 Telephone encounter Ricki Amos MD Work Phone: [facility] Comment on above: Patient Update Start: 08-06-2023 End: 08-06-2023 Patient encounter procedure Ricki Amos MD Work Phone: Family [facility] Comment on above: Acute right-sided lo w back pain without sciatica (Primary Dx); Family history of kidney stones; Right lower quadrant abdominal pain Start: 06-06-2023 End: 06-06-2023 [facility] Bereket Ashley MD Work Phone: [facility] Comment on above: Anxiety; Panic disorder with agoraphobia; GERD without esophagitis Start: 06-03-2023 End: 06-03-2023 ambulatory Scott Caceres RYNA Work Phone: [facility] [place] Comment on above: NO SHOW (Primary Dx) Start: 06-03-2023 End: 06-03-2023 Telemedicine consultation with patient Scott HERNÁNDEZRaul Work Phone: [facility] [place] Start: 02-04-2023 Refill Bereket Ashley MD Work Phone: [facility] Comment on above: Refill Request Start: 01-06-2023 End: 01-06-2023 Emergency department patient visit [facility]Emer[facility] Work Phone: Start: 11-19-2022 End: 11-19-2022 ambulatory Bereket Ashley MD Work Phone: [facility] Comment on above: GERD without esophag itis (Primary Dx) Start: 11-19-2022 End: 11-19-2022 Telemedicine consultation with patient Bereket Ashley MD Work Phone: [facility] [place] Start: 11-19-2022 Telephone encounter Bereket Ashley MD Work Phone: [facility] Comment on above: Appointment Start: 11-15-2022 End: 11-15-2022 ambulatory Brennen Royal APRN.CNP Work Phone: [facility] Comment on above: Dental infection (Pr imary Dx) Start: 11-15-2022 End: 11-15-2022 Telemedicine consultation with patient Brennen Royal APRN.CNP Work Phone: [facility] [place] Start: 10-22-2022 End: 10-23-2022 Emergency department patient visit [facility]Emergency [facility] Start: 10-22-2022 End: 10-22-2022 ambulatory Bereket Ashley MD Work Phone: [facility] Comment on above: SOB (shortness of br eath) (Primary Dx); Chest pain, unspecified type; Throat pain Start: 10-22-2022 End: 10-22-2022 Telemedicine consultation with patient Bereket Ashley MD Work Phone: [facility] Start: 08-15-2022 Telephone encounter Edith ruvalcaba APRN.CONSOLIDATOR Work Phone: [facility] Comment on above: Opened In Error Start: 05-07-2022 Refill Bereket Ashley MD Work Phone: [facility] Comment on above: Refill Request Start: 05-02-2022 Telephone encounter James Doaln MD Work Phone: [facility] Comment on above: Rash on hands Start: 04-27-2022 Telephone encounter Bereket Ashley MD Work Phone: [facility] Comment on above: Patient Question Start: 04-24-2022 End: 04-24-2022 Patient encounter procedure Maria C Dolan MD Work Phone: [facility] Comment on above: Dyshidrotic eczema ( Primary Dx) Start: 04-18-2022 End: 04-18-2022 Patient encounter procedure Simran Toscano LEGISLATIVE ASSISTANT.CONSOLIDATOR Work Phone: [facility] Comment on above: Dermatitis (Primary Dx) Start: 04-04-2022 End: 04-04-2022 Patient encounter procedure Danisha Smith LEGISLATIVE ASSISTANT.CONSOLIDATOR Work Phone: [facility] Comment on above: Exposure to 2019 nov el coronavirus (Primary Dx) Start: 02-07-2022 End: 02-07-2022 [facility] Dinora Muro LEGISLATIVE ASSISTANT.CONSOLIDATOR Work Phone: [facility] Comment on above: Anxiety (Primary Dx) ; Panic disorder with agoraphobia Start: 12-08-2021 Telephone encounter Araseli Hassan stephanie LEGISLATIVE ASSISTANT.CONSOLIDATOR Work Phone: [facility] Comment on above: Results Start: 12-04-2021 End: 12-04-2021 ambulatory Bereket Ashley MD Work Phone: [facility] Comment on above: Lightheaded (Primary Dx) Start: 12-04-2021 End: 12-04-2021 Telemedicine consultation with patient Bereket Ashley MD Work Phone: [facility] [place] Start: 11-14-2021 End: 11-14-2021 ambulatory Eidth Miguel LEGISLATIVE ASSISTANT.CONSOLIDATOR Work Phone: [facility] Comment on above: Anxiety (Primary Dx) Start: 11-14-2021 End: 11-14-2021 Telemedicine consultation with patient Edith Rivera LEGISLATIVE ASSISTANT.CONSOLIDATOR Work Phone: [facility] [place] Start: 10-31-2021 Non-patient / Non-visit Dr. Rush Ashley Work Phone: [facility] Start: 10-31-2021 End: 10-31-[address] 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 Bereket Ashley Work Phone: [facility] Start: 08-23-2021 End: 08-23-[address] Bereket Ashley Work Phone: [facility] Procedures Date Procedure Procedure Detail Performing Clinician Start: 09-05-2024 CT angiography of ch est with contrast Dr. Bereket Ashley MD Work Phone: Start: 07-03-2024 CT angiography of ch est with contrast Dr. Bereket Ashley MD Work Phone: Start: 07-03-2024 X-ray of chest, PA a nd lateral views Dr. Bereket Ashley MD Work Phone: Start: 06-04-2024 X-ray of chest, PA a nd lateral views Dr. Bereket Ashley MD Work Phone: Start: 11-04-2023 Adult depression scr eening assessment Ricki Amos MD Work Phone: Start: 08-06-2023 Urnls dip stick/tabl et rgnt auto w/o microscopy Ricki Amos MD Work Phone: Start: 02-07-2022 Adult depression scr eening assessment Dinora Muro APRN.CONSOLIDATOR Work Phone: Start: 12-15-2020 Adult depression scr eening assessment Salma Hood OD Work Phone: Plan of Treatment Date Care Activity Detail Author Start: 07-29-2029 Screening for malignant neoplasm of cervix Cervical Cancer Screening [facility] Start: 07-29-2025 Covid-19 Vaccine ( season) Covid-19 Vaccine () [facility] Comment on above: Postponed from 02/16/2024 (Declined at t his time) Start: 07-29-2025 Pneumococcal vaccination Pneumococcal Vaccine (1 of 2 - PCV) [facility] Comment on above: Postponed from 2004 (Declined at t his time) Start: 07-29-2025 Urine microalbumin profile DTaP,Tdap,Td Vaccine (5 - Tdap) [facility] Comment on above: Postponed from 02/05/2010 (Declined at t his time) Start: 05-26-2025 End: 05-26-2025 Patient encounter procedure 05/26/2025 4:00 PM EST Office Visit [facility] [address] [place] [address] Bereket Ashley MD [address] [place] [address] Will prob do another virtual before. [facility] Comment on above: Will prob do another virtual before. Start: 02-15-2025 Influenza vaccination [facility] Start: 12-14-2024 Influenza vaccination Influenza Vaccine (#1) [facility] Comment on above: Postponed from 02/16/2024 (Declined at t his time) Start: 12-04-2024 End: 12-04-2024 Patient encounter procedure 12/04/2024 2:00 PM EDT Office Visit OB/Gynecology [address] [place] [address] Freida Davis APRN.CONSOLIDATOR [address] [place] [address] Annual OB/Gynecology Comment on above: Annual Start: 11-24-2024 End: 11-24-2024 ambulatory 11/24/2024 4:30 PM EDT Results Only [place] [address] [place] [address] [facility] Start: 11-23-2024 End: 02-22-2025 Basic metabolic 2000 panel - Serum or Plasma BASIC METABOLIC PANEL Lab Routine Lightheadedness Expected: 11/23/2024, Expires: 02/22/2025 [facility] Comment on above: Expected: 11/23/2024, Expires: Start: 11-23-2024 End: 02-22-2025 CBC W Auto Differential panel - Blood COMPLETE BLOOD COUNT AND DIFFERENTIAL Lab Routine Lightheadedness Expected: 11/23/2024, Expires: 02/22/2025 [facility] Work Phone: Comment on above: Expected: 11/23/2024, Expires: Start: 11-23-2024 End: 02-22-2025 Thyrotropin [Units/volume] in Serum or Plasma THYROID STIMULATING HORMONE Lab Routine Anxiety Expected: 11/23/2024, Expires: 02/22/2025 [facility] Comment on above: Expected: 11/23/2024, Expires: Start: 11-03-2024 Depression Screening Depression Screening [facility] Start: 09-15-2024 End: 09-15-2024 Patient encounter procedure 09/15/2024 4:00 PM EDT Office Visit OB/Gynecology [address] [place], [place] [id number] Ran Ferraro MD [address] [place] [address] Annual OB/Gynecology Comment on above: Annual Start: 09-05-2024 [facility] Start: 09-05-2024 [facility] Start: 07-29-2024 End: 10-28-2024 CBC W Auto Differential panel - Blood COMPLETE BLOOD COUNT AND DIFFERENTIAL Lab Routine Anemia, unspecified type Expected: 07/29/2024, Expires: 10/28/2024 [facility] Work Phone: Comment on above: Expected: 07/29/2024, Expires: Start: 07-29-2024 End: 10-28-2024 Cobalamin (Vitamin B12) [Mass/volume] in Serum or Plasma VITAMIN B12 Lab Routine Anemia, unspecified type Expected: 07/29/2024, Expires: 10/28/2024 [facility] Comment on above: Expected: 07/29/2024, Expires: Start: 07-29-2024 End: 10-28-2024 Folate [Mass/volume] in Serum or Plasma FOLATE, SERUM Lab Routine Anemia, unspecified type Expected: 07/29/2024, Expires: 10/28/2024 [facility] Comment on above: Expected: 07/29/2024, Expires: Start: 07-29-2024 End: 10-28-2024 Iron and Iron binding capacity panel - Serum or Plasma IRON AND TIBC Lab Routine Anemia, unspecified type Expected: 07/29/2024, Expires: 10/28/2024 [facility] Comment on above: Expected: 07/29/2024, Expires: Start: 07-04-2024 [facility] Start: 07-03-2024 [facility] Start: 05-04-2024 End: 05-04-2024 Patient encounter procedure 05/04/2024 4:00 PM EST Office Visit [facility] [address] [facility] [place] [place] [id number] Madina Griffiths MD [address] [facility] [place] [id number] Gastroesophageal reflux disease without esophagitis [K21.9]; Bloated abdomen [R14.0]; Change in bowel function [R19.8] General Surgery Comment on above: Gastroesophageal reflux disease without esophagitis [K21.9]; Bloated abdomen [R14.0]; Change in bowel function [R19.8] Start: 05-01-2024 HPV TESTING HPV TESTING [facility] Start: 05-01-2024 PAP TESTING PAP TESTING [facility] Start: 05-01-2024 Screening for malignant neoplasm of cervix [facility] Start: 04-07-2024 End: 04-07-2024 ambulatory 04/07/2024 10:45 AM EDT Results Only [facility] [address] [place] [address] [facility] Start: 04-06-2024 End: 04-06-2024 Patient encounter procedure 04/06/2024 2:20 PM EDT Office Visit Family [facility] [address] [place] [address] Bereket Ashley MD [address] [place] [address] Gut issues Family [facility] Comment on above: Gut issues Start: 04-06-2024 End: 07-06-2024 CBC W Auto Differential panel - Blood COMPLETE BLOOD COUNT AND DIFFERENTIAL Lab Routine Bloated abdomen Change in bowel function Expected: 04/06/2024, Expires: 07/06/2024 [facility] Work Phone: Comment on above: Expected: 04/06/2024, Expires: Start: 04-06-2024 End: 07-06-2024 Comprehensive metabolic 2000 panel - Serum or Plasma COMPREHENSIVE METABOLIC PANEL Lab Routine Bloated abdomen Change in bowel function Expected: 04/06/2024, Expires: 07/06/2024 [facility] Comment on above: Expected: 04/06/2024, Expires: Start: 04-06-2024 End: 07-06-2024 Lipase [Enzymatic activity/volume] in Serum or Plasma LIPASE Lab Routine Bloated abdomen Change in bowel function Expected: 04/06/2024, Expires: 07/06/2024 [facility] Comment on above: Expected: 04/06/2024, Expires: Start: 04-06-2024 End: 07-06-2024 Thyrotropin [Units/volume] in Serum or Plasma THYROID STIMULATING HORMONE Lab Routine Bloated abdomen Change in bowel function Expected: 04/06/2024, Expires: 07/06/2024 [facility] Comment on above: Expected: 04/06/2024, Expires: Start: 02-16-2024 Covid-19 Vaccine () Covid-19 Vaccine () [facility] Start: 02-16-2024 Influenza vaccination [facility] Start: 11-04-2023 End: 11-04-2023 Patient encounter procedure 11/04/2023 2:20 PM EDT Office Visit [facility] [address] [place], [place] [id number] Erlinda Sanchez APRN.[employer] [address] [place], [place] [id number] wellness [facility] Comment on above: wellness Start: 06-17-2023 Behavioral Health Screening Behavioral Health Screening [facility] Start: 06-17-2023 Depression Assessment Depression Assessment [facility] Start: 02-15-2023 Covid-19 Vaccine () Covid-19 Vaccine () [facility] Start: 02-15-2023 Influenza vaccination [facility] Start: 02-07-2023 Adult depression screening assessment DEPRESSION SCREENING [facility] Start: 10-22-2022 [facility] Start: 06-17-2022 DEPRESSION ASSESSMENT DEPRESSION ASSESSMENT [facility] Start: 02-15-2022 Influenza vaccination [facility] Start: 12-15-2021 Adult depression screening assessment DEPRESSION SCREENING [facility] Start: 06-17-2021 DEPRESSION ASSESSMENT DEPRESSION ASSESSMENT [facility] Start: 2012 HPV Vaccine (1 - 3-dose SCDM series) HPV Vaccine (1 - 3-dose SCDM series) [facility] Start: 02-05-2010 Urine microalbumin profile [facility] Start: 2004 Pneumococcal vaccination Pneumococcal Vaccine (1 of 2 - PCV) [facility] Start: 09-19-2003 Depression Screening Depression Screening [facility] Start: 09-19-1991 PNEUMOCOCCAL (1 - PCV) PNEUMOCOCCAL (1 - PCV) [facility] Start: 09-19-1991 Pneumococcal vaccination Pneumococcal Vaccine (1 of 2 - PCV) [facility] Start: 1990 COVID-19 VACCINE (#1) COVID-19 VACCINE (#1) [facility] Start: 1990 COVID-19 VACCINE (1) COVID-19 VACCINE (1) [facility] Start: 03-20-1986 COVID-19 VACCINE (#1) COVID-19 VACCINE (#1) [facility] End: 09-04-2024 CT Abdomen and Pelvis W contrast IV CT ABD/PEL W IVCON Radiology STAT Acute right-sided low back pain without sciatica Family history of kidney stones Right lower quadrant abdominal pain 1 Occurrences starting 08/06/2023 until 09/04/2024 [facility] Work Phone: Comment on above: 1 Occurrences starting 08/06/2023 until 09/04/2024 Fungus identified in Unspecified specimen by Culture FUNGAL CULTURE Microbiology Routine Marginal corneal ulcer of right eye 10/17/2021 4:11 PM EDT [facility] Work Phone: Influenza virus A an d B RNA and SARS-CoV-2 (COVID-19) N gene panel - Respiratory specimen by ATUL with probe detection COVID WITH FLUA+B, ROUTINE Microbiology Routine Exposure to 2019 novel coronavirus Ordered: 04/04/2022 [facility] Work Phone: Comment on above: Ordered: 04/04/2022 Patient Education [facility] Work Phone: Patient referral [facility] Work Phone: End: 09-25-2024 US Carotid arteries - bilateral US CAROTID ARTERIES [facility] Vascular Lab Routine Lightheaded Vertigo Dizziness and giddiness 1 Occurrences starting 09/26/2023 until 09/25/2024 [facility] Work Phone: Comment on above: 1 Occurrences starting 09/26/2023 until 09/25/2024 [place] Immunizations Immunization Date Immunization Notes Care Provider Shell scales 05-27-2018 influenza virus vaccine, unspecified formulation Bereket Ashley MD Work Phone: [facility] 08-18-2012 tuberculin skin test ; purified protein derivative solution, intradermal Bereket Ashley MD Work Phone: [facility] 08-05-2012 tuberculin skin test ; purified protein derivative solution, intradermal Bereket Ashley MD Work Phone: [facility] Work Phone: 07-21-2012 tuberculin skin test ; purified protein derivative solution, intradermal Bereket Ashley MD Work Phone: [facility] 01-19-2011 tuberculin skin test ; purified protein derivative solution, intradermal Bereket Ashley MD Work Phone: [facility] 01-12-2011 tuberculin skin test ; purified protein derivative solution, intradermal Bereket Ashley MD Work Phone: [facility] 02-04-2010 tetanus and diphther ia toxoids, not adsorbed, for adult use Salma Erwin OD Work Phone: [facility] 04-05-1987 diphtheria, tetanus toxoids and pertussis vaccine Salma Erwin OD Work Phone: [facility] Work Phone: 04-05-1987 trivalent poliovirus vaccine, live, oral Salma Erwin OD Work Phone: [facility] Work Phone: 02-01-1987 measles, mumps and rubella virus vaccine Salma Erwin OD Work Phone: [facility] Work Phone: 04-21-1986 diphtheria, tetanus toxoids and pertussis vaccine Salma Erwin OD Work Phone: [facility] Work Phone: 03-02-1986 diphtheria, tetanus toxoids and pertussis vaccine Salma Erwin OD Work Phone: [facility] Work Phone: 03-02-1986 trivalent poliovirus vaccine, live, oral Salma Erwin OD Work Phone: [facility] Work Phone: 1985 diphtheria, tetanus toxoids and pertussis vaccine Salma Erwin OD Work Phone: [facility] Work Phone: 1985 trivalent poliovirus vaccine, live, oral Salma Erwin OD Work Phone: [facility] Work Phone: Payers Date Payer Category Payer Self-pay [id number] 2019 Medicaid [employer] [id number] 2019-Present [phone] [address] [place] [address] Medicaid [id number] 2019 Medicaid [id number] 2011 Medicaid [id number] 2011 Unknown SELF PAY INSURANCE [id number] Unknown [id number] Unknown [id number] Unknown [id number] Unknown [id number] Unknown [id number] Unknown [id number] Unknown [id number] Social History Date Type Detail Facility [facility] Work Phone: Start: 09-09-2021 End: 01-06-2023 Tobacco smoking status KSIS Unknown if ever smoked [facility] Start: 1985 Sex Assigned At Female W [facility] Start: 07-20-2010 End: 07-31-2024 Tobacco smoking status NHIS Smokes tobacco daily [facility] Work Phone: History of tobacco use Cigarette Smoker [facility] Work Phone: Start: 07-20-2010 End: 08-17-2024 Cigarettes smoked current (pack per day) - Reported 0.5 [facility] Start: 07-20-2010 End: 07-31-2024 Tobacco use and exposure Smokeless tobacco non-user [facility] Work Phone: Start: 10-16-2021 End: 07-31-2024 Alcohol intake Ex-drinker (finding) [facility] Start: 03-10-2021 End: 07-25-2021 History SDOH Alcohol Frequency 1 [facility] Start: 03-10-2021 End: 10-22-2022 History SDOH Alcohol Std Drinks 98 [facility] Start: 03-10-2021 End: 10-22-2022 History SDOH Social Connections Phone 5 [facility] Start: 03-10-2021 End: 10-22-2022 History SDOH Social Connections Membership 2 [facility] Start: 03-10-2021 End: 10-22-2022 History SDOH Social Connections Living 7 [facility] Start: 03-10-2021 History SDOH Physica l Activity MPS 15 [facility] Start: 03-10-2021 End: 10-22-2022 History SDOH Stress 3 [facility] Start: 03-10-2021 End: 10-22-2022 History SDOH Financial 4 [facility] Start: 12-28-2019 Education 21 [facility] Start: 1985 Sex Assigned At Not on file [facility] Start: 10-06-2021 End: 04-24-2022 Exposure to SARS-CoV-2 (event) Not sure [facility] Work Phone: Start: 11-26-2021 End: 12-06-2021 Exposure to SARS-CoV-2 (event) Unable to assess [facility] Work Phone: Start: 10-22-2022 History SDOH Alcohol Std Drinks 0 [facility] Start: 10-22-2022 History SDOH Physica l Activity MPS 9 [facility] Start: 10-22-2022 End: 08-17-2024 Social connection and isolation panel [facility] Start: 05-18-2012 How often do you att end sikhism or jewish services? Patient refused [facility] Do you belong to any clubs or organizations such as sikhism groups, unions, fraternal or athletic groups, or school groups? No [facility] Are you now , , , , never or living with a partner? Never [facility] How often to you hav e a drink containing alcohol? Never [facility] Do you feel stress - tense, restless, nervous, or anxious, or unable to sleep at night because your mind is troubled all the time - these days [OSQ] To some extent [facility] (I/We) worried wheth er (my/our) food would run out before (I/we) got money to buy more. DK or Refused [facility] How hard is it for y ou to pay for the very basics like food, housing, medical care, and heating Not very hard [facility] Do you feel stress - tense, restless, nervous, or anxious, or unable to sleep at night because your mind is troubled all the time - these days [OSQ] Only a little [facility] (I/We) worried wheth er (my/our) food would run out before (I/we) got money to buy more. Sometimes true [facility] Start: 09-05-2024 Sex Female (finding) [facility] How hard is it for y ou to pay for the very basics like food, housing, medical care, and heating Somewhat hard [facility] NEGATED: Highlighted row [facility] Functional Status Date Assessment Result Facility 11-23-2024 Total score [AUDIT-C] 0 11/24/19 25 4:55 PM EDT User, Sam [facility] 11-23-2024 How often to you hav e a drink containing alcohol? Never 11/23/2024 4:55 PM EDT User, Amnat Never [facility] 11-23-2024 Functional status Patient does n ot drink 11/23/2024 4:55 PM EDT User, Sam Patient does not drink [facility] 11-23-2024 How often do you hav e 6 or more drinks on 1 occasion? Never 11/23/2024 4:55 PM EDT User, Sam Never [facility] 12-21-2014 Are you deaf, or do you have serious difficulty hearing No 12/21/2014 11:21 AM Shayy Cummins LPN No [facility] 12-21-2014 Are you blind, or do you have serious difficulty seeing, even when wearing glasses No 12/21/2014 11:21 AM Shayy Cummins LPN No [facility] 12-21-2014 Do you have serious difficulty walking or climbing stairs No 12/21/2014 11:21 AM Shayy Cummins LPN No [facility] 12-21-2014 Do you have difficul ty dressing or bathing No 12/21/2014 11:21 AM Shayy Cummins LPN No [facility] 12-21-2014 Because of a physica l, mental, or emotional condition, do you have difficulty doing errands alone such as visiting a physician's office or shopping No 12/21/2014 11:21 AM Shayy Cummins LPN No [facility] Mental Status Date Assessment Result Facility 09-09-2021 Cognitive function Level Of Cons ciousness Awake;Alert;Appropriate;Fol lows Commands [facility] Work Phone: 12-21-2014 Because of a physica l, mental, or emotional condition, do you have serious difficulty concentrating, remembering, or making decisions No 12/21/2014 11:21 AM Shayy Cummins LPN No [facility] Clinical Notes 11-28-2011 to 02-08-2025 Bereket Ashley MD - 02/08/2025 4:57 PM Bereket Hernandez MD - 11/23/2024 8:17 PM Bereket Hernandez MD - 09/14/2024 3:50 PM Maria C Pelayo MD - 08/17/2024 9:43 AM EST Note Date & Type Note Facility 02-08-2025 Note HNO ID: [id number] Author: BEREKET ASHLEY MD Service: ? Author Type: Physician Type: Progress Notes Filed: 02/08/2025 17:23 Note Text: Gracie Avelar is a 39-year-old female with a history of anxiety, presenting for follow-up of lightheadedness and anxiety. VV. Patient changed to that. I have communicated my name and active licensure. The patient's identity and physical location were verified at the time of this visit. Either the patient or their legal underwriting sales representative has been informed of the risks and benefits of -- and alternatives to -- treatment through a remote evaluation and consents to proceed with the evaluation remotely. HPI Lightheadedness: - Recurrent episodes of lightheadedness, described as a fernandez of panic, occurring approximately three times per week. - Associated symptoms include shakiness, cyanosis of hands and feet, nausea, and feeling cold. - Episodes occur suddenly, often when changing positions (e.g., crouching and standing up). - Heart rate reportedly increases to 140-150 bpm upon waking. - Avoids standing in the shower due to fear of dizziness; unable to tolerate heat. - Last episode caused significant disorientation, requiring assistance from her mother. - Denies syncope, headaches, vision changes, speech changes, numbness, tingling, or weakness. - Previous workup by cardiology included a tilt table test, echocardiogram, and Zio monitor, which showed a little tiny bit of SVT. - Wears sports stockings and increases salt intake. - Has not had head imaging or ENT evaluation. in the past. dates back as far as 2012. has seen cardiology for same. Did not get labs or follow up in person today due to her anxiety. Anxiety: - Increased anxiety; currently taking sertraline 150 mg daily. - Has a history of using BuSpar, which was discontinued during . - Recently started seeing a therapist; practicing the 5, 4, 3, 2, 1 grounding technique. - Reports feeling overwhelmed and experiencing catastrophic thoughts. - Has Xanax prescribed but dislikes taking it. MEDICATIONS: Current Outpatient Medications Medication Sig busPIRone (BUSPAR) 5 mg tablet Take 1 tablet by mouth two times a day. sertraline (ZOLOFT) 100 mg tablet Take 1.5 tablets by mouth once daily. . [place] [facility] [place]ron orally disintegrating (ZOFRAN ODT) 4 mg disintegrating tablet Take 1 tablet by mouth every 8 hours as needed for nausea/vomiting. metoprolol tartrate, short acting, (LOPRESSOR) 25 mg tablet Take 0.5 tablets by mouth two times a day. For elevated heart rate omeprazole (PRILOSEC) 20 mg capsule Take 1 capsule by mouth daily before breakfast. 1/2 hr before meal. EPINEPHrine (EPIPEN) 0.3 mg/0.3 mL auto-injector Use as directed. Go to ED after use. No current facility-administered medications for this visit. ALLERGIES: ALLERGIES Allergen Reactions Bee Sting Swelling Levaquin [Levofloxa* Other: See Comments agitation PAST MEDICAL HISTORY Diagnosis Date Abnormal glandular Papanicolaou smear of cervix 2000 Abn. Pap smear (cervix) Anxiety IBS (irritable bowel syndrome) Sinus tachycardia 2012 Tobacco use disorder PAST SURGICAL HISTORY Procedure Laterality Date DILATION AND CURETTAGE DXAND/THER NONOBSTETRIC Dilation AND curettage FAMILY HISTORY Problem Relation Age of Onset Diabetes Mother Pre-diabetic Kidney stones Mother Psychiatry Father manic depression, schizoaffective Kidney stones Sister Hypertension Maternal Grandmother Diabetes Maternal Grandmother Heart Attack Maternal Grandfather Lipids Paternal Grandmother Hypertension Paternal Grandmother other (diverticulitis) Paternal Grandmother Emphysema Paternal Grandfather Cancer Paternal Grandfather Lung SOCIAL HISTORY[1] Reviewed current medications, allergies, past medical history, surgical history, family history and social history today. REVIEW OF SYSTEMS Constitutional: (+ fatigue), (+ chills Eyes: (+ vision changes Ears/Nose/Mouth/Throat: (+ tinnitus Cardiovascular: (+ tachycardia Gastrointestinal: (+ nausea Skin: (+ purple discoloration of hands and feet Neurological: (+ dizziness), (+ lightheadedness), (+ tremors), (+ disorientation), (- headache), (- speech changes), (- numbness), (- tingling), (- weakness), (- syncope Psychiatric: (+ anxiety), (+ panic attacks Endocrine: (+ heat intolerance HEALTH MAINTENANCE: Reviewed health maintenance issues today and recommended the following in detail. Depression Screening Never done HPV Vaccine(1 - 3-dose SCDM series) Never done LAB REVIEWED: Labs: Tests: (September 2023) Zio Monitor: - Minimum heart rate: 54 bpm - Average heart rate: 89 bpm - Occasional SVT (2016) Event Monitor: No results discussed (11/28/2014) Holter: No results discussed Tilt Table Test: No results discussed Imaging: Echocardiogram: No results discussed VITALS: LMP 07/14/2024 (Exact Date) L (more content not included)... [facility] 02-08-2025 History of Presen t illness Narrative Gracie Avelar is a 39-year-old female with a history of anxiety, presenting for follow-up of lightheadedness and anxiety. VV. Patient changed to that. I have communicated my name and active licensure. The patient's identity and physical location were verified at the time of this visit. Either the patient or their legal underwriting sales representative has been informed of the risks and benefits of -- and alternatives to -- treatment through a remote evaluation and consents to proceed with the evaluation remotely. HPI Lightheadedness: - Recurrent episodes of lightheadedness, described as a fernandez of panic, occurring approximately three times per week. - Associated symptoms include shakiness, cyanosis of hands and feet, nausea, and feeling cold. - Episodes occur suddenly, often when changing positions (e.g., crouching and standing up). - Heart rate reportedly increases to 140-150 bpm upon waking. - Avoids standing in the shower due to fear of dizziness; unable to tolerate heat. - Last episode caused significant disorientation, requiring assistance from her mother. - Denies syncope, headaches, vision changes, speech changes, numbness, tingling, or weakness. - Previous workup by cardiology included a tilt table test, echocardiogram, and Zio monitor, which showed a little tiny bit of SVT. - Wears sports stockings and increases salt intake. - Has not had head imaging or ENT evaluation. in the past. dates back as far as 2012. has seen cardiology for same. Did not get labs or follow up in person today due to her anxiety. Anxiety: - Increased anxiety; currently taking sertraline 150 mg daily. - Has a history of using BuSpar, which was discontinued during . - Recently started seeing a therapist; practicing the 5, 4, 3, 2, 1 grounding technique. - Reports feeling overwhelmed and experiencing catastrophic thoughts. - Has Xanax prescribed but dislikes taking it. MEDICATIONS: Current Outpatient Medications Medication Sig busPIRone (BUSPAR) 5 mg tablet Take 1 tablet by mouth two times a day. sertraline (ZOLOFT) 100 mg tablet Take 1.5 tablets by mouth once daily. . 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 ondansetron orally disintegrating (ZOFRAN ODT) 4 mg disintegrating tablet Take 1 tablet by mouth every 8 hours as needed for nausea/vomiting. metoprolol tartrate, short acting, (LOPRESSOR) 25 mg tablet Take 0.5 tablets by mouth two times a day. For elevated heart rate omeprazole (PRILOSEC) 20 mg capsule Take 1 capsule by mouth daily before breakfast. 1/2 hr before meal. EPINEPHrine (EPIPEN) 0.3 mg/0.3 mL auto-injector Use as directed. Go to ED after use. No current facility-administered medications for this visit. ALLERGIES: ALLERGIES Allergen Reactions Bee Sting Swelling Levaquin [Levofloxa* Other: See Comments agitation PAST MEDICAL HISTORY Diagnosis Date Abnormal glandular Papanicolaou smear of cervix 2000 Abn. Pap smear (cervix) Anxiety IBS (irritable bowel syndrome) Sinus tachycardia 2012 Tobacco use disorder PAST SURGICAL HISTORY Procedure Laterality Date DILATION & CURETTAGE DX&/THER NONOBSTETRIC Dilation & curettage FAMILY HISTORY Problem Relation Age of Onset Diabetes Mother Pre-diabetic Kidney stones Mother Psychiatry Father manic depression, schizoaffective Kidney stones Sister Hypertension Maternal Grandmother Diabetes Maternal Grandmother Heart Attack Maternal Grandfather Lipids Paternal Grandmother Hypertension Paternal Grandmother other (diverticulitis) Paternal Grandmother Emphysema Paternal Grandfather Cancer Paternal Grandfather Lung SOCIAL HISTORY[1] Reviewed current medications, allergies, past medical history, surgical history, family history and social history today. REVIEW OF SYSTEMS Constitutional: (+ fatigue), (+ chills Eyes: (+ vision changes Ears/Nose/Mouth/Throat: (+ tinnitus Cardiovascular: (+ tachycardia Gastrointestinal: (+ nausea Skin: (+ purple discoloration of hands and feet Neurological: (+ dizziness), (+ lightheadedness), (+ tremors), (+ disorientation), (- headache), (- speech changes), (- numbness), (- tingling), (- weakness), (- syncope Psychiatric: (+ anxiety), (+ panic attacks Endocrine: (+ heat intolerance HEALTH MAINTENANCE: Reviewed health maintenance issues today and recommended the following in detail. Depression Screening Never done HPV Vaccine(1 - 3-dose SCDM series) Never done LAB REVIEWED: Labs: Tests: (September 2023) Zio Monitor: - Minimum heart rate: 54 bpm - Average heart rate: 89 bpm - Occasional SVT (2016) Event Monitor: No results discussed (11/28/2014) Holter: No results discussed Tilt Table Test: No results discussed Imaging: Echocardiogram: No results discussed VITALS: LMP 07/14/2024 (Exact Date) Last 4 Encounter Wt Readings: Date: Wt: 07/31/2024 46 kg (101 lb 6.6 oz) 08/20/2023 47.3 kg (104 lb 3.2 oz) 08/06/2023 47.6 kg (105 lb) 09/27/2022 46.5 kg (102 lb 9.6 oz) PHYSICAL EXAMINATION: GENERAL: NAD, alert and oriented SKIN: unremarkable, no rash or skin lesions. LUNGS: moving air well. HEART: no pallor. EXTREMITIES: Normal, No deformities, No skin discoloration, No edema. NEURO: Awake, alert and oriented x3, cranial nerves II-XII grossly intact, normal gait, no involuntary motions ASSESSMENT AND PLAN 1. Sinus tachycardia (R00.0) 2. Lightheadedness (R42) - Chronic symptoms with prior workup including tilt table test, echocardiogram, and Zio monitor (September 2023) showing sinus rhythm with average HR 89, minimum HR 54, and brief SVT. - Continue metoprolol as needed per prior cardiology recommendations. - Order CBC, CMP, and TSH to rule out metabolic or endocrine causes. - Advised patient to seek emergency care if symptoms worsen or if syncope occurs. - Discussed really needs seen in office to evaluated. Not sure if anxiety is the main culprit. Can send to neuro and cardiology again if persists. - Follow-up in 2-4 weeks with Edith Brower NP. 3. Anxiety (F41.9) 4. Panic disorder with agoraphobia (F40.01) - Increased anxiety and panic-like episodes; currently on sertraline 150 mg daily. - Restart buspirone 5 mg BID. did will with it years ago. - Advised patient to avoid driving when taking Xanax. - Discussed potential neurology and cardiology referrals if symptoms persist. (See patient after visit summary for additional instructions to patient) Bereket Ashley MD Recording using AYLIEN software for draft documentation of the visit was discussed with the patient/authorized underwriting sales representative; all questions welcomed and answered. Patient/authorized underwriting sales representative agreed to proceed [1] Social History Tobacco Use Smoking status: Every Day Current packs/day: 0.50 Average packs/day: 0.5 packs/day for 7.0 years (3.5 ttl pk-yrs) Types: Cigarettes Smokeless tobacco: Never Vaping Use Vaping status: Never Used Substance Use Topics Alcohol use: Not Currently Drug use: No documented in this encounter [facility] 11-23-2024 Note HNO ID: [id number] Author: BEREKET ASHLEY MD Service: ? Author Type: Physician Type: Progress Notes Filed: 11/23/2024 20:27 Note Text: Gracie Avelar is a 39-year-old female with a history of anxiety, presenting for evaluation of dizziness and anxiety management. is a virtual visit. I have communicated my name and active licensure. The patient's identity and physical location were verified at the time of this visit. Either the patient or their legal underwriting sales representative has been informed of the risks and benefits of -- and alternatives to -- treatment through a remote evaluation and consents to proceed with the evaluation remotely. HPI Dizziness: - Two episodes of dizziness in the past 1.5 months. - First episode occurred while standing for 15 minutes doing dishes; second episode while sitting. - Describes episodes as overwhelming and sudden, lasting no more than 10 seconds. - Feels like she will fall over if not holding onto something. - Associated with a high-pitched ringing in the ears; no hearing loss. - No associated headaches, chest pain, palpitations, or nausea. - Symptoms relieved by lying down and elevating feet. - Avoids standing showers due to fear of dizziness. - Intolerance to heat, feeling lightheaded and dizzy in temperatures above 85 degreeF. - Previous workup by cardiology included a tilt table test and echocardiogram; no head imaging or ENT evaluation. - Wears support stockings and increases salt and fluid intake. Anxiety: - Anxiety exacerbated by dizziness episodes, leading to fear of episodes occurring while driving or in public. - Currently taking sertraline 100 mg daily; feels it is not adequately managing anxiety. MEDICATIONS: Current Outpatient Medications Medication Sig sertraline (ZOLOFT) 100 mg tablet Take 1.5 tablets by mouth once daily. . [place] [facility] [place]ron orally disintegrating (ZOFRAN ODT) 4 mg disintegrating tablet Take 1 tablet by mouth every 8 hours as needed for nausea/vomiting. metoprolol tartrate, short acting, (LOPRESSOR) 25 mg tablet Take 0.5 tablets by mouth two times a day. For elevated heart rate urea (CARMOL) 40 % Apply to affected area as needed. (Patient not taking: Reported on 07/31/2024) omeprazole (PRILOSEC) 20 mg capsule Take 1 capsule by mouth daily before breakfast. 1/2 hr before meal. EPINEPHrine (EPIPEN) 0.3 mg/0.3 mL auto-injector Use as directed. Go to ED after use. No current facility-administered medications for this visit. ALLERGIES: ALLERGIES Allergen Reactions Bee Sting Swelling Levaquin [Levofloxa* Other: See Comments agitation PAST MEDICAL HISTORY Diagnosis Date Abnormal glandular Papanicolaou smear of cervix 2000 Abn. Pap smear (cervix) Anxiety IBS (irritable bowel syndrome) Sinus tachycardia 2012 Tobacco use disorder PAST SURGICAL HISTORY Procedure Laterality Date DILATION AND CURETTAGE DXAND/THER NONOBSTETRIC Dilation AND curettage FAMILY HISTORY Problem Relation Age of Onset Diabetes Mother Pre-diabetic Kidney stones Mother Psychiatry Father manic depression, schizoaffective Kidney stones Sister Hypertension Maternal Grandmother Diabetes Maternal Grandmother Heart Attack Maternal Grandfather Lipids Paternal Grandmother Hypertension Paternal Grandmother other (diverticulitis) Paternal Grandmother Emphysema Paternal Grandfather Cancer Paternal Grandfather Lung Social History Tobacco Use Smoking status: Every Day Current packs/day: 0.50 Average packs/day: 0.5 packs/day for 7.0 years (3.5 ttl pk-yrs) Types: Cigarettes Smokeless tobacco: Never Vaping Use Vaping status: Never Used Substance Use Topics Alcohol use: Not Currently Drug use: No Reviewed current medications, allergies, past medical history, surgical history, family history and social history today. REVIEW OF SYSTEMS Head: (-) headache Ears/Nose/Mouth/Throat: (+) tinnitus Cardiovascular: (-) chest pain, (-) palpitations Gastrointestinal: (-) nausea Skin: (+) hand discoloration Neurological: (+) dizziness Psychiatric: (+) anxiety Endocrine: (+) heat intolerance HEALTH MAINTENANCE: Reviewed health maintenance issues today and recommended the following in detail. Depression Screening Never done LAB REVIEWED: Labs: Imaging: Tests: (June) EKG: Incomplete conduction (2021) Tilt Table (2021) Echocardiogram Zio Monitor (2-week): A few PACs and SVTs VITALS: LMP 07/14/2024 (Exact Date) Last 4 Encounter Wt Readings: Date: Wt: 07/31/2024 46 kg (101 lb 6.6 oz) 08/20/2023 47.3 kg (104 lb 3.2 oz) 08/06/2023 47.6 kg (105 lb) 09/27/2022 46.5 kg (102 lb 9.6 oz) PHYSICAL EXAMINATION: GENERAL: NAD, alert and oriented. SKIN: Unremarkable, no rash or skin lesions. LUNGS:no pallor NEURO: Awake, alert and oriented x3 ASSESSMENT AND PLAN 1. Sinus tachycardia (R00.0) - Previous Zio monitor showed PACs and SVTs. - Recent EKG fro (more content not included)... [facility] 11-23-2024 History of Presen t illness Narrative Gracie Avelar is a 39-year-old female with a history of anxiety, presenting for evaluation of dizziness and anxiety management. is a virtual visit. I have communicated my name and active licensure. The patient's identity and physical location were verified at the time of this visit. Either the patient or their legal underwriting sales representative has been informed of the risks and benefits of -- and alternatives to -- treatment through a remote evaluation and consents to proceed with the evaluation remotely. HPI Dizziness: - Two episodes of dizziness in the past 1.5 months. - First episode occurred while standing for 15 minutes doing dishes; second episode while sitting. - Describes episodes as overwhelming and sudden, lasting no more than 10 seconds. - Feels like she will fall over if not holding onto something. - Associated with a high-pitched ringing in the ears; no hearing loss. - No associated headaches, chest pain, palpitations, or nausea. - Symptoms relieved by lying down and elevating feet. - Avoids standing showers due to fear of dizziness. - Intolerance to heat, feeling lightheaded and dizzy in temperatures above 85 degreeF. - Previous workup by cardiology included a tilt table test and echocardiogram; no head imaging or ENT evaluation. - Wears support stockings and increases salt and fluid intake. Anxiety: - Anxiety exacerbated by dizziness episodes, leading to fear of episodes occurring while driving or in public. - Currently taking sertraline 100 mg daily; feels it is not adequately managing anxiety. MEDICATIONS: Current Outpatient Medications Medication Sig sertraline (ZOLOFT) 100 mg tablet Take 1.5 tablets by mouth once daily. . 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 ondansetron orally disintegrating (ZOFRAN ODT) 4 mg disintegrating tablet Take 1 tablet by mouth every 8 hours as needed for nausea/vomiting. metoprolol tartrate, short acting, (LOPRESSOR) 25 mg tablet Take 0.5 tablets by mouth two times a day. For elevated heart rate urea (CARMOL) 40 % Apply to affected area as needed. (Patient not taking: Reported on 07/31/2024) omeprazole (PRILOSEC) 20 mg capsule Take 1 capsule by mouth daily before breakfast. 1/2 hr before meal. EPINEPHrine (EPIPEN) 0.3 mg/0.3 mL auto-injector Use as directed. Go to ED after use. No current facility-administered medications for this visit. ALLERGIES: ALLERGIES Allergen Reactions Bee Sting Swelling Levaquin [Levofloxa* Other: See Comments agitation PAST MEDICAL HISTORY Diagnosis Date Abnormal glandular Papanicolaou smear of cervix 2000 Abn. Pap smear (cervix) Anxiety IBS (irritable bowel syndrome) Sinus tachycardia 2012 Tobacco use disorder PAST SURGICAL HISTORY Procedure Laterality Date DILATION & CURETTAGE DX&/THER NONOBSTETRIC Dilation & curettage FAMILY HISTORY Problem Relation Age of Onset Diabetes Mother Pre-diabetic Kidney stones Mother Psychiatry Father manic depression, schizoaffective Kidney stones Sister Hypertension Maternal Grandmother Diabetes Maternal Grandmother Heart Attack Maternal Grandfather Lipids Paternal Grandmother Hypertension Paternal Grandmother other (diverticulitis) Paternal Grandmother Emphysema Paternal Grandfather Cancer Paternal Grandfather Lung Social History Tobacco Use Smoking status: Every Day Current packs/day: 0.50 Average packs/day: 0.5 packs/day for 7.0 years (3.5 ttl pk-yrs) Types: Cigarettes Smokeless tobacco: Never Vaping Use Vaping status: Never Used Substance Use Topics Alcohol use: Not Currently Drug use: No Reviewed current medications, allergies, past medical history, surgical history, family history and social history today. REVIEW OF SYSTEMS Head: (-) headache Ears/Nose/Mouth/Throat: (+) tinnitus Cardiovascular: (-) chest pain, (-) palpitations Gastrointestinal: (-) nausea Skin: (+) hand discoloration Neurological: (+) dizziness Psychiatric: (+) anxiety Endocrine: (+) heat intolerance HEALTH MAINTENANCE: Reviewed health maintenance issues today and recommended the following in detail. Depression Screening Never done LAB REVIEWED: Labs: Imaging: Tests: (June) EKG: Incomplete conduction (2021) Tilt Table (2021) Echocardiogram Zio Monitor (2-week): A few PACs and SVTs VITALS: LMP 07/14/2024 (Exact Date) Last 4 Encounter Wt Readings: Date: Wt: 07/31/2024 46 kg (101 lb 6.6 oz) 08/20/2023 47.3 kg (104 lb 3.2 oz) 08/06/2023 47.6 kg (105 lb) 09/27/2022 46.5 kg (102 lb 9.6 oz) PHYSICAL EXAMINATION: GENERAL: NAD, alert and oriented. SKIN: Unremarkable, no rash or skin lesions. LUNGS:no pallor NEURO: Awake, alert and oriented x3 ASSESSMENT AND PLAN 1. Sinus tachycardia (R00.0) - Previous Zio monitor showed PACs and SVTs. - Recent EKG from [facility] ER in June noted as incomplete; will obtain a copy for review. 2. Anxiety (F41.9) 3. Panic disorder with agoraphobia (F40.01) - Anxiety exacerbated by episodes of lightheadedness. - Current sertraline dose at 100 mg daily; increased to 150 mg daily. - Prescription for sertraline 150 mg transmitted to [facility]. 4. Lightheadedness (R42) - Episodes of lightheadedness occurring intermittently, lasting no more than 10 seconds, with associated high-pitched tinnitus; no associated headaches, chest pain, or palpitations. - Previous workup by cardiology, including Tilt Table Test and Echo, for POTS was negative. - Differential diagnosis includes autonomic dysfunction. - Ordered CBC, BMP, and TSH to evaluate for anemia, renal function, and thyroid abnormalities. - Advised increasing salt intake, maintaining adequate hydration, and wearing support stockings. - Scheduled follow-up appointment within the next month for further evaluation in person. (See patient after visit summary for additional instructions to patient) Bereket Ashley MD Recording using AYLIEN software for draft documentation of the visit was discussed with the patient/authorized underwriting sales representative; all questions welcomed and answered. Patient/authorized underwriting sales representative agreed to proceed documented in this encounter [facility] 10-07-2024 Note HNO ID: [id number] Author: DINORA MURO APRN.CONSOLIDATOR Service: ? Author Type: Nurse Practitioner Type: Progress Notes Filed: 10/07/2024 17:25 Note Text: 10/07/2024 Patient presents with: Anxiety I have communicated my name and active licensure. The patient's identity and physical location were verified at the time of this visit. Either the patient or their legal underwriting sales representative has been informed of the risks and benefits of -- and alternatives to -- treatment through a remote evaluation and consents to proceed with the evaluation remotely. SUBJECTIVE: This is a 39 year old that is here today for Above Complaints. Has a prescription for xanax. Usually does [facility] but switched to [facility]. Reports the generic she was given at through [place] made her feel loopy. She reports this has never happened to her. Tried breaking it in half and when she tried it it still made her feel the same. Reports she only uses maybe once a month. Has a huge interview tomorrow and is very anxious. PAST MEDICAL HISTORY Diagnosis Date Abnormal glandular Papanicolaou smear of cervix 2000 Abn. Pap smear (cervix) Anxiety IBS (irritable bowel syndrome) Sinus tachycardia 2012 Tobacco use disorder ALLERGIES Bee Sting and Levaquin [Levofloxacin] MEDICATIONS Current Outpatient Medications Medication Sig ondansetron orally disintegrating (ZOFRAN ODT) 4 mg disintegrating tablet Take 1 tablet by mouth every 8 hours as needed for nausea/vomiting. sertraline (ZOLOFT) 100 mg tablet Take 1 tablet by mouth once daily. . 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 metoprolol tartrate, short acting, (LOPRESSOR) 25 mg tablet Take 0.5 tablets by mouth two times a day. For elevated heart rate urea (CARMOL) 40 % Apply to affected area as needed. (Patient not taking: Reported on 07/31/2024) omeprazole (PRILOSEC) 20 mg capsule Take 1 capsule by mouth daily before breakfast. 1/2 hr before meal. EPINEPHrine (EPIPEN) 0.3 mg/0.3 mL auto-injector Use as directed. Go to ED after use. No current facility-administered medications for this visit. Medications and allergies reviewed by this provider. SOCIAL HISTORY Social History Tobacco Use Smoking status: Every Day Current packs/day: 0.50 Average packs/day: 0.5 packs/day for 7.0 years (3.5 ttl pk-yrs) Types: Cigarettes Smokeless tobacco: Never Vaping Use Vaping status: Never Used Substance Use Topics Alcohol use: Not Currently Drug use: No REVIEW OF SYSTEMS All other reviewed and negative other than HPI. OBJECTIVE: LMP 07/14/2024 (Exact Date) . Vital signs reviewed by this provider. APPEARANCE Well appearing, alert, in no acute distress, well-hydrated, well nourished. PSYCH: Posture and motor behavior: normal posture and motor behavior Dress, grooming, personal hygiene: normal dress and grooming Facial expression: good eye contact Speech: normal speech Mood: cheerful Coherency and relevance of thought: normal thought processes Memory: normal memory Depression Screening due on 11/03/2024 Influenza Vaccine(1) due on 12/14/2024 DTaP,Tdap,Td Vaccine(5 - Tdap) due on 07/29/2025 Covid-19 Vaccine(1 - season) due on 07/29/2025 Pneumococcal Vaccine(1 of 2 - PCV) due on 07/29/2025 Cervical Cancer Screening due on 07/29/2029 Hepatitis C Screening Completed HIV Screening Completed ASSESSMENT/PLAN: 1. Anxiety - ICD9: 300.00, ICD10: F41.9 - looks like she has been prescribed this in the past intermittently - will send in short term supply and she can follow-up with PCP for future refill if he feels it is appropriate - discussed she should not drive, operate heavy machinery, drink alcohol or take other sedatives, controlled or illicit drugs while taking this medication as this may cause drowsiness and respiratory distress- resulting in verbalizes understanding - ALPRAZOLAM 0.25 MG TABLET PDMP website checked and validated. All prescriptions have been APPROPRIATELY filled. No suspicious activity was identified. 10/07/2024 by MAGALI Sahu APRN.ZEE Prescription instructions reviewed with patient as applicable. Patient advised if symptoms do not improve or if symptoms worsen sooner, to contact their primary care physician. Potential red flag symptoms discussed with the patient. Reviewed appropriate action plan to take if red flag symptoms occur. Patient agreeable to treatment plan. I spent a total of 10 minutes on the date of the service which included preparing to see the patient, [id number] patient care, completing clinical documentation, obtaining and/or reviewing separately obtained history, performing a medically appropriate examination, counseling and educating the patient/family/caregiver, and ordering medications, tests, or procedures. [facility] 09-14-2024 Note HNO ID: [id number] Author: BEREKET ASHLEY MD Service: ? Author Type: Physician Type: Progress Notes Filed: 09/14/2024 16:00 Note Text: Patient presents with: Acute Visit HPI:This visit is a virtual encounter. It required patient-provider interaction for the medical decision making as documented below. Patient has elected to have a visit through distance medicine I have communicated my name and active licensure. The patient's identity and physical location were verified at the time of this visit. Either the patient or their legal underwriting sales representative has been informed of the risks and benefits of -- and alternatives to -- treatment through a remote evaluation and consents to proceed with the evaluation remotely. Has tummy bug. Her daughter was ill first Has been ill since yesterday. No fever or chills. Requests zofran. No abd pain. Some cramping. Having nausea. Emesis is slowing down. No diarrhea. No hematemesis No black or bloody bowels. No urinary symptoms. MEDICATIONS: Current Outpatient Medications Medication Sig sertraline (ZOLOFT) 100 mg tablet Take 1 tablet by mouth once daily. . 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 metoprolol tartrate, short acting, (LOPRESSOR) 25 mg tablet Take 0.5 tablets by mouth two times a day. For elevated heart rate urea (CARMOL) 40 % Apply to affected area as needed. (Patient not taking: Reported on 07/31/2024) omeprazole (PRILOSEC) 20 mg capsule Take 1 capsule by mouth daily before breakfast. 1/2 hr before meal. EPINEPHrine (EPIPEN) 0.3 mg/0.3 mL auto-injector Use as directed. Go to ED after use. No current facility-administered medications for this visit. ALLERGIES: ALLERGIES Allergen Reactions Bee Sting Swelling Levaquin [Levofloxa* Other: See Comments agitation PAST MEDICAL HISTORY Diagnosis Date Abnormal glandular Papanicolaou smear of cervix 2000 Abn. Pap smear (cervix) Anxiety IBS (irritable bowel syndrome) Sinus tachycardia 2012 Tobacco use disorder PAST SURGICAL HISTORY Procedure Laterality Date DILATION AND CURETTAGE DXAND/THER NONOBSTETRIC Dilation AND curettage FAMILY HISTORY Problem Relation Age of Onset Diabetes Mother Pre-diabetic Kidney stones Mother Psychiatry Father manic depression, schizoaffective Kidney stones Sister Hypertension Maternal Grandmother Diabetes Maternal Grandmother Heart Attack Maternal Grandfather Lipids Paternal Grandmother Hypertension Paternal Grandmother other (diverticulitis) Paternal Grandmother Emphysema Paternal Grandfather Cancer Paternal Grandfather Lung Social History Tobacco Use Smoking status: Every Day Current packs/day: 0.50 Average packs/day: 0.5 packs/day for 7.0 years (3.5 ttl pk-yrs) Types: Cigarettes Smokeless tobacco: Never Vaping Use Vaping status: Never Used Substance Use Topics Alcohol use: Not Currently Drug use: No Reviewed current medications, allergies, past medical history, surgical history, family history and social history today. REVIEW OF SYSTEMS No travel or antibiotic hx. All other reviewed and negative other than HPI. HEALTH MAINTENANCE: Reviewed health maintenance issues today and recommended the following in detail. There are no preventive care reminders to display for this patient. VITALS: Could not assess Last 4 Encounter Wt Readings: Date: Wt: 07/31/2024 46 kg (101 lb 6.6 oz) 08/20/2023 47.3 kg (104 lb 3.2 oz) 08/06/2023 47.6 kg (105 lb) 09/27/2022 46.5 kg (102 lb 9.6 oz) PHYSICAL EXAMINATION: Patient is alert and oriented during visit. Answers appropriately. Breathing comfortably.. chest rise normal. No audible wheeze. No pallor. ASSESSMENT/PLAN: 1. Gastroenteritis - ICD9: 558.9, ICD10: K52.9 Zofran prn. Fluids and rest. Red flags for re-assessment reviewed with patient in detail. Call if symptoms worsen at all or if not better by the end of the week or prn Bereket Ashley MD I spent 9 minutes in the visit, with more than 50% of the total [id number] time of the visit in counseling / coordination of care. [facility] 09-14-2024 History of Presen t illness Narrative Patient presents with: Acute Visit HPI:This visit is a virtual encounter. It required patient-provider interaction for the medical decision making as documented below. Patient has elected to have a visit through distance medicine I have communicated my name and active licensure. The patient's identity and physical location were verified at the time of this visit. Either the patient or their legal underwriting sales representative has been informed of the risks and benefits of -- and alternatives to -- treatment through a remote evaluation and consents to proceed with the evaluation remotely. Has tummy bug. Her daughter was ill first Has been ill since yesterday. No fever or chills. Requests zofran. No abd pain. Some cramping. Having nausea. Emesis is slowing down. No diarrhea. No hematemesis No black or bloody bowels. No urinary symptoms. MEDICATIONS: Current Outpatient Medications Medication Sig sertraline (ZOLOFT) 100 mg tablet Take 1 tablet by mouth once daily. . 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 metoprolol tartrate, short acting, (LOPRESSOR) 25 mg tablet Take 0.5 tablets by mouth two times a day. For elevated heart rate urea (CARMOL) 40 % Apply to affected area as needed. (Patient not taking: Reported on 07/31/2024) omeprazole (PRILOSEC) 20 mg capsule Take 1 capsule by mouth daily before breakfast. 1/2 hr before meal. EPINEPHrine (EPIPEN) 0.3 mg/0.3 mL auto-injector Use as directed. Go to ED after use. No current facility-administered medications for this visit. ALLERGIES: ALLERGIES Allergen Reactions Bee Sting Swelling Levaquin [Levofloxa* Other: See Comments agitation PAST MEDICAL HISTORY Diagnosis Date Abnormal glandular Papanicolaou smear of cervix 2000 Abn. Pap smear (cervix) Anxiety IBS (irritable bowel syndrome) Sinus tachycardia 2012 Tobacco use disorder PAST SURGICAL HISTORY Procedure Laterality Date DILATION & CURETTAGE DX&/THER NONOBSTETRIC Dilation & curettage FAMILY HISTORY Problem Relation Age of Onset Diabetes Mother Pre-diabetic Kidney stones Mother Psychiatry Father manic depression, schizoaffective Kidney stones Sister Hypertension Maternal Grandmother Diabetes Maternal Grandmother Heart Attack Maternal Grandfather Lipids Paternal Grandmother Hypertension Paternal Grandmother other (diverticulitis) Paternal Grandmother Emphysema Paternal Grandfather Cancer Paternal Grandfather Lung Social History Tobacco Use Smoking status: Every Day Current packs/day: 0.50 Average packs/day: 0.5 packs/day for 7.0 years (3.5 ttl pk-yrs) Types: Cigarettes Smokeless tobacco: Never Vaping Use Vaping status: Never Used Substance Use Topics Alcohol use: Not Currently Drug use: No Reviewed current medications, allergies, past medical history, surgical history, family history and social history today. REVIEW OF SYSTEMS No travel or antibiotic hx. All other reviewed and negative other than HPI. HEALTH MAINTENANCE: Reviewed health maintenance issues today and recommended the following in detail. There are no preventive care reminders to display for this patient. VITALS: Could not assess Last 4 Encounter Wt Readings: Date: Wt: 07/31/2024 46 kg (101 lb 6.6 oz) 08/20/2023 47.3 kg (104 lb 3.2 oz) 08/06/2023 47.6 kg (105 lb) 09/27/2022 46.5 kg (102 lb 9.6 oz) PHYSICAL EXAMINATION: Patient is alert and oriented during visit. Answers appropriately. Breathing comfortably.. chest rise normal. No audible wheeze. No pallor. ASSESSMENT/PLAN: 1. Gastroenteritis - ICD9: 558.9, ICD10: K52.9 Zofran prn. Fluids and rest. Red flags for re-assessment reviewed with patient in detail. Call if symptoms worsen at all or if not better by the end of the week or prn Bereket Ashley MD I spent 9 minutes in the visit, with more than 50% of the total [id number] time of the visit in counseling / coordination of care. documented in this encounter [facility] 09-05-2024 Radiology Diagnostic study note [facility] Imaging Services [address] [place] [address] CTA Chest W/WO Contrast MR#: [id number] Acct: [id number] Name: GRACIE AVELAR Rep #: [id number] : 1985 F 38 From: Cisco Gupta MD PCP: Dr. Bereket Ashley MD Status: REG E R Study:CTA Chest W/WO Contrast Date of Exam: 09/05/24 Exam# [id number] Ordering Dr: Rose Rivera DO PROCEDURE: CTA CHEST W/WO CONTRAST 09/05/2024 REASON FOR EXAM: CHEST PAIN, ELEVATED D-DIMER TECHNIQUE: CTA axial imaging of the chest with intravenous contrast. Coronal and Sagittal reconstruction series were provided. 3D, 3D post processing, 3D reconstructions, Maximum intensity projection (MIPs) Volume rendering and Shaded surface rendering was provided. PATIENT PREPARATION: Per protocol Intravenous contrast administered One or more dose reduction techniques were used (e.g., Automated exposure control, adjustment of the mA and/or kV according to patient size, use of iterative reconstruction technique). RADIATION DOSE SUMMARY: DLP: 116 mGycm COMPARISON: None FINDINGS: There is motion degraded examination. No pneumothorax. No pleural effusion. Bronchial thickening is seen. No thoracic aneurysm. No hilar or mediastinal adenopathy. No pericardial effusion. Imaging of the upper abdomen shows unremarkable adrenal glands. No central airway lesion. Mildly heterogeneous thyroid gland. Slight scoliosis. No acute osseous abnormality CT/CTA Chest W/WO Contrast IMPRESSION: Somewhat motion degraded examination. No findings of acute pulmonary embolism. No localizing infiltrate. Lungs are well inflated with bronchial thickening. No pneumothorax or pleural effusion no evidence of acute aortic pathology Reading Location: [facility] CC: Dr. Carmen Rivera DO; Dr. Bereket Ashley MD ~ Rd Mechanical Engineer: Signed [facility] 08-17-2024 Note HNO ID: [id number] Author: MARIA C DOLAN MD Service: ? Author Type: Physician Type: Progress Notes Filed: 08/17/2024 09:57 Note Text: Chief Complaint Patient presents with: Sinusitis I have communicated my name and active licensure. The patient's identity and physical location were verified at the time of this visit. Either the patient or their legal underwriting sales representative has been informed of the risks and benefits of -- and alternatives to -- treatment through a remote evaluation and consents to proceed with the evaluation remotely. HPI Gracie Avelar is a 38 year old female who presents here today for Above Complaints. Virtual visit. Patient evaluated in on 07/31 for bacterial sinusitis with following HPI: Nontoxic-appearing 34-year-old female presents urgent care chief complaint sinus pressure. Duration of symptoms 1 week. Associated symptoms worsening sinus pressure. OTC medications none today. Denies any significant tenderness. No fevers. Denies chance of . Past medical history prescription medications allergies reviewed. .Patient presents with: Ear Problem: Left ear pressure and pain, sinus pressure and pain in left side of face, x 1 week Given rx for augmentin BID x 7 days and flonase and discharged home. She states that she did take the Augmentin as prescribed and sinus symptoms resolved on the left side. Today, she states that she has developed pressure around her right eye with headache which started yesterday. Treated with Flonase today and applied warm compress to the right eye. Admits to fatigue. Denies fever/chills, cough, SOB, wheezing, myalgias, sore throat, new loss of taste/smell, nasal congestion, rhinorrhea, nausea, vomiting, diarrhea. Notes that she was exposed to influenza A about 1 week ago. Patient did not feel well about a week ago, but did not have same symptoms as family. Past medical history, appointments, medications, allergies reviewed. Previous Medical History PAST MEDICAL HISTORY Diagnosis Date Abnormal glandular Papanicolaou smear of cervix 2000 Abn. Pap smear (cervix) Anxiety IBS (irritable bowel syndrome) Sinus tachycardia 2012 Tobacco use disorder Previous Surgical History PAST SURGICAL HISTORY Procedure Laterality Date DILATION AND CURETTAGE DXAND/THER NONOBSTETRIC Dilation AND curettage Family History FAMILY HISTORY Problem Relation Age of Onset Diabetes Mother Pre-diabetic Kidney stones Mother Psychiatry Father manic depression, schizoaffective Kidney stones Sister Hypertension Maternal Grandmother Diabetes Maternal Grandmother Heart Attack Maternal Grandfather Lipids Paternal Grandmother Hypertension Paternal Grandmother other (diverticulitis) Paternal Grandmother Emphysema Paternal Grandfather Cancer Paternal Grandfather Lung Patient Allergies ALLERGIES Allergen Reactions Bee Sting Swelling Levaquin [Levofloxa* Other: See Comments agitation Current Medications Current Outpatient Medications on File Prior to Visit Medication Sig fluticasone (FLONASE) 50 mcg/actuation nasal spray Use 2 Sprays in each nostril once daily. Rinse mouth after use. ALPRAZolam (XANAX) 0.25 mg tablet Take 1 tablet by mouth three times a day as needed for up to 30 days. sertraline (ZOLOFT) 100 mg tablet Take 1 tablet by mouth once daily. . 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 metoprolol tartrate, short acting, (LOPRESSOR) 25 mg tablet Take 0.5 tablets by mouth two times a day. For elevated heart rate urea (CARMOL) 40 % Apply to affected area as needed. (Patient not taking: Reported on 07/31/2024) omeprazole (PRILOSEC) 20 mg capsule Take 1 capsule by mouth daily before breakfast. 1/2 hr before meal. EPINEPHrine (EPIPEN) 0.3 mg/0.3 mL auto-injector Use as directed. Go to ED after use. No current facility-administered medications on file prior to visit. Social History Social History Tobacco Use Smoking status: Every Day Current packs/day: 0.50 Average packs/day: 0.5 packs/day for 7.0 years (3.5 ttl pk-yrs) Types: Cigarettes Smokeless tobacco: Never Vaping Use Vaping status: Never Used Substance Use Topics Alcohol use: Not Currently Drug use: No Review of Symptoms REVIEW OF SYSTEMS See HPI EXAM: Temp 37.1 ?C (98.8 ?F) LMP 07/14/2024 (Exact Date) SpO2 99% General Appearance: Ill appearing, non toxic. Nose/Sinuses: Reports TTP over right maxillary and frontal sinus. Eyes: PERRLA, EOMI Neck: No reported lymphadenopathy Lungs: No audible wheezing or coughing. Health Maintenance List Influenza Vaccine(1) due on 12/14/2024 DTaP,Tdap,Td Vaccine(5 - Tdap) due on 07/29/2025 Covid-19 Vaccine(1 - season) due on 07/29/2025 Pneumococcal Vaccine(1 of 2 - PCV) due on 07/29/2025 Depression Screening due on 11/03/2024 Cervical Cancer Screening due on 07/29/2029 Hepatitis C Screening Completed HIV Screening Completed ASSESSMENT/PLAN: 1. Viral sinusitis - ICD9 (more content not included)... [facility] 08-17-2024 History of Presen t illness Narrative Chief Complaint Patient presents with: Sinusitis I have communicated my name and active licensure. The patient's identity and physical location were verified at the time of this visit. Either the patient or their legal underwriting sales representative has been informed of the risks and benefits of -- and alternatives to -- treatment through a remote evaluation and consents to proceed with the evaluation remotely. HPI Gracie Avelar is a 38 year old female who presents here today for Above Complaints. Virtual visit. Patient evaluated in on 07/31 for bacterial sinusitis with following HPI: Nontoxic-appearing 34-year-old female presents urgent care chief complaint sinus pressure. Duration of symptoms 1 week. Associated symptoms worsening sinus pressure. OTC medications none today. Denies any significant tenderness. No fevers. Denies chance of . Past medical history prescription medications allergies reviewed. .Patient presents with: Ear Problem: Left ear pressure and pain, sinus pressure and pain in left side of face, x 1 week Given rx for augmentin BID x 7 days and flonase and discharged home. She states that she did take the Augmentin as prescribed and sinus symptoms resolved on the left side. Today, she states that she has developed pressure around her right eye with headache which started yesterday. Treated with Flonase today and applied warm compress to the right eye. Admits to fatigue. Denies fever/chills, cough, SOB, wheezing, myalgias, sore throat, new loss of taste/smell, nasal congestion, rhinorrhea, nausea, vomiting, diarrhea. Notes that she was exposed to influenza A about 1 week ago. Patient did not feel well about a week ago, but did not have same symptoms as family. Past medical history, appointments, medications, allergies reviewed. Previous Medical History PAST MEDICAL HISTORY Diagnosis Date Abnormal glandular Papanicolaou smear of cervix 2000 Abn. Pap smear (cervix) Anxiety IBS (irritable bowel syndrome) Sinus tachycardia 2012 Tobacco use disorder Previous Surgical History PAST SURGICAL HISTORY Procedure Laterality Date DILATION & CURETTAGE DX&/THER NONOBSTETRIC Dilation & curettage Family History FAMILY HISTORY Problem Relation Age of Onset Diabetes Mother Pre-diabetic Kidney stones Mother Psychiatry Father manic depression, schizoaffective Kidney stones Sister Hypertension Maternal Grandmother Diabetes Maternal Grandmother Heart Attack Maternal Grandfather Lipids Paternal Grandmother Hypertension Paternal Grandmother other (diverticulitis) Paternal Grandmother Emphysema Paternal Grandfather Cancer Paternal Grandfather Lung Patient Allergies ALLERGIES Allergen Reactions Bee Sting Swelling Levaquin [Levofloxa* Other: See Comments agitation Current Medications Current Outpatient Medications on File Prior to Visit Medication Sig fluticasone (FLONASE) 50 mcg/actuation nasal spray Use 2 Sprays in each nostril once daily. Rinse mouth after use. ALPRAZolam (XANAX) 0.25 mg tablet Take 1 tablet by mouth three times a day as needed for up to 30 days. sertraline (ZOLOFT) 100 mg tablet Take 1 tablet by mouth once daily. . 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 metoprolol tartrate, short acting, (LOPRESSOR) 25 mg tablet Take 0.5 tablets by mouth two times a day. For elevated heart rate urea (CARMOL) 40 % Apply to affected area as needed. (Patient not taking: Reported on 07/31/2024) omeprazole (PRILOSEC) 20 mg capsule Take 1 capsule by mouth daily before breakfast. 1/2 hr before meal. EPINEPHrine (EPIPEN) 0.3 mg/0.3 mL auto-injector Use as directed. Go to ED after use. No current facility-administered medications on file prior to visit. Social History Social History Tobacco Use Smoking status: Every Day Current packs/day: 0.50 Average packs/day: 0.5 packs/day for 7.0 years (3.5 ttl pk-yrs) Types: Cigarettes Smokeless tobacco: Never Vaping Use Vaping status: Never Used Substance Use Topics Alcohol use: Not Currently Drug use: No Review of Symptoms REVIEW OF SYSTEMS See HPI EXAM: Temp 37.1 C (98.8 F) LMP 07/14/2024 (Exact Date) SpO2 99% General Appearance: Ill appearing, non toxic. Nose/Sinuses: Reports TTP over right maxillary and frontal sinus. Eyes: PERRLA, EOMI Neck: No reported lymphadenopathy Lungs: No audible wheezing or coughing. Health Maintenance List Influenza Vaccine(1) due on 12/14/2024 DTaP,Tdap,Td Vaccine(5 - Tdap) due on 07/29/2025 Covid-19 Vaccine(1 - season) due on 07/29/2025 Pneumococcal Vaccine(1 of 2 - PCV) due on 07/29/2025 Depression Screening due on 11/03/2024 Cervical Cancer Screening due on 07/29/2029 Hepatitis C Screening Completed HIV Screening Completed ASSESSMENT/PLAN: 1. Viral sinusitis - ICD9: 473.9, 079.99, ICD10: J32.9, B97.89 - Discussed viral etiology and rationale for treatment. - Symptomatic treatment with prn analgesia - Supportive care with fluids and rest - The patient may also use OTC cough and cold meds as needed and nasal saline gtts and suction prn. - Follow up in one week if symptoms persist or sooner if worsening of symptoms I spent a total of 14 minutes on the date of the service which included preparing to see the patient, [id number] patient care, completing clinical documentation, obtaining and/or reviewing separately obtained history, performing a medically appropriate examination, counseling and educating the patient/family/caregiver, and ordering medications, tests, or procedures. Maria C Dolan MD documented in this encounter [facility] 08-17-2024 Telephone encounter Note Ok, will discuss with her at VV. [facility] Work Phone: 08-17-2024 Miscellaneous Notes Ok, will discuss with her at VV. Phoned patient to discuss her coming if for OV vs VV. Patient sated she was unable to come in for OV but reports it's the same thing she came in to [facility] for but on the other side now. Elisha Ramos LPN documented in this encounter [facility] 08-17-2024 Telephone encounter Note Phoned patient to discuss her coming if for OV vs VV. Patient sated she was unable to come in for OV but reports it's the same thing she came in to EC for but on the other side now. Elisha Ramos LPN [facility] 07-31-2024 Note HNO ID: [id number] Author: RICKI PASCUAL APRN.CONSOLIDATOR Service: ? Author Type: Nurse Practitioner Type: Progress Notes Filed: 07/31/2024 18:28 Note Text: Subjective HPI Nontoxic-appearing 34-year-old female presents urgent care chief complaint sinus pressure. Duration of symptoms 1 week. Associated symptoms worsening sinus pressure. OTC medications none today. Denies any significant tenderness. No fevers. Denies chance of . Past medical history prescription medications allergies reviewed. .Patient presents with: Ear Problem: Left ear pressure and pain, sinus pressure and pain in left side of face, x 1 week PAST MEDICAL HISTORY Diagnosis Date Abnormal glandular Papanicolaou smear of cervix 2000 Abn. Pap smear (cervix) Anxiety IBS (irritable bowel syndrome) Sinus tachycardia 2012 Tobacco use disorder PAST SURGICAL HISTORY Procedure Laterality Date DILATION AND CURETTAGE DXAND/THER NONOBSTETRIC Dilation AND curettage ALLERGIES Bee Sting and Levaquin [Levofloxacin] MEDICATIONS ALPRAZolam (XANAX) 0.25 mg tablet Take 1 tablet by mouth three times a day as needed for up to 30 days. sertraline (ZOLOFT) 100 mg tablet Take 1 tablet by mouth once daily. . 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 metoprolol tartrate, short acting, (LOPRESSOR) 25 mg tablet Take 0.5 tablets by mouth two times a day. For elevated heart rate urea (CARMOL) 40 % Apply to affected area as needed. (Patient not taking: Reported on 07/31/2024) omeprazole (PRILOSEC) 20 mg capsule Take 1 capsule by mouth daily before breakfast. 1/2 hr before meal. EPINEPHrine (EPIPEN) 0.3 mg/0.3 mL auto-injector Use as directed. Go to ED after use. FAMILY HISTORY Problem Relation Age of Onset Diabetes Mother Pre-diabetic Kidney stones Mother Psychiatry Father manic depression, schizoaffective Kidney stones Sister Hypertension Maternal Grandmother Diabetes Maternal Grandmother Heart Attack Maternal Grandfather Lipids Paternal Grandmother Hypertension Paternal Grandmother other (diverticulitis) Paternal Grandmother Emphysema Paternal Grandfather Cancer Paternal Grandfather Lung Social History Tobacco Use Smoking status: Every Day Current packs/day: 0.50 Average packs/day: 0.5 packs/day for 7.0 years (3.5 ttl pk-yrs) Types: Cigarettes Smokeless tobacco: Never Vaping Use Vaping status: Never Used Substance Use Topics Alcohol use: Not Currently Drug use: No BP 108/69 Pulse 91 Temp 36.9 ?C (98.4 ?F) Resp 22 Wt 46 kg (101 lb 6.6 oz) LMP 08/08/2023 (Exact Date) SpO2 100% BMI 17.03 kg/m? Review of Systems Constitutional: Negative for chills, fever and malaise/fatigue. HENT: Positive for congestion, ear pain and sinus pain. Negative for ear discharge and sore throat. Eyes: Negative for blurred vision, pain, discharge and redness. Respiratory: Negative for cough, hemoptysis, sputum production, shortness of breath, wheezing and stridor. Cardiovascular: Negative for chest pain. Gastrointestinal: Negative for abdominal pain, diarrhea, nausea and vomiting. Musculoskeletal: Negative for myalgias. Skin: Negative for itching and rash. Neurological: Negative for dizziness and headaches. Objective Physical Exam HENT: Head: Normocephalic. Jaw: No trismus, tenderness, swelling or pain on movement. Right Ear: Tympanic membrane, ear canal and external ear normal. Left Ear: Tympanic membrane, ear canal and external ear normal. Nose: Congestion present. Left Sinus: Maxillary sinus tenderness and frontal sinus tenderness present. Mouth/Throat: Mouth: Mucous membranes are moist. Pharynx: Oropharynx is clear. Uvula midline. No oropharyngeal exudate or posterior oropharyngeal erythema. Eyes: Pupils: Pupils are equal, round, and reactive to light. Cardiovascular: Rate and Rhythm: Normal rate. Pulmonary: Effort: Pulmonary effort is normal. No accessory muscle usage, respiratory distress or retractions. Breath sounds: No stridor. No wheezing, rhonchi or rales. Abdominal: Palpations: Abdomen is soft. Tenderness: There is no abdominal tenderness. There is no guarding or rebound. Musculoskeletal: Cervical back: No erythema or tenderness. No pain with movement. Normal range of motion. Lymphadenopathy: Cervical: No cervical adenopathy. Neurological: General: No focal deficit present. Mental Status: She is alert and oriented to person, place, and time. Mental status is at baseline. ASSESSMENT/PLAN: 1. Bacterial sinusitis - ICD9: 473.9, 041.9, ICD10: J32.9, B96.89 Diagnosis bacterial sinusitis. Patient was educated on supportive therapies. Patient will follow up with primary care provider as needed. Patient was instructed to immediately proceed to emergency room for any new, worsening, or symptoms lasting longer than anticipated. The patient's clinical presentation is otherwise unremarkable at this time. Based on exam and clinical finding, the pat (more content not included)... [facility] 07-31-2024 History of Presen t illness Narrative Subjective HPI Nontoxic-appearing 34-year-old female presents urgent care chief complaint sinus pressure. Duration of symptoms 1 week. Associated symptoms worsening sinus pressure. OTC medications none today. Denies any significant tenderness. No fevers. Denies chance of . Past medical history prescription medications allergies reviewed. .Patient presents with: Ear Problem: Left ear pressure and pain, sinus pressure and pain in left side of face, x 1 week PAST MEDICAL HISTORY Diagnosis Date Abnormal glandular Papanicolaou smear of cervix 2000 Abn. Pap smear (cervix) Anxiety IBS (irritable bowel syndrome) Sinus tachycardia 2012 Tobacco use disorder PAST SURGICAL HISTORY Procedure Laterality Date DILATION & CURETTAGE DX&/THER NONOBSTETRIC Dilation & curettage ALLERGIES Bee Sting and Levaquin [Levofloxacin] MEDICATIONS ALPRAZolam (XANAX) 0.25 mg tablet Take 1 tablet by mouth three times a day as needed for up to 30 days. sertraline (ZOLOFT) 100 mg tablet Take 1 tablet by mouth once daily. . 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 metoprolol tartrate, short acting, (LOPRESSOR) 25 mg tablet Take 0.5 tablets by mouth two times a day. For elevated heart rate urea (CARMOL) 40 % Apply to affected area as needed. (Patient not taking: Reported on 07/31/2024) omeprazole (PRILOSEC) 20 mg capsule Take 1 capsule by mouth daily before breakfast. 1/2 hr before meal. EPINEPHrine (EPIPEN) 0.3 mg/0.3 mL auto-injector Use as directed. Go to ED after use. FAMILY HISTORY Problem Relation Age of Onset Diabetes Mother Pre-diabetic Kidney stones Mother Psychiatry Father manic depression, schizoaffective Kidney stones Sister Hypertension Maternal Grandmother Diabetes Maternal Grandmother Heart Attack Maternal Grandfather Lipids Paternal Grandmother Hypertension Paternal Grandmother other (diverticulitis) Paternal Grandmother Emphysema Paternal Grandfather Cancer Paternal Grandfather Lung Social History Tobacco Use Smoking status: Every Day Current packs/day: 0.50 Average packs/day: 0.5 packs/day for 7.0 years (3.5 ttl pk-yrs) Types: Cigarettes Smokeless tobacco: Never Vaping Use Vaping status: Never Used Substance Use Topics Alcohol use: Not Currently Drug use: No BP 108/69 Pulse 91 Temp 36.9 C (98.4 F) Resp 22 Wt 46 kg (101 lb 6.6 oz) LMP 08/08/2023 (Exact Date) SpO2 100% BMI 17.03 kg/m Review of Systems Constitutional: Negative for chills, fever and malaise/fatigue. HENT: Positive for congestion, ear pain and sinus pain. Negative for ear discharge and sore throat. Eyes: Negative for blurred vision, pain, discharge and redness. Respiratory: Negative for cough, hemoptysis, sputum production, shortness of breath, wheezing and stridor. Cardiovascular: Negative for chest pain. Gastrointestinal: Negative for abdominal pain, diarrhea, nausea and vomiting. Musculoskeletal: Negative for myalgias. Skin: Negative for itching and rash. Neurological: Negative for dizziness and headaches. Objective Physical Exam HENT: Head: Normocephalic. Jaw: No trismus, tenderness, swelling or pain on movement. Right Ear: Tympanic membrane, ear canal and external ear normal. Left Ear: Tympanic membrane, ear canal and external ear normal. Nose: Congestion present. Left Sinus: Maxillary sinus tenderness and frontal sinus tenderness present. Mouth/Throat: Mouth: Mucous membranes are moist. Pharynx: Oropharynx is clear. Uvula midline. No oropharyngeal exudate or posterior oropharyngeal erythema. Eyes: Pupils: Pupils are equal, round, and reactive to light. Cardiovascular: Rate and Rhythm: Normal rate. Pulmonary: Effort: Pulmonary effort is normal. No accessory muscle usage, respiratory distress or retractions. Breath sounds: No stridor. No wheezing, rhonchi or rales. Abdominal: Palpations: Abdomen is soft. Tenderness: There is no abdominal tenderness. There is no guarding or rebound. Musculoskeletal: Cervical back: No erythema or tenderness. No pain with movement. Normal range of motion. Lymphadenopathy: Cervical: No cervical adenopathy. Neurological: General: No focal deficit present. Mental Status: She is alert and oriented to person, place, and time. Mental status is at baseline. ASSESSMENT/PLAN: 1. Bacterial sinusitis - ICD9: 473.9, 041.9, ICD10: J32.9, B96.89 Diagnosis bacterial sinusitis. Patient was educated on supportive therapies. Patient will follow up with primary care provider as needed. Patient was instructed to immediately proceed to emergency room for any new, worsening, or symptoms lasting longer than anticipated. The patient's clinical presentation is otherwise unremarkable at this time. Based on exam and clinical finding, the patient is stable for discharge. Plan of care was discussed with patient. Patient verbalizes understanding and agrees to plan of care. This note was generated using Memamp software. It may contain errors in wording, punctuation, or spelling. Ricki Pascual APRN.ZEE documented in this encounter [facility] 07-29-2024 Note HNO ID: [id number] Author: BEREKET ASHLEY MD Service: ? Author Type: Physician Type: Progress Notes Filed: 07/29/2024 09:00 Note Text: Patient presents with: Follow Up HPI:This visit is a virtual encounter. It required patient-provider interaction for the medical decision making as documented below. Patient has elected to have a visit through distance medicine I have communicated my name and active licensure. The patient's identity and physical location were verified at the time of this visit. Either the patient or their legal underwriting sales representative has been informed of the risks and benefits of -- and alternatives to -- treatment through a remote evaluation and consents to proceed with the evaluation remotely. They felt she might have a clinical pneumonia at urgent care in May. Xray was negative. Had a panic attack yesterday. First in a while. Her xanax is really old. Normally still taking her zoloft. Has switched jobs. Gi issues are improving. Still has occasional palpitations. Did take metoprolol when had pneumonia. No chest pain. Breathing is doing well. Was mildly anemic. Still with menses. Has been trying to get more iron in the diet. Using a flinstones with iron to help. Latest Ref Rng 04/23/2024 WBC 3.70 - 11.00 k/uL 5.78 RBC 3.90 - 5.20 m/uL 3.52 (L) Hemoglobin 11.5 - 15.5 g/dL 11.4 (L) Hematocrit 36.0 - 46.0 % 34.9 (L) MCV 80.0 - 100.0 fL 99.1 MCH 26.0 - 34.0 pg 32.4 MCHC 30.5 - 36.0 g/dL 32.7 RDW-CV 11.5 - 15.0 % 12.9 Platelet Count 150 - 400 k/uL 166 MPV 9.0 - 12.7 fL 11.2 Neut% % 33.8 Abs Neut (ANC) 1.45 - 7.50 k/uL 1.96 Lymph% % 50.9 Abs Lymph 1.00 - 4.00 k/uL 2.94 Carson% % 11.1 Abs Carson <0.87 k/uL 0.64 Eosin% % 3.3 Abs Eosin <0.46 k/uL 0.19 Baso% % 0.7 Abs Baso <0.11 k/uL 0.04 Immature Gran % % 0.2 IMMATURE GRANS (ABS) <0.10 k/uL <0.03 NRBC /100 WBC 0.0 Absolute nRBC <0.01 k/uL <0.01 DTYPE Auto Protein, Total 6.3 - 8.0 g/dL 7.3 Albumin 3.9 - 4.9 g/dL 4.6 Calcium 8.5 - 10.2 mg/dL 9.2 Bilirubin, Total 0.2 - 1.3 mg/dL 0.2 Alkaline Phosphatase 34 - 123 U/L 40 AST 13 - 35 U/L 18 ALT 7 - 38 U/L 11 Glucose 74 - 99 mg/dL 107 (H) BUN 7 - 21 mg/dL 7 Creatinine 0.58 - 0.96 mg/dL 0.64 Sodium 136 - 144 mmol/L 141 Potassium 3.7 - 5.1 mmol/L 4.0 Chloride 98 - 107 mmol/L 104 CO2 22 - 30 mmol/L 22 Anion Gap 8 - 15 mmol/L 15 eGFR >=60 mL/min/1.73m? 116 Lipase 16 - 61 U/L 39 TSH 0.270 - 4.200 mIU/L 1.470 Legend: (L) Low (H) High MEDICATIONS: Current Outpatient Medications Medication Sig dicyclomine (BENTYL) 10 mg capsule Take 1 capsule by mouth before meals and at bedtime. famotidine (PEPCID) 20 mg tablet Take 1 tablet by mouth daily at bedtime. sertraline (ZOLOFT) 100 mg tablet Take 1 tablet by mouth once daily. . 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 metoprolol tartrate, short acting, (LOPRESSOR) 25 mg tablet Take 0.5 tablets by mouth two times a day. For elevated heart rate urea (CARMOL) 40 % Apply to affected area as needed. omeprazole (PRILOSEC) 20 mg capsule Take 1 capsule by mouth daily before breakfast. 1/2 hr before meal. ALPRAZolam (XANAX) 0.25 mg tablet Take 0.25 mg by mouth. EPINEPHrine (EPIPEN) 0.3 mg/0.3 mL auto-injector Use as directed. Go to ED after use. No current facility-administered medications for this visit. ALLERGIES: ALLERGIES Allergen Reactions Bee Sting Swelling PAST MEDICAL HISTORY Diagnosis Date Abnormal glandular Papanicolaou smear of cervix 2000 Abn. Pap smear (cervix) Anxiety IBS (irritable bowel syndrome) Sinus tachycardia 2012 Tobacco use disorder PAST SURGICAL HISTORY Procedure Laterality Date DILATION AND CURETTAGE DXAND/THER NONOBSTETRIC Dilation AND curettage FAMILY HISTORY Problem Relation Age of Onset Diabetes Mother Pre-diabetic Kidney stones Mother Psychiatry Father manic depression, schizoaffective Kidney stones Sister Hypertension Maternal Grandmother Diabetes Maternal Grandmother Heart Attack Maternal Grandfather Lipids Paternal Grandmother Hypertension Paternal Grandmother other (diverticulitis) Paternal Grandmother Emphysema Paternal Grandfather Cancer Paternal Grandfather Lung Social History Tobacco Use Smoking status: Every Day Current packs/day: 0.50 Average packs/day: 0.5 packs/day for 7.0 years (3.5 ttl pk-yrs) Types: Cigarettes Smokeless tobacco: Never Vaping Use Vaping status: Never Used Substance Use Topics Alcohol use: Not Currently Drug use: No Reviewed current medications, allergies, past medical history, surgical history, family history and social history today. REVIEW OF SYSTEMS All other reviewed and negative other than HPI. HEALTH MAINTENANCE: Reviewed health maintenance issues today and recommended the following in detail. Pneumococcal Vaccine(1 of 2 - PCV) Never done DTaP,Tdap,Td Vaccine(5 - Tdap) due on 02/05/2010 Influenza Vaccine(1) due on 02/16/2024 Covid-19 Vaccine(1 (more content not included)... [facility] History of Presen t illness Narrative Patient presents with: Follow Up HPI:This visit is a virtual encounter. It required patient-provider interaction for the medical decision making as documented below. Patient has elected to have a visit through distance medicine I have communicated my name and active licensure. The patient's identity and physical location were verified at the time of this visit. Either the patient or their legal underwriting sales representative has been informed of the risks and benefits of -- and alternatives to -- treatment through a remote evaluation and consents to proceed with the evaluation remotely. They felt she might have a clinical pneumonia at urgent care in May. Xray was negative. Had a panic attack yesterday. First in a while. Her xanax is really old. Normally still taking her zoloft. Has switched jobs. Gi issues are improving. Still has occasional palpitations. Did take metoprolol when had pneumonia. No chest pain. Breathing is doing well. Was mildly anemic. Still with menses. Has been trying to get more iron in the diet. Using a flinstones with iron to help. Latest Ref Rng 04/23/2024 WBC 3.70 - 11.00 k/uL 5.78 RBC 3.90 - 5.20 m/uL 3.52 (L) Hemoglobin 11.5 - 15.5 g/dL 11.4 (L) Hematocrit 36.0 - 46.0 % 34.9 (L) MCV 80.0 - 100.0 fL 99.1 MCH 26.0 - 34.0 pg 32.4 MCHC 30.5 - 36.0 g/dL 32.7 RDW-CV 11.5 - 15.0 % 12.9 Platelet Count 150 - 400 k/uL 166 MPV 9.0 - 12.7 fL 11.2 Neut% % 33.8 Abs Neut (ANC) 1.45 - 7.50 k/uL 1.96 Lymph% % 50.9 Abs Lymph 1.00 - 4.00 k/uL 2.94 Carson% % 11.1 Abs Carson <0.87 k/uL 0.64 Eosin% % 3.3 Abs Eosin <0.46 k/uL 0.19 Baso% % 0.7 Abs Baso <0.11 k/uL 0.04 Immature Gran % % 0.2 IMMATURE GRANS (ABS) <0.10 k/uL <0.03 NRBC /100 WBC 0.0 Absolute nRBC <0.01 k/uL <0.01 DTYPE Auto Protein, Total 6.3 - 8.0 g/dL 7.3 Albumin 3.9 - 4.9 g/dL 4.6 Calcium 8.5 - 10.2 mg/dL 9.2 Bilirubin, Total 0.2 - 1.3 mg/dL 0.2 Alkaline Phosphatase 34 - 123 U/L 40 AST 13 - 35 U/L 18 ALT 7 - 38 U/L 11 Glucose 74 - 99 mg/dL 107 (H) BUN 7 - 21 mg/dL 7 Creatinine 0.58 - 0.96 mg/dL 0.64 Sodium 136 - 144 mmol/L 141 Potassium 3.7 - 5.1 mmol/L 4.0 Chloride 98 - 107 mmol/L 104 CO2 22 - 30 mmol/L 22 Anion Gap 8 - 15 mmol/L 15 eGFR >=60 mL/min/1.73m 116 Lipase 16 - 61 U/L 39 TSH 0.270 - 4.200 mIU/L 1.470 Legend: (L) Low (H) High MEDICATIONS: Current Outpatient Medications Medication Sig dicyclomine (BENTYL) 10 mg capsule Take 1 capsule by mouth before meals and at bedtime. famotidine (PEPCID) 20 mg tablet Take 1 tablet by mouth daily at bedtime. sertraline (ZOLOFT) 100 mg tablet Take 1 tablet by mouth once daily. . 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 metoprolol tartrate, short acting, (LOPRESSOR) 25 mg tablet Take 0.5 tablets by mouth two times a day. For elevated heart rate urea (CARMOL) 40 % Apply to affected area as needed. omeprazole (PRILOSEC) 20 mg capsule Take 1 capsule by mouth daily before breakfast. 1/2 hr before meal. ALPRAZolam (XANAX) 0.25 mg tablet Take 0.25 mg by mouth. EPINEPHrine (EPIPEN) 0.3 mg/0.3 mL auto-injector Use as directed. Go to ED after use. No current facility-administered medications for this visit. ALLERGIES: ALLERGIES Allergen Reactions Bee Sting Swelling PAST MEDICAL HISTORY Diagnosis Date Abnormal glandular Papanicolaou smear of cervix 2000 Abn. Pap smear (cervix) Anxiety IBS (irritable bowel syndrome) Sinus tachycardia 2012 Tobacco use disorder PAST SURGICAL HISTORY Procedure Laterality Date DILATION & CURETTAGE DX&/THER NONOBSTETRIC Dilation & curettage FAMILY HISTORY Problem Relation Age of Onset Diabetes Mother Pre-diabetic Kidney stones Mother Psychiatry Father manic depression, schizoaffective Kidney stones Sister Hypertension Maternal Grandmother Diabetes Maternal Grandmother Heart Attack Maternal Grandfather Lipids Paternal Grandmother Hypertension Paternal Grandmother other (diverticulitis) Paternal Grandmother Emphysema Paternal Grandfather Cancer Paternal Grandfather Lung Social History Tobacco Use Smoking status: Every Day Current packs/day: 0.50 Average packs/day: 0.5 packs/day for 7.0 years (3.5 ttl pk-yrs) Types: Cigarettes Smokeless tobacco: Never Vaping Use Vaping status: Never Used Substance Use Topics Alcohol use: Not Currently Drug use: No Reviewed current medications, allergies, past medical history, surgical history, family history and social history today. REVIEW OF SYSTEMS All other reviewed and negative other than HPI. HEALTH MAINTENANCE: Reviewed health maintenance issues today and recommended the following in detail. Pneumococcal Vaccine(1 of 2 - PCV) Never done DTaP,Tdap,Td Vaccine(5 - Tdap) due on 02/05/2010 Influenza Vaccine(1) due on 02/16/2024 Covid-19 Vaccine(1 - 2023- season) Never done Cervical Cancer Screening due on 05/01/2024 VITALS: Could not assess Last 4 Encounter Wt Readings: Date: Wt: 08/20/2023 47.3 kg (104 lb 3.2 oz) 08/06/2023 47.6 kg (105 lb) 09/27/2022 46.5 kg (102 lb 9.6 oz) 04/24/2022 48.1 kg (106 lb) PHYSICAL EXAMINATION: Patient is alert and oriented during visit. Answers appropriately. Breathing comfortably.. chest rise normal. No audible wheeze. No pallor. ASSESSMENT/PLAN: 1. Sinus tachycardia - ICD9: 427.89, ICD10: R00.0 (primary diagnosis) - stable. Continue meds. 2. Irritable bowel syndrome without diarrhea - ICD9: 564.1, ICD10: K58.9 - doing better, with stress reduction. 3. Anxiety - ICD9: 300.00, ICD10: F41.9 - refilled meds. Red flags for re-assessment reviewed with patient in detail. - ALPRAZOLAM 0.25 MG TABLET - SERTRALINE 100 MG TABLET 4. Anemia, unspecified type - ICD9: 285.9, ICD10: D64.9 - continue vitamin with iron. Likely related to menses.recheck labs. - COMPLETE BLOOD COUNT AND DIFFERENTIAL - IRON AND TIBC - VITAMIN B12 - FOLATE, SERUM 5. Panic disorder with agoraphobia - ICD9: 300.21, ICD10: F40.01 - discussed anxiety reducing exercises. Continue meds. Oarrs done. Aware of risks. Use is quite minimal of xanax. - ALPRAZOLAM 0.25 MG TABLET - SERTRALINE 100 MG TABLET Bereket Ashley MD I spent 20 minutes in the visit, with more than 50% of the total [id number] time of the visit in counseling / coordination of care. documented in this encounter [facility] 07-23-2024 Note HNO ID: [id number] Author: BRENNEN ROYAL APRN.CONSOLIDATOR Service: ? Author Type: Nurse Practitioner Type: Progress Notes Filed: 07/23/2024 12:02 Note Text: VIRTUAL VISIT PROGRESS NOTE This is a virtual visit using VSHOREom Video Visit. It required patient-provider interaction for the medical decision making as documented below. I have communicated my name and active licensure. The patient's identity and physical location were verified at the time of this visit. Either the patient or their legal underwriting sales representative has been informed of the risks and benefits of -- and alternatives to -- treatment through a remote evaluation and consents to proceed with the evaluation remotely. Gracie Avelar is a 38 year old female seen for concerns about symptoms. Patient took plan B on Saturday and felt fine until Saturday. On Saturday she began having hot flashes and nausea that comes in waves. Some abdominal cramping which is mild. Denies vaginal bleeding, vomiting. HISTORY REVIEWED (electronic chart updated): PAST MEDICAL HISTORY Diagnosis Date Abnormal glandular Papanicolaou smear of cervix 2000 Abn. Pap smear (cervix) Anxiety IBS (irritable bowel syndrome) Sinus tachycardia 2012 Tobacco use disorder PAST SURGICAL HISTORY Procedure Laterality Date DILATION AND CURETTAGE DXAND/THER NONOBSTETRIC Dilation AND curettage FAMILY HISTORY Problem Relation Age of Onset Diabetes Mother Pre-diabetic Kidney stones Mother Psychiatry Father manic depression, schizoaffective Kidney stones Sister Hypertension Maternal Grandmother Diabetes Maternal Grandmother Heart Attack Maternal Grandfather Lipids Paternal Grandmother Hypertension Paternal Grandmother other (diverticulitis) Paternal Grandmother Emphysema Paternal Grandfather Cancer Paternal Grandfather Lung Social History Tobacco Use Smoking status: Every Day Current packs/day: 0.50 Average packs/day: 0.5 packs/day for 7.0 years (3.5 ttl pk-yrs) Types: Cigarettes Smokeless tobacco: Never Vaping Use Vaping status: Never Used Substance Use Topics Alcohol use: Not Currently Drug use: No Current Outpatient Medications Medication Sig dicyclomine (BENTYL) 10 mg capsule Take 1 capsule by mouth before meals and at bedtime. famotidine (PEPCID) 20 mg tablet Take 1 tablet by mouth daily at bedtime. sertraline (ZOLOFT) 100 mg tablet Take 1 tablet by mouth once daily. . 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 metoprolol tartrate, short acting, (LOPRESSOR) 25 mg tablet Take 0.5 tablets by mouth two times a day. For elevated heart rate urea (CARMOL) 40 % Apply to affected area as needed. omeprazole (PRILOSEC) 20 mg capsule Take 1 capsule by mouth daily before breakfast. 1/2 hr before meal. ALPRAZolam (XANAX) 0.25 mg tablet Take 0.25 mg by mouth. EPINEPHrine (EPIPEN) 0.3 mg/0.3 mL auto-injector Use as directed. Go to ED after use. No current facility-administered medications for this visit. ALLERGIES Allergen Reactions Bee Sting Swelling REVIEW OF SYSTEMS: SEE HPI PHYSICAL EXAMINATION: VIDEO EXAM: (if completed, performed via video enabled technology) GENERAL: alert and appropriate, in no distress, well-hydrated, well nourished, and happy, smiling, interactive ASSESSMENT/PLAN: 1. Nausea - ICD9: 787.02, ICD10: R11.0 (primary diagnosis) 2. Hot flashes - ICD9: 782.62, ICD10: R23.2 Likely side effects of Plan B taken on 07/18. No fever chills. Patient educated to follow up if severe abdominal pain, severe vaginal bleeding or if symptoms persist for longer than 2 weeks. I spent a total of 13 minutes on the date of the service which included preparing to see the patient, [id number] patient care, completing clinical documentation, obtaining and/or reviewing separately obtained history, performing a medically appropriate examination, counseling and educating the patient/family/caregiver, ordering medications, tests, or procedures, and communicating results to the patient/family/caregiver Brennen Royal APRN.[facility] 07-23-2024 History of Presen t illness Narrative VIRTUAL VISIT PROGRESS NOTE This is a virtual visit using VSHOREom Video Visit. It required patient-provider interaction for the medical decision making as documented below. I have communicated my name and active licensure. The patient's identity and physical location were verified at the time of this visit. Either the patient or their legal underwriting sales representative has been informed of the risks and benefits of -- and alternatives to -- treatment through a remote evaluation and consents to proceed with the evaluation remotely. Gracie Avelar is a 38 year old female seen for concerns about symptoms. Patient took plan B on Saturday and felt fine until Saturday. On Saturday she began having hot flashes and nausea that comes in waves. Some abdominal cramping which is mild. Denies vaginal bleeding, vomiting. HISTORY REVIEWED (electronic chart updated): PAST MEDICAL HISTORY Diagnosis Date Abnormal glandular Papanicolaou smear of cervix 2000 Abn. Pap smear (cervix) Anxiety IBS (irritable bowel syndrome) Sinus tachycardia 2012 Tobacco use disorder PAST SURGICAL HISTORY Procedure Laterality Date DILATION & CURETTAGE DX&/THER NONOBSTETRIC Dilation & curettage FAMILY HISTORY Problem Relation Age of Onset Diabetes Mother Pre-diabetic Kidney stones Mother Psychiatry Father manic depression, schizoaffective Kidney stones Sister Hypertension Maternal Grandmother Diabetes Maternal Grandmother Heart Attack Maternal Grandfather Lipids Paternal Grandmother Hypertension Paternal Grandmother other (diverticulitis) Paternal Grandmother Emphysema Paternal Grandfather Cancer Paternal Grandfather Lung Social History Tobacco Use Smoking status: Every Day Current packs/day: 0.50 Average packs/day: 0.5 packs/day for 7.0 years (3.5 ttl pk-yrs) Types: Cigarettes Smokeless tobacco: Never Vaping Use Vaping status: Never Used Substance Use Topics Alcohol use: Not Currently Drug use: No Current Outpatient Medications Medication Sig dicyclomine (BENTYL) 10 mg capsule Take 1 capsule by mouth before meals and at bedtime. famotidine (PEPCID) 20 mg tablet Take 1 tablet by mouth daily at bedtime. sertraline (ZOLOFT) 100 mg tablet Take 1 tablet by mouth once daily. . 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 metoprolol tartrate, short acting, (LOPRESSOR) 25 mg tablet Take 0.5 tablets by mouth two times a day. For elevated heart rate urea (CARMOL) 40 % Apply to affected area as needed. omeprazole (PRILOSEC) 20 mg capsule Take 1 capsule by mouth daily before breakfast. 1/2 hr before meal. ALPRAZolam (XANAX) 0.25 mg tablet Take 0.25 mg by mouth. EPINEPHrine (EPIPEN) 0.3 mg/0.3 mL auto-injector Use as directed. Go to ED after use. No current facility-administered medications for this visit. ALLERGIES Allergen Reactions Bee Sting Swelling REVIEW OF SYSTEMS: SEE HPI PHYSICAL EXAMINATION: VIDEO EXAM: (if completed, performed via video enabled technology) GENERAL: alert and appropriate, in no distress, well-hydrated, well nourished, and happy, smiling, interactive ASSESSMENT/PLAN: 1. Nausea - ICD9: 787.02, ICD10: R11.0 (primary diagnosis) 2. Hot flashes - ICD9: 782.62, ICD10: R23.2 Likely side effects of Plan B taken on 07/18. No fever chills. Patient educated to follow up if severe abdominal pain, severe vaginal bleeding or if symptoms persist for longer than 2 weeks. I spent a total of 13 minutes on the date of the service which included preparing to see the patient, [id number] patient care, completing clinical documentation, obtaining and/or reviewing separately obtained history, performing a medically appropriate examination, counseling and educating the patient/family/caregiver, ordering medications, tests, or procedures, and communicating results to the patient/family/caregiver Brennen Royal APRN.CONSOLIDATOR documented in this encounter [facility] 07-23-2024 Telephone encounter Note Noted. [facility] Work Phone: 07-23-2024 Miscellaneous Notes Noted. Patient called and triaged for symptoms. Patient reports a generalized queasy feeling with hot flashes that started Saturday afternoon. Afebrile. Patient reports that she took the Plan B pill on Saturday and felt fine Saturday and Saturday. She thinks maybe she has a bug because of everything going around. Patient denies any vaginal bleeding, stomach pain or cramping, vomiting, headache, or dizziness. Asked patient about a referral to gynecology and patient would like to talk with provider. Triage recommends see provider within 3 days. VV left per patient request. Jacinda Hernandez RN documented in this encounter [facility] 07-23-2024 Telephone encounter Note Patient called and triaged for symptoms. Patient reports a generalized queasy feeling with hot flashes that started Saturday afternoon. Afebrile. Patient reports that she took the Plan B pill on Saturday and felt fine Saturday and Saturday. She thinks maybe she has a bug because of everything going around. Patient denies any vaginal bleeding, stomach pain or cramping, vomiting, headache, or dizziness. Asked patient about a referral to gynecology and patient would like to talk with provider. Triage recommends see provider within 3 days. VV left per patient request. Jacinda Hernandez RN [facility] 05-20-2024 Evaluation note Diagnosis Onset Date Resolution Pulmonary infiltrate acute Dece mber 2023 4:58pm Pulmonary infiltrate acute Dece mber 2023 1:53[facility] Work Phone: 1(909) 802-963711-14-2024 Telephone encounter Note* Telephone Encounter - Bertha Mendez MA - 04/30/2024 12:05 PM EST Patient notified of provider recommendation and is agreeable with plan. Bertha Mendez MA April 30, 2024 12:07 PM [facility]11-14-2024 Miscellaneous Notes* Telephone Encounter - Bertha Mendez MA - 04/30/2024 12:05 PM EST Patient notified of provider recommendation and is agreeable with plan. Bertha Mendez MA April 30, 2024 12:07 PM * Telephone Encounter - Scott Hawley RN - 04/30/2024 8:02 AM EST Mailbox is full and cannot accept messages at this time. Please try again later. * Telephone Encounter - Ricki Amos MD - 04/29/2024 6:00 PM EST Advise flint stones with iron and take two a day. * Telephone Encounter - Shayy Aguilar LPN - 04/29/2024 8:51 AM EST Pt notified of results. Pt advises that she just started her menstrual cycle yesterday. She advisesthat she doesn't eat a lot of meat. Advises she will try to supplement some iron from foods into her diet. Questions if she should just also take a children's multi vitamin with iron or how much you would recommend she take. Shayy Aguilar LPN * Telephone Encounter - Ricki Amos MD - 04/28/2024 10:05 PM EST Let patient know recent labs were ok except for a very slight anemia. If she just had her menstrualcycle this could be the cause. [facility] Telephone encounter Note * Telephone Encounter - Scott Hawley RN - 04/30/2024 8:02 AM EST Mailbox is full and cannot accept messages at this time. Please try again later. [facility]-13-[facility]24 Telephone encounter Note* Telephone Encounter - Ricki Amos MD - 04/29/2024 6:00 PM EST Advise flint stones with iron and take two a day. [facility]11-13-2024 Telephone encounter Note* Telephone Encounter - Shayy Aguilar LPN - 04/29/2024 8:51 AM EST Pt notified of results. Pt advises that she just started her menstrual cycle yesterday. She advisesthat she doesn't eat a lot of meat. Advises she will try to supplement some iron from foods into her diet. Questions if she should just also take a children's multi vitamin with iron or how much you would recommend she take. Shayy Aguilar LPN [facility]11-12-2024 Telephone encounter Note* Telephone Encounter - Ricki Amos MD - 04/28/2024 10:05 PM EST Let patient know recent labs were ok except for a very slight anemia. If she just had her menstrualcycle this could be the cause. [facility]10-21-2024 NoteHNO ID: [id number] Author: BEREKET ASHLEY MD Service: ? Author Type: Physician Type: Progress Notes Filed: 04/06/2024 14:41 Note Text: Patient presents with: Follow Up HPI:This visit is a virtual encounter. It required patient-provider interaction for the medical decision making as documented below. Patient has elected to have a visit through distance medicine I have communicated my name and active licensure. The patient's identity and physical location were verified at the time of this visit. Either the patient or their legal underwriting sales representative has been informed of the risks and benefits of -- and alternatives to -- treatment through a remote evaluation and consents to proceed with the evaluation remotely. Has been on pepcid. Also on omeprazole. Feels bloated still. No diarrhea. Has loose stools. No heartburn. Has increased belching and burping. No fever. Had a mild headache over weekend. None today. No black or bloody stools. No vomiting. Has had skinny stools at times. No focal pain. See previous: Having gut issues Started about mid February. Got sick to her stomach while at work. Had to take a zofran. Having foul smelling gas and stools. Has slight change in stools. Not channing diarrhea but softer. Bloated. No black or bloody stools. Normal color. No nausea or vomiting. Has had much increased reflux. No definite reflux. No changes in diet. Does not eat much dairy No travel hx. No recent antibiotic usage. No fever or chills. No caffeine or etoh usage changes. No weight loss. Still on omeprazole. MEDICATIONS: Current Outpatient Medications Medication Sig famotidine (PEPCID) 20 mg tablet Take 1 tablet by mouth daily at bedtime. sertraline (ZOLOFT) 100 mg tablet Take 1 tablet by mouth once daily. . 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 metoprolol tartrate, short acting, (LOPRESSOR) 25 mg tablet Take 0.5 tablets by mouth two times a day. For elevated heart rate urea (CARMOL) 40 % Apply to affected area as needed. omeprazole (PRILOSEC) 20 mg capsule Take 1 capsule by mouth daily before breakfast. 1/2 hr before meal. ALPRAZolam (XANAX) 0.25 mg tablet Take 0.25 mg by mouth. EPINEPHrine (EPIPEN) 0.3 mg/0.3 mL auto-injector Use as directed. Go to ED after use. No current facility-administered medications for this visit. ALLERGIES: ALLERGIES Allergen Reactions Bee Sting Swelling PAST MEDICAL HISTORY Diagnosis Date Abnormal glandular Papanicolaou smear of cervix 2000 Abn. Pap smear (cervix) Anxiety IBS (irritable bowel syndrome) Sinus tachycardia 2012 Tobacco use disorder PAST SURGICAL HISTORY Procedure Laterality Date DILATION AND CURETTAGE DXAND/THER NONOBSTETRIC Dilation AND curettage FAMILY HISTORY Problem Relation Age of Onset Diabetes Mother Pre-diabetic Kidney stones Mother Psychiatry Father manic depression, schizoaffective Kidney stones Sister Hypertension Maternal Grandmother Diabetes Maternal Grandmother Heart Attack Maternal Grandfather Lipids Paternal Grandmother Hypertension Paternal Grandmother other (diverticulitis) Paternal Grandmother Emphysema Paternal Grandfather Cancer Paternal Grandfather Lung Social History Tobacco Use Smoking status: Every Day Current packs/day: 0.50 Average packs/day: 0.5 packs/day for 7.0 years (3.5 ttl pk-yrs) Types: Cigarettes Smokeless tobacco: Never Vaping Use Vaping status: Never Used Substance Use Topics Alcohol use: Not Currently Drug use: No Reviewed current medications, allergies, past medical history, surgical history, family history and social history today. REVIEW OF SYSTEMS No chest pain or shortness of breath. All other reviewed and negative other than HPI. VITALS: Could not assess Last 4 Encounter Wt Readings: Date: Wt: 08/20/2023 47.3 kg (104 lb 3.2 oz) 08/06/2023 47.6 kg (105 lb) 09/27/2022 46.5 kg (102 lb 9.6 oz) 04/24/2022 48.1 kg (106 lb) PHYSICAL EXAMINATION: Patient is alert and oriented during visit. Answers appropriately. Breathing comfortably.. chest rise normal. No audible wheeze. Patient notes no irregularity to pulse. ASSESSMENT/PLAN: 1. Bloated abdomen - ICD9: 787.3, ICD10: R14.0 (primary diagnosis) - continue meds. Watch diet. Discussed risks and benefits of new medication with the patient. Advised them to call if any side effects or questions. - Red flags for re-assessment reviewed with patient in detail. - COMPLETE BLOOD COUNT AND DIFFERENTIAL - COMPREHENSIVE METABOLIC PANEL - LIPASE - THYROID STIMULATING HORMONE - CONSULT TO GENERAL SURGERY - DICYCLOMINE 10 MG CAPSULE 2. Sinus tachycardia - ICD9: 427.89, ICD10: R00.0 -s table. 3. Irritable bowel syndrome without diarrhea - ICD9: 564.1, ICD10: K58.9 - stable 4 Anxiety - ICD9: 300.00, ICD10: F41.9 - stable. 5 Gastroesophageal reflux disease without esophagitis - ICD9: 530.81, ICD10: K21.9 - CONSULT TO GENERAL SURGERY - DIC (more content not included)...[facility]10-21-2024 History of Present illness Narrative* Bereket Ashley MD - 04/06/2024 2:29 PM EDT Patient presents with: Follow Up HPI:This visit is a virtual encounter. It required patient-provider interaction for the medical decision making as documented below. Patient has elected to have a visit through distance medicine I have communicated my name and active licensure. The patient's identity and physical location wereverified at the time of this visit. Either the patient or their legal underwriting sales representative has been informed of the risks and benefits of -- and alternatives to -- treatment through a remote evaluation andconsents to proceed with the evaluation remotely. Has been on pepcid. Also on omeprazole. Feels bloated still. No diarrhea. Has loose stools. No heartburn. Has increased belching and burping. No fever. Had a mild headache over weekend. None today. No black or bloody stools. No vomiting. Has had skinny stools at times. No focal pain. See previous: Having gut issues Started about mid February. Got sick to her stomach while at work. Had to take a zofran. Having foul smelling gas and stools. Has slight change in stools. Not channing diarrhea but softer. Bloated. No black or bloody stools. Normal color. No nausea or vomiting. Has had much increased reflux. No definite reflux. No changes in diet. Does not eat much dairy No travel hx. No recent antibiotic usage. No fever or chills. No caffeine or etoh usage changes. No weight loss. Still on omeprazole. MEDICATIONS: Current Outpatient Medications Medication Sig famotidine (PEPCID) 20 mg tablet Take 1 tablet by mouth daily at bedtime. sertraline (ZOLOFT) 100 mg tablet Take 1 tablet by mouth once daily. . 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 metoprolol tartrate, short acting, (LOPRESSOR) 25 mg tablet Take 0.5 tablets by mouth two times a day. For elevated heart rate urea (CARMOL) 40 % Apply to affected area as needed. omeprazole (PRILOSEC) 20 mg capsule Take 1 capsule by mouth daily before breakfast. 1/2 hr before meal. ALPRAZolam (XANAX) 0.25 mg tablet Take 0.25 mg by mouth. EPINEPHrine (EPIPEN) 0.3 mg/0.3 mL auto-injector Use as directed. Go to ED after use. No current facility-administered medications for this visit. ALLERGIES: ALLERGIES Allergen Reactions Bee Sting Swelling PAST MEDICAL HISTORY Diagnosis Date Abnormal glandular Papanicolaou smear of cervix 2000 Abn. Pap smear (cervix) Anxiety IBS (irritable bowel syndrome) Sinus tachycardia 2012 Tobacco use disorder PAST SURGICAL HISTORY Procedure Laterality Date DILATION & CURETTAGE DX&/THER NONOBSTETRIC Dilation & curettage FAMILY HISTORY Problem Relation Age of Onset Diabetes Mother Pre-diabetic Kidney stones Mother Psychiatry Father manic depression, schizoaffective Kidney stones Sister Hypertension Maternal Grandmother Diabetes Maternal Grandmother Heart Attack Maternal Grandfather Lipids Paternal Grandmother Hypertension Paternal Grandmother other (diverticulitis) Paternal Grandmother Emphysema Paternal Grandfather Cancer Paternal Grandfather Lung Social History Tobacco Use Smoking status: Every Day Current packs/day: 0.50 Average packs/day: 0.5 packs/day for 7.0 years (3.5 ttl pk-yrs) Types: Cigarettes Smokeless tobacco: Never Vaping Use Vaping status: Never Used Substance Use Topics Alcohol use: Not Currently Drug use: No Reviewed current medications, allergies, past medical history, surgical history, family history andsocial history today. REVIEW OF SYSTEMS No chest pain or shortness of breath. All other reviewed and negative other than HPI. VITALS: Could not assess Last 4 Encounter Wt Readings: Date: Wt: 08/20/2023 47.3 kg (104 lb 3.2 oz) 08/06/2023 47.6 kg (105 lb) 09/27/2022 46.5 kg (102 lb 9.6 oz) 04/24/2022 48.1 kg (106 lb) PHYSICAL EXAMINATION: Patient is alert and oriented during visit. Answers appropriately. Breathing comfortably.. chest rise normal. No audible wheeze. Patient notes no irregularity to pulse. ASSESSMENT/PLAN: 1. Bloated abdomen - ICD9: 787.3, ICD10: R14.0 (primary diagnosis) - continue meds. Watch diet. Discussed risks and benefits of new medication with the patient. Advised them to call if any side effects or questions. - Red flags for re-assessment reviewed with patient in detail. - COMPLETE BLOOD COUNT AND DIFFERENTIAL - COMPREHENSIVE METABOLIC PANEL - LIPASE - THYROID STIMULATING HORMONE - CONSULT TO GENERAL SURGERY - DICYCLOMINE 10 MG CAPSULE 2. Sinus tachycardia - ICD9: 427.89, ICD10: R00.0 -s table. 3. Irritable bowel syndrome without diarrhea - ICD9: 564.1, ICD10: K58.9 - stable 4 Anxiety - ICD9: 300.00, ICD10: F41.9 - stable. 5 Gastroesophageal reflux disease without esophagitis - ICD9: 530.81, ICD10: K21.9 - CONSULT TO GENERAL SURGERY - DICYCLOMINE 10 MG CAPSULE 6. Change in bowel function - ICD9: 787.99, ICD10: R19.8 - COMPLETE BLOOD COUNT AND DIFFERENTIAL - COMPREHENSIVE METABOLIC PANEL - LIPASE - THYROID STIMULATING HORMONE - CONSULT TO GENERAL SURGERY - DICYCLOMINE 10 MG CAPSULE Bereket Ashley MD documented in this encounterUniversity [facility]als [facility]10-14-[facility]24 NoteHNO ID: [id number] Author: BEREKET ASHLEY MD Service: ? Author Type: Physician Type: Progress Notes Filed: 03/30/2024 17:34 Note Text: Patient presents with: Acute Visit HPI:This visit is a virtual encounter. It required patient-provider interaction for the medical decision making as documented below. Patient has elected to have a visit through distance medicine I have communicated my name and active licensure. The patient's identity and physical location were verified at the time of this visit. Either the patient or their legal underwriting sales representative has been informed of the risks and benefits of -- and alternatives to -- treatment through a remote evaluation and consents to proceed with the evaluation remotely. Having gut issues Started about mid February. Got sick to her stomach while at work. Had to take a zofran. Having foul smelling gas and stools. Has slight change in stools. Not channing diarrhea but softer. Bloated. No black or bloody stools. Normal color. No nausea or vomiting. Has had much increased reflux. No definite reflux. No changes in diet. Does not eat much dairy No travel hx. No recent antibiotic usage. No fever or chills. No caffeine or etoh usage changes. No weight loss. Still on omeprazole. MEDICATIONS: Current Outpatient Medications Medication Sig sertraline (ZOLOFT) 100 mg tablet Take 1 tablet by mouth once daily. . 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 metoprolol tartrate, short acting, (LOPRESSOR) 25 mg tablet Take 0.5 tablets by mouth two times a day. For elevated heart rate urea (CARMOL) 40 % Apply to affected area as needed. omeprazole (PRILOSEC) 20 mg capsule Take 1 capsule by mouth daily before breakfast. 1/2 hr before meal. ALPRAZolam (XANAX) 0.25 mg tablet Take 0.25 mg by mouth. EPINEPHrine (EPIPEN) 0.3 mg/0.3 mL auto-injector Use as directed. Go to ED after use. No current facility-administered medications for this visit. ALLERGIES: ALLERGIES Allergen Reactions Bee Sting Swelling PAST MEDICAL HISTORY Diagnosis Date Abnormal glandular Papanicolaou smear of cervix 2000 Abn. Pap smear (cervix) Anxiety IBS (irritable bowel syndrome) Sinus tachycardia 2012 Tobacco use disorder PAST SURGICAL HISTORY Procedure Laterality Date DILATION AND CURETTAGE DXAND/THER NONOBSTETRIC Dilation AND curettage FAMILY HISTORY Problem Relation Age of Onset Diabetes Mother Pre-diabetic Kidney stones Mother Psychiatry Father manic depression, schizoaffective Kidney stones Sister Hypertension Maternal Grandmother Diabetes Maternal Grandmother Heart Attack Maternal Grandfather Lipids Paternal Grandmother Hypertension Paternal Grandmother other (diverticulitis) Paternal Grandmother Emphysema Paternal Grandfather Cancer Paternal Grandfather Lung Social History Tobacco Use Smoking status: Every Day Current packs/day: 0.50 Average packs/day: 0.5 packs/day for 7.0 years (3.5 ttl pk-yrs) Types: Cigarettes Smokeless tobacco: Never Vaping Use Vaping status: Never Used Substance Use Topics Alcohol use: Not Currently Drug use: No Reviewed current medications, allergies, past medical history, surgical history, family history and social history today. REVIEW OF SYSTEMS All other reviewed and negative other than HPI. VITALS: Could not assess Last 4 Encounter Wt Readings: Date: Wt: 08/20/2023 47.3 kg (104 lb 3.2 oz) 08/06/2023 47.6 kg (105 lb) 09/27/2022 46.5 kg (102 lb 9.6 oz) 04/24/2022 48.1 kg (106 lb) PHYSICAL EXAMINATION: Patient is alert and oriented during visit. Answers appropriately. Breathing comfortably.. chest rise normal. No audible wheeze. Patient notes no irregularity to pulse. Normal cap refill. ASSESSMENT/PLAN: 1. Gastroesophageal reflux disease without esophagitis - ICD9: 530.81, ICD10: K21.9 (primary diagnosis) - add probiotic. Discussed risks and benefits of new medication with the patient. Advised them to call if any side effects or questions. - call with update in one to two weeks or prn. - FAMOTIDINE 20 MG TABLET 2. Bloated abdomen - ICD9: 787.3, ICD10: R14.0 -as above. Consider gi/surgery appt it continues or worsens. - FAMOTIDINE 20 MG TABLET Bereket Ashley [facility]10-14-2024 History of Present illness Narrative* Bereket Ashley MD - 03/30/2024 5:22 PM EDT Patient presents with: Acute Visit HPI:This visit is a virtual encounter. It required patient-provider interaction for the medical decision making as documented below. Patient has elected to have a visit through distance medicine I have communicated my name and active licensure. The patient's identity and physical location wereverified at the time of this visit. Either the patient or their legal underwriting sales representative has been informed of the risks and benefits of -- and alternatives to -- treatment through a remote evaluation andconsents to proceed with the evaluation remotely. Having gut issues Started about mid February. Got sick to her stomach while at work. Had to take a zofran. Having foul smelling gas and stools. Has slight change in stools. Not channing diarrhea but softer. Bloated. No black or bloody stools. Normal color. No nausea or vomiting. Has had much increased reflux. No definite reflux. No changes in diet. Does not eat much dairy No travel hx. No recent antibiotic usage. No fever or chills. No caffeine or etoh usage changes. No weight loss. Still on omeprazole. MEDICATIONS: Current Outpatient Medications Medication Sig sertraline (ZOLOFT) 100 mg tablet Take 1 tablet by mouth once daily. . 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 metoprolol tartrate, short acting, (LOPRESSOR) 25 mg tablet Take 0.5 tablets by mouth two times a day. For elevated heart rate urea (CARMOL) 40 % Apply to affected area as needed. omeprazole (PRILOSEC) 20 mg capsule Take 1 capsule by mouth daily before breakfast. 1/2 hr before meal. ALPRAZolam (XANAX) 0.25 mg tablet Take 0.25 mg by mouth. EPINEPHrine (EPIPEN) 0.3 mg/0.3 mL auto-injector Use as directed. Go to ED after use. No current facility-administered medications for this visit. ALLERGIES: ALLERGIES Allergen Reactions Bee Sting Swelling PAST MEDICAL HISTORY Diagnosis Date Abnormal glandular Papanicolaou smear of cervix 2000 Abn. Pap smear (cervix) Anxiety IBS (irritable bowel syndrome) Sinus tachycardia 2012 Tobacco use disorder PAST SURGICAL HISTORY Procedure Laterality Date DILATION & CURETTAGE DX&/THER NONOBSTETRIC Dilation & curettage FAMILY HISTORY Problem Relation Age of Onset Diabetes Mother Pre-diabetic Kidney stones Mother Psychiatry Father manic depression, schizoaffective Kidney stones Sister Hypertension Maternal Grandmother Diabetes Maternal Grandmother Heart Attack Maternal Grandfather Lipids Paternal Grandmother Hypertension Paternal Grandmother other (diverticulitis) Paternal Grandmother Emphysema Paternal Grandfather Cancer Paternal Grandfather Lung Social History Tobacco Use Smoking status: Every Day Current packs/day: 0.50 Average packs/day: 0.5 packs/day for 7.0 years (3.5 ttl pk-yrs) Types: Cigarettes Smokeless tobacco: Never Vaping Use Vaping status: Never Used Substance Use Topics Alcohol use: Not Currently Drug use: No Reviewed current medications, allergies, past medical history, surgical history, family history andsocial history today. REVIEW OF SYSTEMS All other reviewed and negative other than HPI. VITALS: Could not assess Last 4 Encounter Wt Readings: Date: Wt: 08/20/2023 47.3 kg (104 lb 3.2 oz) 08/06/2023 47.6 kg (105 lb) 09/27/2022 46.5 kg (102 lb 9.6 oz) 04/24/2022 48.1 kg (106 lb) PHYSICAL EXAMINATION: Patient is alert and oriented during visit. Answers appropriately. Breathing comfortably.. chest rise normal. No audible wheeze. Patient notes no irregularity to pulse. Normal cap refill. ASSESSMENT/PLAN: 1. Gastroesophageal reflux disease without esophagitis - ICD9: 530.81, ICD10: K21.9 (primary diagnosis) - add probiotic. Discussed risks and benefits of new medication with the patient. Advised them to call if any side effects or questions. - call with update in one to two weeks or prn. - FAMOTIDINE 20 MG TABLET 2. Bloated abdomen - ICD9: 787.3, ICD10: R14.0 -as above. Consider gi/surgery appt it continues or worsens. - FAMOTIDINE 20 MG TABLET Bereket Ashley MD documented in this encounterUniversity [facility]08-19-2024 Telephone encounter Note * Telephone Encounter - Cami Millan LPN - 02/03/2024 8:52 AM EDT Duplicate request. [facility]08-19-2024 Miscellaneous Notes* Telephone Encounter - Cami Millan LPN - 02/03/2024 8:52 AM EDT Duplicate request. documented in this encounterUniversity Hospitals [facility]08-19-2024 Telephone encounter Note * Telephone Encounter - Erlinda Sanchez APRN.CNP - 02/03/2024 7:57 AM EDT The following approved medication requests have been transmitted electronically. Requested Prescriptions Pending Prescriptions Disp Refills sertraline (ZOLOFT) 100 mg tablet 90 tablet 1 Sig: Take 1 tablet by mouth once daily. . Needs to be Lupin rachelleg. Erlinda Sanchez APRN.CNP [facility]08-19-2024 Miscellaneous Notes* Telephone Encounter - Erlinda Sanchez APRN.CNP - 02/03/2024 7:57 AM EDT The following approved medication requests have been transmitted electronically. Requested Prescriptions Pending Prescriptions Disp Refills sertraline (ZOLOFT) 100 mg tablet 90 tablet 1 Sig: Take 1 tablet by mouth once daily. . Needs to be Lupin isidro. Erlinda Sanchez APRN.CNP * Telephone Encounter - Scott Hawley RN - 02/01/2024 9:04 AM EDT The patient has been identified by name and date of : Yes Caregiver verified no other encounters exist for this prescription request: Yes Caregiver confirmed with patient/requestor that no other refills are due, in the near future, with this provider at this time: Yes The last office visit in the department: 08/20/2023 in pcp office. 12-13-23 VV with [employer]. Does the patient have a future office visit with this provider/department: No Visit date not found Requested Prescriptions Pending Prescriptions Disp Refills sertraline (ZOLOFT) 100 mg tablet 90 tablet 1 Sig: Take 1 tablet by mouth once daily. . 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 Scott Hawley RN February 01, 2024 9:05 AM documented in this encounterUniversity Hospitals [facility]08-17-2024 Telephone encounter Note * Telephone Encounter - Scott Hawley RN - 02/01/2024 9:04 AM EDT The patient has been identified by name and date of : Yes Caregiver verified no other encounters exist for this prescription request: Yes Caregiver confirmed with patient/requestor that no other refills are due, in the near future, with this provider at this time: Yes The last office visit in the department: 08/20/2023 in pcp office. 12-13-23 VV with [employer]. Does the patient have a future office visit with this provider/department: No Visit date not found Requested Prescriptions Pending Prescriptions Disp Refills sertraline (ZOLOFT) 100 mg tablet 90 tablet 1 Sig: Take 1 tablet by mouth once daily. . 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 Scott Hawley RN February 01, 2024 9:05 AM [facility]07-26-[facility] Telephone encounter Note* Telephone Encounter - Yamilka Vega MA - 01/10/2024 8:43 AM EDT Patient informed. Yamilka Vega MA [facility]07-26-2024 Miscellaneous Notes* Telephone Encounter - Yamilka Vega MA - 01/10/2024 8:43 AM EDT Patient informed. Yamilka Vega MA * Telephone Encounter - Bereket Ashley MD - 01/10/2024 8:36 AM EDT Please let her know I sent it. * Telephone Encounter - Pushpa Alonso MA - 01/09/2024 2:14 PM EDT Call to pt who verbalizes understanding. Pt is asking that PCP write letter and put in her mychart so she can give it to her work. Update pt once letter has been put into mychart. Pushpa Alonso MA * Telephone Encounter - Bereket Ashley MD - 01/09/2024 11:19 AM EDT Can write something up to send when I am in the office tomorrow. * Telephone Encounter - Ayaka Byers RN - 01/09/2024 11:01 AM EDT Patient calls and states that provider knows that she has high anxiety. Patient reports that she isagoraphobic and does not like traveling outside of [place]. Patient reports that work wants her to do some training in [place]. Patient states that she cannot travel to do the training because it would require her to take dramamine for car sickness and xanax for the anxiety. Patient reports that work does not believe that she has these struggles. Patient is asking if PCP can write a letter stating that patient struggles with these anxieties? Please review and advise, Ayaka Byers RN documented in this encounterUniversity Hospitals [facility]07-26-2024 Telephone encounter Note * Telephone Encounter - Bereket Ashley MD - 01/10/2024 8:36 AM EDT Please let her know I sent it. [facility]07-25-[facility] Telephone encounter Note* Telephone Encounter - Pushpa Alonso MA - 01/09/2024 2:14 PM EDT Call to pt who verbalizes understanding. Pt is asking that PCP write letter and put in her mychart so she can give it to her work. Update pt once letter has been put into mychart. Pushpa Alonso MA [facility]07-25-2024 Telephone encounter Note* Telephone Encounter - Bereket Ashley MD - 01/09/2024 11:19 AM EDT Can write something up to send when I am in the office tomorrow. [facility]07-25-[facility] Telephone encounter Note* Telephone Encounter - Ayaka Byers RN - 01/09/2024 11:01 AM EDT Patient calls and states that provider knows that she has high anxiety. Patient reports that she isagoraphobic and does not like traveling outside of [place]. Patient reports that work wants her to do some training in [place]. Patient states that she cannot travel to do the training because it would require her to take dramamine for car sickness and xanax for the anxiety. Patient reports that work does not believe that she has these struggles. Patient is asking if PCP can write a letter stating that patient struggles with these anxieties? Please review and advise, Ayaka Byers RN [facility]06-28-2024 Instructions* Patient Instructions* Erlinda Sanchez APRN.CNS - 12/13/2023 4:31 PM EDT 1) Stop Augmentin 2) Start Amoxicillin 500 mg every 8 hours for 10 days 3) Need to routine care appt. In 3 months documented in this encounterUniversity Hospitals [facility]06-28-2024 History of Present illness Narrative* Erlinda Sanchez APRN.CNS - 12/13/2023 4:16 PM EDT This is a 38 year old female who presents today with: No chief complaint on file. HISTORY OF PRESENT ILLNESS: Gracie Avelar is a 38 year old female. No chief complaint on file. Left inner corner of eye, painful. No redness. Feels like there is some pale yellow discharge. Being treated for sinus infection. Using warm washcloth. Washcloth feels good.VIRTUAL VISIT PROGRESS NOTE This is a virtual visit using MyChart Zoom Video VisitVIRTUAL VISIT PROGRESS NOTE This is a virtual visit using MyChart Zoom Video Visit. It required patient- provider interaction for the medical decision making as documented below. I have communicated my name and active licensure. The patient's identity and physical location wereverified at the time of this visit. Either the patient or their legal underwriting sales representative has been informed of the risks and benefits of -- and alternatives to -- treatment through a remote evaluation andconsents to proceed with the evaluation remotely. Gracie Avelar is a 38 year old female seen for eye draining, known sinus infection. HISTORY REVIEWED (electronic chart updated): PAST MEDICAL HISTORY Diagnosis Date Abnormal glandular Papanicolaou smear of cervix 2000 Abn. Pap smear (cervix) Anxiety IBS (irritable bowel syndrome) Sinus tachycardia 2012 Tobacco use disorder PAST SURGICAL HISTORY Procedure Laterality Date DILATION & CURETTAGE DX&/THER NONOBSTETRIC Dilation & curettage FAMILY HISTORY Problem Relation Age of Onset Diabetes Mother Pre-diabetic Kidney stones Mother Psychiatry Father manic depression, schizoaffective Kidney stones Sister Hypertension Maternal Grandmother Diabetes Maternal Grandmother Heart Attack Maternal Grandfather Lipids Paternal Grandmother Hypertension Paternal Grandmother other (diverticulitis) Paternal Grandmother Emphysema Paternal Grandfather Cancer Paternal Grandfather Lung Social History Tobacco Use Smoking status: Every Day Packs/day: 0.50 Years: 7.00 Additional pack years: 0.00 Total pack years: 3.50 Types: Cigarettes Smokeless tobacco: Never Vaping Use Vaping Use: Never used Substance Use Topics Alcohol use: Not Currently Drug use: No Current Outpatient Medications Medication Sig amoxicillin (AMOXIL) 500 mg capsule Take 1 capsule by mouth three times a day for 10 days. metoprolol tartrate, short acting, (LOPRESSOR) 25 mg tablet Take 0.5 tablets by mouth two times a day. For elevated heart rate urea (CARMOL) 40 % Apply to affected area as needed. omeprazole (PRILOSEC) 20 mg capsule Take 1 capsule by mouth daily before breakfast. 1/2 hr before meal. ALPRAZolam (XANAX) 0.25 mg tablet Take 0.25 mg by mouth. sertraline (ZOLOFT) 100 mg tablet Take 1 tablet by mouth once daily. . 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 EPINEPHrine (EPIPEN) 0.3 mg/0.3 mL auto-injector Use as directed. Go to ED after use. No current facility-administered medications for this visit. ALLERGIES Allergen Reactions Bee Sting Swelling REVIEW OF SYSTEMS: Has been taking the Augmentin for day and a half. Thought that she was turning a corner so she heldoff but started it yesterday morning. The Augmentin is making her sick in her stomach. That has never happened before. States that her left side of her face is very tender and she is getting pale yellow drainage from her tear duct. States that her tear duct is also extremely tender. PHYSICAL EXAMINATION: Left eye is not red, inflamed. She started the antibiotic and just is not tolerating it well. Would like to switch antibiotics to plain amoxicillin. VIDEO EXAM: (if completed, performed via video enabled technology) GENERAL: alert and appropriate, in no distress, well-hydrated, well nourished, and happy, smiling, interactive EYES: no injection and visual acuity is grossly normal ASSESSMENT: (J01.00) Subacute maxillary sinusitis (primary encounter diagnosis) PLAN: ASSESSMENT/PLAN: 1. Subacute maxillary sinusitis - ICD9: 461.0, ICD10: J01.00 - Will begin treatment with Amoxicillin for 10 days - AMOXICILLIN 500 MG CAPSULE - Stop Augmentin Discussed treatment plan and patient voices understanding. Patient's questions answered appropriately. Medications and potential side effects were discussed and patient voices understanding. Return to the office as scheduled or as needed for worsening/no improvement. There are no Patient Instructions on file for this visit. I spent a total of 13 minutes on the date of the service which included preparing to see the patient, [id number] patient care, completing clinical documentation, obtaining and/or reviewing separately obtained history, and performing a medically appropriate examination Erlinda Sanchez APRN.CNS Augmentin is bothering her stomach. No diarrhea. documented in this encounterUniversity Hospitals [facility] Instructions* Patient Instructions* Araseli Diallo APRN.CNP - 12/06/2023 10:26 AM EDT Start Augmentin, take with food. Stay well-hydrated Continue supportive care at home In the future may use an antihistamine such as Claritin, Zyrtec, or Vicenta. Flonase nasal spray twice daily for allergy symptoms. Follow-up if no improvement. documented in this encounterUniversity Hospitals [facility]06-[facility] History of Present illness Narrative* Araseli Diallo APRN.CNP - 12/06/2023 10:20 AM EDT Chief Complaint Patient presents with: Sinus Problem This Team Access Model encounter involved medical decision making outside of a scheduled office visit. Patient was offered a virtual/telemedicine appointment in lieu of an office visit due to recommendations to reduce patient exposure to COVID-19. Video was used for evaluation of this patient. Patient agrees to the visit: Yes Patient Location: [place] I have communicated my name and active licensure. The patient's identity and physical location wereverified at the time of this visit. Either the patient or their legal underwriting sales representative has been informed of the risks and benefits of -- and alternatives to -- treatment through a remote evaluation andconsents to proceed with the evaluation remotely. HPI Gracie Avelar is a 38 year old female who is contacted today for a virtual visit This is an established patient of Dr. Bereket Ashley MD Reports: Sinus symptoms for 2-3 weeks thought she had allergies. Watering eyes and sinus pressure. Runny nose at times. Refers that sinus pressure is getting worse. Denies any fever or chills. Has not tried any [id number] medication at this time. Past medical history, appointments, medications, allergies reviewed 12/05/2023 Previous Medical History PAST MEDICAL HISTORY Diagnosis Date Abnormal glandular Papanicolaou smear of cervix 2000 Abn. Pap smear (cervix) Anxiety IBS (irritable bowel syndrome) Sinus tachycardia 2012 Tobacco use disorder Previous Surgical History PAST SURGICAL HISTORY Procedure Laterality Date DILATION & CURETTAGE DX&/THER NONOBSTETRIC Dilation & curettage Family History FAMILY HISTORY Problem Relation Age of Onset Diabetes Mother Pre-diabetic Kidney stones Mother Psychiatry Father manic depression, schizoaffective Kidney stones Sister Hypertension Maternal Grandmother Diabetes Maternal Grandmother Heart Attack Maternal Grandfather Lipids Paternal Grandmother Hypertension Paternal Grandmother other (diverticulitis) Paternal Grandmother Emphysema Paternal Grandfather Cancer Paternal Grandfather Lung Patient Allergies ALLERGIES Allergen Reactions Bee Sting Swelling Current Medications Current Outpatient Medications on File Prior to Visit Medication Sig metoprolol tartrate, short acting, (LOPRESSOR) 25 mg tablet Take 0.5 tablets by mouth two times a day. For elevated heart rate urea (CARMOL) 40 % Apply to affected area as needed. omeprazole (PRILOSEC) 20 mg capsule Take 1 capsule by mouth daily before breakfast. 1/2 hr before meal. ALPRAZolam (XANAX) 0.25 mg tablet Take 0.25 mg by mouth. sertraline (ZOLOFT) 100 mg tablet Take 1 tablet by mouth once daily. . 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 EPINEPHrine (EPIPEN) 0.3 mg/0.3 mL auto-injector Use as directed. Go to ED after use. No current facility-administered medications on file prior to visit. Social History Social History Tobacco Use Smoking status: Every Day Packs/day: 0.50 Years: 7.00 Additional pack years: 0.00 Total pack years: 3.50 Types: Cigarettes Smokeless tobacco: Never Vaping Use Vaping Use: Never used Substance Use Topics Alcohol use: Not Currently Drug use: No Review of Symptoms GENERAL: No malaise or fatigue. No fevers. HEENT: Negative for headaches No eye discharge or redness No earaches No sore throat + Sinus pressure NECK: Negative for pain or swelling. No lumps RESPIRATORY: No wheezing, SOB, Difficulty breathing. No cough CARDIOVASCULAR: Negative for chest pain GI: No nausea, vomiting, or diarrhea MUSCULOSKELETAL: Negative for bodyaches SKIN: Negative for rash or itching Neuro: No lightheadedness or dizziness EXAM: LMP 08/08/2023 (Exact Date) Limited exam as visit was completed over the virtual platform. Virtual visit completed using video, limited exam completed. Patient sounds or appears ill: No General Appearance: Well appearing, alert, in no acute distress, well-hydrated, well nourished. Skin: Skin color normal Head: Normocephalic. No facial swelling or redness. EENT: Eyes nonreddened. No discharge. External ears nonreddened and no swelling. + Frontal and maxillary sinus tenderness. Neck: No mass or lesions. No swelling. FROM Patient is not able to speak in complete sentences: N/A Patient has labored breathing: No. Patient is audibly coughing: No Psych: Attitude - cooperative, easily engaged in conversation Affect - Euthymic, normal mood Mental status: Alert. Speech is clear and fluent with good repetition, comprehension Appearance - Normal hygiene and grooming appropriate Coordination: No abnormal or extraneous movements. Gait/Stance: Posture is normal. Health Maintenance List Pneumococcal Vaccine(1 of 2 - PCV) Never done DTaP,Tdap,Td Vaccine(5 - Tdap) due on 02/05/2010 Covid-19 Vaccine(2022-) Never done Cervical Cancer Screening due on 05/01/2024 Influenza Vaccine(Season Ended) due on 02/16/2024 Behavioral Health Screening Completed Hepatitis C Screening Completed HIV Screening Completed HPV Vaccine Aged Out Data reviewed Last 5 Encounter BP Readings: Date: BP: 08/06/2023 118/70 09/27/2022 102/58 04/24/2022 102/58 04/18/2022 106/66 04/04/2022 108/62 BMI Readings from Last 5 Encounters: 08/20/23 : 17.50 kg/m 08/06/23 : 17.64 kg/m 09/27/22 : 17.23 kg/m 04/24/22 : 17.80 kg/m 04/18/22 : 17.74 kg/m Last 5 Encounter Wt Readings: Date: Wt: 08/20/2023 47.3 kg (104 lb 3.2 oz) 08/06/2023 47.6 kg (105 lb) 09/27/2022 46.5 kg (102 lb 9.6 oz) 04/24/2022 48.1 kg (106 lb) 04/18/2022 47.9 kg (105 lb 9.6 oz) Medication and allergy list reviewed, reconciled and updated 12/05/2023 ASSESSMENT/PLAN: 1. Bacterial sinusitis - ICD9: 473.9, 041.9, ICD10: J32.9, B96.89 - Will begin treatment with Augmentin 875 mg PO BID for 7 days - Continue supportive care at home. - AMOXICILLIN 875 MG-POTASSIUM CLAVULANATE 125 MG TABLET Follow-up if no improvement. Discussed treatment plan and patient voices understanding. Patient's questions answered appropriately. Medications and potential side effects were discussed and patient voices understanding. Araseli Diallo APRN.CNP Total appointment time on virtual with patient = 21-30 minutes This note was partially generated using [employer] voice recognition system. Note was reviewed for accuracy. There may be minor misspellings or grammar miscues with [employer] voice recognition. documented in this encounterUniversity Hospitals [facility]06-13-2024 Telephone encounter Note * Telephone Encounter - Cami Millan LPN - 11/28/2023 11:49 AM EDT Patient had tests completed. [facility]06-13-[facility]24 Miscellaneous Notes* Telephone Encounter - Cami Millan LPN - 11/28/2023 11:49 AM EDT Patient had tests completed. * Telephone Encounter - Cami Millan LPN - 09/26/2023 10:27 AM EDT Patient had a virtual visit today with Dr Ashley: Has order for carotid US and needs a 4 week follow up please. documented in this encounterUniversity Hospitals [facility]05-22-2024 Telephone encounter Note * Telephone Encounter - Jacinda Hernandez RN - 11/06/2023 9:19 AM EDT Patient calls for severe weakness and reports heart palpitations with HR 140-150 earlier this morning. Previous ER visit with changing metoprolol ER to metoprolol 12.5 mg BID which patient hasn't started taking. Patient reports not drinking enough fluids. Dehydration of concern. Patient reports so weak not able to walk in for an appointment. Instructed to go to ED now and if not able to walk in to call a squad. Patient verbalizes understanding and will go to ED. Care advice reviewed. Patient verbalizes understanding. Reason for Disposition Heart beating < 50 beats per minute OR > 140 beats per minute Answer Assessment - Initial Assessment Questions 1. DESCRIPTION: Patient reports that she was to the ER on Saturday11/02/2023 for weakness and they took her off of her metoprolol ER because they felt that was the reason. Patient reports that she stopped metoprolol ER and Saturday started feeling better, Saturday she worked, and today she feels like she is jello and being weighted down. She reports that she isn't sure that she would even be able towalk in for an appointment. She reports that her HR this morning was running between 140 and 150. ER started her on metoprolol 12.5 mg twice daily which patient hasn't started taking yet. She reportsthat she is definitely not drinking any where near 64 oz of fluids daily. 2. SEVERITY: - SEVERE (8-10): Unable to stand or walk; unable to do usual activities. 3. ONSET: Saturday 4. CAUSE: Patient is not certain 5. NEW MEDICINES: No 6. OTHER SYMPTOMS: No fever, cough, SOB, vomiting, diarrhea, bleeding, chest pain, or pain. 7. : No Protocols used: Weakness (Generalized) and [id number] [facility]05-22-2024 Miscellaneous Notes* Telephone Encounter - Jacinda Hernandez RN - 11/06/2023 9:19 AM EDT Patient calls for severe weakness and reports heart palpitations with HR 140-150 earlier this morning. Previous ER visit with changing metoprolol ER to metoprolol 12.5 mg BID which patient hasn't started taking. Patient reports not drinking enough fluids. Dehydration of concern. Patient reports so weak not able to walk in for an appointment. Instructed to go to ED now and if not able to walk in to call a squad. Patient verbalizes understanding and will go to ED. Care advice reviewed. Patient verbalizes understanding. Reason for Disposition Heart beating < 50 beats per minute OR > 140 beats per minute Answer Assessment - Initial Assessment Questions 1. DESCRIPTION: Patient reports that she was to the ER on Saturday11/02/2023 for weakness and they took her off of her metoprolol ER because they felt that was the reason. Patient reports that she stopped metoprolol ER and Saturday started feeling better, Saturday she worked, and today she feels like she is jello and being weighted down. She reports that she isn't sure that she would even be able towalk in for an appointment. She reports that her HR this morning was running between 140 and 150. ER started her on metoprolol 12.5 mg twice daily which patient hasn't started taking yet. She reportsthat she is definitely not drinking any where near 64 oz of fluids daily. 2. SEVERITY: - SEVERE (8-10): Unable to stand or walk; unable to do usual activities. 3. ONSET: Saturday 4. CAUSE: Patient is not certain 5. NEW MEDICINES: No 6. OTHER SYMPTOMS: No fever, cough, SOB, vomiting, diarrhea, bleeding, chest pain, or pain. 7. : No Protocols used: Weakness (Generalized) and [id number] documented in this encounterUniversity Hospitals [facility]05-20-2024 History of Present illness Narrative* Quincy Brice MD - 11/04/2023 7:00 PM EDT Chief Complaint Patient presents with: ER F/U: [facility], palpitations, doesn't feel the Metoprolol is working HPI: This Team Access Model visit is a virtual/phone encounter. It required patient-provider interaction for the medical decision making as documented below. Patient was offered a virtual/telemedicine appointment in lieu of an office visit due to recommendations to reduce patient exposure to COVID-19. Patient is aware of limitations of performing the visit without a face to face visit in the office setting and agrees. I have communicated my name and active licensure. The patient's identity and physical location wereverified at the time of this visit. Either the patient or their legal underwriting sales representative has been informed of the risks and benefits of -- and alternatives to -- treatment through a remote evaluation andconsents to proceed with the evaluation remotely. Pt of Dr. Ashley who is out today. Pt here for ER Follow up. Was seen in [facility] ER today 11/04/23 for supraventricular tachycardia. Was discharged home with no medication changes, no new medications. Was seen in August for Palpitations. She wore a Zio monitor which did not show any serious abnormal rhythms, did show several runs of PACs.Had continued SVTs in September so was started on Metoprolol succinate 25 mg daily. This did help control her heart rate, but made her very sluggish (felt like a paperweight). She thinks she did better on metoprolol tartrate a few years ago, taking 1/2 pill twice daily. Behavioral Health Screening PHQ-2 Score: CRISTÓBAL-7 Score: 5 (Mild Anxiety) Recommendation: No further intervention at this time Below copied from [facility]: Chief Complaint: General Illness Informant: patient Narrative Narrative: Patient is a 38-year-old female with past medical history of supraventricular tachycardia. She states that she was recently placed on 25 mg of metoprolol succinate secondary to this diagnosis. She reports that she is taking as directed but after being on it for a few days has had extreme weakness and fatigue. She states that she has not noticed any loss of blood in her urine or stool. She denies any concern for . She states that there is been no bouts of vomiting or diarrhea or sick symptoms. However because of the severe fatigue she was concerned there could be some other aspect other than the medication and comes in for evaluation Medical decision making narrative: Patient presented to the ER overall stable vitals. Differential diagnosis for her generalized weakness could be acute blood loss anemia versus acute kidney injury versus hypothyroidism versus electrolyte abnormality versus . Secondary to this basic blood work was obtained which revealed noclinically significant findings. This indicates the patient's generalized fatigue and weakness is aadverse reaction to her new metoprolol medication. Her heart rate has been normal the entire time in the ER and therefore she was advised to stay off the medication until she speaks with her doctor to discuss potential change but at this time as vitals are stable and workup is negative she is otherwise safe for discharge home Past medical history, appointments, medications, allergies reviewed. Previous Medical History PAST MEDICAL HISTORY Diagnosis Date Abnormal glandular Papanicolaou smear of cervix 2000 Abn. Pap smear (cervix) Anxiety IBS (irritable bowel syndrome) Sinus tachycardia 2012 Tobacco use disorder Previous Surgical History PAST SURGICAL HISTORY Procedure Laterality Date DILATION & CURETTAGE DX&/THER NONOBSTETRIC Dilation & curettage Family History FAMILY HISTORY Problem Relation Age of Onset Diabetes Mother Pre-diabetic Kidney stones Mother Psychiatry Father manic depression, schizoaffective Kidney stones Sister Hypertension Maternal Grandmother Diabetes Maternal Grandmother Heart Attack Maternal Grandfather Lipids Paternal Grandmother Hypertension Paternal Grandmother other (diverticulitis) Paternal Grandmother Emphysema Paternal Grandfather Cancer Paternal Grandfather Lung Patient Allergies ALLERGIES Allergen Reactions Bee Sting Swelling Current Medications Current Outpatient Medications on File Prior to Visit Medication Sig urea (CARMOL) 40 % Apply to affected area as needed. omeprazole (PRILOSEC) 20 mg capsule Take 1 capsule by mouth daily before breakfast. 1/2 hr before meal. metoprolol succinate ER (TOPROL XL) 25 mg 24 hr tablet Take 1 tablet by mouth once daily. ALPRAZolam (XANAX) 0.25 mg tablet Take 0.25 mg by mouth. sertraline (ZOLOFT) 100 mg tablet Take 1 tablet by mouth once daily. . 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 EPINEPHrine (EPIPEN) 0.3 mg/0.3 mL auto-injector Use as directed. Go to ED after use. No current facility-administered medications on file prior to visit. Social History Social History Tobacco Use Smoking status: Every Day Packs/day: 0.50 Years: 7.00 Additional pack years: 0.00 Total pack years: 3.50 Types: Cigarettes Smokeless tobacco: Never Vaping Use Vaping Use: Never used Substance Use Topics Alcohol use: Not Currently Drug use: No EXAM: LMP 08/08/2023 (Exact Date) Health Maintenance List Pneumococcal Vaccine(1 of 2 - PCV) Never done DTaP,Tdap,Td Vaccine(5 - Tdap) due on 02/05/2010 Covid-19 Vaccine( season) Never done Pap Testing due on 05/01/2024 HPV Testing due on 05/01/2024 Influenza Vaccine(Season Ended) due on 02/16/2024 Behavioral Health Screening Completed Hepatitis C Screening Completed HIV Screening Completed HPV Vaccine Aged Out Data reviewed ER report from [facility] on 11/04/23 ASSESSMENT/PLAN: 1. Palpitations - ICD9: 785.1, ICD10: R00.2 Will try metoprolol tartrate at lower dose and see if she can tolerated this and if it will controlheart rate. - METOPROLOL TARTRATE 25 MG TABLET Follow up prn I agree with the Chief Complaint, ROS, and Past Histories independently gathered by the clinical academic support specialist and the remaining scribed note accurately describes my personal service to the patient. Quincy Brice MD The documentation for this note was completed by Margaret Shrestha MA acting as scribe for Quincy Brice MD. November 04, 2023 6:49 PM. Margaret Shrestha MA documented in this encounterUniversity Hospitals [facility]05-15-2024 Telephone encounter Note * Telephone Encounter - Lashonda Schafer RN - 10/30/2023 1:31 PM EDT Patient calling in and reports a couple years ago Dermatology ordered her a topical medication for a hand rash she acquired from wearing gloves at work mixed with a hot environment. Reports the topical medication worked well for her then. Reports same type of rash is occurring again to her right index and middle finger. Small itchy red bumps with small white centers. Some swelling. She is asking if Dr. Ashley would be agreeable to reordering this for her. Pended for review. Please call patient with response. NOV: 11/04/23 with Deepika Sanchez CNP. Lashonda Schafer RN [facility]05-15-2024 Miscellaneous Notes* Telephone Encounter - Lashonda Schafer RN - 10/30/2023 1:31 PM EDT Patient calling in and reports a couple years ago Dermatology ordered her a topical medication for a hand rash she acquired from wearing gloves at work mixed with a hot environment. Reports the topical medication worked well for her then. Reports same type of rash is occurring again to her right index and middle finger. Small itchy red bumps with small white centers. Some swelling. She is asking if Dr. Ashley would be agreeable to reordering this for her. Pended for review. Please call patient with response. NOV: 11/04/23 with Deepika Sanchez CNP. Lashonda Schafer RN documented in this encounterUniversity Hospitals [facility]05-14-2024 Telephone encounter Note * Telephone Encounter - Roland Shaw LPN - 10/29/2023 10:46 AM EDT Patient has been identified by name and date of : Yes Patient phones for refill(s): Requested Prescriptions Pending Prescriptions Disp Refills omeprazole (PRILOSEC) 20 mg capsule 90 capsule 1 Sig: Take 1 capsule by mouth daily before breakfast. 1/2 hr before meal. Date of last office visit in primary care: 09/26/23 (virtual) 08/06/23 (in person) Date of next office visit in primary care: Visit date not found Please advise. Thank you. Roland Shaw LPN. [facility]05-14-2024 Miscellaneous Notes* Telephone Encounter - Roland Shaw LPN - 10/29/2023 10:46 AM EDT Patient has been identified by name and date of : Yes Patient phones for refill(s): Requested Prescriptions Pending Prescriptions Disp Refills omeprazole (PRILOSEC) 20 mg capsule 90 capsule 1 Sig: Take 1 capsule by mouth daily before breakfast. 1/2 hr before meal. Date of last office visit in primary care: 09/26/23 (virtual) 08/06/23 (in person) Date of next office visit in primary care: Visit date not found Please advise. Thank you. Roland Shaw LPN. documented in this encounterUniversity Hospitals [facility]04-11-2024 Telephone encounter Note * Telephone Encounter - Cami Millan LPN - 09/26/2023 10:27 AM EDT Patient had a virtual visit today with Dr Ashley: Has order for carotid US and needs a 4 week follow up please. [facility]04-11-2024 History of Present illness Narrative* Bereket Ashley MD - 09/26/2023 9:40 AM EDT Patient presents with: Recheck HPI:This Team Access Model visit is a virtual encounter. It required patient- provider interaction for the medical decision making as documented below. Patient has elected to have a visit through distance medicine I have communicated my name and active licensure. The patient's identity and physical location wereverified at the time of this visit. Either the patient or their legal underwriting sales representative has been informed of the risks and benefits of -- and alternatives to -- treatment through a remote evaluation andconsents to proceed with the evaluation remotely. Reviewed findings Has few short runs of svt. Discussed avoiding risk factors. Had been on betablockers in the past. She is a poor sleeper. Does drink caffeine. Is on zoloft. Is a smoker. No syncope Can notice if she get hot she can get lightheaded, particularly when raising her hands over her head. See past visit info: Has suffered from positional dizziness X years. Dizziness came on a couple weeks ago more consistently. Daily. Dizziness is mostly positional however mentions while standing getting ready to give [facility] a bath the feeling came out of nowhere and she had to sit down until it passed. Episode lasted about 5 minutes. Denies syncopal events. Makes her feel fatigued. It wipes my energy out. Mentions last week her watch detected increased HR with no activity. When pulse checked it was 119. Denies chest pain and shortness of breath. Has palpitations regularly. Does not happen when laying flat. No edema. No actual syncope. No gi issues. No urinary issues. Feels her edema is good. Has seen Cardiology in the past and has had negative tilt Discussed fluids,salt and support hose. Did have an event recorder. Has had multiple ekgs. Worse since has had covid. Zio: IRHYTHM FINDINGS: Patient had a min HR of 54 bpm, max HR of 156 bpm, and avg HR of 89 bpm. Predominant underlying rhythm was Sinus Rhythm. 3 Supraventricular Tachycardia runs occurred, the run with the fastest interval lasting 4 beats with a max rate of 152 bpm, the longest lasting 13 beats with anavg rate of 92 bpm. Isolated SVEs were rare (<1.0%), SVE Couplets were rare (<1.0%), and SVE T riplets were rare (<1.0%). Isolated VEs were rare (<1.0%), and no VE Couplets or VE Triplets were present. Latest Ref Rng 08/20/2023 WBC 3.70 - 11.00 k/uL 5.69 RBC 3.90 - 5.20 m/uL 3.62 (L) Hemoglobin 11.5 - 15.5 g/dL 11.7 Hematocrit 36.0 - 46.0 % 35.4 (L) MCV 80.0 - 100.0 fL 97.8 MCH 26.0 - 34.0 pg 32.3 MCHC 30.5 - 36.0 g/dL 33.1 RDW-CV 11.5 - 15.0 % 12.7 Platelet Count 150 - 400 k/uL 161 MPV 9.0 - 12.7 fL 11.2 Neut% % 38.6 Abs Neut (ANC) 1.45 - 7.50 k/uL 2.20 Lymph% % 50.1 Abs Lymph 1.00 - 4.00 k/uL 2.85 Carson% % 7.6 Abs Carson <0.87 k/uL 0.43 Eosin% % 2.6 Abs Eosin <0.46 k/uL 0.15 Baso% % 0.9 Abs Baso <0.11 k/uL 0.05 Immature Gran % % 0.2 IMMATURE GRANS (ABS) <0.10 k/uL <0.03 NRBC /100 WBC 0.0 Absolute nRBC <0.01 k/uL <0.01 DTYPE Auto Protein, Total 6.3 - 8.0 g/dL 7.2 Albumin 3.9 - 4.9 g/dL 4.4 Calcium 8.5 - 10.2 mg/dL 9.6 Bilirubin, Total 0.2 - 1.3 mg/dL <0.2 (L) Alkaline Phosphatase 34 - 123 U/L 41 AST 13 - 35 U/L 17 ALT 7 - 38 U/L 14 Glucose 74 - 99 mg/dL 76 BUN 7 - 21 mg/dL 6 (L) Creatinine 0.58 - 0.96 mg/dL 0.61 Sodium 136 - 144 mmol/L 140 Potassium 3.7 - 5.1 mmol/L 3.9 Chloride 97 - 105 mmol/L 104 CO2 22 - 30 mmol/L 25 Anion Gap 9 - 18 mmol/L 11 eGFR >=60 mL/min/1.73m 118 TSH 0.270 - 4.200 mIU/L 1.620 Legend: (L) Low MEDICATIONS: Current Outpatient Medications Medication Sig ALPRAZolam (XANAX) 0.25 mg tablet Take 0.25 mg by mouth. sertraline (ZOLOFT) 100 mg tablet Take 1 tablet by mouth once daily. . 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 omeprazole (PRILOSEC) 20 mg capsule Take 1 capsule by mouth daily before breakfast. 1/2 hr before meal. EPINEPHrine (EPIPEN) 0.3 mg/0.3 mL auto-injector Use as directed. Go to ED after use. No current facility-administered medications for this visit. ALLERGIES: ALLERGIES Allergen Reactions Bee Sting Swelling PAST MEDICAL HISTORY Diagnosis Date Abnormal glandular Papanicolaou smear of cervix 2000 Abn. Pap smear (cervix) Anxiety IBS (irritable bowel syndrome) Sinus tachycardia 2012 Tobacco use disorder PAST SURGICAL HISTORY Procedure Laterality Date DILATION & CURETTAGE DX&/THER NONOBSTETRIC Dilation & curettage FAMILY HISTORY Problem Relation Age of Onset Diabetes Mother Pre-diabetic Kidney stones Mother Psychiatry Father manic depression, schizoaffective Kidney stones Sister Hypertension Maternal Grandmother Diabetes Maternal Grandmother Heart Attack Maternal Grandfather Lipids Paternal Grandmother Hypertension Paternal Grandmother other (diverticulitis) Paternal Grandmother Emphysema Paternal Grandfather Cancer Paternal Grandfather Lung Social History Tobacco Use Smoking status: Every Day Packs/day: 0.50 Years: 7.00 Additional pack years: 0.00 Total pack years: 3.50 Types: Cigarettes Smokeless tobacco: Never Vaping Use Vaping Use: Never used Substance Use Topics Alcohol use: Not Currently Drug use: No Reviewed current medications, allergies, past medical history, surgical history, family history andsocial history today. REVIEW OF SYSTEMS All other reviewed and negative other than HPI. VITALS: LMP 08/08/2023 (Exact Date) Last 4 Encounter Wt Readings: Date: Wt: 08/20/2023 47.3 kg (104 lb 3.2 oz) 08/06/2023 47.6 kg (105 lb) 09/27/2022 46.5 kg (102 lb 9.6 oz) 04/24/2022 48.1 kg (106 lb) PHYSICAL EXAMINATION: Patient is alert and oriented during visit. Answers appropriately. ASSESSMENT/PLAN: 1. Lightheaded - ICD9: 780.4, ICD10: R42 (primary diagnosis) - check carotid to rule out subclavian stenosis given her arm symptoms. Can check bp in both arms at follow up visit. - US CAROTID ARTERIES DIONI VAS LAB 2. Vertigo - ICD9: 780.4, ICD10: R42 - Red flags for re-assessment reviewed with patient in detail. - US CAROTID ARTERIES DIONI VAS LAB 3. SVT (supraventricular tachycardia) (HCC) - ICD9: 427.89, ICD10: I47.10 - Discussed risks and benefits of new medication with the patient. Advised them to call if any sideeffects or questions. - METOPROLOL SUCCINATE ER 25 MG TABLET,EXTENDED RELEASE 24 HR 4. Anxiety - ICD9: 300.00, ICD10: F41.9 - continue meds. 5. Dizziness and giddiness - ICD9: 780.4, ICD10: R42 - stable. - US CAROTID ARTERIES DIONI VAS LAB Bereket Ashley MD RTO in one month or prn documented in this encounterUniversity Hospitals [facility]04-09-2024 Miscellaneous Notes* Telephone Encounter - Bertha Mendez MA - 09/24/2023 1:00 PM EDT Added to schedule. Bertha Mendez MA * Telephone Encounter - Danisha Ivey RN - 09/24/2023 12:36 PM EDT Pt called and is notified of providers message and instructions. Pt voices understanding and is willing to do the 940 am VV appointment with Dr Ashley on 09/26/23. Tried to schedule changed to [facility] and couldn't get it to let me schedule the appointment. Danisha Ivey RN * Telephone Encounter - Bereket Ashley MD - 09/24/2023 12:12 PM EDT Before checking anything else, let do vv. Can she see me am virtually, can add on my haynes schedule. * Telephone Encounter - Jacinda Hernandez RN - 09/24/2023 12:00 PM EDT Call placed to patient and results and message reviewed. Patient reports that the palpitations remain the same. Occurring atleast three times daily. Reportsthat they are just a nuisance. She would be interested in doing lab work. Patient also asking if appointment on 10/01/2023 could be a VV? Jacinda Hernandez RN * Telephone Encounter - Bereket Ashley MD - 09/24/2023 11:46 AM EDT Monitor shows a very small amount of extra beats from her upper chambers. These are usually more ofan issue to cause symptoms than anything else. Not a dangerous issues. Limiting tobacco, caffeine, stress etc helps. If bad, we can consider labs. How are her palpitations? documented in this encounterUniversity Hospitals Ge[facility] Center02-21-2024 Miscellaneous Notes* Telephone Encounter - Ricki Amos MD - 08/07/2023 4:26 PM EST Noted. * Telephone Encounter - Colleen Powers PSS - 08/07/2023 2:09 PM EST Pt was scheduled today 08/07/[address] Attempted to call pt no response,, just letting you know. documented in this encounterUniversity Hospitals Ge[facility] Center02-20-2024 History of Present illness Narrative* Ricki Amos MD - 08/06/2023 2:20 PM EST Chief Complaint Patient presents with: Back Pain HPI Gracie Avelar is a 37 year old female who presents here today for leg pain/back/lower abdomen on right side. Started leg pain/cramping first about 1 week ago; weakness in lower leg, which now has lower abdomen hip/lower back pain on right side. No burning or frequency with urination. Not aware of dong anything specific a week ago hat initiated her symptoms. 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 Has no past Hx of low back problems. Has had sciatic pain in the right butt in the past at times. Painyesterday started in the right lower pelvis and then seemed to wrap around to the right lower back.Pain will go from a dull to a sharp (2-4/10). Maynard nauseated with the sharper pain. Some nausea offand on today with decreased appetite and at times has felt chilled. No vomiting. No diarrhea, melena or hematochezia. No gross hematuria or pink when whipping. No radiation into the right lower extremity. Right lower extremity has felt over used foe the past week like she had been working out. No personal Hx of renal stones. Her mother and sister do get renal stones. Patient noted to MA the other day her watch went off indicated that pulse was 119, she was standingat the sink. Has been tested for this and for POTS. Pulse this morning was 155 this has been her norm. Past medical history, appointments, medications, allergies reviewed. Previous Medical History PAST MEDICAL HISTORY Diagnosis Date Abnormal glandular Papanicolaou smear of cervix 2000 Abn. Pap smear (cervix) Anxiety IBS (irritable bowel syndrome) Sinus tachycardia 2012 Tobacco use disorder Previous Surgical History PAST SURGICAL HISTORY Procedure Laterality Date DILATION & CURETTAGE DX&/THER NONOBSTETRIC Dilation & curettage Family History FAMILY HISTORY Problem Relation Age of Onset Diabetes Mother Pre-diabetic Psychiatry Father manic depression, schizoaffective No Known Problems Sister Hypertension Maternal Grandmother Diabetes Maternal Grandmother Heart Attack Maternal Grandfather Lipids Paternal Grandmother Hypertension Paternal Grandmother other (diverticulitis) Paternal Grandmother Emphysema Paternal Grandfather Cancer Paternal Grandfather Lung Patient Allergies ALLERGIES Allergen Reactions Bee Sting Swelling Current Medications Current Outpatient Medications on File Prior to Visit Medication Sig sertraline (ZOLOFT) 100 mg tablet Take 1 tablet by mouth once daily. . 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 omeprazole (PRILOSEC) 20 mg capsule Take 1 capsule by mouth daily before breakfast. 1/2 hr before meal. ALPRAZolam (XANAX) 0.25 mg tablet Take 1 tablet by mouth as needed for up to 180 days. EPINEPHrine (EPIPEN) 0.3 mg/0.3 mL auto-injector Use as directed. Go to ED after use. No current facility-administered medications on file prior to visit. Social History Social History Tobacco Use Smoking status: Every Day Packs/day: 0.50 Years: 7.00 Additional pack years: 0.00 Total pack years: 3.50 Types: Cigarettes Smokeless tobacco: Never Vaping Use Vaping Use: Never used Substance Use Topics Alcohol use: Not Currently Drug use: No Review of Symptoms REVIEW OF SYSTEMS See HPI EXAM: BP 118/70 (BP Site: Right Arm, BP Position: Sitting, BP Cuff Size: Regular Adult) Pulse 82 Temp37.3 C (99.1 F) Resp 16 Wt 47.6 kg (105 lb) LMP 07/13/2023 BMI 17.64 kg/m General Appearance: Well appearing, alert, in no acute distress, well-hydrated, well nourished.. Back:no pain to palpation of vertebrae, good flexion and extension, good range of motion, no muscletenderness, reflexes are 2+ and symmetric, motor and sensory are normal, negative SLR test. Abdomen: Abdomen soft, non-distended. Has RLQ discomfort over McBurney's point. O guarding or rebound pain. Bowel sounds normal. No masses, organomegaly. Extremities: No deformities, edema, skin discoloration, Musculoskeletal: Muscular strength intact, No joint swelling, deformity, or tenderness. Health Maintenance List Covid-19 Vaccine(1) Never done Pneumococcal Vaccine(1 of 2 - PCV) Never done DTaP,Tdap,Td Vaccine(5 - Tdap) due on 02/05/2010 Influenza Vaccine(1) due on 02/15/2023 Depression Assessment Never done Pap Testing due on 05/01/2024 HPV Testing due on 05/01/2024 Hepatitis C Screening Completed HIV Screening Completed HPV Vaccine Aged Out Data reviewed Component Latest Ref Rng & Units 08/06/2023 GLUCOSE UA (POCT) Negative mg/dL Negative BILIRUBIN UA (POCT) Negative Negative KETONE UA (POCT) Negative mg/dL Negative SPECIFIC GRAVITY UA (POCT) 1.005 - 1.030 1.020 HEMOGLOBIN/BLOOD UA (POCT) Negative Negative PH UA (POCT) 4.5 - 8.0 7.0 PROTEIN UA (POCT) Negative mg/dL Negative UROBILINOGEN UA (POCT) Normal E.U./dL 1.0 NITRITE UA (POCT) Negative Negative LEUKOCYTES UA (POCT) Negative Trace (A) COLOR UA (POCT) Yellow CLARITY UA (POCT) Clear A/P ASSESSMENT/PLAN: 1. Acute right-sided low back pain without sciatica - ICD9: 724.2, ICD10: M54.50 (primary diagnosis) Check - CT ABD/PEL W IVCON - IV CONTRAST (RADIOLOGY PROCEDURE) - ENTERIC CONTRAST (RADIOLOGY PROCEDURE) to r/units renal stone vs acute appendicitis. - UA DIP, URINE (POC) 2. Family history of kidney stones - ICD9: V18.69, ICD10: Z84.1 - as above - CT ABD/PEL W IVCON - IV CONTRAST (RADIOLOGY PROCEDURE) - ENTERIC CONTRAST (RADIOLOGY PROCEDURE) 3. Right lower quadrant abdominal pain - ICD9: 789.03, ICD10: R10.31 - as above - CT ABD/PEL W IVCON - IV CONTRAST (RADIOLOGY PROCEDURE) - ENTERIC CONTRAST (RADIOLOGY PROCEDURE) Will await study results. Will have her f/u with PCP regarding the palpitations/increased HR Ricki Amos MD documented in this encounterUniversity Hospitals Geaug[facility] Center12-21-2023 History of Present illness Narrative* Bereket Ashley MD - 06/06/2023 10:23 AM EST Patient presents with: Recheck HPI:This Team Access Model visit is a virtual encounter. It required patient- provider interaction for the medical decision making as documented below. Patient has elected to have a visit through distance medicine I have communicated my name and active licensure. The patient's identity and physical location wereverified at the time of this visit. Either the patient or their legal underwriting sales representative has been informed of the risks and benefits of -- and alternatives to -- treatment through a remote evaluation andconsents to proceed with the evaluation remotely. Overall doing well. Continues on meds. Was referred to surgery for gerd. When does not have meds, has issues. Still plans on following up. Discussed risk factors for gerd. No black or bloody stools. No dysphagia. Also has some constipation. Discussed fluids and fiber and miralax. Suggested she follow up with surgery in regards to that as well. Psych:overall doing well. No issues with meds. Feels they are working well. No panic attacks. Sleeping well. MEDICATIONS: Current Outpatient Medications Medication Sig omeprazole (PRILOSEC) 20 mg capsule Take 1 capsule by mouth daily before breakfast. 1/2 hr before meal. sertraline (ZOLOFT) 100 mg tablet Take 1 tablet by mouth once daily. . 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 EPINEPHrine (EPIPEN) 0.3 mg/0.3 mL auto-injector Use as directed. Go to ED after use. No current facility-administered medications for this visit. ALLERGIES: ALLERGIES Allergen Reactions Bee Sting Swelling PAST MEDICAL HISTORY Diagnosis Date Abnormal glandular Papanicolaou smear of cervix 2000 Abn. Pap smear (cervix) Anxiety IBS (irritable bowel syndrome) Sinus tachycardia 2012 Tobacco use disorder PAST SURGICAL HISTORY Procedure Laterality Date DILATION & CURETTAGE DX&/THER NONOBSTETRIC Dilation & curettage FAMILY HISTORY Problem Relation Age of Onset Diabetes Mother Pre-diabetic Psychiatry Father manic depression, schizoaffective No Known Problems Sister Hypertension Maternal Grandmother Diabetes Maternal Grandmother Heart Attack Maternal Grandfather Lipids Paternal Grandmother Hypertension Paternal Grandmother other (diverticulitis) Paternal Grandmother Emphysema Paternal Grandfather Cancer Paternal Grandfather Lung Social History Tobacco Use Smoking status: Every Day Packs/day: 0.50 Years: 7.00 Additional pack years: 0.00 Total pack years: 3.50 Types: Cigarettes Smokeless tobacco: Never Vaping Use Vaping Use: Never used Substance Use Topics Alcohol use: Not Currently Drug use: No Reviewed current medications, allergies, past medical history, surgical history, family history andsocial history today. REVIEW OF SYSTEMS All other reviewed and negative other than HPI. VITALS: LMP 03/14/2019 Last 4 Encounter Wt Readings: Date: Wt: 09/27/2022 46.5 kg (102 lb 9.6 oz) 04/24/2022 48.1 kg (106 lb) 04/18/2022 47.9 kg (105 lb 9.6 oz) 04/04/2022 49 kg (108 lb) PHYSICAL EXAMINATION: Patient is alert and oriented during visit. Answers appropriately. ASSESSMENT/PLAN: 1. Anxiety - ICD9: 300.00, ICD10: F41.9 - continue current meds. - SERTRALINE 100 MG TABLET 2. Panic disorder with agoraphobia - ICD9: 300.21, ICD10: F40.01 - continue meds. - SERTRALINE 100 MG TABLET 3. GERD without esophagitis - ICD9: 530.81, ICD10: K21.9 Avoid risk factors. Reinforced seeing general surgery. - OMEPRAZOLE 20 MG CAPSULE,DELAYED RELEASE Bereket Ashley MD documented in this encounterUniversity Hospitals Geauga Medical Center12-18-2023 History of Present illness Narrative* Scott Caceres PA-C - 06/03/2023 3:40 PM EST .MyChart Zoom Video Visit was used for evaluation of this patient. Location of patient: [place] Patient was offered a virtual/telemedicine appointment in lieu of an office visit due to recommendations to reduce patient exposure to COVID-19. Patient is aware of limitations of performing the visit without a face to face visit in the office setting and agrees. I have communicated my name and active licensure. The patient's identity and physical location wereverified at the time of this visit. Either the patient or their legal underwriting sales representative has been informed of the risks and benefits of -- and alternatives to -- treatment through a remote evaluation andconsents to proceed with the evaluation remotely. 4:00 PM Did not respond to mychart (20 minutres late) Left 2 voicemails and Doximity link to establish virtual visit if she can call back. HISTORIES FAMILY HISTORY Problem Relation Age of Onset Diabetes Mother Pre-diabetic Psychiatry Father manic depression, schizoaffective No Known Problems Sister Hypertension Maternal Grandmother Diabetes Maternal Grandmother Heart Attack Maternal Grandfather Lipids Paternal Grandmother Hypertension Paternal Grandmother other (diverticulitis) Paternal Grandmother Emphysema Paternal Grandfather Cancer Paternal Grandfather Lung PAST MEDICAL HISTORY Diagnosis Date Abnormal glandular Papanicolaou smear of cervix 2000 Abn. Pap smear (cervix) Anxiety IBS (irritable bowel syndrome) Sinus tachycardia 2012 Tobacco use disorder PAST SURGICAL HISTORY Procedure Laterality Date DILATION & CURETTAGE DX&/THER NONOBSTETRIC Dilation & curettage Social History Tobacco Use Smoking status: Every Day Packs/day: 0.50 Years: 7.00 Additional pack years: 0.00 Total pack years: 3.50 Types: Cigarettes Smokeless tobacco: Never Vaping Use Vaping Use: Never used Substance Use Topics Alcohol use: Not Currently Drug use: No ACTIVE PROBLEM LIST Maternal Tobacco Use in First Trimester Anxiety Genital Herpes Simplex Virus (Hsv) Infection in Mother Affecting Vaginitis Tobacco Use Disorder Ibs (Irritable Bowel Syndrome) Sinus Tachycardia History of Stillbirth Supervision of High Risk in First Trimester Underweight Anxiety in in First Trimester, Antepartum Current Outpatient Medications Medication Sig Dispense Refill sertraline (ZOLOFT) 100 mg tablet Take 1 tablet by mouth once daily. . 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 90 tablet 1 omeprazole (PRILOSEC) 20 mg capsule Take 1 capsule by mouth daily before breakfast. 1/2 hr before meal. 30 capsule 1 EPINEPHrine (EPIPEN) 0.3 mg/0.3 mL auto-injector Use as directed. Go to ED after use. 2 Each 1 No current facility-administered medications for this visit. Covid-19 Vaccine(1) Never done Pneumococcal Vaccine(1 of 2 - PCV) Never done DTaP,Tdap,Td Vaccine(5 - Tdap) due on 02/05/2010 Depression Assessment Never done Influenza Vaccine(1) due on 02/15/2023 documented in this encounterUniversity Hospitals Geauga Medical Center08-21-2023 Miscellaneous Notes* Telephone Encounter - Roland Shaw LPN - 02/04/2023 1:10 PM EDT FIDEL 09/27/22 NOV no upcoming appt documented in this encounterUniversity Hospitals Geauga Medical Center07-23-2023 Discharge summary Author [facility] January 06, 2023 5:52pm Note Date/Time January 06, 2023 5:39 pm [facility] Medical Records Department [address] [place] [address] Emergency Department Summary 01/06/23 MR#: [id number] Acct: [id number] Name: GRACIE AVELAR Rep #:[id number] : 1985 37 From: Mega Agrawal MD PCP: Dr. Bereket Ashley MD Status:PRE E R Location: ED HPI <BETTY Rachel - Last Filed: 01/06/23 17:52> History of Present Illness Chief Complaint: Dental Narrative Narrative: Patient presenting today with dental pain to her right lower jaw that she has had for the past several days. She saw her PCP, Dr. Ashley on Saturday via a virtual visit and he prescribed her 875 mg amoxicillin twice daily for 10 days. She has had 3 doses of this medication so far. She reports that the pain is notgetting any better. She does have a history of dental pain to this tooth and issupposed to have it pulled. She does have a dentist and will be calling tomorrow morning to make an appointment. She denies any fever, chills. She denies a PMH of any chronic health conditions. PFSH <BETTY Rachel - Last Filed: 01/06/23 17:52> PFSH Medical History 34 weeks gestation of COVID-19 (07/01/21) Herpes Herpes History of stillbirth IBS (irritable bowel syndrome) Limited care premature rupture of membranes (PPROM) with unknown onset of labor Home Medications alprazolam 0.25 mg tablet (Xanax) 0.25 mg PO QHS PRN PRN Anxiety 08/02/20 [History Last Taken Unknown] epinephrine 0.3 mg/0.3 mL injection, auto-injector (EpiPen) 0.3 mg IM ONCE PRN bee sting 08/16/21 [History Last Taken Unknown] sertraline 100 mg tablet 100 mg PO QHS anxiety 08/23/21 [History Last Taken Unknown] omeprazole magnesium 20 mg tablet,delayed release (Prilosec OTC) 20 mg PO DAILY #30 tabs 10/23/22 [Rx Last Taken Unknown] Allergy/AdvReac Type Severity Reaction Status Date / Time venom-honey bee Allergy Unknown swelling Verified 01/06/23 17:28 Family History Mother Diabetes Father Schizoaffective disorder Grandmother Hypertension Diabetes Grandfather Myocardial infarction Grandmother Hypertension Grandfather Cancer lung Surgical History History of dilatation and curettage Social History Smoking Status: Current every day smoker tobacco type: cigarettes alcohol intake: never substance use type: does not use ROS <BETTY Rachel - Last Filed: 01/06/23 17:52> ROS ED Constitutional Constitutional ED: Denies chills or fever(s) Cardiovascular Cardiovascular: Denies chest pain Respiratory/Chest Respiratory/Chest: Denies cough or dyspnea Gastrointestinal Gastrointestinal: Denies abdominal pain, nausea or vomiting Musculoskeletal Musculoskeletal: Denies arthralgias or myalgias Integumentary Denies abscess or rash Neurologic Neurologic: Denies weakness EXAM <BETTY Rachel - Last Filed: 01/06/23 17:52> Physical Exam Const Vital Signs: 01/06/23 17:28 Temperature 98.3 F Temperature Source Temporal Pulse Rate 99 Respiratory Rate 18 Blood Pressure 113/74 Blood Pressure Mean 87 Pulse Ox 100 Oxygen Delivery Method Room Air Positive well nourished, well developed and no apparent distress General Appearance ED: well developed HEENT Reports normocephalic and head/scalp atraumatic HEENT Narrative: Multiple dental caries and several missing teeth, right mandibular first premolar has an extensive dental carry that is almost eroded to the gumline. Nodental abscess. No trismus. Mouth ED: Yes moist mucous membranes normal Eyes PERRL and EOMs intact bilaterally Neck full ROM and supple Chest Wall inspection of chest normal Resp normal respiratory effort and clear to auscultation bilaterally Cardio regular rate and regular rhythm GI soft to palpation, non-tender, non-distended and no masses Back/Spine normal ROM and normal to inspection Extremity normal to inspection and full ROM Neuro oriented x3, CN's II-XII intact bilaterally, moves all extremities, no focal motor deficits and no sensory deficits noted Sensorium / Orientation: awake and alert Psych mental status grossly normal and thought process normal Skin no rashes or lesions noted and no wounds <Dr. Mega Agrawal MD - Last Filed: 01/06/23 17:46> Physical Exam Const Vital Signs: 01/06/23 17:28 Temperature 98.3 F Temperature Source Temporal Pulse Rate 99 Respiratory Rate 18 Blood Pressure 113/74 Blood Pressure Mean 87 Pulse Ox 100 Oxygen Delivery Method Room Air MDM <BETTY Rachel - Last Filed: 01/06/23 17:52> [facility] MDM Narrative Medical decision making narrative: Patient presenting due to dental pain to her right mandibular premolar she has had for the past few days. She saw her PCP Saturday who prescribed her amoxicillin which she has had 3 doses of so far. There is no dental abscess, notrismus, no signs of Ludewig's angina. Vitals are unremarkable, she is well-appearing and in no acute distress. She was offered a pain control here and stated she did not want any narcotics, she was given ibuprofen. She reports that she is going to be calling her dentist in the morning to make an appointment. She has been given return instructions will be discharged home in stable condition. She is comfortable with plan. I have personally performed a face to face assessment of the patient and have reviewed the DONNA Note. I performed a substantive portion of the visit including all aspects of the following. My gillette findings include: History is 37-year-old female right lower dental pain. Currently on penicillin. Exam is [37-year-old female no acute distress. Vital signs stable afebrile. HEENT exam unremarkable except multiple missing teeth. Upper dentures. Her right lower premolar is eroded to the gumline. There is minimal inflammation. Nothing to drain. No large abscess. No jaw swelling. No trismus. No trouble swallowing or breathing. Exam consistent with a dental infection. Lungs clear. Heart regular rhythm no murmur. Otherwise exam unremarkable.] Medical Decision Making [dental infection. No abscess to drain at this time. Continue on her Motrin and Tylenol. Continue on her current antibiotic.] Other additions or changes: [None] <Dr. Mega Agrawal MD - Last Filed: 01/06/23 17:46> [facility] MDM Narrative Medical decision making narrative: I have personally performed a face to face assessment of the patient and have reviewed the DONNA Note. I performed a substantive portion of the visit including all aspects of the following. My gillette findings include: History is 37-year-old female right lower dental pain. Currently on penicillin. Exam is [37-year-old female no acute distress. Vital signs stable afebrile. HEENT exam unremarkable except multiple missing teeth. Upper dentures. Her right lower premolar is eroded to the gumline. There is minimal inflammation. Nothing to drain. No large abscess. No jaw swelling. No trismus. No trouble swallowing or breathing. Exam consistent with a dental infection. Lungs clear. Heart regular rhythm no murmur. Otherwise exam unremarkable.] Medical Decision Making [dental infection. No abscess to drain at this time. Continue on her Motrin and Tylenol. Continue on her current antibiotic.] Other additions or changes: [None] Discharge Plan Triage Chief Complaint: Dental ED Midlevel Provider: Tigist [place] ED Provider: Mega Agrawal Dx/Rx/DC Orders Clinical Impression: Dental caries, Pain, dental Instructions: ED Dental Pain Prescriptions: No Action sertraline 100 mg tablet 100 mg PO QHS alprazolam [Xanax] 0.25 MG tablet 0.25 mg PO QHS PRN PRN (Reason: Anxiety) omeprazole magnesium [Prilosec OTC] 20 mg tablet,delayed release (DR/EC) 20 mg PO DAILY Qty: 30 0RF epinephrine [EpiPen] 0.3 mg/0.3 mL auto-injector 0.3 mg IM ONCE PRN (Reason: bee sting) Rx Instructions: as a single dose; may repeat once Primary Care Provider: Bereket Ashley Referrals: Bereket Ashley MD [Primary Care Provider] - Activity Restrictions/Additional Instructions: Please call the dentist tomorrow to make an appointment. Return for any worsening of symptoms. Disposition Disposition: Home, Self Care What to do if you have Problems For any increased pain, shortness of breath, bleeding, nausea or vomiting, chestpain, or any unexpected problems, contact your Primary Care Provider. Call [facility] ([phone]) or report to the closest Emergency Room. Call 911 if necessary. 01/06/23 1746 <Electronically signed by Mega Agrawal MD> Cosigner Signature (if applicable): 01/06/23 175 <Electronically signed by Tigist HERNÁNDEZ> CC: Dr. Bereket Ashley MD ~ Signed [facility] Work Phone: [phone]) 785-189306-05-2023 Miscellaneous Notes* Telephone Encounter - Cami Millan LPN - 11/19/2022 6:16 PM EDT Has a virtual visit with Dr Ashley: Set up with general surgery. documented in this encounterUniversity Hospitals [facility]06-05-2023 History of Present illness Narrative* Bereket Ashley MD - 11/19/2022 5:57 PM EDT Patient presents with: Follow Up HPI:This Team Access Model visit is a virtual encounter. It required patient- provider interaction for the medical decision making as documented below. Patient has elected to have a visit through distance medicine I have communicated my name and active licensure. The patient's identity and physical location wereverified at the time of this visit. Either the patient or their legal underwriting sales representative has been informed of the risks and benefits of -- and alternatives to -- treatment through a remote evaluation andconsents to proceed with the evaluation remotely. Seen in ER last time for abd pain. Had negative work up including labs etc. Given gi cocktail which helped. Given prilosec. Now doing much better. No bloody or black stools. Still burning in her throat. No dysphagia. No etoh. Rare ibuprofen. Uses caffeine. Is smoker. MEDICATIONS: Current Outpatient Medications Medication Sig amoxicillin-clavulanic acid (AUGMENTIN) 875-125 mg per tablet Take 1 tablet by mouth twice daily for 10 days. sertraline (ZOLOFT) 100 mg tablet Take 1 tablet by mouth once daily. . 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 ALPRAZolam (XANAX) 0.25 mg tablet Take 1 tablet by mouth as needed for up to 180 days. EPINEPHrine (EPIPEN) 0.3 mg/0.3 mL auto-injector Use as directed. Go to ED after use. No current facility-administered medications for this visit. ALLERGIES: ALLERGIES Allergen Reactions Bee Sting Swelling PAST MEDICAL HISTORY Diagnosis Date Abnormal glandular Papanicolaou smear of cervix 2000 Abn. Pap smear (cervix) Anxiety IBS (irritable bowel syndrome) Sinus tachycardia 2012 Tobacco use disorder PAST SURGICAL HISTORY Procedure Laterality Date DILATION & CURETTAGE DX&/THER NONOBSTETRIC Dilation & curettage FAMILY HISTORY Problem Relation Age of Onset Diabetes Mother Pre-diabetic Psychiatry Father manic depression, schizoaffective No Known Problems Sister Hypertension Maternal Grandmother Diabetes Maternal Grandmother Heart Attack Maternal Grandfather Lipids Paternal Grandmother Hypertension Paternal Grandmother other (diverticulitis) Paternal Grandmother Emphysema Paternal Grandfather Cancer Paternal Grandfather Lung Social History Tobacco Use Smoking status: Every Day Packs/day: 0.50 Years: 7.00 Pack years: 3.50 Types: Cigarettes Smokeless tobacco: Never Vaping Use Vaping Use: Never used Substance Use Topics Alcohol use: Not Currently Drug use: No Reviewed current medications, allergies, past medical history, surgical history, family history andsocial history today. REVIEW OF SYSTEMS All other reviewed and negative other than HPI. VITALS: LMP 03/14/2019 Last 4 Encounter Wt Readings: Date: Wt: 09/27/2022 46.5 kg (102 lb 9.6 oz) 04/24/2022 48.1 kg (106 lb) 04/18/2022 47.9 kg (105 lb 9.6 oz) 04/04/2022 49 kg (108 lb) PHYSICAL EXAMINATION: Patient is alert and oriented during visit. Answers appropriately. ASSESSMENT/PLAN: 1. GERD without esophagitis - ICD9: 530.81, ICD10: K21.9 - continue meds. Limit tobacco Limit caffeine. See surgery. - CONSULT TO GENERAL SURGERY - OMEPRAZOLE 20 MG CAPSULE,DELAYED RELEASE Bereket Ashley MD documented in this encounterUniversity Hospitals [facility]06-01-2023 Instructions* Patient Instructions* Brennen Royal APRN.CNP - 11/15/2022 6:05 PM EDT Start augmentin Follow up with dentist as scheduled documented in this encounterUniversity Hospitals [facility]06-01-2023 History of Present illness Narrative* Brennen Royal APRN.CNP - 11/15/2022 5:56 PM EDT VIRTUAL VISIT PROGRESS NOTE This is a virtual visit using [employer] video visit. It required patient-provider interaction for themedical decision making as documented below. I have communicated my name and active licensure. The patient's identity and physical location wereverified at the time of this visit. Either the patient or their legal underwriting sales representative has been informed of the risks and benefits of -- and alternatives to -- treatment through a remote evaluation andconsents to proceed with the evaluation remotely. Gracie Avelar is a 37 year old female seen for dental pain. Patient reports swelling to her left face and left lower gums. Patient reports one of her teeth is broke off at the gum line and she is scheduled for an extraction in 2 weeks. HISTORY REVIEWED (electronic chart updated): PAST MEDICAL HISTORY Diagnosis Date Abnormal glandular Papanicolaou smear of cervix 2000 Abn. Pap smear (cervix) Anxiety IBS (irritable bowel syndrome) Sinus tachycardia 2012 Tobacco use disorder PAST SURGICAL HISTORY Procedure Laterality Date DILATION & CURETTAGE DX&/THER NONOBSTETRIC Dilation & curettage FAMILY HISTORY Problem Relation Age of Onset Diabetes Mother Pre-diabetic Psychiatry Father manic depression, schizoaffective No Known Problems Sister Hypertension Maternal Grandmother Diabetes Maternal Grandmother Heart Attack Maternal Grandfather Lipids Paternal Grandmother Hypertension Paternal Grandmother other (diverticulitis) Paternal Grandmother Emphysema Paternal Grandfather Cancer Paternal Grandfather Lung Social History Tobacco Use Smoking status: Every Day Packs/day: 0.50 Years: 7.00 Pack years: 3.50 Types: Cigarettes Smokeless tobacco: Never Vaping Use Vaping Use: Never used Substance Use Topics Alcohol use: Not Currently Drug use: No Current Outpatient Medications Medication Sig sertraline (ZOLOFT) 100 mg tablet Take 1 tablet by mouth once daily. . 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 ALPRAZolam (XANAX) 0.25 mg tablet Take 1 tablet by mouth as needed for up to 180 days. EPINEPHrine (EPIPEN) 0.3 mg/0.3 mL auto-injector Use as directed. Go to ED after use. No current facility-administered medications for this visit. ALLERGIES Allergen Reactions Bee Sting Swelling REVIEW OF SYSTEMS: PHYSICAL EXAMINATION: VIDEO EXAM: (if completed, performed via video enabled technology) HEAD: normocephalic, no abnormality or lesion noted OROPHARYNX: moist mucus membranes and left jaw/facial swelling ASSESSMENT/PLAN: 1. Dental infection - ICD9: 522.4, ICD10: K04.7 - AMOXICILLIN 875 MG-POTASSIUM CLAVULANATE 125 MG TABLET -Follow up with dentist as scheduled I spent a total of 10 minutes on the date of the service which included preparing to see the patient, [id number] patient care, completing clinical documentation, obtaining and/or reviewing separately obtained history, performing a medically appropriate examination, counseling and educating the pat ient/family/caregiver, ordering medications, tests, or procedures, communicating results to the patient/family/caregiver, and care coordination (not separately reported) Brennen Royal APRN.CONSOLIDATOR documented in this encounterUniversity Hospitals [facility]05-08-2023 History of Present illness Narrative* Bereket Ashley MD - 10/22/2022 6:49 PM EDT Patient presents with: Acute Visit HPI:This Team Access Model visit is a virtual encounter. It required patient- provider interaction for the medical decision making as documented below. Patient has elected to have a visit through distance medicine I have communicated my name and active licensure. The patient's identity and physical location wereverified at the time of this visit. Either the patient or their legal underwriting sales representative has been informed of the risks and benefits of -- and alternatives to -- treatment through a remote evaluation andconsents to proceed with the evaluation remotely. Started on the 10/19. Started with diarrhea. Wondered if she ate something bad but is unsure. Had abd pain in the mid lower abdomen. Once she moved her bowels the pain improved. No bloody or blacks stools No nausea or vomiting. No recent antibiotics or travel history. Now with reflux. Not as much epigastric but in her throat. Feels like increased burping. Has used tums etc. Used ibuprofen No issues swallowing. No fever or chills. Smoking made her stomach feel like it was on fire. No more diarrhea. No chest pain. Has noted twitching across her muscle wall over her left lower chest/abd area. Has noted is more shortness of breath. No cough. MEDICATIONS: Current Outpatient Medications Medication Sig sertraline (ZOLOFT) 100 mg tablet Take 1 tablet by mouth once daily. . 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 ALPRAZolam (XANAX) 0.25 mg tablet Take 1 tablet by mouth as needed for up to 180 days. EPINEPHrine (EPIPEN) 0.3 mg/0.3 mL auto-injector Use as directed. Go to ED after use. No current facility-administered medications for this visit. ALLERGIES: ALLERGIES Allergen Reactions Bee Sting Swelling PAST MEDICAL HISTORY Diagnosis Date Abnormal glandular Papanicolaou smear of cervix 2000 Abn. Pap smear (cervix) Anxiety IBS (irritable bowel syndrome) Sinus tachycardia 2012 Tobacco use disorder PAST SURGICAL HISTORY Procedure Laterality Date DILATION & CURETTAGE DX&/THER NONOBSTETRIC Dilation & curettage FAMILY HISTORY Problem Relation Age of Onset Diabetes Mother Pre-diabetic Psychiatry Father manic depression, schizoaffective No Known Problems Sister Hypertension Maternal Grandmother Diabetes Maternal Grandmother Heart Attack Maternal Grandfather Lipids Paternal Grandmother Hypertension Paternal Grandmother other (diverticulitis) Paternal Grandmother Emphysema Paternal Grandfather Cancer Paternal Grandfather Lung Social History Tobacco Use Smoking status: Every Day Packs/day: 0.50 Years: 7.00 Pack years: 3.50 Types: Cigarettes Smokeless tobacco: Never Vaping Use Vaping Use: Never used Substance Use Topics Alcohol use: Not Currently Drug use: No Reviewed current medications, allergies, past medical history, surgical history, family history andsocial history today. REVIEW OF SYSTEMS All other reviewed and negative other than HPI. VITALS: LMP 03/14/2019 Last 4 Encounter Wt Readings: Date: Wt: 09/27/2022 46.5 kg (102 lb 9.6 oz) 04/24/2022 48.1 kg (106 lb) 04/18/2022 47.9 kg (105 lb 9.6 oz) 04/04/2022 49 kg (108 lb) PHYSICAL EXAMINATION: Patient is alert and oriented during visit. Answers appropriately. ASSESSMENT/PLAN: 1. SOB (shortness of breath) - ICD9: 786.05, ICD10: R06.02 (primary diagnosis) Given her symptoms, to ER. She will comply. 2. Chest pain, unspecified type - ICD9: 786.50, ICD10: R07.9 - as above. 3. Throat pain - ICD9: 784.1, ICD10: R07.0 - as above. Bereekt Ashley MD documented in this encounterUniversity Hospitals [facility]05-08-[address] Daniel [facility] October 23, 2022 12:16am Note Date/Time October 22, 2022 10:45p m [facility] Medical Records Department [address] [place] [address] Emergency Department Summary 10/22/22 MR#: [id number] Acct: [id number] Name: GRACIE AVELAR Rep #:[id number] : 1985 37 From: Michele Daniel DO PCP: Dr. Bereket Ashley MD Status:REG E R Location: ED HPI HPI - GI History of Present Illness Chief Complaint: Abd Pain Narrative Narrative: 37-year-old female presenting with epigastric pain and esophageal burning. She states he is actually noted a little bit of twitching on the external aspect of her abdomen. She is not really sure why. Patient ate spaghetti and after she ate that she started to have severe abdominal pain with cramping. She states she has IBS and she is got used to this but then developed the burning up into the esophagus. She had a virtual visit with Dr. Ashley today and he recommended she come to the ER for evaluation. She is not having chest pain. She states she did feel little bit dyspneic but this did not last long. No fevers or chills. She did have an episode of diarrhea but again she states she has IBS. [facility] Medical History 34 weeks gestation of COVID-19 (07/01/21) Herpes Herpes History of stillbirth IBS (irritable bowel syndrome) Limited care premature rupture of membranes (PPROM) with unknown onset of labor Home Medications alprazolam 0.25 mg tablet (Xanax) 0.25 mg PO QHS PRN PRN Anxiety 08/02/20 [History Last Taken Unknown] epinephrine 0.3 mg/0.3 mL injection, auto-injector (EpiPen) 0.3 mg IM ONCE PRN bee sting 08/16/21 [History Last Taken Unknown] sertraline 100 mg tablet 100 mg PO QHS anxiety 08/23/21 [History Last Taken Unknown] omeprazole magnesium 20 mg tablet,delayed release (Prilosec OTC) 20 mg PO DAILY #30 tabs 10/23/22 [Rx Last Taken Unknown] Allergy/AdvReac Type Severity Reaction Status Date / Time venom-honey bee Allergy Unknown swelling Verified 10/22/22 21:14 Family History Mother Diabetes Father Schizoaffective disorder Grandmother Hypertension Diabetes Grandfather Myocardial infarction Grandmother Hypertension Grandfather Cancer lung Surgical History History of dilatation and curettage Social History Smoking Status: Current every day smoker tobacco type: cigarettes alcohol intake: never substance use type: does not use ROS ROS ED Constitutional Constitutional ED: Denies chills, fever(s) or sweats Eyes Eyes: Denies blurry vision or change in vision ENT ENT ED: Denies ear pain or sore throat Cardiovascular Cardiovascular: Denies chest pain, palpitations or racing heartbeat Respiratory/Chest Respiratory/Chest: Denies cough, dyspnea or sputum Gastrointestinal Gastrointestinal: Reports abdominal pain, diarrhea and other Details: Dyspepsia ; Denies constipation, nausea or vomiting Genitourinary Genitourinary ED: Denies dysuria, hematuria or urinary frequency Musculoskeletal Musculoskeletal: Denies arthralgias, myalgias or neck pain Integumentary Denies abscess, Abrasions or rash Neurologic Neurologic: Denies headache(s), paresthesias or weakness Psychiatric Psychiatric: Denies anxiety, depression, suicidal ideation or suicidal thoughts Endocrine Endocrinology: Denies polydipsia or polyuria EXAM Physical Exam Const Vital Signs: 10/22/22 19:19 10/22/22 21:26 10/22/22 23:06 Temperature 97.8 F Temperature Source Temporal Pulse Rate 96 62 67 Respiratory Rate 18 17 14 Blood Pressure 113/68 106/61 104/61 Blood Pressure Mean 83 76 75 Pulse Ox 100 100 98 Oxygen Delivery Method Room Air Room Air Room Air Positive well nourished General Appearance ED: NAD HEENT Reports moist mucous membranes normocephalic and atraumatic Eyes PERRL and EOMs intact bilaterally Resp normal respiratory effort and clear to auscultation bilaterally Auscultation: Negative for rales, rhonchi or wheezes Cardio regular rate and regular rhythm GI non-tender and non-distended Back/Spine no CVA tenderness Neuro CN's II-XII intact bilaterally, moves all extremities and no sensory deficits noted Sensorium / Orientation: alert Motor Exam: strength 5/5 throughout Psych mental status grossly normal and thought process normal Skin no wounds MDM MDM MDM Narrative Medical decision making narrative: Patient presenting with epigastric and esophageal burning after eating spaghetti. She states that she has not had this in the past. She states is also having some twitching. CBC was obtained to assess white blood cell count, hemoglobin, platelets. CMP to assess liver function, renal function, glucose. Urinalysis to assess for UTI. Serum to assess for . CBC is normal without leukocytosis, hemoglobin chronic are stable. Renal function, liver function within normal limits. Serum hCG negative. Urinalysis negative for infection. We will give the patient a GI cocktail to see if this helps withher symptoms. If it does I will start her on Prilosec and have her follow-up with her PCP. On reevaluation she states her symptoms are much improved. I will start her on Prilosec. Return precautions discussed. Impression: 1. Gastritis 2. GERD Lab Data Labs: Laboratory Results - last 24 hr 10/22/22 10/22/22 10/22/22 20:50 20:50 20:50 WBC 5.9 RBC 4.04 L Hgb 13.0 Hct 39.7 MCV 98.3 MCH 32.2 H MCHC 32.7 RDW Std Deviation 46.2 H RDW Coeff of Susanna 12.8 Plt Count 197 MPV 10.0 Immature Gran % (Auto) 0.200 Neut % (Auto) 33.2 L Lymph % (Auto) 53.5 H Carson % (Auto) 8.3 Eos % (Auto) 4.1 Baso % (Auto) 0.7 Absolute Neuts (auto) 2.0 Absolute Lymphs (auto) 3.15 Nucleated RBC % 0 Sodium 141 Potassium 3.9 Chloride 108 H Carbon Dioxide 29.0 Anion Gap 4 L BUN 6 L Creatinine 0.71 Estim Creat Clear Calc 79.12 Est GFR (MDRD) Af Amer 119 Est GFR (MDRD) Non-Af 98 BUN/Creatinine Ratio 8.4 L Glucose 78 Calcium 9.8 Total Bilirubin 0.20 AST 20 ALT 27 Alkaline Phosphatase 48 Total Protein 7.6 Albumin 3.8 Globulin 3.8 Albumin/Globulin Ratio 1.0 Serum , Qual NEGATIVE Urine Color Urine Clarity Urine pH Ur Specific Fabius Urine Protein Urine Glucose (UA) Urine Ketones Urine Occult Blood Urine Nitrite Urine Bilirubin Urine Urobilinogen Ur Leukocyte Esterase Urine RBC Urine WBC Ur Squamous Epith Cells Amorphous Sediment Urine Bacteria Urine Mucus 10/22/22 21:30 WBC RBC Hgb Hct MCV MCH MCHC RDW Std Deviation RDW Coeff of Susanna Plt Count MPV Immature Gran % (Auto) Neut % (Auto) Lymph % (Auto) Carson % (Auto) Eos % (Auto) Baso % (Auto) Absolute Neuts (auto) Absolute Lymphs (auto) Nucleated RBC % Sodium Potassium Chloride Carbon Dioxide Anion Gap BUN Creatinine Estim Creat Clear Calc Est GFR (MDRD) Af Amer Est GFR (MDRD) Non-Af BUN/Creatinine Ratio Glucose Calcium Total Bilirubin AST ALT Alkaline Phosphatase Total Protein Albumin Globulin Albumin/Globulin Ratio Serum , Qual Urine Color Yellow Urine Clarity Sl. Cloudy Urine pH 6.5 Ur Specific Fabius 1.015 Urine Protein Negative Urine Glucose (UA) Normal Urine Ketones Negative Urine Occult Blood Negative Urine Nitrite Negative Urine Bilirubin Negative Urine Urobilinogen 1 H Ur Leukocyte Esterase 25 H Urine RBC 0-5 SEEN Urine WBC 5-10 SEEN Ur Squamous Epith Cells 0-5 SEEN Amorphous Sediment 1+ Urine Bacteria 1+ Urine Mucus 0 SEEN Discharge Plan Triage Chief Complaint: Abd Pain ED Provider: Michele Daniel Dx/Rx/DC Orders Instructions: ED GERD (Adult), ED Gastritis (Adult) Prescriptions: New omeprazole magnesium [Prilosec OTC] 20 mg tablet,delayed release (DR/EC) 20 mg PO DAILY Qty: 30 0RF No Action sertraline 100 mg tablet 100 mg PO QHS alprazolam [Xanax] 0.25 MG tablet 0.25 mg PO QHS PRN PRN (Reason: Anxiety) epinephrine [EpiPen] 0.3 mg/0.3 mL auto-injector 0.3 mg IM ONCE PRN (Reason: bee sting) Rx Instructions: as a single dose; may repeat once Primary Care Provider: Bereket Ashley Referrals: Bereket Ashley MD [Primary Care Provider] - Disposition Disposition: Home, Self Care What to do if you have Problems For any increased pain, shortness of breath, bleeding, nausea or vomiting, chestpain, or any unexpected problems, contact your Primary Care Provider. Call [facility] ([phone]) or report to the closest Emergency Room. Call 911 if necessary. 10/23/22 0016 <Electronically signed by Michele Daniel DO> Cosigner Signature (if applicable): CC: Dr. Bereket Ashley MD ~ Signed [facility] Work Phone: 1(897) 648-297211-21-2022 Miscellaneous Notes* Telephone Encounter - Madina Berrios LPN - 05/07/2022 9:58 AM EST Fidel--04/24/22 Nov--nothing scheduled Last refill--08/22/21 135 with 1 refill Last labs--12/06/21 * Telephone Encounter - Rajwinder Phipps Pss - 05/07/2022 8:38 AM EST Patient has been identified by name and date of : Yes Requested Prescriptions Pending Prescriptions Disp Refills sertraline (ZOLOFT) 100 mg tablet 135 tablet 1 Sig: Take 1 tablet by mouth once daily. . 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 RX INSTRUCTIONS: Patient aware RX will be sent to pharmacy. No need to notify patient. Rajwinder Phipps Pss documented in this encounterUniversity Hospitals [facility]11-16-2022 Miscellaneous Notes* Telephone Encounter - Elisha Stewart LPN - 05/02/2022 10:16 AM EST Pt notified of response & verbalized understanding. Elisha Stewart LPN * Telephone Encounter - Maria C Dolan MD - 05/02/2022 9:53 AM EST Will stop kenalog cream and start super high potency clobetasol cream BID for dyshidrotic eczema x 2 weeks. If not improving, will need f/u in office and possibly referral to dermatology. * Telephone Encounter - Scott Hawley RN - 05/02/2022 9:13 AM EST Patient reports the eczema cream Dr. Dolan prescribed is not working. The rash is on both hands, not as bad on left, but right hand is covered. Hands are a little swollen. Cold water gives relief from itching. Reports as soon as she scratches it, more bumps appear. She bought aveeno for eczema, and it makes it feel better, but doesn't take it away. Please advise patient. documented in this encounterUniversity Hospitals Geaug[facility] Center11-11-2022 Miscellaneous Notes* Telephone Encounter - Danisha Ivey RN - 04/27/2022 11:15 AM EST Pt called and is notified of providers message and instructions. Pt voices understanding. Danisha Ivey RN * Telephone Encounter - Maria C Dolan MD - 04/27/2022 10:00 AM EST It's possible it could have been from the prednisone. I am glad to hear she is feeling better today. Let us know if symptoms change or worsen. * Telephone Encounter - Danisha Ivey RN - 04/27/2022 8:40 AM EST Pt called in and reports provider had her stop taking Prednisone on Saturday. She reports on she felt floaty, out of it, shaky, and was freezing. Pt states she feels quite a bit better today, but wants to know if this could have been from stopping the Prednisone. Please call and advise. documented in this encounterUniversity Hospitals Geaug[facility] Center11-08-2022 History of Present illness Narrative* Maria C Dolan MD - 04/24/2022 7:10 PM EST Chief Complaint Patient presents with: Rash HPI Gracie Avelar is a 36 year old female who presents here today for Above Complaints.. Evaluated at on 04/18 and was given prednisone taper for itching/burning rash on her right 2nd and 3rd finger for rash which started on 04/16. Since taking the steroid, rash has not improved, but itching and burning has resolved. States that she started new job at [employer] about 2 months ago where she wears rubber/latex gloves all day. Washes dishes occasionally. Spends a lot of time with hands in fruit washer solution. Past medical history, appointments, medications, allergies reviewed. Previous Medical History PAST MEDICAL HISTORY Diagnosis Date Abnormal glandular Papanicolaou smear of cervix 2000 Abn. Pap smear (cervix) Anxiety IBS (irritable bowel syndrome) Sinus tachycardia 2012 Tobacco use disorder Previous Surgical History PAST SURGICAL HISTORY Procedure Laterality Date DILATION & CURETTAGE DX&/THER NONOBSTETRIC Dilation & curettage Family History FAMILY HISTORY Problem Relation Age of Onset Diabetes Mother Pre-diabetic Psychiatry Father manic depression, schizoaffective No Known Problems Sister Hypertension Maternal Grandmother Diabetes Maternal Grandmother Heart Attack Maternal Grandfather Lipids Paternal Grandmother Hypertension Paternal Grandmother other (diverticulitis) Paternal Grandmother Emphysema Paternal Grandfather Cancer Paternal Grandfather Lung Patient Allergies ALLERGIES Allergen Reactions Bee Sting Swelling Current Medications Current Outpatient Medications on File Prior to Visit Medication Sig predniSONE (DELTASONE) 10 mg tablet Take 6 tabs for 3 days, then 4 tabs for 3 days, then 2 tabs for3 days then 1 tab for 3 days with food. ALPRAZolam (XANAX) 0.25 mg tablet busPIRone (BUSPAR) 5 mg tablet Take 0.5-1 tablets by mouth twice daily. (Patient not taking: Reported on 04/04/2022) sertraline (ZOLOFT) 100 mg tablet Take 1 tablet by mouth once daily. . 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 EPINEPHrine (EPIPEN) 0.3 mg/0.3 mL auto-injector Use as directed. Go to ED after use. No current facility-administered medications on file prior to visit. Social History Social History Tobacco Use Smoking status: Every Day Packs/day: 0.50 Years: 7.00 Pack years: 3.50 Types: Cigarettes Smokeless tobacco: Never Vaping Use Vaping Use: Never used Substance Use Topics Alcohol use: Not Currently Drug use: No Review of Symptoms REVIEW OF SYSTEMS See HPI EXAM: BP 102/58 Pulse 86 Resp 16 Wt 48.1 kg (106 lb) LMP 03/14/2019 SpO2 99% BMI 17.80 kg/m General Appearance: Well appearing, alert, in no acute distress, well-hydrated, well nourished.. Skin: raised red rash on dorsum of hands bilaterally without cellulitis. Noted small skin colored papules consistent with dyshidrotic eczema. Health Maintenance List COVID-19 VACCINE(1) Never done PNEUMOCOCCAL(1 - PCV) Never done DTAP,TDAP,TD(5 - Tdap) due on 02/05/2010 DEPRESSION ASSESSMENT Never done INFLUENZA(1) due on 02/15/2022 PAP TESTING due on 05/01/2024 HPV TESTING due on 05/01/2024 HEPATITIS C SCREENING Completed HIV SCREENING Completed ASSESSMENT/PLAN: 1. Dyshidrotic eczema - ICD9: 705.81, ICD10: L30.1 Stop PO steroid and will start on high potency topical BID x 14 days. Discussed trying to keep hands dry during the day and avoid harsh chemicals. Can wear cotton gloves under her latex/nitrile gloves. Call if not improving in 1-2 weeks. Maria C Dolan MD documented in this encounterUniversity Hospitals Geaug[facility] Center11-02-2022 Instructions* Patient Instructions* Simran Toscano APRN.CNP - 04/18/2022 6:49 PM EDT Patient instructed to: * Use cold compresses, 20 minutes 4-6 times per day * Use [place] Solution and Aveeno products as needed. * Wash all clothes. * Return to primary care provider if no relief in 3-4 days. documented in this encounterUniversity Hospitals Geauga [facility] Center11-02-2022 History of Present illness Narrative* Simran Toscano APRN.CNP - 04/18/2022 6:46 PM EDT This note was created using Zazzleriter. Subjective Gracie Avelar is a 36 year old female. 36 year old female with PMH anxiety presents for complaints rash to hand Acute onset approximately one week ago or so may have been 2 weeks ago Right second and third finger +itchy/burning rash Denies fever or chills Denies URI sx Denies new lotions , soaps or medicines Denies malaise or fatigue States she started a new job which she has to wear gloves The history is provided by the patient. No english language arts teacher was used. Rash This is a new problem. The current episode started 1 to 4 weeks ago. The problem is unchanged. Location: right second and third finger. The rash is characterized by redness, itchiness, pain and burning. It is unknown if there was an exposure to a precipitant. Pertinent negatives include no anorexia, congestion, cough, diarrhea, eye pain, facial edema, fatigue, fever, joint pain, nail changes, rhin orrhea, shortness of breath, sore throat or vomiting. Past treatments include nothing. The treatment provided no relief. There is no history of allergies, asthma, eczema or varicella. PAST MEDICAL HISTORY Diagnosis Date Abnormal glandular Papanicolaou smear of cervix 2000 Abn. Pap smear (cervix) Anxiety IBS (irritable bowel syndrome) Sinus tachycardia 2012 Tobacco use disorder PAST SURGICAL HISTORY Procedure Laterality Date DILATION & CURETTAGE DX&/THER NONOBSTETRIC Dilation & curettage ALLERGIES Bee Sting MEDICATIONS predniSONE (DELTASONE) 10 mg tablet Take 6 tabs for 3 days, then 4 tabs for 3 days, then 2 tabs for3 days then 1 tab for 3 days with food. ALPRAZolam (XANAX) 0.25 mg tablet busPIRone (BUSPAR) 5 mg tablet Take 0.5-1 tablets by mouth twice daily. (Patient not taking: Reported on 04/04/2022) sertraline (ZOLOFT) 100 mg tablet Take 1 tablet by mouth once daily. . 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 EPINEPHrine (EPIPEN) 0.3 mg/0.3 mL auto-injector Use as directed. Go to ED after use. FAMILY HISTORY Problem Relation Age of Onset Diabetes Mother Pre-diabetic Psychiatry Father manic depression, schizoaffective No Known Problems Sister Hypertension Maternal Grandmother Diabetes Maternal Grandmother Heart Attack Maternal Grandfather Lipids Paternal Grandmother Hypertension Paternal Grandmother other (diverticulitis) Paternal Grandmother Emphysema Paternal Grandfather Cancer Paternal Grandfather Lung Social History Tobacco Use Smoking status: Every Day Packs/day: 0.50 Years: 7.00 Pack years: 3.50 Types: Cigarettes Smokeless tobacco: Never Vaping Use Vaping Use: Never used Substance Use Topics Alcohol use: Not Currently Drug use: No Review of Systems Constitutional: Negative for activity change, appetite change, fatigue and fever. HENT: Negative for congestion, rhinorrhea and sore throat. Eyes: Negative for photophobia, pain and redness. Respiratory: Negative for apnea, cough, choking, chest tightness and shortness of breath. Cardiovascular: Negative for chest pain, palpitations and leg swelling. Gastrointestinal: Negative for abdominal pain, anorexia, diarrhea and vomiting. Musculoskeletal: Negative for arthralgias, back pain and joint pain. Skin: Positive for rash. Negative for color change, nail changes and pallor. Allergic/Immunologic: Negative for environmental allergies, food allergies and immunocompromised state. Neurological: Negative for dizziness, facial asymmetry and headaches. Hematological: Negative for adenopathy. Does not bruise/bleed easily. Psychiatric/Behavioral: Negative for agitation and behavioral problems. Objective BP 106/66 Pulse 80 Temp 37.3 C (99.1 F) Resp 18 Wt 47.9 kg (105 lb 9.6 oz) LMP 03/14/2019 SpO2 100% BMI 17.74 kg/m Physical Exam Vitals and nursing note reviewed. Constitutional: General: She is not in acute distress. Appearance: Normal appearance. She is normal weight. She is not ill-appearing, toxic-appearing or diaphoretic. HENT: Head: Normocephalic and atraumatic. Right Ear: Ear canal and external ear normal. Left Ear: Ear canal and external ear normal. Nose: Nose normal. No congestion or rhinorrhea. Mouth/Throat: Mouth: Mucous membranes are moist. Pharynx: No oropharyngeal exudate or posterior oropharyngeal erythema. Eyes: General: Right eye: No discharge. Left eye: No discharge. Extraocular Movements: Extraocular movements intact. Conjunctiva/sclera: Conjunctivae normal. Pupils: Pupils are equal, round, and reactive to light. Cardiovascular: Rate and Rhythm: Normal rate and regular rhythm. Pulses: Normal pulses. Heart sounds: Normal heart sounds. No murmur heard. No friction rub. Pulmonary: Effort: Pulmonary effort is normal. No respiratory distress. Breath sounds: Normal breath sounds. No stridor. No wheezing, rhonchi or rales. Chest: Chest wall: No tenderness. Abdominal: General: Abdomen is flat. There is no distension. Palpations: Abdomen is soft. There is no mass. Tenderness: There is no abdominal tenderness. There is no right CVA tenderness, left CVA tenderness, guarding or rebound. Hernia: No hernia is present. Musculoskeletal: General: No swelling, tenderness, deformity or signs of injury. Normal range of motion. Cervical back: Normal range of motion and neck supple. No rigidity. Right lower leg: No edema. Left lower leg: No edema. Lymphadenopathy: Cervical: No cervical adenopathy. Skin: General: Skin is warm and dry. Capillary Refill: Capillary refill takes less than 2 seconds. Coloration: Skin is not jaundiced or pale. Findings: Rash (2nd & 3rd digit with erythewma based pruritic rash.) present. No bruising, erythema or lesion. Neurological: General: No focal deficit present. Mental Status: She is alert and oriented to person, place, and time. Cranial Nerves: No cranial nerve deficit. Sensory: No sensory deficit. Motor: No weakness. Coordination: Coordination normal. Gait: Gait normal. Psychiatric: Mood and Affect: Mood normal. Behavior: Behavior normal. Thought Content: Thought content normal. Judgment: Judgment normal. Assessment and Plan ASSESSMENT/PLAN: 1. Dermatitis - ICD9: 692.9, ICD10: L30.9 - Oral Steriod tx -Prednisone taper - Topical steriod tx with OTC 1% Hydrocortisone cream - Anti itch therapy of OTC 1% Hydrocortisone cream and Oral Benydryl recommended prn - discussed skin care of rash - follow up if symptoms persist or worsen. Simran Toscano APRN.ZEE documented in this encounterUniversity Hospitals Geaug[facility] Center10-19-2022 History of Present illness Narrative* Danisha Smith APRN.CNP - 04/04/2022 11:49 AM EDT SUBJECTIVE: Gracie Avelar is a 36 year old female. Who presents today with cough congestion sore throat since this am. She has exposure to people ar work who are sick. She is not vaccinated for covid. She has no loss of taste or smell. She is here for covid testing. She is taking tylenol for her symptoms HPI PAST MEDICAL HISTORY Diagnosis Date Abnormal glandular Papanicolaou smear of cervix 2000 Abn. Pap smear (cervix) Anxiety IBS (irritable bowel syndrome) Sinus tachycardia 2012 Tobacco use disorder FAMILY HISTORY Problem Relation Age of Onset Diabetes Mother Pre-diabetic Psychiatry Father manic depression, schizoaffective No Known Problems Sister Hypertension Maternal Grandmother Diabetes Maternal Grandmother Heart Attack Maternal Grandfather Lipids Paternal Grandmother Hypertension Paternal Grandmother other (diverticulitis) Paternal Grandmother Emphysema Paternal Grandfather Cancer Paternal Grandfather Lung Social History Tobacco Use Smoking status: Every Day Packs/day: 0.50 Years: 7.00 Pack years: 3.50 Types: Cigarettes Smokeless tobacco: Never Vaping Use Vaping Use: Never used Substance Use Topics Alcohol use: Not Currently Drug use: No ALLERGIES Allergen Reactions Bee Sting Swelling Current Outpatient Medications Medication Sig Dispense Refill ALPRAZolam (XANAX) 0.25 mg tablet sertraline (ZOLOFT) 100 mg tablet Take 1 tablet by mouth once daily. . 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 135 tablet 1 EPINEPHrine (EPIPEN) 0.3 mg/0.3 mL auto-injector Use as directed. Go to ED after use. 2 Each 1 busPIRone (BUSPAR) 5 mg tablet Take 0.5-1 tablets by mouth twice daily. (Patient not taking: Reported on 04/04/2022) 60 tablet 5 No current facility-administered medications for this visit. OBJECTIVE: BP 108/62 Pulse 90 Temp 36.9 C (98.5 F) Resp 16 Wt 49 kg (108 lb) LMP 03/14/2019 SpO2 98% BMI 18.14 kg/m ROS: All systems reviewed and are otherwise negative Constitutional: Well developed, well nourished, A&O X3. ENT: Head is atraumatic, airway patent, mucosal membranes moist dioni TM clear with our redness or infection Neck: full ROM, no meningeal signs Cardiac: heart tones regular rate and rhythm Respiratory: lung CTA : no CVA tenderness MS: moves all extremities, no deformities noted Neuro: GCS 15 no focal deficits Skin: warm and dry with out rash, lesion or ecchymosis Psych: alert appropriate, speech clear Diagnostic testing: COVID/ Influenza A and B testing performed and results will be complete in the next 24-72 hours. The patient will be notified of the results in My Chart. MDM: Patient presented to the [facility] today for COVID and Influenza testing. Vital signs were evaluated and found to be within normal limits. Gracie Avelar was in no acute distress. We discussed theCOVID results will be back in the next 1-2 days. In accordance with the CDC guidelines, Gracie Avelar was instructed to quarantine, if indicated, based on symptoms and exposure. They will follow-up with their family doctor in the next 2-3 days. If symptoms worsen they will go straight to the emergency department for further evaluation and treatment. They voiced understandingof the plan of care and are in agreement. ASSESSMENT/PLAN: 1. Exposure to 2019 novel coronavirus - ICD9: V01.79, ICD10: Z20.822 - COVID WITH FLUA+B, ROUTINE Danisha Smith APRN.CONSOLIDATOR documented in this encounterUniversity Hospitals Geauga [facility] Center08-24-2022 History of Present illness Narrative* Dinora Muro APRN.ZEE - 02/07/2022 9:36 AM EDT 02/07/2022 Patient presents with: Anxiety SUBJECTIVE: This is a 36 year old that is here today for Above Complaints. Reports he xanax are crumbling and turning to powder. She reports last time this happened Dr. Ashley told her to not take them. Only using them occasionally. 20 pills last about a year. Patient has pills and she did show me how they are all crumbled and falling apart. PAST MEDICAL HISTORY Diagnosis Date Abnormal glandular Papanicolaou smear of cervix 2000 Abn. Pap smear (cervix) Anxiety IBS (irritable bowel syndrome) Sinus tachycardia 2012 Tobacco use disorder ALLERGIES Bee Sting MEDICATIONS Current Outpatient Medications Medication Sig busPIRone (BUSPAR) 5 mg tablet Take 0.5-1 tablets by mouth twice daily. sertraline (ZOLOFT) 100 mg tablet Take 1 tablet by mouth once daily. . 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 EPINEPHrine (EPIPEN) 0.3 mg/0.3 mL auto-injector Use as directed. Go to ED after use. metoprolol tartrate, short acting, (LOPRESSOR) 25 mg tablet Take 0.5 tablets by mouth twice daily as needed (for elevated heart rate). No current facility-administered medications for this visit. Medications and allergies reviewed by this provider. SOCIAL HISTORY Social History Tobacco Use Smoking status: Every Day Packs/day: 0.50 Years: 7.00 Pack years: 3.50 Types: Cigarettes Smokeless tobacco: Never Vaping Use Vaping Use: Never used Substance Use Topics Alcohol use: Not Currently Drug use: No REVIEW OF SYSTEMS All other reviewed and negative other than HPI. OBJECTIVE: LMP 03/14/2019 . Vital signs reviewed by this provider. APPEARANCE Well appearing, alert, in no acute distress, well-hydrated, well nourished. PSYCH: Posture and motor behavior: normal posture and motor behavior Dress, grooming, personal hygiene: normal dress and grooming Facial expression: good eye contact Speech: normal speech Mood: cheerful Coherency and relevance of thought: normal thought processes Memory: normal memory COVID-19 VACCINE(1) Never done PNEUMOCOCCAL(1 - PCV) Never done DTAP,TDAP,TD(5 - Tdap) due on 02/05/2010 DEPRESSION SCREENING due on 12/15/2021 INFLUENZA(1) due on 02/15/2022 PAP TESTING due on 05/01/2024 HPV TESTING due on 05/01/2024 HEPATITIS C SCREENING Completed HIV SCREENING Completed ASSESSMENT/PLAN: 1. Anxiety - ICD9: 300.00, ICD10: F41.9 (primary diagnosis) - recommended to patient take the tablets to pharmacy to see if they will dispose of them- I am notsure they do that but if she is not going to use them it would be best to get rid of them. If pharmacy will not dispose of them ask them were they recommend she can safely dispose of them, agreeable to do so - ALPRAZOLAM 0.25 MG TABLET PDMP website checked and validated. All prescriptions have been APPROPRIATELY filled. No suspiciousactivity was identified. 02/07/2022 by Dinora Muro APRN.CNP - follow-up with PCP as needed 2. Panic disorder with agoraphobia - ICD9: 300.21, ICD10: F40.01 -plan as above - ALPRAZOLAM 0.25 MG TABLET Dinora Muro APRN.CNP Prescription instructions reviewed with patient as applicable. Patient advised if symptoms do not improve or if symptoms worsen sooner, to contact their primary care physician. Potential red flag symptoms discussed with the patient. Reviewed appropriate action plan to take if red flag symptoms occur. Patient agreeable to treatment plan. I spent a total of 15 minutes on the date of the service which included preparing to see the patient, [id number] patient care, completing clinical documentation, obtaining and/or reviewing separately obtained history, performing a medically appropriate examination, counseling and educating the pat ient/family/caregiver, and ordering medications, tests, or procedures. documented in this encounterUniversity Hospitals Geauga [facility] Center06-27-2022 Miscellaneous Notes* Telephone Encounter - Margaret Shrestha Ma - 12/11/2021 8:44 AM EDT Pt notified of results via sam. Margaret Shrestha Ma * Telephone Encounter - Yumiko Cook LPN - 12/08/2021 10:34 AM EDT TC to pt. LM to call office, ask for triage nurse to get results. Yumiko Cook LPN * Telephone Encounter - Araseli Diallo APRN.ZEE - 12/08/2021 8:56 AM EDT Can you please call the patient and let her know that I reviewed her lab results. Labs were all relatively normal. Autoimmune markers were all within normal limits, thyroid testing was normal. Vitamin D was just slightly low. I would recommend taking [id number] vitamin D 2000 IUs daily to help this. I see no causes for her symptoms at this time. I would encourage her to increase her hydration. Tryto get at least 8 to 10 glasses of water per day if she can. Please let me know if she has any questions. Thank you. Araseli Diallo APRN.ZEE documented in this encounterUniversity Hospitals Geauga Medical Center06-20-2022 History of Present illness Narrative* Bereket Ashley MD - 12/04/2021 1:31 PM EDT Patient presents with: Acute Visit HPI:This Team Access Model visit is a virtual encounter. It required patient- provider interaction for the medical decision making as documented below. Patient was offered a virtual/telemedicine appointment in lieu of an office visit due to recommendations to reduce patient exposure to COVID-19. Patient is aware of limitations of performing the visit without a face to face visit in the office setting and agrees. Was not feeling well over the weekend. Left early Saturday and called off Saturday. Got lightheaded and dizzy. Wondered if the heat affected her. Mild nausea. Drinking ok. No vomiting. No diarrhea. No vomiting. No true vertigo. No headache. No chest pain or palpitations that were new. No fever. Started to feel better on Saturday and feels well today. Wants a slip to return to work. MEDICATIONS: Current Outpatient Medications Medication Sig busPIRone (BUSPAR) 5 mg tablet Take 0.5-1 tablets by mouth twice daily. sertraline (ZOLOFT) 100 mg tablet Take 1 tablet by mouth once daily. . 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 EPINEPHrine (EPIPEN) 0.3 mg/0.3 mL auto-injector Use as directed. Go to ED after use. metoprolol tartrate, short acting, (LOPRESSOR) 25 mg tablet Take 0.5 tablets by mouth twice daily as needed (for elevated heart rate). No current facility-administered medications for this visit. ALLERGIES: ALLERGIES Allergen Reactions Bee Sting Swelling PAST MEDICAL HISTORY Diagnosis Date Abnormal glandular Papanicolaou smear of cervix 2000 Abn. Pap smear (cervix) Anxiety IBS (irritable bowel syndrome) Sinus tachycardia 2012 Tobacco use disorder PAST SURGICAL HISTORY Procedure Laterality Date DILATION & CURETTAGE DX&/THER NONOBSTETRIC Dilation & curettage FAMILY HISTORY Problem Relation Age of Onset Diabetes Mother Pre-diabetic Psychiatry Father manic depression, schizoaffective No Known Problems Sister Hypertension Maternal Grandmother Diabetes Maternal Grandmother Heart Attack Maternal Grandfather Lipids Paternal Grandmother Hypertension Paternal Grandmother other (diverticulitis) Paternal Grandmother Emphysema Paternal Grandfather Cancer Paternal Grandfather Lung Social History Tobacco Use Smoking status: Current Every Day Smoker Packs/day: 0.50 Years: 7.00 Pack years: 3.50 Types: Cigarettes Smokeless tobacco: Never Used Vaping Use Vaping Use: Never used Substance Use Topics Alcohol use: Not Currently Drug use: No Reviewed current medications, allergies, past medical history, surgical history, family history andsocial history today. REVIEW OF SYSTEMS All other reviewed and negative other than HPI. VITALS: LMP 03/14/2019 Last 4 Encounter Wt Readings: Date: Wt: 10/16/2021 49.4 kg (109 lb) 03/10/2021 49.9 kg (110 lb) 01/14/2020 46.7 kg (103 lb) 11/16/2019 46.7 kg (103 lb) PHYSICAL EXAMINATION: Patient is alert and oriented during visit. Answers appropriately. ASSESSMENT/PLAN: 1. Lightheaded - ICD9: 780.4, ICD10: R42 - Off work slip given as requested. Call if worsens. She wants day off tomorrow as well since going on buspar currently. Needs seen if recurs. Bereket Ashley documented in this encounter[facility] History of Present illness Narrative* Edith Hajordon, ANGELI.CONSOLIDATOR - 11/14/2021 1:21 PM EDT Chief Complaint Patient presents with: Telemedicine Patient was offered a virtual/telemedicine appointment in lieu of an office visit due to recommendations to reduce patient exposure to COVID-19. Video was used for evaluation of this patient. Patient is aware of limitations of performing the visit without a face to face visit in the office setting and agrees. Patient agrees to the visit: Yes [facility] Gracie Avelar is a 36 year old female who is contacted today for a virtual visit This is an established patient of Dr. Bereket Ashley MD Reports: Pt presents today with complaint of anxiety. Thinks that the anxiety is messing with her again. Will have really good weeks, but then has exacerbations. Refers that she does have agoraphobia. No problems with depression. Gets down when anxiety is out of control. Has trouble with the heat. Also finds a cyclic component. Refers that she sleeps well. Appetite has been fine -- trying to eat more healthy. Has cut out some of her caffeine intake. Uses xanax sparingly. Refers 20 pills usually will last a year. Past medical history, appointments, medications, allergies reviewed 11/14/2021 Previous Medical History PAST MEDICAL HISTORY Diagnosis Date Abnormal glandular Papanicolaou smear of cervix 2000 Abn. Pap smear (cervix) Anxiety IBS (irritable bowel syndrome) Sinus tachycardia 2012 Tobacco use disorder Previous Surgical History PAST SURGICAL HISTORY Procedure Laterality Date DILATION & CURETTAGE DX&/THER NONOBSTETRIC Dilation & curettage Family History FAMILY HISTORY Problem Relation Age of Onset Diabetes Mother Pre-diabetic Psychiatry Father manic depression, schizoaffective No Known Problems Sister Hypertension Maternal Grandmother Diabetes Maternal Grandmother Heart Attack Maternal Grandfather Lipids Paternal Grandmother Hypertension Paternal Grandmother other (diverticulitis) Paternal Grandmother Emphysema Paternal Grandfather Cancer Paternal Grandfather Lung Patient Allergies ALLERGIES Allergen Reactions Bee Sting Swelling Current Medications Current Outpatient Medications on File Prior to Visit Medication Sig sertraline (ZOLOFT) 100 mg tablet Take 1 tablet by mouth once daily. . 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 ALPRAZolam (XANAX) 0.25 mg tablet Take 1 tablet by mouth at bedtime as needed for up to 90 days. EPINEPHrine (EPIPEN) 0.3 mg/0.3 mL auto-injector Use as directed. Go to ED after use. metoprolol tartrate, short acting, (LOPRESSOR) 25 mg tablet Take 0.5 tablets by mouth twice daily as needed (for elevated heart rate). No current facility-administered medications on file prior to visit. Social History Social History Tobacco Use Smoking status: Current Every Day Smoker Packs/day: 0.50 Years: 7.00 Pack years: 3.50 Types: Cigarettes Smokeless tobacco: Never Used Vaping Use Vaping Use: Never used Substance Use Topics Alcohol use: Not Currently Drug use: No EXAM: LMP 03/14/2019 Limited exam as visit was completed over the virtual platform. Virtual visit completed using video, limited exam completed. Patient sounds or appears ill: No General Appearance: Well appearing, alert, in no acute distress, well-hydrated, well nourished. Skin: Skin color normal Head: Normocephalic. No facial swelling or redness. EENT: Eyes nonreddened. No discharge. External ears nonreddened and no swelling. Neck: No mass or lesions. No swelling. FROM Patient is unable to speak in complete sentences: No Patient has labored breathing: No. Patient is audibly coughing: No Psych: Attitude - cooperative, easily engaged in conversation Affect - Euthymic, normal mood Mental status: Alert. Speech is clear and fluent with good repetition, comprehension Appearance - Normal hygiene and grooming appropriate Coordination: No abnormal or extraneous movements. Gait/Stance: Posture is normal. Health Maintenance List COVID-19 VACCINE(1) Never done PNEUMOCOCCAL(1 - PCV) Never done DTAP,TDAP,TD(5 - Tdap) due on 02/05/2010 DEPRESSION SCREENING due on 12/15/2021 INFLUENZA(Season Ended) due on 02/15/2022 PAP TESTING due on 05/01/2024 HPV TESTING due on 05/01/2024 HEPATITIS C SCREENING Completed HIV SCREENING Completed Data reviewed Last 5 Encounter BP Readings: Date: BP: 10/16/2021 102/56 03/10/2021 90/54 01/14/2020 98/62 11/16/2019 102/62 11/05/2019 90/60 BMI Readings from Last 5 Encounters: 10/16/21 : 18.31 kg/m 03/10/21 : 18.48 kg/m 08/02/20 : (P) 17.57 kg/m 01/14/20 : 17.30 kg/m 11/16/19 : 17.30 kg/m Last 5 Encounter Wt Readings: Date: Wt: 10/16/2021 49.4 kg (109 lb) 03/10/2021 49.9 kg (110 lb) 01/14/2020 46.7 kg (103 lb) 11/16/2019 46.7 kg (103 lb) 11/05/2019 53.9 kg (118 lb 12.8 oz) Medication and allergy list reviewed, reconciled and updated 11/14/2021 ASSESSMENT/PLAN: 1. Anxiety - ICD9: 300.00, ICD10: F41.9 Discussed options. At this time, would like to resume buspar. She took this in the past and it worked well. Previously took 1/2 tab (2.5 mg) twice daily. Discussed considering increasing the sertraline -- she will consider. She has to use a specific clerk general of the sertraline, and reports if she increases, would want to go to 125 mg and that previously, local pharmacies could not get that clerk general. - BUSPIRONE 5 MG TABLET She will continue to monitor and updated provider. Discussed treatment plan and patient voices understanding. Patient's questions answered appropriately. Medications and potential side effects were discussed and patient voices understanding. Return to the office as scheduled or as needed for worsening/no improvement. Edith Rivera APRN.ZEE documented in this encounterUniversity [facility]als [facility]05-06-2022 History of Present illness Narrative* Salma Hood, OD - 10/20/2021 9:51 AM EDT 1. Marginal corneal ulcer of right eye 2. Punctate keratitis of right eye Definite improvement of corneal appearance Decrease in vision-likely from punctate keratitis No current fungal growth- two days out Continue Vigamox four times daily Add erythromycin ointment twice daily Follow-up in 4 days (on ) Call sooner with any new or worsening symptoms Salma Hood, OD October 20, 2021 9:51 AM documented in this encounterUniversity [facility]als [facility]05-03-2022 History of Present illness Narrative* Salma Hood, OD - 10/17/2021 4:26 PM EDT 1. Marginal corneal ulcer of right eye Improvement in pain per patient but slight decrease in vision -improvement in corneal fluorescein uptake over larger superior ulcer -increase in WBC dusting/diffuse edema around multiple edges of mid-peripheral ulcers Fungal cultured 10/17/21 -blood agar, sabouraud agar and culture swab of contact lenses Continue vigamox every 2 hours Follow-up in 2-3 days or sooner with any new or worsening problems Salma Hood, OD October 17, 2021 4:26 PM documented in this encounterUniversity Hospitals [facility]05-02-2022 History of Present illness Narrative* Salma Hood, OD - 10/16/2021 2:31 PM EDT 1. Corneal ulcer of right eye Very suspicious of fungal corneal ulcer with satellite feathery lesions -patient to start vigamox OLI every waking hour today/tomorrow and follow-up tomorrow. Patient to bring contact lens/case for funal culture Follow-up in 1 day or sooner with any new or worsening problems Salma Hood, OD October 16, 2021 2:31 PM documented in this encounterUniversity Hospitals [facility]06-13-2012 History of Past illness Narrative* Problem Noted Date Resolved Date Threatened premature labor, antepartum(644.03) 0 11/28/2011 02/04/2012 Overview: November 28, 2011 RR- In L&D for r/o SROM and TPTL, having some ctxs. Cervix closed. FFN and amniosure neg. Supervision of other high-risk (V23.89) 10/30/2011 02/04/2012 Overview: October 30, 2011 RR_ PNRA done. Tob. use. FOB had that of SIDS at 6 months Anemia, antepartum(648.23) 10/30/201102/03 Overview: October 30, 2011 RR- anemic- fe and PNV and recheckin 1 month Supervision of normal first 07/10/2011 10/30/2011 documented as of this encounter (statuses as of 10/16/2021) [facility] of Past illness Narrative* Problem Noted Date Resolved Date Threatened premature labor, antepartum(644.03) 0 11/28/2011 02/04/2012 Overview: November 28, 2011 RR- In L&D for r/o SROM and TPTL, having some ctxs. Cervix closed. FFN and amniosure neg. Supervision of other high-risk (V23.89) 10/30/2011 02/04/2012 Overview: October 30, 2011 RR_ PNRA done. Tob. use. FOB had infant that of SIDS at 6 months Anemia, antepartum(648.23) 10/30/201102/03 Overview: October 30, 2011 RR- anemic- fe and PNV and recheckin 1 month Supervision of normal first 07/10/2011 10/30/2011 documented as of this encounter (statuses as of 10/17/2021) [facility] of Past illness Narrative* Problem Noted Date Resolved Date Threatened premature labor, antepartum(644.03) 0 11/28/2011 02/04/2012 Overview: November 28, 2011 RR- In L&D for r/o SROM and TPTL, having some ctxs. Cervix closed. FFN and amniosure neg. Supervision of other high-risk (V23.89) 10/30/2011 02/04/2012 Overview: October 30, 2011 RR_ PNRA done. Tob. use. FOB had infant that of SIDS at 6 months Anemia, antepartum(648.23) 10/30/201102/03 Overview: October 30, 2011 RR- anemic- fe and PNV and recheckin 1 month Supervision of normal first 07/10/2011 10/30/2011 documented as of this encounter (statuses as of 10/20/2021) [facility] of Past illness Narrative* Problem Noted Date Resolved Date Threatened premature labor, antepartum(644.03) 0 11/28/2011 02/04/2012 Overview: November 28, 2011 RR- In L&D for r/o SROM and TPTL, having some ctxs. Cervix closed. FFN and amniosure neg. Supervision of other high-risk (V23.89) 10/30/2011 02/04/2012 Overview: October 30, 2011 RR_ PNRA done. Tob. use. FOB had infant that of SIDS at 6 months Anemia, antepartum(648.23) 10/30/201102/03 Overview: October 30, 2011 RR- anemic- fe and PNV and recheckin 1 month Supervision of normal first 07/10/2011 10/30/2011 documented as of this encounter (statuses as of 11/14/2021) [facility] of [facility] illness Narrative* Problem Noted Date Resolved Date Threatened premature labor, antepartum(644.03) 0 11/28/2011 02/04/2012 Overview: November 28, 2011 RR- In L&D for r/o SROM and TPTL, having some ctxs. Cervix closed. FFN and amniosure neg. Supervision of other high-risk (V23.89) 10/30/2011 02/04/2012 Overview: October 30, 2011 RR_ PNRA done. Tob. use. FOB had that of SIDS at 6 months Anemia, antepartum(648.23) 10/30/201102/03 Overview: October 30, 2011 RR- anemic- fe and PNV and recheckin 1 month Supervision of normal first 07/10/2011 10/30/2011 documented as of this encounter (statuses as of 12/04/2021) [facility] Narrative* Problem Noted Date Resolved Date Threatened premature labor, antepartum(644.03) 0 11/28/2011 02/04/2012 Overview: November 28, 2011 RR- In L&D for r/o SROM and TPTL, having some ctxs. Cervix closed. FFN and amniosure neg. Supervision of other high-risk (V23.89) 10/30/2011 02/04/2012 Overview: October 30, 2011 RR_ PNRA done. Tob. use. FOB had infant that of SIDS at 6 months Anemia, antepartum(648.23) 10/30/201102/03 Overview: October 30, 2011 RR- anemic- fe and PNV and recheckin 1 month Supervision of normal first 07/10/2011 10/30/2011 documented as of this encounter (statuses as of 12/11/2021) [facility] Narrative* Problem Noted Date Resolved Date Threatened premature labor, antepartum(644.03) 0 11/28/2011 02/04/2012 Overview: November 28, 2011 RR- In L&D for r/o SROM and TPTL, having some ctxs. Cervix closed. FFN and amniosure neg. Supervision of other high-risk (V23.89) 10/30/2011 02/04/2012 Overview: October 30, 2011 RR_ PNRA done. Tob. use. FOB had infant that of SIDS at 6 months Anemia, antepartum(648.23) 10/30/201102/03 Overview: October 30, 2011 RR- anemic- fe and PNV and recheckin 1 month Supervision of normal first 07/10/2011 10/30/2011 documented as of this encounter (statuses as of 02/07/2022) [facility] Narrative* Problem Noted Date Resolved Date Threatened premature labor, antepartum(644.03) 0 11/28/2011 02/04/2012 Overview: November 28, 2011 RR- In L&D for r/o SROM and TPTL, having some ctxs. Cervix closed. FFN and amniosure neg. Supervision of other high-risk (V23.89) 10/30/2011 02/04/2012 Overview: October 30, 2011 RR_ PNRA done. Tob. use. FOB had that of SIDS at 6 months Anemia, antepartum(648.23) 10/30/201102/03 Overview: October 30, 2011 RR- anemic- fe and PNV and recheckin 1 month Supervision of normal first 07/10/2011 10/30/2011 documented as of this encounter (statuses as of 04/04/2022) [facility] Narrative* Problem Noted Date Resolved Date Threatened premature labor, antepartum(644.03) 0 11/28/2011 02/04/2012 Overview: November 28, 2011 RR- In L&D for r/o SROM and TPTL, having some ctxs. Cervix closed. FFN and amniosure neg. Supervision of other high-risk (V23.89) 10/30/2011 02/04/2012 Overview: October 30, 2011 RR_ PNRA done. Tob. use. FOB had infant that of SIDS at 6 months Anemia, antepartum(648.23) 10/30/201102/03 Overview: October 30, 2011 RR- anemic- fe and PNV and recheckin 1 month Supervision of normal first 07/10/2011 10/30/2011 documented as of this encounter (statuses as of 04/18/2022) [facility] Narrative* Problem Noted Date Resolved Date Threatened premature labor, antepartum(644.03) 0 11/28/2011 02/04/2012 Overview: November 28, 2011 RR- In L&D for r/o SROM and TPTL, having some ctxs. Cervix closed. FFN and amniosure neg. Supervision of other high-risk (V23.89) 10/30/2011 02/04/2012 Overview: October 30, 2011 RR_ PNRA done. Tob. use. FOB had infant that of SIDS at 6 months Anemia, antepartum(648.23) 10/30/201102/03 Overview: October 30, 2011 RR- anemic- fe and PNV and recheckin 1 month Supervision of normal first 07/10/2011 10/30/2011 documented as of this encounter (statuses as of 04/25/2022) [facility] Narrative* Problem Noted Date Resolved Date Threatened premature labor, antepartum(644.03) 0 11/28/2011 02/04/2012 Overview: November 28, 2011 RR- In L&D for r/o SROM and TPTL, having some ctxs. Cervix closed. FFN and amniosure neg. Supervision of other high-risk (V23.89) 10/30/2011 02/04/2012 Overview: October 30, 2011 RR_ PNRA done. Tob. use. FOB had infant that of SIDS at 6 months Anemia, antepartum(648.23) 10/30/201102/03 Overview: October 30, 2011 RR- anemic- fe and PNV and recheckin 1 month Supervision of normal first 07/10/2011 10/30/2011 documented as of this encounter (statuses as of 04/27/2022) [facility] Narrative* Problem Noted Date Resolved Date Threatened premature labor, antepartum(644.03) 0 11/28/2011 02/04/2012 Overview: November 28, 2011 RR- In L&D for r/o SROM and TPTL, having some ctxs. Cervix closed. FFN and amniosure neg. Supervision of other high-risk (V23.89) 10/30/2011 02/04/2012 Overview: October 30, 2011 RR_ PNRA done. Tob. use. FOB had that of SIDS at 6 months Anemia, antepartum(648.23) 10/30/201102/03 Overview: October 30, 2011 RR- anemic- fe and PNV and recheckin 1 month Supervision of normal first 07/10/2011 10/30/2011 documented as of this encounter (statuses as of 05/02/2022) [facility]ative* Problem Noted Date Resolved Date Threatened premature labor, antepartum(644.03) 0 11/28/2011 02/04/2012 Overview: November 28, 2011 RR- In L&D for r/o SROM and TPTL, having some ctxs. Cervix closed. FFN and amniosure neg. Supervision of other high-risk (V23.89) 10/30/2011 02/04/2012 Overview: October 30, 2011 RR_ PNRA done. Tob. use. FOB had infant that of SIDS at 6 months Anemia, antepartum(648.23) 10/30/201102/03 Overview: October 30, 2011 RR- anemic- fe and PNV and recheckin 1 month Supervision of normal first 07/10/2011 10/30/2011 documented as of this encounter (statuses as of 05/07/2022) [facility]ative* Problem Noted Date Resolved Date Threatened premature labor, antepartum(644.03) 0 11/28/2011 02/04/2012 Overview: November 28, 2011 RR- In L&D for r/o SROM and TPTL, having some ctxs. Cervix closed. FFN and amniosure neg. Supervision of other high-risk (V23.89) 10/30/2011 02/04/2012 Overview: October 30, 2011 RR_ PNRA done. Tob. use. FOB had that of SIDS at 6 months Anemia, antepartum(648.23) 10/30/201102/03 Overview: October 30, 2011 RR- anemic- fe and PNV and recheckin 1 month Supervision of normal first 07/10/2011 10/30/2011 documented as of this encounter (statuses as of 08/16/2022) [facility]ative* Problem Noted Date Resolved Date Threatened premature labor, antepartum(644.03) 0 11/28/2011 02/04/2012 Overview: November 28, 2011 RR- In L&D for r/o SROM and TPTL, having some ctxs. Cervix closed. FFN and amniosure neg. Supervision of other high-risk (V23.89) 10/30/2011 02/04/2012 Overview: October 30, 2011 RR_ PNRA done. Tob. use. FOB had infant that of SIDS at 6 months Anemia, antepartum(648.23) 10/30/201102/03 Overview: October 30, 2011 RR- anemic- fe and PNV and recheckin 1 month Supervision of normal first 07/10/2011 10/30/2011 documented as of this encounter (statuses as of 10/23/2022) [facility]arrative* Problem Noted Date Resolved Date Threatened premature labor, antepartum(644.03) 0 11/28/2011 02/04/2012 Overview: November 28, 2011 RR- In L&D for r/o SROM and TPTL, having some ctxs. Cervix closed. FFN and amniosure neg. Supervision of other high-risk (V23.89) 10/30/2011 02/04/2012 Overview: October 30, 2011 RR_ PNRA done. Tob. use. FOB had infant that of SIDS at 6 months Anemia, antepartum(648.23) 10/30/201102/03 Overview: October 30, 2011 RR- anemic- fe and PNV and recheckin 1 month Supervision of normal first 07/10/2011 10/30/2011 documented as of this encounter (statuses as of 11/16/2022) [facility]ative* Problem Noted Date Resolved Date Threatened premature labor, antepartum(644.03) 0 11/28/2011 02/04/2012 Overview: November 28, 2011 RR- In L&D for r/o SROM and TPTL, having some ctxs. Cervix closed. FFN and amniosure neg. Supervision of other high-risk (V23.89) 10/30/2011 02/04/2012 Overview: October 30, 2011 RR_ PNRA done. Tob. use. FOB had that of SIDS at 6 months Anemia, antepartum(648.23) 10/30/201102/03 Overview: October 30, 2011 RR- anemic- fe and PNV and recheckin 1 month Supervision of normal first 07/10/2011 10/30/2011 documented as of this encounter (statuses as of 11/20/2022) [facility]ative* Problem Noted Date Resolved Date Threatened premature labor, antepartum(644.03) 0 11/28/2011 02/04/2012 Overview: November 28, 2011 RR- In L&D for r/o SROM and TPTL, having some ctxs. Cervix closed. FFN and amniosure neg. Supervision of other high-risk (V23.89) 10/30/2011 02/04/2012 Overview: October 30, 2011 RR_ PNRA done. Tob. use. FOB had infant that of SIDS at 6 months Anemia, antepartum(648.23) 10/30/201102/03 Overview: October 30, 2011 RR- anemic- fe and PNV and recheckin 1 month Supervision of normal first 07/10/2011 10/30/2011 documented as of this encounter (statuses as of 12/21/2022) [facility]ative* Problem Noted Date Diagnosed Date Resolved Date Threatened premature labor, antepartum(644.03) 11/28/2011 02/04/2012 Overview: November 28, 2011 RR- In L&D for r/o SROM and TPTL, having some ctxs. Cervix closed. FFN and amniosure neg. Supervision of other high-ri sk (V23.89) 10/30/2011 02/04/2012 Overview: October 30, 2011 RR_ PNRA done. Tob. use. FOB had that of SIDS at 6 months Anemia, antepartum(648.23) 10/30/2011 0 02/04/2012 Overview: October 30, 2011 RR- anemic- fe and PNV and recheckin 1 month Supervision of normal first 07/10/2011 10/30/2011 documented as of this encounter (statuses as of 02/04/2023) [facility]* Problem Noted Date Diagnosed Date Resolved Date Threatened premature labor, antepartum(644.03) 11/28/2011 02/04/2012 Overview: November 28, 2011 RR- In L&D for r/o SROM and TPTL, having some ctxs. Cervix closed. FFN and amniosure neg. Supervision of other high-ri sk (V23.89) 10/30/2011 02/04/2012 Overview: October 30, 2011 RR_ PNRA done. Tob. use. FOB had infant that of SIDS at 6 months Anemia, antepartum(648.23) 10/30/2011 0 02/04/2012 Overview: October 30, 2011 RR- anemic- fe and PNV and recheckin 1 month Supervision of normal first 07/10/2011 10/30/2011 documented as of this encounter (statuses as of 06/07/2023) [facility]* Problem Noted Date Diagnosed Date Resolved Date Threatened premature labor, antepartum(644.03) 11/28/2011 02/04/2012 Overview: November 28, 2011 RR- In L&D for r/o SROM and TPTL, having some ctxs. Cervix closed. FFN and amniosure neg. Supervision of other high-ri sk (V23.89) 10/30/2011 02/04/2012 Overview: October 30, 2011 RR_ PNRA done. Tob. use. FOB had that of SIDS at 6 months Anemia, antepartum(648.23) 10/30/2011 0 02/04/2012 Overview: October 30, 2011 RR- anemic- fe and PNV and recheckin 1 month Supervision of normal first 07/10/2011 10/30/2011 documented as of this encounter (statuses as of 06/10/2023) [facility]* Problem Noted Date Diagnosed Date Resolved Date Threatened premature labor, antepartum(644.03) 11/28/2011 02/04/2012 Overview: November 28, 2011 RR- In L&D for r/o SROM and TPTL, having some ctxs. Cervix closed. FFN and amniosure neg. Supervision of other high-ri sk (V23.89) 10/30/2011 02/04/2012 Overview: October 30, 2011 RR_ PNRA done. Tob. use. FOB had infant that of SIDS at 6 months Anemia, antepartum(648.23) 10/30/2011 0 02/04/2012 Overview: October 30, 2011 RR- anemic- fe and PNV and recheckin 1 month Supervision of normal first 07/10/2011 10/30/2011 documented as of this encounter (statuses as of 08/06/2023) [facility]* Problem Noted Date Diagnosed Date Resolved Date Threatened premature labor, antepartum(644.03) 11/28/2011 02/04/2012 Overview: November 28, 2011 RR- In L&D for r/o SROM and TPTL, having some ctxs. Cervix closed. FFN and amniosure neg. Supervision of other high-ri (V23.89) 10/30/2011 02/04/2012 Overview: October 30, 2011 RR_ PNRA done. Tob. use. FOB had infant that of SIDS at 6 months Anemia, antepartum(648.23) 10/30/2011 0 02/04/2012 Overview: October 30, 2011 RR- anemic- fe and PNV and recheckin 1 month Supervision of normal first 07/10/2011 10/30/2011 documented as of this encounter (statuses as of 08/07/2023) [facility] History of Past illness Narrative* Problem Noted Date Diagnosed Date Resolved Date Threatened premature labor, antepartum(644.03) 11/28/2011 02/04/2012 Overview: November 28, 2011 RR- In L&D for r/o SROM and TPTL, having some ctxs. Cervix closed. FFN and amniosure neg. Supervision of other high-ri sk (V23.89) 10/30/2011 02/04/2012 Overview: October 30, 2011 RR_ PNRA done. Tob. use. FOB had infant that of SIDS at 6 months Anemia, antepartum(648.23) 10/30/2011 0 02/04/2012 Overview: October 30, 2011 RR- anemic- fe and PNV and recheckin 1 month Supervision of normal first 07/10/2011 10/30/2011 documented as of this encounter (statuses as of 09/25/2023) [facility] History of Past illness Narrative* Problem Noted Date Diagnosed Date Resolved Date Threatened premature labor, antepartum(644.03) 11/28/2011 02/04/2012 Overview: November 28, 2011 RR- In L&D for r/o SROM and TPTL, having some ctxs. Cervix closed. FFN and amniosure neg. Supervision of other high-ri sk (V23.89) 10/30/2011 02/04/2012 Overview: October 30, 2011 RR_ PNRA done. Tob. use. FOB had infant that of SIDS at 6 months Anemia, antepartum(648.23) 10/30/2011 0 02/04/2012 Overview: October 30, 2011 RR- anemic- fe and PNV and recheckin 1 month Supervision of normal first 07/10/2011 10/30/2011 documented as of this encounter (statuses as of 09/26/2023) [facility] Diagnosis Onset Date Resolution Status POTS (postural orthostatic tachycardia syndrome) [facility] Work Phone: Evaluation note* Diagnosis Corneal ulcer of right eye- Primary Corneal ulcer, unspecified documented in this encounter [facility] note* Diagnosis 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 Marginal corneal ulcer documented in this encounter [facility] note* Diagnosis 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 Marginal corneal ulcer Punctate keratitis of right eye Punctate keratitis documented in this encounter [facility] note* Diagnosis Anxiety- Primary Anxiety state, unspecified documented in this encounter [facility] note* Diagnosis Lightheaded- Primary Dizziness and giddiness documented in this encounter [facility] note* Diagnosis Anxiety- Primary Anxiety state, unspecified Panic disorder with agoraphobia Agoraphobia with panic disorder documented in this encounter [facility] note* Diagnosis Exposure to 2019 novel coronavirus- Primary [facility] [place]* Diagnosis Dermatitis- Primary Contact dermatitis and other eczema, due to unspecified cause documented in this encounter [facility] note* Diagnosis Dyshidrotic eczema- Primary Dyshidrosis documented in this encounter [facility] note* Diagnosis Anxiety Anxiety state, unspecified Panic disorder with agoraphobia Agoraphobia with panic disorder documented in this encounter [facility] noteNo assessment information availableWGrand Lake [facility] Work Phone: Evnvggnsdz note* Diagnosis SOB (shortness of breath)- Primary Shortness of breath Chest pain, unspecified type Throat pain documented in this encounter [facility] note* Diagnosis Dental infection- Primary Acute apical periodontitis of pulpal origin documented in this encounter [facility] note* Diagnosis GERD without esophagitis- Primary Esophageal reflux documented in this encounter [facility] note* Diagnosis Anxiety Anxiety state, unspecified Panic disorder with agoraphobia Agoraphobia with panic disorder GERD without esophagitis Esophageal reflux documented in this encounter [facility] note* Diagnosis Anxiety Anxiety state, unspecified Panic disorder with agoraphobia Agoraphobia with panic disorder GERD without esophagitis Esophageal reflux documented in this encounter [facility] note* Diagnosis NO SHOW- Primary documented in this encounter [facility] note* Diagnosis Acute right-sided low back pain without sciatica- Primary Family history of kidney stones Family history of other kidney diseases Right lower quadrant abdominal pain Abdominal pain, right lower quadrant documented in this encounter [facility] note* Diagnosis Lightheaded- Primary Dizziness and giddiness Vertigo Dizziness and giddiness SVT (supraventricular tachycardia) ([facility]) Other specified cardiac dysrhythmias Anxiety Anxiety state, unspecified Dizziness and giddiness documented in this encounter [facility] note* Diagnosis GERD without esophagitis Esophageal reflux documented in this encounter [facility] note* Diagnosis Palpitations- Primary documented in this encounter [facility] note* Diagnosis Bacterial sinusitis- Primary Unspecified sinusitis (chronic) documented in this encounter [facility] note* Diagnosis Subacute maxillary sinusitis- Primary Acute maxillary sinusitis documented in this encounter [facility] note* Diagnosis Anxiety Anxiety state, unspecified Panic disorder with agoraphobia Agoraphobia with panic disorder documented in this encounter [facility] note* Diagnosis Anxiety Anxiety state, unspecified Panic disorder with agoraphobia Agoraphobia with panic disorder documented in this encounter [facility] note* Diagnosis Gastroesophageal reflux disease without esophagitis- Primary Esophageal reflux Bloated abdomen Flatulence, eructation, and gas pain documented in this encounter [facility] note* Diagnosis Bloated abdomen- Primary Flatulence, eructation, and gas pain Sinus tachycardia Other specified cardiac dysrhythmias Irritable bowel syndrome without diarrhea Irritable bowel syndrome Anxiety Anxiety state, unspecified Gastroesophageal reflux disease without esophagitis Esophageal reflux Change in bowel function Other symptoms involving digestive system documented in this encounter [facility] note* Diagnosis Nausea- Primary Nausea alone Hot flashes Symptomatic menopausal or female climacteric states documented in this encounter [facility] note* Diagnosis Sinus tachycardia- Primary Other specified cardiac dysrhythmias Irritable bowel syndrome without diarrhea Irritable bowel syndrome Anxiety Anxiety state, unspecified Anemia, unspecified type Panic disorder with agoraphobia Agoraphobia with panic disorder documented in this encounter [facility] note* Diagnosis Bacterial sinusitis- Primary Unspecified sinusitis (chronic) documented in this encounter [facility] note* Diagnosis Viral sinusitis- Primary Unspecified sinusitis (chronic) documented in this encounter [facility] note* Diagnosis Gastroenteritis- Primary Other and unspecified noninfectious gastroenteritis and colitis documented in this encounter [facility] note* Diagnosis Lightheadedness- Primary Dizziness and giddiness Sinus tachycardia Other specified cardiac dysrhythmias Anxiety Anxiety state, unspecified Panic disorder with agoraphobia Agoraphobia with panic disorder [facility]* Diagnosis Sinus tachycardia- Primary Other specified cardiac dysrhythmias Anxiety Anxiety state, unspecified Lightheadedness Dizziness and giddiness Panic disorder with agoraphobia Agoraphobia with panic disorder [facility] Additional Instructions Please call the dentist tomorrow to make an appointment. Return for any worsening of symptoms.[facility] Work Phone: Reason for referral (narrative)* Outpatient Procedure (Routine) - Authorized Specialty Diagnoses / Procedures Referred By Diana lopez Ref[facility] Diagnoses Lightheaded Vertigo Dizziness and giddiness Procedures US CAROTID ARTERIES DIONI VAS LAB DUPLEX SCAN EXTRACRANIAL ART COMPL BI STUDY Bereket Ashley MD [address] [place] [address] [facility] [place] [address] [place] [address] Referral ID Status Reason Start Date Expiration Date Visits Requested Visits Authorized [id number] Authorized Auto-Generat ed Referral 09/26/2023 09/25/2024 1 1 [facility] for referral (narrative)No reason for referral information availableWGrand Lake [facility] Work Phone: Chief Complaint and Reason for Visit Chief Complaint FAST HR. (DION) HEART PALPITATIONS Reason for Visit POTS (postural ortho static tachycardia syndrome) Chief Complaint FAST HR. (DION) HEART PALPITATIONS TACHYCARDIA Reason for Visit POTS (postural ortho static tachycardia syndrome) Chief Complaint abd pain with shortn ess of breath Chief Complaint abd pain with shortn ess of breath dental pain Chief Complaint Admit Date CHEST CONGESTION/COUGH/SOB May 20, 2024 4:58pm Cough June 04, 2024 1:53pm EORDER June 04, 2024 2:03pm shortness of breath July 03, 2024 8 :38pm SOB September 05, 2024 4:0 2pm Reason for Visit Admit Date Pulmonary infiltrate May 20, 2024 4:58pm Pulmonary infiltrate June 04, 2024 1:53pm Family History No Family History Records Found Relationship Condition Age at Onset Recorded Date/T anand mother Diabetes mellitus Unknown father Schizoaffective disorder Unknown grandmother Hypertension Unknown Diabetes mellitus Unknown grandfather Myocardial infarction Unknown grandfather Malignant neoplasm Unknown Advance Directives No Advanced Directives Records Found Advance Directive Response Recorded Date/ Time Living Will No September 09, 2021 3:23am Power of Credit Risk Review Officer No September 09 3:23am Advance Directive Response Recorded Date/ Time Living Will No October 22, 2022 9: 15pm Power of Credit Risk Review Officer No October 22, 2022 9:15pm Advance Directive Response Recorded Date/ Time Living Will No January 06, 2023 5:34pm Power of Credit Risk Review Officer No January 06 5:34pm Advance Directive Response Recorded Date/ Time Living Will No July 03 9:43pm Do you have a Healthcare Power of Credit Risk Review Officer? No July 03, 2024 9:43pm Living Will No September 05, 2024 4:15pm Do you have a Healthcare Power of Credit Risk Review Officer? No September 05, 2024 4:15pm Reason for Referral Specialty Diagnoses / Procedures Referred By Diana Referred To Contact General Surgery Diagnoses GERD without esophagitis Procedures CONSULT TO GENERAL SURGERY OFFICE/OUTPATIENT [facility] 60-74 MINUTES Bereket Ashley MD [facility] [place] [address] Referral ID Status Reason Start Date Expiration Date Visits Requested Visits Authorized [id number] Authorized PCP Requested Referral 11/19/2022 11/19/2023 1 1 Specialty Diagnoses / Procedures Referred By Diana t Referred To Contact CT IMAGING Diagnoses Acute right-sided low back pain without sciatica Family history of kidney stones Right lower quadrant abdominal pain Procedures CT ABD/PEL W IVCON CT ABD & PELVIS W/CONTRAST Ricki Amos MD [address] [place] [address] [place] [address] Referral ID Status Reason Start Date Expiration Date V isits Requested Visits Authorized [id number] Closed Auto-Generate d Referral 08/06/2023 09/04/2024 1 1 Specialty Diagnoses / Procedures Referred By Diana lopez Referred To Contact General Surgery Diagnoses Gastroesophageal reflux disease without esophagitis Bloated abdomen Change in bowel function Procedures CONSULT TO GENERAL SURGERY OFFICE/OUTPATIENT [facility] 60 MINUTES Bereket Ashley MD [address] [place] [address] Referral ID Status Reason Start Date Expiration Date Visits Requested Visits Authorized [id number] Authorized PCP Requested Referral 4 04/06/2025 1 1 Summary Purpose Additional Source Comments Goals (unrecognized section and content) Goals may be documented in a n alternate sectionGoals may be documented in an alternate sectionGoals may be documented in an alternate sectionGoals may be documented in an alternate sectionGoals may be documented in an alternate section Source Comments (unrecognize d section and content) In the event this informatio n is protected by the Federal Confidentiality of Alcohol and Drug Abuse Patient Records regulations: The Federal rules restrict any use of the information to criminally investigate or prosecute any alcohol or drug abuse patient.[facility] the event this information is protected by the Federal Confidentiality of Alcohol and Drug Abuse Patient Records regulations: The Federal rules restrict any use of the information to criminally investigate or prosecute any alcohol or drug abuse patient.[facility] CenterIn the event this information is protected by the Federal Confidentiality of Alcohol and Drug Abuse Patient Records regulations: The Federal rules restrict any use of the information to criminally investigate or prosecute any alcohol or drug abuse patient.[facility] CenterIn the event this information is protected by the Federal Confidentiality of Alcohol and Drug Abuse Patient Records regulations: The Federal rules restrict any use of the information to criminally investigate or prosecute any alcohol or drug abuse patient.[facility] CenterIn the event this information is protected by the Federal Confidentiality of Alcohol and Drug Abuse Patient Records regulations: The Federal rules restrict any use of the information to criminally investigate or prosecute any alcohol or drug abuse patient.[facility] CenterIn the event this information is protected by the Federal Confidentiality of Alcohol and Drug Abuse Patient Records regulations: The Federal rules restrict any use of the information to criminally investigate or prosecute any alcohol or drug abuse patient.[facility] CenterIn the event this information is protected by the Federal Confidentiality of Alcohol and Drug Abuse Patient Records regulations: The Federal rules restrict any use of the information to criminally investigate or prosecute any alcohol or drug abuse patient.[facility] CenterIn the event this information is protected by the Federal Confidentiality of Alcohol and Drug Abuse Patient Records regulations: The Federal rules restrict any use of the information to criminally investigate or prosecute any alcohol or drug abuse patient.[facility] CenterIn the event this information is protected by the Federal Confidentiality of Alcohol and Drug Abuse Patient Records regulations: The Federal rules restrict any use of the information to criminally investigate or prosecute any alcohol or drug abuse patient.[facility] CenterIn the event this information is protected by the Federal Confidentiality of Alcohol and Drug Abuse Patient Records regulations: The Federal rules restrict any use of the information to criminally investigate or prosecute any alcohol or drug abuse patient.[facility] CenterIn the event this information is protected by the Federal Confidentiality of Alcohol and Drug Abuse Patient Records regulations: The Federal rules restrict any use of the information to criminally investigate or prosecute any alcohol or drug abuse patient.[facility] CenterIn the event this information is protected by the Federal Confidentiality of Alcohol and Drug Abuse Patient Records regulations: The Federal rules restrict any use of the information to criminally investigate or prosecute any alcohol or drug abuse patient.[facility] CenterIn the event this information is protected by the Federal Confidentiality of Alcohol and Drug Abuse Patient Records regulations: The Federal rules restrict any use of the information to criminally investigate or prosecute any alcohol or drug abuse patient.[facility] CenterIn the event this information is protected by the Federal Confidentiality of Alcohol and Drug Abuse Patient Records regulations: The Federal rules restrict any use of the information to criminally investigate or prosecute any alcohol or drug abuse patient.[facility] CenterIn the event this information is protected by the Federal Confidentiality of Alcohol and Drug Abuse Patient Records regulations: The Federal rules restrict any use of the information to criminally investigate or prosecute any alcohol or drug abuse patient.[facility] CenterIn the event this information is protected by the Federal Confidentiality of Alcohol and Drug Abuse Patient Records regulations: The Federal rules restrict any use of the information to criminally investigate or prosecute any alcohol or drug abuse patient.[facility] CenterIn the event this information is protected by the Federal Confidentiality of Alcohol and Drug Abuse Patient Records regulations: The Federal rules restrict any use of the information to criminally investigate or prosecute any alcohol or drug abuse patient.[facility] CenterIn the event this information is protected by the Federal Confidentiality of Alcohol and Drug Abuse Patient Records regulations: The Federal rules restrict any use of the information to criminally investigate or prosecute any alcohol or drug abuse patient.[facility] CenterIn the event this information is protected by the Federal Confidentiality of Alcohol and Drug Abuse Patient Records regulations: The Federal rules restrict any use of the information to criminally investigate or prosecute any alcohol or drug abuse patient.[facility] CenterIn the event this information is protected by the Federal Confidentiality of Alcohol and Drug Abuse Patient Records regulations: The Federal rules restrict any use of the information to criminally investigate or prosecute any alcohol or drug abuse patient.[facility] CenterIn the event this information is protected by the Federal Confidentiality of Alcohol and Drug Abuse Patient Records regulations: The Federal rules restrict any use of the information to criminally investigate or prosecute any alcohol or drug abuse patient.[facility] CenterIn the event this information is protected by the Federal Confidentiality of Alcohol and Drug Abuse Patient Records regulations: The Federal rules restrict any use of the information to criminally investigate or prosecute any alcohol or drug abuse patient.[facility] CenterIn the event this information is protected by the Federal Confidentiality of Alcohol and Drug Abuse Patient Records regulations: The Federal rules restrict any use of the information to criminally investigate or prosecute any alcohol or drug abuse patient.[facility] CenterIn the event this information is protected by the Federal Confidentiality of Alcohol and Drug Abuse Patient Records regulations: The Federal rules restrict any use of the information to criminally investigate or prosecute any alcohol or drug abuse patient.[facility] CenterIn the event this information is protected by the Federal Confidentiality of Alcohol and Drug Abuse Patient Records regulations: The Federal rules restrict any use of the information to criminally investigate or prosecute any alcohol or drug abuse patient.[facility] CenterIn the event this information is protected by the Federal Confidentiality of Alcohol and Drug Abuse Patient Records regulations: The Federal rules restrict any use of the information to criminally investigate or prosecute any alcohol or drug abuse patient.[facility] CenterIn the event this information is protected by the Federal Confidentiality of Alcohol and Drug Abuse Patient Records regulations: The Federal rules restrict any use of the information to criminally investigate or prosecute any alcohol or drug abuse patient.[facility] CenterIn the event this information is protected by the Federal Confidentiality of Alcohol and Drug Abuse Patient Records regulations: The Federal rules restrict any use of the information to criminally investigate or prosecute any alcohol or drug abuse patient.[facility] CenterIn the event this information is protected by the Federal Confidentiality of Alcohol and Drug Abuse Patient Records regulations: The Federal rules restrict any use of the information to criminally investigate or prosecute any alcohol or drug abuse patient.[facility] CenterIn the event this information is protected by the Federal Confidentiality of Alcohol and Drug Abuse Patient Records regulations: The Federal rules restrict any use of the information to criminally investigate or prosecute any alcohol or drug abuse patient.[facility] CenterIn the event this information is protected by the Federal Confidentiality of Alcohol and Drug Abuse Patient Records regulations: The Federal rules restrict any use of the information to criminally investigate or prosecute any alcohol or drug abuse patient.[facility] CenterIn the event this information is protected by the Federal Confidentiality of Alcohol and Drug Abuse Patient Records regulations: The Federal rules restrict any use of the information to criminally investigate or prosecute any alcohol or drug abuse patient.[facility] CenterIn the event this information is protected by the Federal Confidentiality of Alcohol and Drug Abuse Patient Records regulations: The Federal rules restrict any use of the information to criminally investigate or prosecute any alcohol or drug abuse patient.[facility] CenterIn the event this information is protected by the Federal Confidentiality of Alcohol and Drug Abuse Patient Records regulations: The Federal rules restrict any use of the information to criminally investigate or prosecute any alcohol or drug abuse patient.[facility] CenterIn the event this information is protected by the Federal Confidentiality of Alcohol and Drug Abuse Patient Records regulations: The Federal rules restrict any use of the information to criminally investigate or prosecute any alcohol or drug abuse patient.[facility] CenterIn the event this information is protected by the Federal Confidentiality of Alcohol and Drug Abuse Patient Records regulations: The Federal rules restrict any use of the information to criminally investigate or prosecute any alcohol or drug abuse patient.[facility] CenterIn the event this information is protected by the Federal Confidentiality of Alcohol and Drug Abuse Patient Records regulations: The Federal rules restrict any use of the information to criminally investigate or prosecute any alcohol or drug abuse patient.[facility] CenterIn the event this information is protected by the Federal Confidentiality of Alcohol and Drug Abuse Patient Records regulations: The Federal rules restrict any use of the information to criminally investigate or prosecute any alcohol or drug abuse patient.[facility] CenterIn the event this information is protected by the Federal Confidentiality of Alcohol and Drug Abuse Patient Records regulations: The Federal rules restrict any use of the information to criminally investigate or prosecute any alcohol or drug abuse patient.[facility] CenterIn the event this information is protected by the Federal Confidentiality of Alcohol and Drug Abuse Patient Records regulations: The Federal rules restrict any use of the information to criminally investigate or prosecute any alcohol or drug abuse patient.[facility] CenterIn the event this information is protected by the Federal Confidentiality of Alcohol and Drug Abuse Patient Records regulations: The Federal rules restrict any use of the information to criminally investigate or prosecute any alcohol or drug abuse patient.[facility] CenterIn the event this information is protected by the Federal Confidentiality of Alcohol and Drug Abuse Patient Records regulations: The Federal rules restrict any use of the information to criminally investigate or prosecute any alcohol or drug abuse patient.[facility] CenterIn the event this information is protected by the Federal Confidentiality of Alcohol and Drug Abuse Patient Records regulations: The Federal rules restrict any use of the information to criminally investigate or prosecute any alcohol or drug abuse patient.[facility] CenterIn the event this information is protected by the Federal Confidentiality of Alcohol and Drug Abuse Patient Records regulations: The Federal rules restrict any use of the information to criminally investigate or prosecute any alcohol or drug abuse patient.[facility] CenterIn the event this information is protected by the Federal Confidentiality of Alcohol and Drug Abuse Patient Records regulations: The Federal rules restrict any use of the information to criminally investigate or prosecute any alcohol or drug abuse patient.[facility] CenterIn the event this information is protected by the Federal Confidentiality of Alcohol and Drug Abuse Patient Records regulations: The Federal rules restrict any use of the information to criminally investigate or prosecute any alcohol or drug abuse patient.[facility] CenterIn the event this information is protected by the Federal Confidentiality of Alcohol and Drug Abuse Patient Records regulations: The Federal rules restrict any use of the information to criminally investigate or prosecute any alcohol or drug abuse patient.[facility] CenterIn the event this information is protected by the Federal Confidentiality of Alcohol and Drug Abuse Patient Records regulations: The Federal rules restrict any use of the information to criminally investigate or prosecute any alcohol or drug abuse patient.[facility] Reason for Visit (unrecogniz ed section and content) Reason Comments Eye Pain Right Eye Specialty Diagnoses / Procedures Referred By Diana lopez Referred To Contact Ophthalmology Diagnoses Eye redness Eye pain, right Procedures CONSULT TO OPHTHALMOLOGY OFFICE/OUTPATIENT NEW HIGH MDM 60-74 MINUTES Leydi Beach PA-C [address] [place] [address] Referral ID Status Reason Start Date Expiration Date V isits Requested Visits Authorized [id number] Closed PCP Requested Referral 10/16/2021 10/16/2022 1 1 Reason Comments Corneal Ulcer Follow Up Reason Comments Telemedicine Reason Comments Acute Visit Reason Comments Results Reason Comments Anxiety Reason Comments Chest Congestion cough and dryness in throat x this am Reason Comments Rash Body rash x5 days Reason Comments Rash Reason Comments Patient Question Reason Comments Rash on hands Reason Onset Date Comments Refill Request 05/07/2022 Reason Comments Opened In Error Reason Comments Dental Problem Reason Comments Follow Up Reason Comments Appointment Reason Onset Date Comments Refill Request 02/04/2023 Reason Comments Recheck Reason Comments Refill Request Reason Comments Back Pain Reason Comments Patient Update Reason Comments Recheck Reason Onset Date Comments Refill Request 10/29/2023 Reason Comments Medication Request Reason Comments ER F/U [facility], palpitation s, doesn't feel the Metoprolol is working Reason Comments Musculoskeletal Problem Reason Comments Sinus Problem Reason Comments Eye Infection Left Eye Reason Onset Date Comments Refill Request 02/01/2024 Reason Comments Follow Up Reason Comments Ear Problem Left ear pressure an d pain, sinus pressure and pain in left side of face, x 1 week Reason Comments Sinusitis Care Teams (unrecognized sec tion and content) Hospice Massage Therapist Relationship Specialty Start Date End Date Bereket Ashley MD [address] [place], [place] [id number] PCP - General Family Practice 02/23/15 Hospice Massage Therapist Relationship Specialty Start Date End Date Bereket Ashley MD [address] [place], [place] [id number] PCP - General Family Practice 02/23/15 Hospice Massage Therapist Relationship Specialty Start Date End Date Bereket Ashley MD [address] [place], [place] [id number] PCP - General Family Practice 02/23/15 Hospice Massage Therapist Relationship Specialty Start Date End Date Bereket Ashley MD [address] [place], [place] [id number] PCP - General Family Practice 02/23/15 Hospice Massage Therapist Relationship Specialty Start Date End Date Bereket Ashley MD [address] [place] [address] PCP - General Family Practice 02/23/15 Hospice Massage Therapist Relationship Specialty Start Date End Date Bereket Ashley MD [address] [place] [address] PCP - General Family Practice 02/23/15 Hospice Massage Therapist Relationship Specialty Start Date End Date Bereket Ashley MD [address] [place] [address] PCP - General Family Medicine 02/23/15 Hospice Massage Therapist Relationship Specialty Start Date End Date Bereket Ashley MD [address] [place] [address] PCP - General Family Medicine 02/23/15 Hospice Massage Therapist Relationship Specialty Start Date End Date Bereket Ashley MD [address] [place] [address] PCP - General Family Medicine 02/23/15 Hospice Massage Therapist Relationship Specialty Start Date End Date Bereket Ashley MD [address] [place] [address] PCP - General Family Medicine 02/23/15 Team Status: Active Member Role Status Dates Dr. Shola Antonio MD Family Provider Active Dr. Bereket Ashley MD Primary Care Provider Active Team Status: Inactive Member Role Status Dates Dr. Breeket Ashley MD Primary Care Provider Active Dr. Michele Daniel DO Emergency Provider Active Hospice Massage Therapist Relationship Specialty Start Date End Date Bereket Ashley MD [address] [place] [address] PCP - General Family Medicine 02/23/15 Hospice Massage Therapist Relationship Specialty Start Date End Date Bereket Ashley MD [address] [place] [address] PCP - General Family Medicine 02/23/15 Team Status: Inactive Member Role Status Dates Dr. Bereket Ashley MD Primary Care Provider Active Dr. Michele Daniel DO Attending Provider, Emergency Provider Active Team Status: Inactive Member Role Status Dates Dr. Bereket Ashley MD Primary Care Provider Active Dr. Mega Agrawal MD Emergency Provider Active Hospice Massage Therapist Relationship Specialty Start Date End Date Bereket Ashley MD [address] [place], [place] [address] PCP - General Family Medicine 02/23/15 Hospice Massage Therapist Relationship Specialty Start Date End Date Bereket Ashley MD [address] [place], [place] [address] PCP - General Family Medicine 02/23/15 Hospice Massage Therapist Relationship Specialty Start Date End Date Bereket Ashley MD [address] [place] [address] PCP - General Family Medicine 02/23/15 Hospice Massage Therapist Relationship Specialty Start Date End Date Bereket Ashley MD [address] [place], [place] [address] PCP - General Family Medicine 02/23/15 Hospice Massage Therapist Relationship Specialty Start Date End Date Bereket Ashley MD [address] [place] [address] PCP - General Family Medicine 02/23/15 Hospice Massage Therapist Relationship Specialty Start Date End Date Bereket Ashley MD [address] [place], [place] [id number] PCP - General Family Medicine 02/23/15 Hospice Massage Therapist Relationship Specialty Start Date End Date Bereket Ashley MD [address] [place], [place] [address] PCP - General Family Medicine 02/23/15 Hospice Massage Therapist Relationship Specialty Start Date End Date Bereket Ashley MD [address] [place], [place] [address] PCP - General Family Medicine 02/23/15 Hospice Massage Therapist Relationship Specialty Start Date End Date Bereket Ashely MD [address] [place] [address] PCP - General Family Medicine 02/23/15 Hospice Massage Therapist Relationship Specialty Start Date End Date Bereket Ashley MD [address] [place] [address] PCP - General Family Medicine 02/23/15 Hospice Massage Therapist Relationship Specialty Start Date End Date Bereket Ashley MD [address] [place] [address] PCP - General Family Medicine 02/23/15 Hospice Massage Therapist Relationship Specialty Start Date End Date Bereket Ashley MD [address] [place] [address] PCP - General Family Medicine 02/23/15 Hospice Massage Therapist Relationship Specialty Start Date End Date Bereket Ashley MD [address] [place] [address] PCP - General Family Medicine 02/23/15 Hospice Massage Therapist Relationship Specialty Start Date End Date Bereket Ashley MD [address] [place], [place] [address] PCP - General Family Medicine 02/23/15 Hospice Massage Therapist Relationship Specialty Start Date End Date Bereket Ashley MD [address] [place], [place] [address] PCP - General Family Medicine 02/23/15 Edith Rivera APRN.CONSOLIDATOR [address] [place] [address] Captain Room Service Family Medicine 05/25/24 Erlinda Sanchez APRN.CONSOLIDATOR [address] [place] [address] [facility] Family Medicine 05/25/24 Hospice Massage Therapist Relationship Specialty Start Date End Date Bereket Ashley MD [address] [place] [address] PCP - General Family Medicine 02/23/15 Edith Rivera APRN.CONSOLIDATOR [address] [place] [address] Captain Room Service Family Medicine 05/25/24 Erlinda Sanchez LEGISLATIVE ASSISTANT.CONSOLIDATOR [address] [place] [address] [facility] Hospice Massage Therapist Relationship Specialty Start Date End Date Bereket Ashley MD [address] [place] [address] PCP - General Family Medicine 02/23/15 Edith Rviera LEGISLATIVE ASSISTANT.CONSOLIDATOR [address] [place] [address] [facility] Room Service Family Medicine 05/25/24 Erlinda Sanchez LEGISLATIVE ASSISTANT.CONSOLIDATOR [address] [place] [address] [facility] 05/25/24 Hospice Massage Therapist Relationship Specialty Start Date End Date Bereket Ashley MD [address] [facility], [place] [address] PCP - General Family Medicine 02/23/15 Edith Rivera, LEGISLATIVE ASSISTANT.CONSOLIDATOR [address] [facility], [place] [address] [facility] 05/25/24 Erlinda Sanchez LEGISLATIVE ASSISTANT.CONSOLIDATOR [address] [facility], [place] [address] [facility] 05/25/24 Hospice Massage Therapist Relationship Specialty Start Date End Date Bereket Ashley MD [address] [place] [address] PCP - General Family Medicine 02/23/15 Edith Rivera, LEGISLATIVE ASSISTANT.CONSOLIDATOR [address] [facility], [place] [address] [facility] 05/25/24 Erlinda Sanchez, LEGISLATIVE ASSISTANT.CONSOLIDATOR [address] [facility], [place] [address] [facility] 05/25/24 Team Status: Active Member Role Status Dates Dr. Bereket Ashley MD Primary Care Provider Active Team Status: Inactive Member Role Status Dates Dr. Bereket Ashley MD Primary Care Provider Active Start: May 20, 2024 End: May 20, 2024 Dr. Bereket Ashley MD Referring Provider Active Start: May 20, 2024 End: May 20, 2024 Josesito HERNÁNDEZ, PA Attending Provider Active Start: May 20, 2024 End: May 20, 2024 Team Status: Inactive Member Role Status Dates Dr. Bereket Ashley MD Primary Care Provider Active Start: June 04, 2024 End: June 04, 2024 Dr. Bereket Ashley MD Referring Provider Active Start: June 04, 2024 End: June 04, 2024 BETTY Lozano Attending Provider Active Sta rt: June 04, 2024 End: June 04, 2024 Team Status: Inactive Member Role Status Dates Dr. Bereket Ashley MD Primary Care Provider Active Start: June 04, 2024 End: June 04, 2024 BETTY Lozano Attending Provider Active Sta rt: June 04, 2024 End: June 04, 2024 BETTY Lozano Referring Provider Active Sta rt: June 04, 2024 End: June 04, 2024 Team Status: Inactive Member Role Status Dates Dr. Bereket Ashley MD Primary Care Provider Active Start: July 03, 2024 End: July 04, 2024 Dr. Darin Bowers DO Attending Provider Active Start: July 03, 2024 End: July 04, 2024 Dr. Darin Bowers DO Emergency Provider Active Start: July 03, 2024 End: July 04, 2024 Team Status: Inactive Member Role Status Dates Dr. Bereket Ashley MD Primary Care Provider Active Start: September 05, 2024 End: September 05, 2024 Dr. Carmen Rivera DO Emergency Provider Active S tart: September 05, 2024 End: September 05, 2024 Hospice Massage Therapist Relationship Specialty Start Date End Date Bereket Ashley MD [address] [place] [address] PCP - General Family Medicine 02/23/15 Edith Rivera, LEGISLATIVE ASSISTANT.CONSOLIDATOR [address] [facility], [place] [address] [facility] Family Medicine 05/25/24 Erlinda Sanchez LEGISLATIVE ASSISTANT.CONSOLIDATOR [address] [facility], [place] [address] [facility] 05/25/24 Hospice Massage Therapist Relationship Specialty Start Date End Date Bereket Ashley MD [address] [place] [address] PCP - General Family Medicine 02/23/15 Edith Rivera APRN.CONSOLIDATOR [address] [place], [place] [address] [facility] 05/25/24 Erlinda Sanchez APRN.CONSOLIDATOR [address] [place] [address] [facility] 05/25/24 Hospice Massage Therapist Relationship Specialty Start Date End Date Bereket Ashley MD [address] [place], [place] [address] PCP - General Family Medicine 02/23/15 Edith Rivera APRN.CONSOLIDATOR [address] [place] [address] [facility] 05/25/24 Erlinda Sanchez APRN.CONSOLIDATOR [address] [place], [place] [address] [facility] 05/25/24 INFORMATION SOURCE (unrecogn ized section and content) DATE CREATED AUTHOR 09/15/2024 [facility] DATE CREATED AUTHOR AUTHOR'S ANAHI ATJEROD 02/10/2025 [facility] FOR RECORDS PERTAINING TO PATIENTS WHO ARE OR HAVE BEEN ENROLLED IN A CHEMICAL DEPENDENCY/SUBSTANCEABUSE PROGRAM, SOME INFORMATION MAY BE OMITTED. This clinical summary was aggregated from multiple sources. Caution should be exercised in using it in the provision of clinical care. This summary normalizes information from multiple sources, and as a consequence, information in this document may materially change the coding, format and clinical context of patient data. In addition, data may be omitted in some cases. CLINICAL DECISIONS SHOULD BE BASED ON THE PRIMARY CLINICAL RECORDS. [facility]. provides no warranty or guarantee of the accuracy or completeness of information in this document.
--- NOTE | 2025-03-07 20:53 | EKG12_ITS ---
Test Reason : DYSRHYTHMIA Blood Pressure : */* mmHG Vent. Rate : 96 BPM Atrial Rate : 96 BPM P-R Int : 118 ms QRS Dur : 86 ms QT Int : 350 ms P-R-T Axes : 76 77 2 degrees QTcB Int : 442 ms Normal sinus rhythm Nonspecific ST and T wave abnormality Abnormal ECG Confirmed by NORMA CHAPARRO, MIKE ([id number]), assistant editor EDIE OGDEN ([id number]) on 03/08/2025 7:59:59 AM Referred By: ELISA Confirmed By: MIKE GREEN MD
[2025-03-07 21:47] LABS: Anion Gap 10 (5-15); BUN 7 mg/dL (4-19); BUN/Creat Ratio 10.8 RATIO (10-20); Calcium,Total 9.5 mg/dL (7.6-11.0); Carbon Dioxide 23.8 mmol/L (21.0-32.0); Chloride 104 mmol/L (98-108); Estimated Creatinine Clearance 87.75 ml/min (50-250); Glucose 88 mg/dL (70-99); Potassium 4.0 mmol/L (3.3-5.1)
--- NOTE | 2025-03-07 22:18 | EX.ED.DYSGE1 ---
HPI History of Present Illness Chief Complaint: General Illness Detail of Chief Complaint: Heart rate up to 170 or 15 minutes Informant: patient Onset/Context/Timing Onset: Today Context: Sudden Onset Timing: Intermittent Quality: Heart rate increased at rest from 120. When she stood up it went to 170. Location: Cardiovascular Current Severity: Mild Maximum Severity: Moderate Worsened by: Nothing specific Relieved by: nothing Associated Symptoms Associated Symptoms: Lightheadedness when she was standing and heart rate was 170 Narrative Narrative: Patient is a 39-year-old woman. Her recent Holter monitor revealed PSVT. Patient reported heart rate of 120. She has an stephen that notified her that her heart rate was elevated. She does not have a heart tracing. When she stood up her heart rate went up to 170. She states this episode lasted 15 minutes. Her primary care physician is Dr. Schulte. Her commercial shrimping captain Dr. Tristen Walker. She did have a table tilt test that was negative. She apparently has a history of POTS. She presently has no symptoms. She did take her metoprolol tablet. She takes metoprolol as needed. This was recommended by Dr. Ricky Liang who was her commercial shrimping captain and has since retired. She has not seen him since 2013. Presently patient's heart rate is normalized. Furthermore she has no symptoms. Prior similar symptoms: Yes Recent Illness/Hospitalization: No PFSH PFSH Medical History Hx of bacterial pneumonia Pulmonary infiltrate COVID-19 (07/01/21) IBS (irritable bowel syndrome) Herpes Herpes Limited care History of stillbirth premature rupture of membranes (PPROM) with unknown onset of labor 34 weeks gestation of Home Medications ?Medication ?Instructions ?Recorded ?Last Taken ?Type sertraline 100 mg tablet 150 mg PO QHS anxiety 08/23/21 Unknown History metoprolol succinate 25 mg 12.5 mg PO DAILY PRN elevated 11/04/23 Unknown History tablet,extended release 24 hr heart rate alprazolam 0.25 mg tablet (Xanax) 0.25 mg PO QHS PRN anxiety 05/20/24 Unknown History albuterol sulfate 90 mcg/actuation 2 puff inhalation Q6H PRN 06/04/24 Unknown Rx aerosol inhaler shortness of breath or wheezing #6.7 grams Allergy/AdvReac Type Severity Reaction Status Date / Time venom-honey bee Allergy Unknown swelling Verified 03/07/25 19:54 Family History Mother Diabetes Father Schizoaffective disorder Grandmother Hypertension Diabetes Grandfather Myocardial infarction Grandmother Hypertension Grandfather Cancer lung Surgical History History of dilatation and curettage Social History Smoking Status: Current every day smoker tobacco type: cigarettes alcohol intake: never substance use type: does not use ROS ROS ED Constitutional Constitutional ED: Denies chills, fever(s), subjective or sweats Eyes Eyes: Denies blurry vision, change in vision or diplopia ENT ENT ED: Reports rhinorrhea; Denies ear pain or sore throat Cardiovascular Cardiovascular: Reports palpitations and racing heartbeat; Denies chest pain or orthopnea Respiratory/Chest Respiratory/Chest: Denies cough, dyspnea, dyspnea on exertion or orthopnea Gastrointestinal Gastrointestinal: Denies abdominal pain, diarrhea or vomiting Genitourinary Genitourinary ED: Denies dysuria, hematuria or urinary frequency Musculoskeletal Musculoskeletal: Denies back pain Integumentary Denies rash Neurologic Neurologic: Reports other Details: Orthostatic lightheadedness ; Denies headache(s), paresthesias or weakness Endocrine Endocrinology: Denies cold intolerance or heat intolerance Hematologic/Lymphatic Hematologic/Lymphatic: Reports systems reviewed and no addt'l complaints, except as documented EXAM Physical Exam Const Vital Signs: 03/07/25 19:51 03/07/25 19:56 03/07/25 22:29 Temperature 98.6 F Temperature Source Oral Pulse Rate 106 H 89 Respiratory Rate 19 H 16 Respiratory Pattern Normal Blood Pressure 120/63 93/61 Blood Pressure Mean 82 71 Pulse Ox 100 98 Oxygen Delivery Method Room Air Room Air Vital signs remarkable for tachycardia with a rate of 106. Monitor revealed a rate of 100. Positive well nourished and well developed General Appearance ED: well developed and NAD; Negative for pallor Eyes PERRL and EOMs intact bilaterally General Eye ED: Negative for pale conjunctiva or scleral icterus Neck supple and no JVD Resp normal respiratory effort and clear to auscultation bilaterally Cardio regular rate, regular rhythm, S1 normal heart sound, S2 normal heart sound and no murmurs GI normal to inspection, nondistended, normoactive bowel sounds, non-tender and non-distended; Negative for hepatosplenomegaly Extremity normal to inspection General Extremety ED: Negative for edema or tenderness General Extremity: Negative for edema Neuro oriented x3, CN's II-XII intact bilaterally and no sensory deficits noted Motor Exam: strength 5/5 throughout Psych mental status grossly normal Skin no rashes or lesions noted, no wounds and skin turgor normal General Skin Exam: elasticity normal; Negative for jaundice or pallor MDM MDM MDM Narrative Medical decision making narrative: Suspect patient had episode of PSVT in light of the fact she had it recent Holter monitor that revealed PSVT. Electrolytes were obtained to assess potassium. Prior records were reviewed. Last visit for tachycardia was February 23, 2022. She was seen by Diana Gilmore at that time. She has not seen Dr. Walker since August 2021. She was diagnosed at that time of postural orthostatic tachycardia syndrome. The Holter monitors were done through the [facility]. Lab Data Attestation: I reviewed the patient's lab results. Lab results narrative: Unremarkable. Labs: Laboratory Results - last 24 hr 03/07/25 21:13 Sodium 138 Potassium 4.0 Chloride 104 Carbon Dioxide 23.8 Anion Gap 10 BUN 7 Creatinine 0.64 L Estim Creat Clear Calc 87.75 Est GFR (MDRD) Non-Af 115 BUN/Creatinine Ratio 10.8 Glucose 88 Calcium 9.5 Treatment and Re-Evaluation :: Results were discussed with patient. She was instructed to take the metoprolol as prescribed which is one half 25 mg tablet twice a day. Also recommending contacting Dr. Baez's office for follow-up. Discharge Plan Triage Chief Complaint: General Illness ED Provider: Oswaldo Ryan Dx/Rx/DC Orders Clinical Impression: Paroxysmal supraventricular tachycardia, Tobacco abuse Instructions: ED Understanding Supraventricular Tachycardia (SVT) Prescriptions: No Action alprazolam [Xanax] 0.25 mg tablet 0.25 mg PO QHS PRN (Reason: anxiety) albuterol sulfate 90 mcg/actuation HFA aerosol inhaler 2 puff inhalation Q6H PRN (Reason: shortness of breath or wheezing) Qty: 6.7 0RF sertraline 100 mg tablet 150 mg PO QHS metoprolol succinate 25 mg tablet extended release 24 hr 12.5 mg PO DAILY PRN (Reason: elevated heart rate) Patient Comments: pt states she takes when resting HR >110 and standing HR >120 Primary Care Provider: Bereket Schulte Referrals: Tristen Walker MD [Med Staff - Active Staff, Cardiology] - As soon as possible Bereket Schulte MD [Primary Care Provider, Medical] Activity Restrictions/Additional Instructions: Take the metoprolol he was prescribed as instructed. You need to take it daily and not as needed Print Language: Beninese Disposition Disposition: Home, Self Care
[2025-03-07 22:29] VITALS: BP 93/61; PULSE 89; RESP 16; O2SAT 98
[2025-03-07 22:51] VITALS: BP 96/65; PULSE 92; RESP 18; TEMP 37.1; O2SAT 100
== END 2025-03-07 22:52 | disposition home or self-care (01) ==
PROVIDERS: Emergency Provider Emergency Medicine; PCP Family Medicine; Visit Provider Emergency Medicine
DX: I47.10 Supraventricular tachycardia, unspecified (principal); F17.210 Nicotine dependence, cigarettes, uncomplicated
CPT/HCPCS: 80048; 93005; 99285; A4216